=== PATIENT | female | born 1955 | race Caucasian/White ===

== ENCOUNTER 2019-12-01 06:35 | Day surgery (SDC) | payer OTHER ==
--- NOTE | 2019-11-30 16:37 | RAD REPORT ---
EXAM DESCRIPTION: Rik Rubio (2 Views)11/30/2019 4:31 pm CLINICAL HISTORY: Preop for heart catheterization COMPARISON: None FINDINGS: The lungs appear clear of acute infiltrate. The heart is normal size IMPRESSION: No acute abnormalities displayed
[2019-11-30 16:52] LABS: Absolute Lymphocytes (CBC) 1.3 K/uL (0.7-4.9); Basophils % 1.3 % (0-1.3); Hematocrit 40.9 % (36.0-45.0); Lymphocytes % 26.6 % (15.3-44.8); MPV 9.9 fL (7.6-11.3); Protime INR 0.93; RBC Red Blood Cell Count 4.32 M/uL (3.86-4.86)
[2019-11-30 16:55] LABS: Potassium 3.7 mmol/L (3.5-5.1)
--- OUTSIDE RECORDS SUMMARY | 2019-12-01 06:37 | XMS REPORT ---
:1955 Author Organization eClinicalWorks Care Team Providers Name Role Phone Sarah Barrios Provider Role Unavailable Allergies No Known Allergies Problems Problem Type Condition Code Onset Dates Condition Status Assessment Essential hypertension I10 Active Assessment Peripheral polyneuropathy G62.9 Active Problem History of bilateral mastectomy Z90.13 Active Problem History of lung cancer Z85.118 Active Problem History of breast cancer Z85.3 Active Problem Depression F32.9 Active Problem Osteoporosis M81.0 Active Problem Anxiety F41.9 Active Problem Polyarthralgia M25.50 Active Problem Peripheral edema R60.9 Active Problem Morbid (severe) obesity due to E66.01 Active excess calories Problem Morbid obesity E66.01 Active Problem History of anemia Z86.2 Active Problem Dry eyes H04.123 Active Problem Body mass index (BMI) of 45.0-49.9 Z68.42 Active in adult Problem Neck pain M54.2 Active Problem Other chronic pain G89.29 Active Problem Sinus problem J34.9 Active Problem Chronic pain syndrome G89.4 Active Problem Colon cancer screening Z12.11 Active Problem Depression with anxiety F41.8 Active Problem Skin lesions L98.9 Active Problem Foot callus L84 Active Problem Pain in right shoulder M25.511 Active Problem Pain in left shoulder M25.512 Active Problem Hypertension, unspecified type I10 Active Problem Chronic gout without tophus, M1A.9XX0 Active unspecified cause, unspecified site Problem Cancer C80.1 Active Problem Peripheral polyneuropathy G62.9 Active Problem Essential hypertension I10 Active Problem Elevated serum creatinine R79.89 Active Problem Osteoporosis without current M81.0 Active pathological fracture, unspecified osteoporosis type Problem High blood pressure I10 Active Medications Medication Code Code Instructions Start End Status Dosage System Date Date Gabapentin ND 62164996931 300 MG Orally Active 2 capsules Once a day Losartan ND 62428324167 50 MG Orally Active 1 tablet Potassium Once a day Results No Known Results Summary Purpose eClinicalWorks Submission
--- OUTSIDE RECORDS SUMMARY | 2019-12-01 06:37 | XMS REPORT ---
:1955 Author Organization eClinicalWorks Care Team Providers Name Role Phone Sophie Sarah Provider Role Unavailable Allergies, Adverse Reactions, Alerts Substance Reaction Event Type Demerol Info Not Available Drug Allergy Problems Problem Type Condition Code Onset Dates Condition Status Problem Depression F32.9 Active Problem Anxiety F41.9 Active Problem Morbid obesity E66.01 Active Problem Osteoporosis M81.0 Active Problem Sinus problem J34.9 Active Problem Cancer C80.1 Active Problem Polyarthralgia M25.50 Active Problem Depression with anxiety F41.8 Active Problem Chronic pain syndrome G89.4 Active Problem Peripheral polyneuropathy G62.9 Active Problem Foot callus L84 Active Problem Pain in left shoulder M25.512 Active Problem Hypertension, unspecified type I10 Active Problem Pain in right shoulder M25.511 Active Problem Neck pain M54.2 Active Problem Other chronic pain G89.29 Active Problem Palpitations R00.2 Active Problem Vitamin D deficiency E55.9 Active Problem High blood pressure I10 Active Problem Osteoporosis without current M81.0 Active pathological fracture, unspecified osteoporosis type Assessment Hypercholesterolemia E78.00 Active Problem Shortness of breath R06.02 Active Problem Chronic gout without tophus, M1A.9XX0 Active unspecified cause, unspecified site Assessment Shortness of breath R06.02 Active Problem Hypercholesterolemia E78.00 Active Assessment Palpitations R00.2 Active Problem Colon cancer screening Z12.11 Active Assessment Tachycardia R00.0 Active Problem Tachycardia R00.0 Active Assessment Lymphedema I89.0 Active Problem Lymphedema I89.0 Active Problem History of breast cancer Z85.3 Active Problem Morbid (severe) obesity due to E66.01 Active excess calories Problem History of bilateral mastectomy Z90.13 Active Problem History of anemia Z86.2 Active Problem Elevated serum creatinine R79.89 Active Problem History of lung cancer Z85.118 Active Problem Essential hypertension I10 Active Assessment Need for influenza vaccination Z23 Active Problem Skin lesions L98.9 Active Assessment Vitamin D deficiency E55.9 Active Problem Dry eyes H04.123 Active Problem Peripheral edema R60.9 Active Problem Body mass index (BMI) of 45.0-49.9 Z68.42 Active in adult Medications Medication Code Code Instructions Start End Status Dosage System Date Date Lasix [facility] 86433777106 20 mg Orally Active 1 tablet Once a day as needed for leg swelling BusPIRone HCl [facility] 87518050561 15 MG Orally Active 1-1/2 Once a day tablets Magnesium [facility] 23566568969 400 MG Orally Active as directed Losartan [facility] 89791820543 50 MG Orally Active 1 tablet Potassium Once a day Sertraline HCl [facility] 26222056098 100 mg Orally Active 1 tablet Once a day Sertraline HCl [facility] 38348377654 50 MG Orally Active 1 tablet Once a day Vitamin D [facility] 53792503666 1.25 MG (Oct 13, Jan 11, Active 1 capsule (Ergocalciferol [place]) Orally Once 2018 2019 ) weekly Gabapentin [facility] 85979813041 300 MG Orally Active 2 capsules Once a day Hydrocodone-Ernesto [facility] 94435769246 5-325 MG Orally Active 1 tablet as taminophen every 6 hrs needed Allopurinol [facility] 69277018476 100 mg Orally Active 1 tablet Once a day Lorazepam [facility] 88404515477 1 MG Orally Active 1 tablet at Once a day bedtime as needed Results No Known Results Immunizations Vaccine Administration Date Flucelvax - single dose syringe Oct 13, 2019 Summary Purpose eClinicalWorks Submission
--- OUTSIDE RECORDS SUMMARY | 2019-12-01 06:38 | XMS REPORT ---
[...] Active pathological fracture, unspecified osteoporosis type Problem Shortness of breath R06.02 Active Problem Chronic gout without tophus, M1A.9XX0 Active unspecified cause, unspecified site Problem Hypercholesterolemia E78.00 Active Problem Colon cancer screening Z12.11 Active Problem Tachycardia R00.0 Active Problem Lymphedema I89.0 Active Problem History of breast cancer Z85.3 Active Problem Morbid (severe) obesity due to E66.01 Active excess calories Problem History of bilateral mastectomy Z90.13 Active Problem History of anemia Z86.2 Active Problem Elevated serum creatinine R79.89 Active Problem History of lung cancer Z85.118 Active Problem Essential hypertension I10 Active Problem Skin lesions L98.9 Active Problem Dry eyes H04.123 Active Problem Peripheral edema R60.9 Active Problem Body mass index (BMI) of 45.0-49.9 Z68.42 Active in adult Medications Medication Code System Code Instructions Start Date End Date Status Dosage Furosemide [facility] 55640220025 20 MG Oral Jul 09, Active TK 1 T PO D 2018 PRF LEG SWELLING Results No Known Results Summary Purpose eClinicalWorks Submission
--- OUTSIDE RECORDS SUMMARY | 2019-12-01 06:38 | XMS REPORT ---
[...] of 45.0-49.9 Z68.42 Active in adult Medications No Known Medications Results No Known Results Summary Purpose eClinicalWorks Submission
--- OUTSIDE RECORDS SUMMARY | 2019-12-01 06:38 | XMS REPORT ---
:1955 Author Organization eClinicalWorks Care Team Providers Name Role Phone Sarah Barrios Provider Role Unavailable Allergies No Known Allergies Problems Problem Type Condition Code Onset Dates Condition Status Problem Osteoporosis M81.0 Active Problem Depression F32.9 Active Problem Sinus problem J34.9 Active Problem Morbid obesity E66.01 Active Problem Cancer C80.1 Active Problem Polyarthralgia M25.50 Active Problem Depression with anxiety F41.8 Active Problem Chronic pain syndrome G89.4 Active Problem Peripheral polyneuropathy G62.9 Active Problem Hypertension, unspecified type I10 Active Problem Pain in left shoulder M25.512 Active Problem Pain in right shoulder M25.511 Active Problem Chronic gout without tophus, M1A.9XX0 Active unspecified cause, unspecified site Problem Other chronic pain G89.29 Active Problem Colon cancer screening Z12.11 Active Problem Neck pain M54.2 Active Problem Shortness of breath R06.02 Active Problem Palpitations R00.2 Active Problem Elevated serum creatinine R79.89 Active Problem High blood pressure I10 Active Assessment Chronic pain syndrome G89.4 Active Problem Venous insufficiency (chronic) I87.2 Active (peripheral) Problem Osteoporosis without current M81.0 Active pathological fracture, unspecified osteoporosis type Assessment Shortness of breath R06.02 Active Problem Lymphedema I89.0 Active Assessment Lymphedema I89.0 Active Problem Hypercholesterolemia E78.00 Active Assessment Venous insufficiency (chronic) I87.2 Active (peripheral) Problem Vitamin D deficiency E55.9 Active Assessment Morbid obesity E66.01 Active Problem Tachycardia R00.0 Active Problem History of bilateral mastectomy Z90.13 Active Problem Morbid (severe) obesity due to E66.01 Active excess calories Problem Anxiety F41.9 Active Problem History of anemia Z86.2 Active Problem History of lung cancer Z85.118 Active Problem Essential hypertension I10 Active Problem History of breast cancer Z85.3 Active Problem Body mass index (BMI) of 45.0-49.9 Z68.42 Active in adult Assessment Polyarthralgia M25.50 Active Problem Dry eyes H04.123 Active Problem Foot callus L84 Active Problem Peripheral edema R60.9 Active Problem Skin lesions L98.9 Active Medications No Known Medications Results No Known Results Summary Purpose eClinicalWorks Submission
[2019-12-01] MEDS ORDERED: LIDOCAINE 1% MPF 30 ML VIAL ONE (06:42)
[2019-12-01] MEDS ORDERED: HEPA 1000U/500MLS 1,000 UNIT/500 ML BAG IV ONE (06:42)
--- NOTE | 2019-12-01 06:46 | EKG ---
Test Date: 2019-11-30 Test Time: 15:56:55 Bead Cutter: GILDA MEASUREMENT RESULTS: Intervals: Rate: 73 OR: 146 QRSD: 84 QT: 390 QTc: 429 [place]: P: 37 OR: 146 QRS: 48 T: 46 INTERPRETIVE STATEMENTS: Normal sinus rhythm Normal ECG Compared to ECG 06/03/2019 14:06:09 ST (T wave) deviation no longer present Electronically Signed On 12-01-19 06:45:06 LEAD RAMP AGENT by Manolo Boles
[2019-12-01] MEDS ORDERED: NA CHLORIDE 0.9% 500 ML ONE (07:01)
[2019-12-01] MEDS ORDERED: MIDAZOLAM HCL 5 MG/5 ML INJ ONE (07:40)
[2019-12-01] MEDS ORDERED: FENTANYL CITR 100 MCG/2 ML ONE (07:40)
[2019-12-01] MEDS ORDERED: ATROPINE SULF 1 MG/10 ML SYR IV ONE (07:41)
[2019-12-01] MEDS ORDERED: NA CHLORIDE 0.9% 0 ML IV ONE (07:41)
[2019-12-01 08:28] VITALS: TEMP 98.3
[2019-12-01 08:38] VITALS: O2SAT 99
[2019-12-01 09:53] VITALS: BP 128/37
--- NOTE | 2019-12-01 13:27 | OP ---
Date of Procedure: 12/01/2019 Surgeon: Manolo Boles MD High School Counselor: Pastora Bolton. The patient will be going home today and I will see her in the office in about 2 weeks. Procedure: Left heart catheterization and selective coronary arteriogram. Indication: Chest pain, unstable angina, abnormal stress test. History Of Present Illness: Ms. Jansen is 64. She was brought to the agriculture laboratory technician today as an outpatient, prepped and draped in the routine sterile fashion. A 6-Divehi sheath introduced in the right common femoral artery successfully. Angiography there was normal. Angio-Seal was used to close the case. She received 3 mg of Versed and 25 of fentanyl for sedation. Six-Divehi catheters, Clarence left and right were introduced in the left main and the right main respectively. She had perfectly normal co ronaries. Left main was normal. LAD, circumflex were normal. She was left dominant. RCA was small and normal. There were no complications. Blood Loss: 5 mL. Postoperative Diagnosis: Normal coronary with chest pain syndrome. Plan: To continue medical therapy. BRENDA/SAL Voice ID: [id number] Report ID: [id number]
== END 2019-12-01 10:15 | disposition home or self-care (01) ==
LOC: CCL 06:35
PROC: B201YZZ Plain Radiography of Multiple Coronary Arteries using Other Contrast (ICD-10-PCS; principal; 2019-12-01)
DX: I20.0 Unstable angina (principal); R06.00 Dyspnea, unspecified; R00.2 Palpitations; I10 Essential (primary) hypertension; G62.9 Polyneuropathy, unspecified; M10.9 Gout, unspecified; E66.9 Obesity, unspecified; G47.30 Sleep apnea, unspecified; Z85.3 Personal history of malignant neoplasm of breast; Z85.118 Personal history of other malignant neoplasm of bronchus and lung; Z86.711 Personal history of pulmonary embolism
CPT/HCPCS: 93005; 85025; 80048; 36415; 85610; 85730; 71046; 93454; C1893; C1760; J2250; J3010; J7040; J0583

== ENCOUNTER 2021-04-02 15:50 | Emergency (ER) | payer OTHER ==
--- OUTSIDE RECORDS SUMMARY | 2021-04-02 15:53 | XMS REPORT | Continuity of Care Document ---
:1955 Author Organization [facility] t Address [address] [place] [address] Care Team Providers Name Role Phone Wiliam Becker Attending Clinician Doctor Unassigned, Name Attending Clinician Unavailable Christiana Quezada Attending Clinician Problems Condition Condition Condition Status Onset Resolution Last Treating Co mments Source Name Details Category Date Date Treatment Clinician Date LYMPHEDEMA Diagnosis Active 2020-02-06 [facility] 01-29 14:23:00 l 00:00: Oleg LYMPHEDEMA 00 Active 01/30/2020 [facility] Allergies, Adverse Reactions, Alerts Allergy Allergy Status Severity Reaction(s) Onset Inactive Treating Comm ents Source Name Type Date Date Clinician Demerol Adverse Active Info Not [facility] Reaction [facility] levaquin Adverse Active Info [facility] Medications Ordered Filled Start Stop Current Ordering Indication Dosage Frequency Signature Comments Components Source Medication Medication Date Date Medication? Clinician (SIG) Name Name Vitamin D Vitamin D Yes Sarah (otc) [address] [facility] 2[facility] capsule [facility] Furosemide Furosemide Yes Sarah TK [address] [facility] 8[facility]17 [place] D PRF LEG [facility] Sertraline Sertraline Yes Sarah [address] [facility] HCl HCl Mill[facility] (take with Luke [facility] - sertraline [facility] 100 mg) [facility] BusPIRone BusPIRone Yes Sarah 1-1/[address] [facility] HCl HCl [place] tablet as [facility] needed for [facility] anxiety [facility] Lasix Lasix Yes Sarah [address] [facility] Mill[facility] Magnesium Magnesium Yes Sarah as [facility] directed [facility] Gabapentin Gabapentin Yes Sarah as [facility] Hydrocodone Hydrocodone Yes Sarah [address] [facility] -Acetaminop -Acetaminop [facility] as [facility] Lorazepam Lorazepam Yes Sarah [address] [facility] Millender at bedtime [facility] - as needed [facility] Losartan Losartan Yes Sarah [address] [facility] Potassium Potassium [facility] Sertraline Sertraline Yes Sarah [address] [facility] HCl HCl [facility] Allopurinol Allopurinol 2020- No Sarah [address] [facility] 11[facility]15 Mill[facility] Immunizations Ordered Filled Immunization Date Status Comments [facility] e Immunization Name Name Flucelvax - single Flucelvax - single 2019-10-[address] [facility] - dose syringe dose syringe 00:00:00 [facility] Procedures This patient has no known procedures. Encounters Start End Encounter Admission Attending Care Care Encounter Source Date/Time Date/Time Type Type Clinicians Facility Department ID 2021-03-28 2021-03-28 Outpatient [facility] [id number] [facility] 2021-03-28 2021-03-28 Outpatient [facility] [id number] [facility] 2021-03-11 2021-03-11 Outpatient [facility] [id number] [facility] 2021-03-07 2021-03-07 [facility] [id number] [facility] 2021-03-06 2021-03-06 [facility] [id number] [facility] 2021-02-07 2021-02-07 Out[facility] [id number] [facility] 2021-02-05 2021-02-05 [facility] [id number] [facility] 2021-02-05 2021-02-05 [facility] [id number] [facility] 2021-02-04 2021-02-04 [facility] [id number] [facility] 2021-01-28 2021-01-28 Out[facility] [id number] [facility] 2021-01-22 2021-01-22 Out[facility] [id number] [facility] 2021-01-22 2021-01-22 Out[facility] [id number] [facility] 2021-01-02 2021-01-02 [facility] [id number] 14:45:00 23:59:00 Mary Prince [id number] [place] [id number] [place] [id number] 2021-01-02 2021-01-02 Gerri GRIFFITH [id number] 00:00:00 00:00:00 Only Unassigned, ALE [id number] [place] [facility] [id number] 2020-12-04 2020-12-04 [id number] 2020-08-29 2020-08-29 [facility] [id number] [facility] 2020-08-24 2020-08-24 [facility] [id number] [facility] 2020-05-24 2020-05-24 [facility] [id number] [facility] 15:20:00 15:20:00 [facility] Clin[facility] 2020-02-06 2020-03-06 Outpatient [facility] [id number] 14:00:00 23:59:00 Andrzej Villeda 00 2020-02-06 2020-03-06 Outpatient Damien [facility] [id number] 14:00:00 23:59:00 Andrzej Villeda 00 2020-02-06 2020-02-06 Outpatient [facility] 9600 [facility] 14:00:00 14:00:00 2020-01-11 2020-01-11 [facility] [id number] [facility] 11:45:00 11:45:00 [facility] Clinics 2020-01-10 2020-01-10 [facility] [id number] [facility] 14:30:00 14:30:00 [facility] Clin[facility] 2020-01-09 2020-01-09 [facility] [id number] [facility] 13:30:00 13:30:00 t Specialty/U Silvana kes - [facility] 2019-12-26 2019-12-26 [facility] [id number] [facility] 11:05:00 11:05:00 t [facility] Outpat[facility] Clinics 2019-11-13 2019-11-13 [facility] [id number] [facility] 13[facility]57:00 13:57:00 t [facility] 2019-10-18 2019-10-18 [facility] [id number] [facility] 16:57:00 16:57:00 t [facility] Outpat[facility] Clin[facility] 2019-10-13 2019-10-13 [facility] [id number] 23:20:00 23:20:00 t [facility] Outpati ent Clinics 2019-10-13 2019-10-13 [facility] [id number] [facility] 15:00:00 15:00:00 t [facility] Out[facility] Clin[facility] 2019-08-16 2019-08-16 [facility] [id number] [facility] 13:34:00 13:34:00 t [facility] Outpati ent Clinics 2019-07-22 2019-07-22 [facility] [id number] [facility] 14:00:00 14:00:00 t [facility] Out[facility] Clin[facility] 2019-07-18 2019-07-18 [facility] [id number] [facility] 20:00:00 20:00:00 t [facility] 2019-07-14 2019-07-14 [facility] [id number] [facility] 13:00:00 13:00:00 t [facility] 2019-06-29 2019-06-29 [facility] [id number] [facility] 11:57:00 11:57:00 t [facility] Out[facility] Clin[facility] 2019-03-24 2019-03-24 [facility] [id number] [facility] 21:45:00 21:45:00 t [facility] Medicine Outpati ent Clinics 2019-03-24 2019-03-24 [facility] [id number] [facility] 14:27:00 14:27:00 [facility] Clin[facility] 2019-03-22 2019-03-22 [facility] [id number] [facility] 13:20:00 13:20:00 [facility] Out[facility] Clin[facility] 2019-03-21 2019-03-21 [facility] [id number] [facility] 09:12:00 09:12:00 [facility] Out[facility] Clinics 2019-01-31 2019-01-31 [facility] [id number] [facility] 13:23:00 13:23:00 t [facility] Medicine Outpati ent Clinics 2019-01-17 2019-01-17 [facility] [id number] [facility] 10:30:00 10:30:00 [facility] Clin[facility] 2018-12-22 2018-12-22 [facility] [id number] [facility] 09:09:00 09:09:00 [facility] Out[facility] Clin[facility] 2018-12-15 2018-12-15 [facility] [id number] [facility] 11:45:00 11:45:00 t [facility] Medicine Outpati ent Clinics 2018-12-09 2018-12-09 [facility] [id number] [facility] 10[facility]38:00 10:38:00 [facility] Clinics Results This patient has no known results.
--- NOTE | 2021-04-02 17:52 | RAD REPORT ---
EXAM DESCRIPTION: Shoulder Right 2 View - 04/02/2021 5:39 pm CLINICAL HISTORY: PAINfall with shoulder pain COMPARISON: Shoulder Right 2 View dated 07/18/2019 TECHNIQUE: Internal and external rotation views of the right shoulder were obtained. FINDINGS: There is no fracture or dislocation. AC joint degenerative changes are present with narro wing of the acromial humeral joint space and inferiorly directed clavicle and acromion spurs. No acut e or suspicious findings. IMPRESSION: Right AC joint and acromion degenerative change as detailed. No fracture or dislocation.
--- NOTE | 2021-04-02 17:53 | RAD REPORT ---
EXAM DESCRIPTION: RAD - Elbow Left 3 View - 04/02/2021 5:39 pm CLINICAL HISTORY: PAIN COMPARISON: None. FINDINGS: No fracture is identified and no elevated posterior fat pad. There is no dislocation or pe riosteal reaction noted. Minimal degenerative spurring along the radial head. No foreign body or othe r soft tissue abnormality. IMPRESSION: Negative left elbow examination for acute or significant finding.
--- NOTE | 2021-04-02 17:55 | RAD REPORT ---
EXAM DESCRIPTION: RAD - Femur Right - 04/02/2021 5:39 pm CLINICAL HISTORY: PAIN, fall from a standing position COMPARISON: No comparisons FINDINGS: No fracture, dislocation or periosteal reaction noted. The joint assessment is limited by the extent of overlying soft tissues. Medial compartment narrowing at the knee joint with marginal spurring. There is spurring along the ti bial spine and minimal spurring in the lateral compartment. No joint effusion confirmed. No acute pat colette finding. No air or foreign body in the soft tissues. IMPRESSION: Knee joint degenerative change present as detailed. No hip joint or femur fracture seen. Hip joint detail is limited due to body habitus.
--- NOTE | 2021-04-02 17:57 | RAD REPORT ---
EXAM DESCRIPTION: RAD - Knee Right 3 View - 04/02/2021 5:39 pm CLINICAL HISTORY: PAINfall with knee pain COMPARISON: Knee Right 2 View dated 02/04/2021; Knees Mario Alberto Standing dated 02/04/2021 FINDINGS: No fracture, dislocation or periosteal reaction.No joint effusion seen. Medial compartment narrowing is present with marginal spurring. This pattern matches the recent February 04 study. Margina l spurring at patella noted as well. No foreign body or other soft tissue abnormality. IMPRESSION: Knee joint degenerative changes are present similar to comparison. No acute findings see n.
--- NOTE | 2021-04-02 17:57 | RAD REPORT ---
EXAM DESCRIPTION: RAD - Pelvis - 04/02/2021 5:39 pm CLINICAL HISTORY: fall, pain COMPARISON: No comparisons TECHNIQUE: AP imaging of the pelvis was obtained. FINDINGS: Lower lumbar degenerative change present only partially evaluated. Moderate SI joint degen erative change seen. No fracture of the bony pelvis seen. Each ischium is excluded from view. Density of overlying soft tissues limits the examination. IMPRESSION: Limited pelvis examination showing no fracture or acute finding.
--- NOTE | 2021-04-02 18:07 | ER ---
Nurse's Notes [facility] Name: Jeanine Jansen Age: 65 yrs Sex: Female : 1955 Arrival Date: 04/02/2021 Time: 15:58 Bed 5 Private MD: Diagnosis: Contusion of right shoulder;Contusion of right hip;Contusion of right knee Presentation: 04/02 15:58 Chief complaint: Chief complaint: EMS states: fall from standing onto right knee. Pt aa5 c/o right knee pain and right hip pain. EMS reports pt was unable to get up from floor after falling. 15:58 Method Of Arrival: EMS: [facility] aa5 15:58 Coronavirus screen: At this time, the client does not indicate any symptoms associated aa5 with coronavirus-19. Ebola Screen: Patient negative for fever greater than or equal to 101.5 degrees Fahrenheit, and additional compatible Ebola Virus Disease symptoms. Initial Sepsis Screen: Does the patient meet any 2 criteria? No. Patient's initial sepsis screen is negative. Does the patient have a suspected source of infection? No. Patient's initial sepsis screen is negative. Risk Assessment: Do you want to hurt yourself or someone else? Patient reports no desire to harm self or others. Onset of symptoms was March 2021. 15:58 Acuity: ISSAC 4 aa5 Historical: - Allergies: 15:58 Demerol; aa5 15:58 Lisinopril; aa5 - PMHx: 15:58 Lung CA; Breast CA; Hypertension; Arthritis; aa5 - PSHx: 15:58 Partial R Lobectomy; aa5 - Immunization history:: Adult Immunizations unknown. - Family history:: not pertinent. - Social history:: Smoking status: unknown. - Hospitalizations: : No recent hospitalization is reported. Screenin:15 Abuse screen: Denies threats or abuse. Nutritional screening: No deficits noted. jd3 Tuberculosis screening: No symptoms or risk factors identified. Fall Risk Ambulatory Aid- None/Bed Rest/Nurse Assist (0 pts). Gait- Normal/Bed Rest/Wheelchair (0 pts) Mental Status- Oriented to own ability (0 pts). Total Hu Fall Scale indicates No Risk (0-24 pts). Assessment: 17:14 General: Appears in no apparent distress. uncomfortable, Behavior is calm, cooperative, jd3 appropriate for age. Pain: Complains of pain in right knee Quality of pain is described as aching, tender. Neuro: Level of Consciousness is awake, alert, obeys commands, Oriented to person, place, time, situation. Cardiovascular: Denies chest pain, Capillary refill < 3 seconds Patient's skin is warm and dry. Respiratory: Airway is patent Respiratory effort is even, unlabored, Respiratory pattern is regular, symmetrical. GI: No signs and/or symptoms were reported involving the gastrointestinal system. : No signs and/or symptoms were reported regarding the genitourinary system. EENT: No signs and/or symptoms were reported regarding the EENT system. Derm: Skin is intact, Skin is dry, Skin is normal, Skin temperature is warm. Musculoskeletal: Circulation, motion, and sensation intact. Range of motion: limited in right knee. 18:46 Reassessment: Patient appears in no apparent distress at this time. Patient and/or jd3 family updated on plan of care and expected duration. Pain level reassessed. Patient is alert, oriented x 3, equal unlabored respirations, skin warm/dry/pink. report understanding of discharge instructions, assisted pt to front of ER with wheelchair. Vital Signs: 15:58 BP 129 / 57; Pulse 105; Resp 18 S; Temp 97.8(TE); Pulse Ox 97% on R/A; aa5 17:16 BP 118 / 55; Pulse 95; Resp 19 S; Pulse Ox 98% on R/A; jd3 18:30 Pulse 92; Resp 18 S; Pulse Ox 98% on R/A; jd3 ED Course: 15:58 Patient arrived in ED. aa5 15:58 Arm band placed on Patient placed in an exam room, on a stretcher. aa5 16:22 Adin Grover MD is Attending Physician. rn 16:26 Triage completed. aa5 16:36 Issac Wilkes RN is Primary Nurse. jd3 17:16 Patient has correct armband on for positive identification. Bed in low position. Call j light in reach. Side rails up X2. Adult w/ patient. Pulse ox on. NIBP on. 17:39 XRAY Pelvis In Process Unspecified. EDMS 17:39 XRAY Femur RIGHT In Process Unspecified. EDMS 17:39 XRAY Knee RIGHT 3 view In Process Unspecified. EDMS 17:39 XRAY Shoulder RIGHT 2 view In Process Unspecified. EDMS 17:39 XRAY Elbow LEFT 3 view In Process Unspecified. EDMS 18:48 No provider procedures requiring assistance completed. Patient did not have IV access jd3 during this emergency room visit. Administered Medications: No medications were administered Outcome: 18:05 Discharge ordered by . rn 18:48 Discharged to home via wheelchair, with family. jd3 18:48 Condition: stable 18:48 Discharge instructions given to patient, family, Instructed on discharge instructions, follow up and referral plans. Demonstrated understanding of instructions, follow-up care. 18:50 Patient left the ED. jd3 Signatures: Dispatcher [employer] EDMS Adin Grover MD MD rn Calderon, Audri RN RN Issac Rea RN RN jd3 Corrections: (The following items were deleted from the chart) 16:26 15:58 Chief complaint: aa5 aa5 18:49 17:16 BP 188 / 55; Pulse 95bpm; Resp 19bpm; Spontaneous; Pulse Ox 98% RA; jd3 jd3 18:50 17:16 Pulse 92bpm; Resp 18bpm; Spontaneous; Pulse Ox 98% RA; jd3 jd3
--- NOTE | 2021-04-02 18:07 | EDPHYS ---
Physician Documentation [facility] Name: Jeanine Jansen Age: 65 yrs Sex: Female : 1955 Arrival Date: 04/02/2021 Time: 15:58 Bed 5 Private MD: ED Physician Adin Grover HPI: 04/02 16:35 This 65 yrs old Female presents to ER via EMS with complaints of Fall Injury. rn 16:35 Details of fall: The patient fell from an upright position. Onset: The symptoms/episode rn began/occurred just prior to arrival. Associated injuries: The patient sustained right shoulder, right knee, right hip, left elbow. Severity of symptoms: At their worst the symptoms were moderate, in the emergency department the symptoms have improved. The patient has experienced similar episodes in the past. The patient has not recently seen a physician. Reports fall from standing, tripped over step into house, landed on right hip/right knee/right shoulder. . Historical: - Allergies: 15:58 Demerol; aa5 15:58 Lisinopril; aa5 - PMHx: 15:58 Lung CA; Breast CA; Hypertension; Arthritis; aa5 - PSHx: 15:58 Partial R Lobectomy; aa5 - Immunization history:: Adult Immunizations unknown. - Family history:: not pertinent. - Social history:: Smoking status: unknown. - Hospitalizations: : No recent hospitalization is reported. ROS: 16:35 Constitutional: Negative for fever, chills, and weight loss, Eyes: Negative for injury, rn pain, redness, and discharge, Neck: Negative for injury, pain, and swelling, Cardiovascular: Negative for chest pain, palpitations, and edema, Respiratory: Negative for shortness of breath, cough, wheezing, and pleuritic chest pain, Abdomen/GI: Negative for abdominal pain, nausea, vomiting, diarrhea, and constipation, Back: Negative for injury and pain, MS/Extremity: + right shoulder/right hip/right knee/left elbow pain Skin: Negative for injury, rash, and discoloration, Neuro: Negative for headache, weakness, numbness, tingling, and seizure. Exam: 16:35 Constitutional: This is a well developed, well nourished patient who is awake, alert, rn and in no acute distress. Head/Face: Normocephalic, atraumatic. Neck: No vertebral point tenderness Chest/axilla: Normal chest wall appearance and motion. Nontender with no deformity. Cardiovascular: Tachycardic, regular Respiratory: No increased work of breathing, no retractions or nasal flaring. Abdomen/GI: soft, non-tender Skin: Warm, dry, no open wounds MS/ Extremity: Pulses equal, no cyanosis. Neurovascular intact. Mild painful ROM right knee and right hip, but able to extend/flex. Neuro: Awake and alert, GCS 15, oriented to person, place, time, and situation. Cranial nerves II-XII grossly intact. Motor strength 5/5 in all extremities. Sensory grossly intact. Vital Signs: 15:58 BP 129 / 57; Pulse 105; Resp 18 S; Temp 97.8(TE); Pulse Ox 97% on R/A; aa5 17:16 BP 118 / 55; Pulse 95; Resp 19 S; Pulse Ox 98% on R/A; jd3 18:30 Pulse 92; Resp 18 S; Pulse Ox 98% on R/A; jd3 MDM: 16:22 Patient medically screened. rn 18:04 Differential diagnosis: contusion, fracture, sprain, strain. Data reviewed: vital rn signs, nurses notes, radiologic studies, plain films, and as a result, I will discharge patient. Counseling: I had a detailed discussion with the patient and/or guardian regarding: the historical points, exam findings, and any diagnostic results supporting the discharge/admit diagnosis, radiology results, the need for outpatient follow up, to return to the emergency department if symptoms worsen or persist or if there are any questions or concerns that arise at home. Response to treatment: the patient's symptoms have mildly improved after treatment, and as a result, I will discharge patient. Special discussion: I discussed with the patient/guardian in detail that at this point there is no indication for admission to the hospital. It is understood, however, that if the symptoms persist or worsen the patient needs to return immediately for re-evaluation. 04/02 16:33 Order name: XRAY Pelvis; Complete Time: 17:58 rn 04/02 16:33 Order name: XRAY Femur RIGHT; Complete Time: 17:58 rn 04/02 16:33 Order name: XRAY Knee RIGHT 3 view; Complete Time: 17:58 rn 04/02 16:33 Order name: XRAY Shoulder RIGHT 2 view; Complete Time: 17:58 rn 04/02 16:33 Order name: XRAY Elbow LEFT 3 view; Complete Time: 17:58 rn Administered Medications: No medications were administered Disposition: 04/02/21 18:05 Discharged to Home. Impression: Contusion of right shoulder, Contusion of right hip, Contusion of right knee. - Condition is Stable. - Discharge Instructions: Contusion, Knee Pain. - Medication Reconciliation Form, Thank You Letter, Antibiotic Education, Prescription Opioid Use form. - Follow up: Private Physician; When: As needed; Reason: Recheck today's complaints, Re-evaluation by your physician. - Problem is new. - Symptoms have improved. Signatures: Dispatcher [employer] EDMS Adin Grover MD MD rn Calderon, Audri, RN RN aa5 Issac Wilkes RN RN jd3 Corrections: (The following items were deleted from the chart) 18:50 18:05 04/02/2021 18:05 Discharged to Home. Impression: Contusion of right shoulder; jd3 Contusion of right hip; Contusion of right knee. Condition is Stable. Forms are Medication Reconciliation Form, Thank You Letter, Antibiotic Education, Prescription Opioid Use. Follow up: Private Physician; When: As needed; Reason: Recheck today's complaints, Re-evaluation by your physician. Problem is new. Symptoms have improved. rn
[2021-04-02 18:55] VITALS: TEMP 97.8
[2021-04-02 18:56] VITALS: BP 118/55; O2SAT 98
== END 2021-04-02 18:50 | disposition home or self-care (01) ==
LOC: ER 15:50
DX: S70.01XA Contusion of right hip, initial encounter (principal); S80.01XA Contusion of right knee, initial encounter; W01.198A Fall on same level from slipping, tripping and stumbling with subsequent striking against other object, initial encounter; Y93.01 Activity, walking, marching and hiking; Y92.009 Unspecified place in unspecified non-institutional (private) residence as the place of occurrence of the external cause; I10 Essential (primary) hypertension; Z85.3 Personal history of malignant neoplasm of breast; Z85.118 Personal history of other malignant neoplasm of bronchus and lung; Z88.5 Allergy status to narcotic agent; Z88.8 Allergy status to other drugs, medicaments and biological substances; Z90.2 Acquired absence of lung [part of]
CPT/HCPCS: 72170; 99283

== ENCOUNTER 2021-09-28 16:17 | Emergency (ER) | payer OTHER ==
[2021-09-28] MEDS ORDERED: MORPHINE 4 MG/ML SYR ONE (16:43)
[2021-09-28] MEDS ORDERED: ONDANSETRON 4 MG/2 ML VIAL ONE (16:43)
--- NOTE | 2021-09-28 18:08 | RAD REPORT ---
EXAM DESCRIPTION: RAD - Knee Left 3 View - 09/28/2021 5:56 pm CLINICAL HISTORY: PAIN COMPARISON: Knee Left 2 View dated 02/04/2021 FINDINGS: Moderate tricompartmental degenerative changes are noted. This is most advanced in the med ial compartment with moderate to severe joint space narrowing and near dhoj-iu-orlo contact. Mild to moderate joint space narrowing is present laterally. Moderate patellofemoral compartment spurring. IMPRESSION: No acute osseous abnormality involving the left knee.
--- NOTE | 2021-09-28 18:09 | RAD REPORT ---
EXAM DESCRIPTION: RAD - Shoulder Left 2 View - 09/28/2021 5:56 pm CLINICAL HISTORY: PAIN COMPARISON: Shoulder Left 2 View dated 07/18/2019 FINDINGS: No acute fracture. No malalignment. At least mild degenerative changes involving the left glenohumeral joint. Mild subacromial spurring. IMPRESSION: No acute osseous abnormality involving the left shoulder.
--- NOTE | 2021-09-28 18:30 | RAD REPORT ---
EXAM DESCRIPTION: CT - CTHCSPWOC - 09/28/2021 6:21 pm CLINICAL HISTORY: Trauma, head and neck injury. PAIN COMPARISON: No comparisons TECHNIQUE: Axial 5 mm thick images of the head were obtained. Axial 2 mm thick images of the cervical spine were obtained with sagittal and coronal reconstruction images generated and reviewed. All CT scans are performed using dose optimization technique as appropriate and may include automated exposure control or mA/KV adjustment according to patient size. FINDINGS: CT HEAD WITHOUT CONTRAST: No acute hemorrhage, hydrocephalus or extra-axial collection is identified.No areas of brain edema or midline shift. Bifrontal and right temporal lobe encephalomalacia. The paranasal sinuses and mastoids are clear.The calvarium is intact. CT CERVICAL SPINE WITHOUT CONTRAST: No fracture or subluxation.No prevertebral soft tissues swelling is identified. Multilevel degenerati ve changes are present in the spine. Varying degrees of neural foraminal narrowing noted. This is mos t advanced at the C5-6 level. There may also be mild central spinal stenosis at this level. Large lef t thyroid mass versus masses. If a single nodule, it measures over 3 cm. IMPRESSION: No acute intracranial or cervical spine findings. Bifrontal and bitemporal lobe encephalomalacia suggesting sequela of remote trauma. Thyroid nodule versus nodules. Recommend nonemergent thyroid ultrasound.
--- NOTE | 2021-09-28 18:32 | RAD REPORT ---
EXAM DESCRIPTION: CT - Spine Lumbar Wo Con - 09/28/2021 6:21 pm CLINICAL HISTORY: PAIN COMPARISON: No comparisons TECHNIQUE: Axial noncontrast CT imaging of the lumbar spine was performed with coronal and sagittal re-formatted images. All CT scans are performed using dose optimization technique as appropriate and may include automated exposure control or mA/KV adjustment according to patient size. FINDINGS: No acute lumbar spine fracture seen. No aggressive marrow pattern or malalignment. Multile herman degenerative changes are present in the spine. Vacuum disc phenomenon at every single level as we ll as diffuse disc height loss. Neural foraminal narrowing is noted at multiple levels but most advan bessy at L4-5 and L5-S1 Paraspinal tissues are normal in thickness. No paraspinal abscess or hematoma seen. Intervertebral disc disease assessment is inherently limited by CT. Within these limitations, no high -grade canal stenosis suspected. IMPRESSION: No lumbar spine fracture. Moderate degenerative disc disease.
--- NOTE | 2021-09-28 18:33 | RAD REPORT ---
EXAM DESCRIPTION: CT - Thoracic Spine W/o Cont - 09/28/2021 6:21 pm CLINICAL HISTORY: PAIN COMPARISON: Head C Spine Mpr Wo Con dated 09/28/2021 TECHNIQUE: Axial CT imaging through the thoracic spine was performed with coronal and sagittal re-fo rmatted images. All CT scans are performed using dose optimization technique as appropriate and may include automated exposure control or mA/KV adjustment according to patient size. FINDINGS: Vertebral body heights and disc spaces are maintained. A compression fracture is not prese nt. No significant disc space narrowing. Multilevel degenerative changes are present in the spine. Thoracic spine alignment is within normal limits. No paraspinal masses or hematoma. Intervertebral disc detail is inherently limited on CT without gross findings of canal compromise. IMPRESSION: No acute fracture or traumatic malalignment of the thoracic spine.
--- NOTE | 2021-09-28 18:40 | EDPHYS ---
Physician Documentation [facility] Name: Jeanine Jansen Age: 66 yrs Sex: Female : 1955 Arrival Date: 09/28/2021 Time: 16:21 Bed 5 Private MD: ED Physician Molly Chapman HPI: 09/28 16:48 This 66 yrs old Female presents to ER via EMS with complaints of Fall injury. pm1 16:48 Details of fall: The patient fell from an upright position, while walking, and struck a pm1 tile surface. Onset: The symptoms/episode began/occurred today. Associated injuries: The patient sustained injury to the head, neck injury, upper back injury, injury to the low back, left shoulder and left knee. Severity of symptoms: in the emergency department the symptoms are unchanged. The patient has not experienced similar symptoms in the past, Patient reports history of arthritis and chronic pain to bilateral knees and low back. The patient has been recently seen by a physician: Patient reports "ablation of nerves" to left knee on due to arthritis to left knee. Patient reports that she is not a candidate for knee replacement surgery due to morbid obesity. 16:48 Patient was walking with her walker and had difficulty moving her left knee. Patient pm1 fell backwards hitting her head on the kitchen floor. Historical: - Allergies: 16:24 Demerol; jd3 16:24 Lisinopril; jd3 - Home Meds: 16:24 Allopurinol Oral [Active]; Buspirone Oral [Active]; Furosemide Oral [Active]; jd3 gabapentin oral [Active]; losartan oral [Active]; sertraline oral [Active]; - PMHx: 16:24 Arthritis; BREAST CA; Hypertension; Lung CA; jd3 - PSHx: 16:24 KATHRINE masectomy; Lobectomy of lung; jd3 - Immunization history:: Adult Immunizations up to date, Client reports receiving the 2nd dose of the Covid vaccine. - Social history:: Smoking status: Patient denies any tobacco usage or history of. ROS: 16:48 Constitutional: Negative for fever, chills, and weight loss, Cardiovascular: Negative pm1 for chest pain, palpitations, and edema, Respiratory: Negative for shortness of breath, cough, wheezing, and pleuritic chest pain, Abdomen/GI: Negative for abdominal pain, nausea, vomiting, diarrhea, and constipation. 16:48 Skin: Negative for injury, rash, and discoloration. 16:48 Back: Positive for Pain along her whole back. 16:48 MS/extremity: Positive for pain, of the left knee and left shoulder. 16:48 Neuro: Positive for headache, Negative for numbness, tingling, weakness. 16:48 All other systems are negative. Exam: 16:48 Constitutional: This is a well developed, well nourished patient who is awake, alert, pm1 and in no acute distress. Head/Face: Normocephalic, atraumatic. Neck: Trachea midline, no thyromegaly or masses palpated, and no cervical lymphadenopathy. Supple, full range of motion without nuchal rigidity, or vertebral point tenderness. No Meningismus. 16:48 Skin: Warm, dry with normal turgor. Normal color with no rashes, no lesions, and no evidence of cellulitis. 16:48 Cardiovascular: Exam negative for acute changes, Rate: normal, Rhythm: regular, Pulses: no pulse deficits are appreciated. 16:48 Respiratory: Exam negative for acute changes, respiratory distress, shortness of breath. 16:48 Abdomen/GI: Inspection: obese Palpation: abdomen is soft and non-tender, in all quadrants. 16:48 Musculoskeletal/extremity: Extremities: grossly normal except: noted in the left knee: ecchymosis, tenderness, Circulation is intact in all extremities. 16:48 Neuro: Exam negative for acute changes, Orientation: is normal, Mentation: is normal, Motor: is normal, moves all fours. Vital Signs: 16:26 BP 162 / 75; Pulse 73; Resp 17 S; Temp 98.2(O); Pulse Ox 99% on R/A; Weight 172.37 kg jd3 (R); Height 5 ft. 6 in. (167.64 cm) (R); Pain 10/10; 18:28 BP 151 / 77; Pulse 78; Resp 17; Pulse Ox 100% on R/A; jt3 16:26 Body Mass Index 61.33 (172.37 kg, 167.64 cm) jd3 MDM: 16:23 Patient medically screened. pm1 09/28 16:31 Order name: CT Head C Spine; Complete Time: 18:38 pm1 09/28 16:31 Order name: Shoulder Left (2 View) XRAY; Complete Time: 18:15 pm1 11 16:31 Order name: Knee Left 3 View XRAY; Complete Time: 18:15 pm1 11 16:31 Order name: CT Lumbar Spine Wo Con; Complete Time: 18:38 pm1 11 16:31 Order name: CT Thoracic Spine Wo Cont; Complete Time: 18:38 pm1 Administered Medications: 16:51 Drug: morphine 4 mg Route: IVP; Site: left antecubital; jl7 17:32 Follow up: Response: No adverse reaction; Pain is decreased jt3 16:51 Drug: Zofran (Ondansetron) 4 mg Route: IVP; Site: left antecubital; jl7 17:31 Follow up: Response: No adverse reaction jt3 Disposition: 18:38 Co-signature as Attending Physician, Molly Chapman MD I agree with the assessment ma2 and plan of care. PA/BRAKE LINING CURER's history reviewed, patient interviewed, and examined. I agree with assessment and care plan and confirm the diagnosis (es) above. Disposition Summary: 09/28/21 18:40 Discharge Ordered Location: Home ma2 Condition: Stable ma2 Diagnosis - Sprain of other specified parts of left knee ma2 Followup: ma2 - With: Private Physician - When: Tomorrow - Reason: If symptoms return, Continuance of care Discharge Instructions: - Discharge Summary Sheet ma2 - Knee Sprain, Adult, [id number] ma2 Forms: - Medication Reconciliation Form ma2 - Thank You Letter ma2 - Antibiotic Education ma2 - Prescription Opioid Use ma2 Prescriptions: - Diclofenac Sodium 75 mg Oral Tablet Sustained Release - take 1 tablet by ORAL route 2 times per day; 30 tablet; Refills: 0, Product ma2 Selection Permitted Signatures: Dispatcher [employer] EDHal Fields NP BRAKE LINING CURER pm1 Kristi Mart RN RN jl7 Issac Wilkes RN RN jd3 Molly Chapman MD MD ma2 Steve Luna RN jt3
--- NOTE | 2021-09-28 18:40 | ER ---
Nurse's Notes [facility] Name: Jeanine Jansen Age: 66 yrs Sex: Female : 1955 Arrival Date: 09/28/2021 Time: 16:21 Bed 5 Private MD: Diagnosis: Sprain of other specified parts of left knee Presentation: 09/28 16:21 Chief complaint: EMS states: "pt had a mechanical fall today on the way to the [facility] restroom. she is reporting back, neck, left shoulder pain. she denies LOC and no blood thinners. small hematoma noted to the back of her head, but others no other deformity or bruising noted.". Coronavirus screen: At this time, the client does not indicate any symptoms associated with coronavirus-19. Ebola Screen: Patient negative for fever greater than or equal to 101.5 degrees Fahrenheit, and additional compatible Ebola Virus Disease symptoms. Initial Sepsis Screen: Does the patient meet any 2 criteria? No. Patient's initial sepsis screen is negative. Does the patient have a suspected source of infection? No. Patient's initial sepsis screen is negative. Risk Assessment: Do you want to hurt yourself or someone else? Patient reports no desire to harm self or others. Onset of symptoms was September 28, 2021. 16:21 Method Of Arrival: EMS: [facility] jd3 16:21 Acuity: ISSAC 3 jd3 Historical: - Allergies: 16:24 Demerol; jd3 16:24 Lisinopril; jd3 - Home Meds: 16:24 Allopurinol Oral [Active]; Buspirone Oral [Active]; Furosemide Oral [Active]; jd3 gabapentin oral [Active]; losartan oral [Active]; sertraline oral [Active]; - PMHx: 16:24 Arthritis; BREAST CA; Hypertension; Lung CA; jd3 - PSHx: 16:24 KATHRINE masectomy; Lobectomy of lung; jd3 - Immunization history:: Adult Immunizations up to date, Client reports receiving the 2nd dose of the Covid vaccine. - Social history:: Smoking status: Patient denies any tobacco usage or history of. Screenin:37 Abuse screen: Denies threats or abuse. Denies injuries from another. Nutritional jl7 screening: No deficits noted. Tuberculosis screening: No symptoms or risk factors identified. Fall Risk Fall in past 12 months (25 points). Gait- Weak (10 pts.). Assessment: 16:37 General: Appears in no apparent distress. Behavior is calm, cooperative. Pain: jl7 Complains of pain in face, scalp, back, right arm, left arm, right leg and left leg Pain does not radiate. Pain currently is 10 out of 10 on a pain scale. Quality of pain is described as throbbing, Pain began 2 hours ago. Neuro: Reports weakness since The last few days. Pt. reported her left leg feeling weak today and had a mechanical fall. Denies LOC, but did hit the back of her head. Endorses pain at the back of head. Alert and oriented x4. Cardiovascular: No deficits noted. Respiratory: No deficits noted. Vital Signs: 16:26 BP 162 / 75; Pulse 73; Resp 17 S; Temp 98.2(O); Pulse Ox 99% on R/A; Weight 172.37 kg jd3 (R); Height 5 ft. 6 in. (167.64 cm) (R); Pain 10/10; 18:28 BP 151 / 77; Pulse 78; Resp 17; Pulse Ox 100% on R/A; jt3 16:26 Body Mass Index 61.33 (172.37 kg, 167.64 cm) jd3 ED Course: 16:21 Patient arrived in ED. jd3 16:23 Hal Madison NP is PHCP. pm1 16:23 Molly Chapman MD is Attending Physician. pm1 16:24 Triage completed. jd3 16:27 Arm band placed on. jd3 16:36 Kristi Mart, OLIVIA is Primary Nurse. jl7 16:37 Patient has correct armband on for positive identification. Bed in low position. Call [facility] light in reach. Side rails up X2. 16:37 No provider procedures requiring assistance completed. jl7 16:47 Inserted saline lock: 22 gauge in left antecubital area, using aseptic technique. jd3 17:56 Shoulder Left (2 View) XRAY In Process Unspecified. EDMS 17:56 Knee Left 3 View XRAY In Process Unspecified. EDMS 18:21 CT Head C Spine In Process Unspecified. EDMS 18:21 CT Lumbar Spine Wo Con In Process Unspecified. EDMS 18:21 CT Thoracic Spine Wo Cont In Process Unspecified. EDMS 19:00 IV discontinued, intact, bleeding controlled, No redness/swelling at site. Pressure jt3 dressing applied. 19:22 Primary Nurse role handed off by Kristi Mart RN tt3 20:15 Vickie Chou is Primary Nurse. kc4 Administered Medications: 16:51 Drug: morphine 4 mg Route: IVP; Site: left antecubital; jl7 17:32 Follow up: Response: No adverse reaction; Pain is decreased jt3 16:51 Drug: Zofran (Ondansetron) 4 mg Route: IVP; Site: left antecubital; jl7 17:31 Follow up: Response: No adverse reaction jt3 Outcome: 18:40 Discharge ordered by . ma2 18:57 Discharged to home via ambulance. jt3 18:57 Condition: stable 18:57 Discharge instructions given to patient. 20:22 Patient left the ED. df1 Signatures: Dispatcher [employer] EDMS Hal Madison, PIN CHASER PIN CHASER pm1 Kristi Mart, OLIVIA RN jl7 Issac Wilkes RN RN jd3 Molly Chapman MD MD ma2 Trim, Tyler tt3 Vickie Chou kc4 Tanna Shearer df1 Steve Luna RN RN jt3
[2021-09-28 20:57] VITALS: TEMP 98.2
[2021-09-28 20:59] VITALS: BP 151/77; O2SAT 100
--- OUTSIDE RECORDS SUMMARY | 2021-10-05 14:34 | XMS REPORT | Continuity of Care Document ---
:1955 Author Organization [facility] t Address [address] [place] [address] Care Team Providers Name Role Phone Wiliam Becker Attending Clinician Wiliam BECKER Attending Clinician Unavailable Doctor Unassigned, Name Attending Clinician Unavailable Payers Payer Name Policy Type Policy Number Effective Date Expiration Date S ource Problems This patient has no known problems. Allergies, Adverse Reactions, Alerts Allergy Allergy Status Severity Reaction(s) Onset Inactive Treating Comm ents Source Name Type Date Date Clinician NO KNOWN Drug Active Univers ALLERGIE Class [facility] Demerol Adverse Active Info Not [facility] Reaction Available [facility] levaquin Adverse Active Info [facility] Social History Social Habit Start Date Stop Date Quantity Comments Source [facility] to [facility]2 [facility] sure [facility] Smoking Status Start Date Stop Date Source Unknown if ever smoked [facility] Medications Ordered Filled Start Stop Current Ordering [...] [facility] - 00:00: SWE[facility]ING [facility] 00 [facility] Sertraline Sertraline Yes Sarah [address] [facility] HCl HCl Millender (take with Luke s - sertraline [facility]oria 100 mg) [facility] BusPIRone BusPIRone Yes Sarah 1-11/[address] [facility] HCl HCl [place]ender tablet as [facility] needed for [facility] anxiety [facility] Lasix Lasix Yes Sarah [address] [facility] Millender [facility] Magnesium Magnesium Yes Sarah as [facility] directed [facility] Gabapentin Gabapentin Yes Sarah as [facility] directed [facility] Hydrocodone Hydrocodone Yes Sarah [address] [facility] -Acetaminop -Acetaminop Millender as needed [facility] Lorazepam Lorazepam Yes Sarah [address] [facility] Millender at bedtime Luke s - as needed [facility] Losartan Losartan Yes Sarah [address] Potassium Potassium Millender [facility] Sertraline Sertraline Yes Sarah [address] [facility] [address] HCl HCl Millender [facility] Allopurinol Allopurinol 2019- No Sarah [address] [facility] 11-15 Millender [facility]00 [facility]00 l [facility] Immunizations Ordered Filled Immunization Date Status Comments Sourc e Immunization Name Name Flucelvax - single Flucelvax - single 2019-10-[address] [facility] - dose syringe dose syringe 00:00:00 [facility] Procedures Procedure Date / Time Performed Performing Clinician Sourc e XR KNEE 3 VW BILATERAL 2021-01-02 21:26:33 Shlomo Becker [facility] XR SHOULDER 2+ VW 2021-01-02 21:26:33 Shlomo Becker [facility] ASSIGNMENT OF BENEFITS 2021-01-02 20:49:15 Doctor Unassigned, No [facility] Encounters Start End Encounter Admission Attending Care Care Encounter Source Date/Time Date/Time Type Type Clinicians Facility Department ID 2021-08-12 2021-08-12 Outpatient [facility] [id number] [facility] 2021-07-01 2021-07-01 Outpatient [facility] [id number] [facility] 2021-06-26 2021-06-26 Outpatient [facility] [id number] [facility] 2021-04-23 2021-04-23 Outpatient [facility] [id number] [facility] 2021-04-04 2021-04-04 Outpatient [facility] [id number] [facility] 2021-03-29 2021-03-29 Outpatient [facility] [id number] [facility] 2021-03-28 2021-03-28 Outpatient [facility] [id number] [facility] 2021-03-28 2021-03-28 Outpatient [facility] [id number] [facility] 2021-03-11 2021-03-11 Outpatient [facility] [id number] [facility] 2021-03-07 2021-03-07 Outpatient [facility] [id number] [facility] 2021-03-06 2021-03-06 Outpatient [facility] [id number] [facility] 2021-02-07 2021-02-07 Outpatient [facility] [id number] [facility] 2021-02-05 2021-02-05 Outpatient [facility] [id number] [facility] 2021-02-05 2021-02-05 Outpatient [facility] [id number] [facility] 2021-02-04 2021-02-04 Outpatient [facility] [id number] [facility] 2021-01-28 2021-01-28 Outpatient [facility] [id number] [facility] 2021-01-22 2021-01-22 Outpatient [facility] [id number] [facility] 2021-01-22 2021-01-22 Outpatient [facility] [id number] [facility] 2021-01-02 2021-01-02 [facility] [id number] 14:45:00 23:59:00 Encounter J Suresh [id number] [place] [address] [id number] [facility] 2021-01-02 2021-01-02 [facility] [id number] [facility] 14:45:00 23:59:00 Encounter J Suresh [id number] [facility] 4.2.7.2[address] [place] [address] [id number] 2021-01-02 2021-01-02 Outpatient [facility] [id number] Univers 00:00:00 00:00:00 ity [facility] 2021-01-02 2021-01-02 Orders Doctor GRIFFITH [id number] 00:00:00 00:00:00 Only Unassigned, ALE [id number] [place] [facility] [id number] 2021-01-02 2021-01-02 Orders Doctor NACHO [id number] Univers 00:00:00 00:00:00 Only Unassigned, ALE [id number] ity of [place] [facility] [id number] Justino as [id number] [place] [address] [address] 2020-12-04 2020-12-04 Out[facility] [id number] [facility] 2020-08-29 2020-08-29 [facility] [id number] [facility] 2020-08-24 2020[facility]08-24 [facility] [id number] [facility] 2020-05-24 2020-05-24 [facility] [id number] [facility] 15[facility]20:00 15:20:00 [facility] Family [facility] l Medicine Outpati ent Clinics 2020-02-06 2020-02-06 Outpatient [facility] [id number] [facility] 14:00:00 14:00:00 2020-01-11 2020-01-11 [facility] [id number] [facility] 11:45:00 11:45:00 [facility] Family [facility] l Medicine Outpati ent Clinics 2020-01-10 2020-01-10 [facility] [id number] [facility] 14:30:00 14:30:00 [facility] Medicine l Medicine Outpati ent Clinics 2020-01-09 2020-01-09 [facility] [id number] [facility] 13:30:00 13:30:00 t Specialty/U Silvana kes - Specialty rology [facility] a /Urology Clinic l Clinic Outpati ent Clinics 2019-12-26 2019-12-26 [facility] [id number] [facility] 11:05:00 11:05:00 t [facility] Medicine Medicine Outpati ent Clinics 2019-11-13 2019-11-13 [facility] [id number] [facility] 13:57:00 13:57:00 t [facility] Medicine Outpati ent Clinics 2019-10-18 2019-10-18 [facility] [id number] [facility] 16:57:00 16:57:00 t [facility] Medicine Medicine Outpati ent Clinics 2019-10-13 2019-10-13 [facility] [id number] [facility] 23:20:00 23:20:00 t [facility] Medicine Outpati ent Clinics 2019-10-13 2019-10-13 [facility] [id number] [facility] 15:00:00 15:00:00 t [facility] Medicine Medicine Outpati ent Clinics 2019-08-16 2019-08-16 [facility] [id number] [facility] 13:34:00 13:34:00 t [facility] Medicine Outpati ent Clinics 2019-07-22 2019-07-22 [facility] [id number] [facility] 14:00:00 14:00:00 t [facility] Medicine Outpati ent Clinics 2019-07-18 2019-07-18 [facility] [id number] 20:00:00 20:00:00 t [facility] Medicine Medicine Outpati ent Clinics 2019-07-14 2019-07-14 [facility] [id number] [facility] 13:00:00 13:00:00 t [facility] Medicine Outpati ent Clinics 2019-06-29 2019-06-29 [facility] [id number] [facility] 11:57:00 11:57:00 t [facility] Medicine Outpati ent Clinics 2019-03-24 2019-03-24 [facility] [id number] [facility] 21:45:00 21:45:00 t [facility] Medicine Outpati ent Clinics 2019-03-24 2019-03-24 [facility] [id number] [facility] 14:27:00 14:27:00 t [facility] Medicine Outpati ent Clinics 2019-03-22 2019-03-22 [facility] [id number] [address] 13:20:00 13:20:00 t [facility] Medicine Outpati ent Clinics 2019-03-21 2019-03-21 [facility] [id number] 09:12:00 09:12:00 [facility] Medicine Outpati ent Clinics 2019-01-31 2019-01-31 [facility] [id number] 13:23:00 13:23:00 t [facility] Medicine Outpati ent Clinics 2019-01-17 2019-01-17 [facility] [id number] [facility] 10:30:00 10:30:00 t [facility] Medicine Outpati ent Clinics 2018-12-22 2018-12-22 [facility] [id number] [facility] 09:09:00 09:09:00 [facility] Medicine Outpati ent Clinics 2018-12-15 2018-12-15 [facility] [id number] 11:45:00 11:45:00 t [facility] Medicine Outpati ent Clinics 2018-12-09 2018-12-09 [facility] [id number] [facility] 10:38:00 10:38:00 [facility] Medicine Outpati ent Clinics Results Test Test Test Results Result Source Description Time Comments Comments XR SHOULDER 2+ 2020-12- HISTORY: ?Pain. Unive rsity of VW BILATERAL 10 FINDINGS: 2 frontal [facility] 21:31:11 projection views of Branc h right shoulder and left shoulderpain with arm in internal and external rotation positions. No acute fracture or dislocation or aggressive bone lesions detected. Noappreciable calcification seen in the rotator cuff tendons.Mild degenerative arthritis of right glenohumeral joint and moderatedegenerative arthritis of left glenohumeral joint noted. Mild bilateral ACjoint hypertrophic degenerative arthrosis is noted. An osteophyte along theundersurface of lateral end of the right clavicle is possibly causing mildrotator cuff/supraspinatus impingement.Incidental note made of right thoracic surgery with clips in the righthilum and sutures in the right lung parenchyma. CONCLUSIONS: Bilateral shoulder joint degenerative arthritis, more severein the left glenohumeral joint and right AC joint. [facility], Radiant Results Inft User - 01/02/2021 3:32 PM CSTHISTORY: Pain.FINDINGS: 2 frontal projection views of right shoulder and left shoulderpain with arm in internal and external rotation positions.No acute fracture or dislocation or aggressive bone lesions detected. Noappreciable calcification seen in the rotator cuff tendons.Mild degenerative arthritis of right glenohumeral joint and moderatedegenerative arthritis of left glenohumeral joint noted. Mild bilateral ACjoint hypertrophic degenerative arthrosis is noted. An osteophyte along theundersurface of lateral end of the right clavicle is possibly causing mildrotator cuff/supraspinatus impingement.Incidental note made of right thoracic surgery with clips in the righthilum and sutures in the right lung parenchyma.CONCLUSIONS: Bilateral shoulder joint degenerative arthritis, more severein the left glenohumeral joint and right AC joint. XR KNEE 3 2020-12- HISTORY: Acute bilateral University of BILATERAL 10 knee pain. FINDINGS: [facility], [facility] 21:29:40 lateral, oblique views Br anch of right knee as well as left kneeshowed no acute fracture or dislocation. Lateral views are technicallysuboptimal, particularly of the left knee. No significant knee jointeffusion suspected. Moderate to severe degenerative arthritis of medial compartment of the leftknee noted with severe narrowing of the joint space, subchondral sclerosisand osteophytes along the articular edges of the bones. Similar butslightly less severe degenerative changes are seen affecting medialcompartment of the right knee joint.Left superior degenerative changes are seen affecting lateral compartmentand patellofemoral compartment of both knee joints. CONCLUSIONS: Tricompartment bilateral knee joint osteoarthritis, moresevere affecting medial compartment of both knees, left knee more thanright. [facility], Radiant Results Inft User - 01/02/2021 3:30 PM CSTHISTORY: Acute bilateral knee pain.FINDINGS: AP, lateral, oblique views of right knee as well as left kneeshowed no acute fracture or dislocation. Lateral views are technicallysuboptimal, particularly of the left knee. No significant knee jointeffusion suspected.Moderate to severe degenerative arthritis of medial compartment of the leftknee noted with severe narrowing of the joint space, subchondral sclerosisand osteophytes along the articular edges of the bones. Similar butslightly less severe degenerative changes are seen affecting medialcompartment of the right knee joint.Left superior degenerative changes are seen affecting lateral compartmentand patellofemoral compartment of both knee joints.CONCLUSIONS: Tricompartment bilateral knee joint osteoarthritis, moresevere affecting medial compartment of both knees, left knee more thanright.
== END 2021-09-28 20:22 | disposition home or self-care (01) ==
LOC: ER 16:17
DX: S83.8X2A Sprain of other specified parts of left knee, initial encounter (principal); W18.30XA Fall on same level, unspecified, initial encounter; Y92.000 Kitchen of unspecified non-institutional (private) residence as the place of occurrence of the external cause; I10 Essential (primary) hypertension; Z85.3 Personal history of malignant neoplasm of breast; Z85.118 Personal history of other malignant neoplasm of bronchus and lung; Z88.5 Allergy status to narcotic agent; Z88.8 Allergy status to other drugs, medicaments and biological substances; Z90.13 Acquired absence of bilateral breasts and nipples
CPT/HCPCS: 72131; 70450; 72125; 72128; 73030; 73562; 96375; 96374; 99284; J2405

== ENCOUNTER 2022-11-29 03:07 | Emergency (ER) | payer OTHER ==
--- OUTSIDE RECORDS SUMMARY | 2022-11-29 03:14 | XMS REPORT | Continuity of Care Document ---
:1955 Author Organization [facility] t Address [address] [place] [address] Care Team Providers Name Role Phone Solo Bull Primary Care Physician Solo Bull Attending Clinician Unavailable Erna Patel Attending Clinician Unavailable MARIBEL RAZA Attending Clinician Unavailable NEREIDA SIERRA Attending Clinician Unavailable Josie Alvarez Attending Clinician Nereida Sierra MD Attending Clinician Doctor Unassigned, [place] Attending Clinician Unavailable FRANCES BECKER Attending Clinician Unavailable Frances Becker Attending Clinician Andrzej Moulton Attending Clinician ANDRZEJ MOULTON Attending Clinician Unavailable OSLO BULL Admitting Clinician Unavailable JOSIE GALLARDO Admitting Clinician Unavailable NEREIDA SIERRA Admitting Clinician Unavailable FRANCES BECKER Admitting Clinician Unavailable Payers Payer Name Policy Type Policy Effective Date Expiration Date Sour ce Number MEDICARE GINA [id number] [facility] Aet[employer] Supplement C1 [id number] 2021 Common S pirit Plan 00:00:[address] [place] [address] Problems Condition Condition Condition Status Onset Resolution Last Treating Co mments Source Name Details Category Date Date Treatment Clinician Date Lymphedema Lymphedema Disease Active U nivers of lower of lower 3-29 ity of extremity extremity 00:00: Cornell adames 00 Medical Branch LYMPHEDEMA LYMPHEDEM Diagnosis Active 2020-02-06 Memoria A Active 01-29 14:23:00 l 01/30/2020 00:00: Amandeep JOHN [address] Depression Depression Problem Active C mon [facility] [id number] Morbid Problem Active Common obesity Spirit due to [facility] excess [facility] Sinus Sinus Problem Active Common problem problem [facility] [id number] Body mass Problem Active Com mon index Spirit (BMI) of - [facility] 45.0-49.9 in [facility] [id number] Foot Problem Active Common callus [facility] [id number] Dry eyes Problem Active Comm on [facility] [id number] Skin Problem Active Common lesions [facility] [id number] Pain in Problem Active Common right Spirit shoulder [facility] [id number] Essential Problem Active Comm on hypertensi Spirit [facility] [id number] Elevated Problem Active Comm on serum Spirit creatinine [facility] [id number] Peripheral Problem Active Co mmon edema [facility] [id number] History of Problem Active Co mmon anemia [facility] [id number] Palpitatio Problem Active Com mon ns [facility] [id number] Vitamin D Problem Active Comm on deficiency [facility] Lymphedema Lymphedema Problem Active C ommon [facility] [id number] Shortness Problem Active Com mon of breath [facility] [id number] Hyperchole Problem Active Com mon sterolemia [facility] [id number] Tachycardi Problem Active Comm on a [facility] Female Female Problem Active Common stress stress Spirit incontinen incontinen - [facility] ce ce [facility] [id number] Venous Problem Active Common insufficie Spirit ncy - [facility] (chronic) [facility] [id number] Current Problem Active Common moderate Spirit episode of - [facility] major [facility] disorder [facility] prior episode [id number] CHEPE Problem Active Common (generaliz Spirit ed anxiety - [facility] disorder) [facility] [id number] Primary Problem Active Comm on osteoarthr Spirit itis of [facility] right knee [facility] [id number] Pain in Problem Active Comm on left knee Spirit [facility] [id number] Neck pain Problem Active Comm on Spirit [facility] [id number] Pain in Problem Active Comm on right knee [facility] [id number] Other Problem Active Common chronic Spirit pain - [facility] [id number] Colon Problem Active Common cancer [facility] screening [facility] [id number] Primary Problem Active Comm on osteoarthr Spirit itis of [facility] left knee [facility] [id number] Arthritis Problem Active Co mmon [id number] of knee, Spirit right [facility] [id number] Arthritis Problem Active Co mmon [id number] of knee, [facility] left [facility] [id number] Bilateral Problem Active Com mon primary Spirit osteoarthr - [facility] itis of [facility] [id number] Primary Problem Active Comm on osteoarthr Spirit itis of [facility] left [facility] Malignant Hypertensi Problem Active Co mmon hypertensi ve chronic Sp lenny ve chronic kidney - CHI kidney disease w [facility] 1-4/[facility] Medical chr [facility] [id number] History of Problem Active Co mmon breast Spirit cancer [facility] [id number] Chronic Problem Active Commo n gout Spirit without [facility] d cause, [facility] d site [id number] History of Problem Active Co mmon bilateral Spirit mastectomy [facility] High blood High blood Problem Active C ommon pressure pressure [facility] [id number] Peripheral Problem Active Com mon polyneurop Spirit athy [facility] [id number] Urinary Problem Active Commo n incontinen Spirit ce, - [facility] unspecifie [facility] Incontinen Functional Problem Active C ommon ce incontinen Spirit ce [facility] [id number] History of Problem Active Co mmon lung [facility] cancer [facility] [id number] Polyarthra Problem Active Com mon lgia Spirit [facility] Cancer Cancer Problem Active Common [facility] [id number] Chronic Problem Active Commo n pain [facility] syndrome [facility] Anxiety Depression Problem Active Comm on with Spirit anxiety [facility] Osteoporos Osteoporos Problem Active C ommon is is Spirit [facility] Allergies, Adverse Reactions, Alerts Allergy Allergy Status Severity Reaction(s) Onset Inactive Treating Comm ents Source Name Type Date Date Clinician MEPERIDI DRUG Active Other-Cmnt 2020-11 Univ ers NE INGREDI 2-24 ity of 00:00: [address] LEVOFLOX DRUG Active SOB 2020-11 Univers ACIN INGREDI 2-24 ity of 00:00: [place] [address] Medical [place] Meperidi Propensi Active Other - See 2020-11 "floppin g Univers ne ty to comments 2-24 in the ity of adverse 00:00: bed." [place] reaction 00 Medical [facility] Levoflox Propensi Active Shortness of 2020-11 Univers acin ty to Breath 2-24 ity of adverse 00:00: [place] reaction 00 Medical [facility] meperidi meperidi Active Unknown Commo n ne ne [facility] Social History Social Habit Start Date Stop Date Quantity Comments Source History of Common Spirit - Tobacco Use [facility] Sex Assigned At Common Sp lenny - [facility] Exposure to 2022-10-11 2022-10-21 Not sure [facility] SARS-CoV-2 00:00:00 00:03:00 [place] [facility] (event) [place] Tobacco use and 2022-03-17 2022-03-17 Smokeless tobacco Un iversity of exposure 00:00:00 00:00:00 non-user [facility] Alcohol intake 2022-03-17 2022-03-17 Ex-drinker [facility] 00:00:00 00:00:00 (finding) [facility] Smoking Status Start Date Stop Date Source Never Smoker [facility] Medications Ordered Filled Start Stop Current Ordering Indication Dosage Frequency Signature Comments Components Source Medication Medication Date Date Medication? Clinician (SIG) Name Name trospium 20 2021-11 Yes [id number] 20mg Take 1 Univers mg tablet 2-02 tablet by ity o f 00:00: mouth in [place] 00 the Medical morning Branch and 1 tablet in the evening. trospium 20 2021-11 Yes [id number] 20mg Take 1 Univers mg tablet 2-02 tablet by ity o f 00:00: mouth in [place] 00 the Medical morning Branch and 1 tablet in the evening. trospium 20 2021-11 Yes [id number] 20mg Take 1 Univers mg tablet 2-02 tablet by ity o f 00:00: mouth in [place] 00 the Medical morning Branch and 1 tablet in the evening. Nitrofurant 2021-11- No [id number] 100mg Take 1 Univers oin&Nit. 12-25 capsule by ity of [place] 00:00: 00:00 [place] (MACROBID[place] 00 :00 the Medical 100 mg morning Branch capsule and 1 capsule in the evening. Do all this for 5 days. Nitrofurant 2021-11- No [id number] 100mg Take 1 Univers oin&Nit. 12-25 capsule by ity of [place] 00:00: 00:[place] (MACROBID[place] 00 :00 the Medical 100 mg morning Branch capsule and 1 capsule in the evening. Do all this for 5 days. cefTRIAXone 2021-11- No 1000mg 1,000 mg, Univers (ROCEPHIN) 12-21 IV ity of 1,000 mg in 09:15: 09:54 [place], [place] NaCl 0.9% 00 :00 ONCE, 1 Medical (NS) 50 mL dose, On Bran h MINI-BAG 10/21/22 at 0315, Administer over 30 Minutes, 50 mL
Reas on for Anti-Infec tive: Documented Infection< br>Documen lacie Infection Site: Urine<br&g t;Duration of Therapy: Other (see Comments) furosemide 2021-11- No 40mg 40 mg, IV U nivers (LASIX) 12-21 Push, ity of injection 06:15: 07:41 [place]CE, 1 [place] 40 mg 00 :00 dose, On Medical Tue Branch 10/21/22 at 0015, NENITA amoxicillin 2021-11 Yes [id number] 500mg Take 1 Univers 500 mg 1-29 capsule by ity of capsule 00:00: mouth in [place] 00 the morning Branch and 1 capsule at noon and 1 capsule in the evening. amoxicillin 2021-11 Yes [id number] 500mg Take 1 Univers 500 mg 1-29 capsule by ity of capsule 00:00: mouth in [place] 00 the morning Branch and 1 capsule at noon and 1 capsule in the evening. amoxicillin 2021-11 Yes [id number] 500mg Take 1 Univers 500 mg 1-29 capsule by ity of capsule 00:00: mouth in [place] the morning Branch and 1 capsule at noon and 1 capsule in the evening. amoxicillin 2021-11 Yes [id number] 500mg Take 1 Univers 500 mg 1-29 capsule by ity of capsule 00:00: mouth in [place] the morning Branch and 1 capsule at noon and 1 capsule in the evening. Trospium 60 2021-11 Yes [id number] 60mg Take 1 Univers mg capsule 0-21 capsule by ity of 00:00: mouth in [place] 00 the Medical morning. Branch Trospium 60 2021-11 Yes [id number] 60mg Take 1 Univers mg capsule 0-21 capsule by ity of 00:00: mouth in [place] 00 the Medical morning. Branch Trospium 60 2021-11 Yes [id number] 60mg Take 1 Univers mg capsule 0-21 capsule by ity of 00:00: mouth in [place] 00 the Medical morning. Branch Trospium 60 2021-11- No [id number] 60mg Take 1 Univers mg capsule 0-21 12-02 capsule by it y of 00:00: 00:00 mouth in [place] 00 :00 the Medical morning. Branch Trospium 60 2021-11- No [id number] 60mg Take 1 Univers mg capsule 0-21 12-02 capsule by it y of 00:00: 00:00 mouth in [place] 00 :00 the Medical morning. Branch vibegron Yes [id number] 75mg Take 75 mg Univers (GEMTESA) 9-12 by mouth ity of 75 mg Tab 00:00: daily. [place] 00 Medical Branch vibegron 0 Yes [id number] 75mg Take 75 mg Univers (GEMTESA) 9-12 by mouth ity of 75 mg Tab 00:00: daily. [place] Medical Branch vibegron 0 Yes [id number] 75mg Take 75 mg Univers (GEMTESA) 9-12 by mouth ity of 75 mg Tab 00:00: daily. [place] Medical Branch vibegron 0 Yes [id number] 75mg Take 75 mg Univers (GEMTESA) 9-12 by mouth ity of 75 mg Tab 00:00: daily. [place] Medical Branch vibegron Yes [id number] 75mg Take 75 mg Univers (GEMTESA) 9-12 by mouth ity of 75 mg Tab 00:00: daily. [place] Medical Branch vibegron 2021- No [id number] 75mg Take 75 mg Univers (GEMTESA) -12 - by mouth ity o f 75 mg Tab 00:00: 00:00 daily. [place] 00 :00 Medical Branch vibegron 2- No [id number] 75mg Take 75 mg Univers (GEMTESA) -12 - by mouth ity o f 75 mg Tab 00:00: 00:00 daily. [place] 00 :00 [facility] Branch solifenacin 0 Yes [id number] 10mg Take 1 Univers (VESICARE) 7-15 tablet by ity of 10 mg 00:00: mouth in [place] tablet 00 the Medical morning. Branch solifenacin 0 Yes [id number] 10mg Take 1 Univers (VESICARE) 7-15 tablet by ity of 10 mg 00:00: mouth in [place] tablet 00 the Medical morning. Branch solifenacin 0 Yes [id number] 10mg Take 1 Univers (VESICARE) 7-15 tablet by ity of 10 mg 00:00: mouth in [place] tablet 00 the Medical morning. Branch solifenacin 0 Yes [id number] 10mg Take 1 Univers (VESICARE) 7-15 tablet by ity of 10 mg 00:00: mouth in [place] tablet 00 the Medical morning. Branch solifenacin 2021-0 Yes [id number] 10mg Take 1 Univers (VESICARE) 7-15 tablet by ity of 10 mg 00:00: mouth in [place] tablet 00 the Medical morning. Branch solifenacin 0 Yes [id number] 10mg Take 1 Univers (VESICARE) 7-15 tablet by ity of 10 mg 00:00: mouth in [place] tablet 00 the Medical morning. Branch solifenacin 0 Yes [id number] 10mg Take 1 Univers (VESICARE) 7-15 tablet by ity of 10 mg 00:00: mouth in [place] tablet 00 the Medical morning. Branch solifenacin Yes [id number] 10mg Take 1 Univers (VESICARE) 7-15 tablet by ity of 10 mg 00:00: mouth in [place] tablet 00 the Medical morning. Branch vibegron 2021- No [id number] 75mg Take 75 mg Univers (GEMTESA) 6-10 -12 by mouth ity o f 75 mg Tab 00:00: 00:00 daily. [place] 00 :00 [facility] solifenacin Yes [id number] 10mg Take 1 Univers (VESICARE) 5-13 tablet by ity of 10 mg 00:00: mouth [place] tablet 00 daily. [facility] solifenacin Yes [id number] 10mg Take 1 Univers (VESICARE) 5-13 tablet by ity of 10 mg 00:00: mouth [place] tablet 00 daily. [facility] solifenacin Yes [id number] 10mg Take 1 Univers (VESICARE) 5-13 tablet by ity of 10 mg 00:00: mouth [place] tablet 00 daily. [facility] solifenacin 0 Yes [id number] 10mg Take 1 Univers (VESICARE) 5-13 tablet by ity of 10 mg 00:00: mouth [place] tablet 00 daily. [facility] solifenacin 0 Yes [id number] 10mg Take 1 Univers (VESICARE) 5-13 tablet by ity of 10 mg 00:00: mouth [place] tablet 00 daily. [facility] solifenacin 0 Yes [id number] 10mg Take 1 Univers (VESICARE) 5-13 tablet by ity of 10 mg 00:00: mouth [place] tablet 00 daily. [facility] solifenacin 2022-0 Yes [id number] 10mg Take 1 Univers (VESICARE) 5-13 tablet by ity of 10 mg 00:00: mouth [place] tablet 00 daily. Medical Branch solifenacin 2021-0 Yes [id number] 10mg Take 1 Univers (VESICARE) 5-13 tablet by ity of 10 mg 00:00: mouth [place] tablet 00 daily. Medical Branch Bupivicaine Bupivicaine 2021-0 No 2.5mg Common [place] 5-02 Spirit 00:00: - [facility] 00 [facility] Kenalog Kenalog 2021-0 No 40mg Common (Triamcinol (Triamcinol 5-02 S pirit one) one) 00:00: - [facility]I 00 [facility] Bupivicaine Bupivicaine 2021-0 No 2.5mg Common [place] 5-02 Spirit 00:00: - [facility]I 00 [facility] Kenalog Kenalog 2021-0 No 40mg Common (Triamcinol (Triamcinol 5-02 S pirit one) one) 00:00: - CHI 00 [facility] Bupivicaine Bupivicaine 2021-0 No 2.5mg Common [place] 5-02 Spirit 00:00: - CHI 00 [facility] Kenalog Kenalog 2021-0 No 40mg Common (Triamcinol (Triamcinol 5-02 S pirit one) one) 00:00: - CHI 00 [facility] Bupivicaine Bupivicaine 2021-0 No 2.5mg Common [place] 5-02 Spirit 00:00: - [facility]I 00 [facility] Kenalog Kenalog 2021-0 No 40mg Common (Triamcinol (Triamcinol 5-02 S pirit one) one) 00:00: - [facility]I 00 [facility] Bupivicaine Bupivicaine 2021-0 No 2.5mg Common [place] 5-02 Spirit 00:00: - CHI 00 [facility] Kenalog Kenalog 2021-0 No 40mg Common (Triamcinol (Triamcinol 5-02 S pirit one) one) 00:00: - CHI 00 [facility] Bupivicaine Bupivicaine 2022-0 No 2.5mg Common [place] 5-02 Spirit 00:00: - CHI [facility] Kenalog Kenalog 0 No 40mg Common (Triamcinol (Triamcinol 5-02 S pirit one) one) 00:00: - CHI [facility] Bupivicaine Bupivicaine No 2.5mg Common [place] 5-02 Spirit 00:00: - CHI [facility] Kenalog Kenalog No 40mg Common (Triamcinol (Triamcinol 5-02 S pirit one) one) 00:00: - CHI [facility] azithromyci Yes azithromyc Univers n 250 mg 4-25 in 250 mg ity of tablet 15:25: tablet [place] 10 TAKE 2 Medical TABLETS BY Branch MOUTH DAY 1 THEN TAKE 1 TABLET BY MOUTH EVERY DAY FOR 4 DAYS ergocalcife Yes ergocalcif Univers rol, 4-25 [place] ity of vitamin d2, 15:25: (vitamin [place] 1,250 mcg 10 D2) 1,250 Medic al (50,000 mcg Branch unit) (50,000 capsule unit) capsule TK 1 C PO 1 TIME WEEKLY HYDROcodone Yes hydrocodon Univers -acetaminop 4-25 e 7.5 ity of hen 7.5-325 15:25: mg-acetami [place] mg per 10 nophen 325 Medical tablet mg tablet Branch TAKE 1 TABLET BY MOUTH TWICE DAILY losartan 50 Yes losartan Un [place] mg tablet 4-25 50 mg ity of 15:25: tablet [place] 10 TAKE 1 Medical TABLET BY Branch MOUTH EVERY DAY azithromyci Yes azithromyc Univers n 250 mg 4-25 in 250 mg ity of tablet 15:25: tablet [place] 10 TAKE 2 Medical TABLETS BY Branch MOUTH DAY 1 THEN TAKE 1 TABLET BY MOUTH EVERY DAY FOR 4 DAYS ergocalcife Yes ergocalcif Univers rol, 4-25 [place] ity of vitamin d2, 15:25: (vitamin [place] 1,250 mcg 10 D2) 1,250 Medic al (50,000 mcg Branch unit) (50,000 capsule unit) capsule TK 1 C PO 1 TIME WEEKLY HYDROcodone Yes hydrocodon Univers -acetaminop 4-25 e 7.5 ity of hen 7.5-325 15:25: mg-acetami [place] mg per 10 nophen 325 Medical tablet mg tablet Branch TAKE 1 TABLET BY MOUTH TWICE DAILY losartan 50 Yes losartan Un [place] mg tablet 4-25 50 mg ity of 15:25: tablet [place] 10 TAKE 1 Medical TABLET BY Branch MOUTH EVERY DAY azithromyci Yes azithromyc Univers n 250 mg 4-25 in 250 mg ity of tablet 15:25: tablet [place] 10 TAKE 2 Medical TABLETS BY Branch MOUTH DAY 1 THEN TAKE 1 TABLET BY MOUTH EVERY DAY FOR 4 DAYS ergocalcife Yes ergocalcif Univers rol, 4-25 [place] ity of vitamin d2, 15:25: (vitamin [place] 1,250 mcg 10 D2) 1,250 Medic al (50,000 mcg Branch unit) (50,000 capsule unit) capsule TK 1 C PO 1 TIME WEEKLY HYDROcodone Yes hydrocodon Univers -acetaminop 4-25 e 7.5 ity of hen 7.5-325 15:25: mg-acetami [place] mg per 10 nophen 325 Medical tablet mg tablet Branch TAKE 1 TABLET BY MOUTH TWICE DAILY losartan 50 Yes losartan Un [place] mg tablet 4-25 50 mg ity of 15:25: tablet [place] 10 TAKE 1 Medical TABLET BY Branch MOUTH EVERY DAY azithromyci Yes azithromyc Univers n 250 mg 4-25 in 250 mg ity of tablet 15:25: tablet [place] 10 TAKE 2 Medical TABLETS BY Branch MOUTH DAY 1 THEN TAKE 1 TABLET BY MOUTH EVERY DAY FOR 4 DAYS ergocalcife Yes ergocalcif Univers rol, 4-25 [place] ity of vitamin d2, 15:25: (vitamin [place] 1,250 mcg 10 D2) 1,250 Medic al (50,000 mcg Branch unit) (50,000 capsule unit) capsule TK 1 C PO 1 TIME WEEKLY HYDROcodone Yes hydrocodon Univers -acetaminop 4-25 e 7.5 ity of hen 7.5-325 15:25: mg-acetami [place] mg per 10 nophen 325 Medical tablet mg tablet Branch TAKE 1 TABLET BY MOUTH TWICE DAILY losartan 50 2022-0 Yes losartan Un [place] mg tablet 4-25 50 mg ity of 15:25: tablet [place] 10 TAKE 1 Medical TABLET BY Branch MOUTH EVERY DAY azithromyci Yes azithromyc Univers n 250 mg 4-25 in 250 mg ity of tablet 15:25: tablet [place] 10 TAKE 2 Medical TABLETS BY Branch MOUTH DAY 1 THEN TAKE 1 TABLET BY MOUTH EVERY DAY FOR 4 DAYS ergocalcife Yes ergocalcif Univers rol, 4-25 [place] ity of vitamin d2, 15:25: (vitamin [place] 1,250 mcg 10 D2) 1,250 Medic al (50,000 mcg Branch unit) (50,000 capsule unit) capsule TK 1 C PO 1 TIME WEEKLY HYDROcodone Yes hydrocodon Univers -acetaminop 4-25 e 7.5 ity of hen 7.5-325 15:25: mg-acetami [place] mg per 10 nophen 325 Medical tablet mg tablet Branch TAKE 1 TABLET BY MOUTH TWICE DAILY losartan 50 2021-0 Yes losartan Un [place] mg tablet 4-25 50 mg ity of 15:25: tablet [place] 10 TAKE 1 Medical TABLET BY Branch MOUTH EVERY DAY azithromyci Yes azithromyc Univers n 250 mg 4-25 in 250 mg ity of tablet 15:25: tablet [place] 10 TAKE 2 Medical TABLETS BY Branch MOUTH DAY 1 THEN TAKE 1 TABLET BY MOUTH EVERY DAY FOR 4 DAYS ergocalcife Yes ergocalcif Univers rol, 4-25 [place] ity of vitamin d2, 15:25: (vitamin [place] 1,250 mcg 10 D2) 1,250 Medic al (50,000 mcg Branch unit) (50,000 capsule unit) capsule TK 1 C PO 1 TIME WEEKLY HYDROcodone 0 Yes hydrocodon Univers -acetaminop 4-25 e 7.5 ity of hen 7.5-325 15:25: mg-acetami [place] mg per 10 nophen 325 Medical tablet mg tablet Branch TAKE 1 TABLET BY MOUTH TWICE DAILY losartan 50 2021-0 Yes losartan Un [place] mg tablet 4-25 50 mg ity of 15:25: tablet [place] 10 TAKE 1 Medical TABLET BY Branch MOUTH EVERY DAY azithromyci 0 Yes azithromyc Univers n 250 mg 4-25 in 250 mg ity of tablet 15:25: tablet [place] 10 TAKE 2 Medical TABLETS BY Branch MOUTH DAY 1 THEN TAKE 1 TABLET BY MOUTH EVERY DAY FOR 4 DAYS ergocalcife Yes ergocalcif Univers rol, 4-25 [place] ity of vitamin d2, 15:25: (vitamin [place] 1,250 mcg 10 D2) 1,250 Medic al (50,000 mcg Branch unit) (50,000 capsule unit) capsule TK 1 C PO 1 TIME WEEKLY HYDROcodone Yes hydrocodon Univers -acetaminop 4-25 e 7.5 ity of hen 7.5-325 15:25: mg-acetami [place] mg per 10 nophen 325 Medical tablet mg tablet Branch TAKE 1 TABLET BY MOUTH TWICE DAILY losartan 50 Yes losartan Un [place] mg tablet 4-25 50 mg ity of 15:25: tablet [place] 10 TAKE 1 Medical TABLET BY Branch MOUTH EVERY DAY azithromyci Yes azithromyc Univers n 250 mg 4-25 in 250 mg ity of tablet 15:25: tablet [place] 10 TAKE 2 Medical TABLETS BY Branch MOUTH DAY 1 THEN TAKE 1 TABLET BY MOUTH EVERY DAY FOR 4 DAYS ergocalcife Yes ergocalcif Univers rol, 4-25 [place] ity of vitamin d2, 15:25: (vitamin [place] 1,250 mcg 10 D2) 1,250 Medic al (50,000 mcg Branch unit) (50,000 capsule unit) capsule TK 1 C PO 1 TIME WEEKLY HYDROcodone Yes hydrocodon Univers -acetaminop 4-25 e 7.5 ity of hen 7.5-325 15:25: mg-acetami [place] mg per 10 nophen 325 Medical tablet mg tablet Branch TAKE 1 TABLET BY MOUTH TWICE DAILY losartan 50 Yes losartan Un [place] mg tablet 4-25 50 mg ity of 15:25: tablet [place] 10 TAKE 1 Medical TABLET BY Branch MOUTH EVERY DAY valACYclovi Yes valacyclov Univers r 1 gram 4-25 ir 1 gram ity of tablet 15:23: tablet [place] 55 TAKE 1 Medical TABLET BY Branch ORAL ROUTE EVERY 8 HOURS FOR 7 DAYS valACYclovi Yes valacyclov Univers r 1 gram 4-25 ir 1 gram ity of tablet 15:23: tablet [place] 55 TAKE 1 Medical TABLET BY Branch ORAL ROUTE EVERY 8 HOURS FOR 7 DAYS valACYclovi Yes valacyclov Univers r 1 gram 4-25 ir 1 gram ity of tablet 15:23: tablet [place] 55 TAKE 1 Medical TABLET BY Branch ORAL ROUTE EVERY 8 HOURS FOR 7 DAYS valACYclovi Yes valacyclov Univers r 1 gram 4-25 ir 1 gram ity of tablet 15:23: tablet [place] 55 TAKE 1 Medical TABLET BY Branch ORAL ROUTE EVERY 8 HOURS FOR 7 DAYS valACYclovi Yes valacyclov Univers r 1 gram 4-25 ir 1 gram ity of tablet 15:23: tablet [place] 55 TAKE 1 Medical TABLET BY Branch ORAL ROUTE EVERY 8 HOURS FOR 7 DAYS valACYclovi Yes valacyclov Univers r 1 gram 4-25 ir 1 gram ity of tablet 15:23: tablet [place] 55 TAKE 1 Medical TABLET BY Branch ORAL ROUTE EVERY 8 HOURS FOR 7 DAYS valACYclovi Yes valacyclov Univers r 1 gram 4-25 ir 1 gram ity of tablet 15:23: tablet [place] 55 TAKE 1 Medical TABLET BY Branch ORAL ROUTE EVERY 8 HOURS FOR 7 DAYS valACYclovi Yes valacyclov Univers r 1 gram 4-25 ir 1 gram ity of tablet 15:23: tablet [place] 55 TAKE 1 Medical TABLET BY Branch ORAL ROUTE EVERY 8 HOURS FOR 7 DAYS allopurinoL Yes Univer s 100 mg 4-24 ity of tablet 00:00: [place] [facility] busPIRone Yes Univers 15 mg 4-24 ity of tablet 00:00: [place] [facility] allopurinoL Yes Univer s 100 mg 4-24 ity of tablet 00:00: [place] [facility] busPIRone Yes Univers 15 mg 4-24 ity of tablet 00:00: [facility] allopurinoL Yes Univer s 100 mg 4-24 ity of tablet 00:00: [facility] busPIRone Yes Univers 15 mg 4-24 ity of tablet 00:00: [facility] allopurinoL Yes Univer s 100 mg 4-24 ity of tablet 00:00: [facility] busPIRone Yes Univers 15 mg 4-24 ity of tablet 00:00: [facility] allopurinoL 2022-0 Yes Univer s 100 mg 4-24 ity of tablet 00:00: 00 [facility] busPIRone 2-0 Yes [facility] 15 mg 4-24 ity of tablet 00:00: 00 [facility] allopurinoL 2-0 Yes Univer s 100 mg 4-24 ity of tablet 00:00: 00 [facility] busPIRone 2-0 Yes [facility] 15 mg 4-24 ity of tablet 00:00: 00 [facility] allopurinoL 2-0 Yes Univer s 100 mg 4-24 ity of tablet 00:00: 00 [facility] busPIRone 2-0 Yes [facility] 15 mg 4-24 ity of tablet 00:00: [place] 00 [facility] allopurinoL 2-0 Yes Univer s 100 mg 4-24 ity of tablet 00:00: 00 [facility] busPIRone 2-0 Yes [facility] 15 mg 4-24 ity of tablet 00:00: 00 [facility] SERTraline 2021-0 Yes 200mg Take 200 Un [place] 100 mg 4-20 mg by ity of tablet 00:00: mouth daily. [facility] SERTraline 2021-0 Yes 200mg Take 200 Un [place] 100 mg 4-20 mg by ity of tablet 00:00: mouth daily. [facility] SERTraline 2021-0 Yes 200mg Take 200 Un [place] 100 mg 4-20 mg by ity of tablet 00:00: mouth daily. [facility] SERTraline 2021-0 Yes 200mg Take 200 Un [place] 100 mg 4-20 mg by ity of tablet 00:00: mouth daily. [facility] SERTraline 2021-0 Yes 200mg Take 200 Un [place] 100 mg 4-20 mg by ity of tablet 00:00: mouth daily. [facility] SERTraline 2021-0 Yes 200mg Take 200 Un [place] 100 mg 4-20 mg by ity of tablet 00:00: mouth 00 daily. [facility] SERTraline 2021-0 Yes 200mg Take 200 Un [place] 100 mg 4-20 mg by ity of tablet 00:00: mouth 00 daily. [facility] SERTraline 2021-0 Yes 200mg Take 200 Un [place] 100 mg 4-20 mg by ity of tablet 00:00: mouth [place] 00 daily. [facility] Azithromyci Azithromyci 2021-0 2- No QD Azithromyc n 250 MG n 250 MG 12-03 in 250 MG 00:00: 00:00 00 :00 predniSONE predniSONE 2021-0 2- No 2{table QD predniSONE 20 MG 20 MG 12-03 t} 20 MG 00:00: 00:00 00 :00 Synvisc 1 Synvisc 1 2020-0 No 8mg Com 03-11 [facility] 00:00: - [facility] 00 [facility] Synvisc 1 Synvisc 1 2020-0 No 8mg Com 03-11 [facility] 00:00: - [facility] Synvisc 1 Synvisc 1 2020-0 No 8mg Com 03-11 Spirit 00:00: - [facility] Synvisc 1 Synvisc 1 2020-0 No 8mg Com 03-11 Spirit 00:00: - [facility] Synvisc 1 Synvisc 1 2020-0 No 8mg Com 03-11 Spirit 00:00: - [facility] Synvisc 1 Synvisc 1 2020-0 No 8mg Com 03-11 Spirit 00:00: - [facility] 00 [facility] Synvisc 1 Synvisc 1 2020-0 No 8mg Com 03-11 Spirit 00:00: - [facility] Synvisc 1 Synvisc 1 2020-0 No 8mg Com 03-11 Spirit 00:00: - [facility] Synvisc 1 Synvisc 1 1-0 No 8mg Com 03-11 Spirit 00:00: - [facility] 00 [facility] Synvisc 1 Synvisc 1 2020-0 No 8mg Com 03-11 Spirit 00:00: - [facility] Synvisc 1 Synvisc 1 2020-0 No 8mg Com thu- Spirit 00:00: - [facility] Synvisc 1 Synvisc 1 2020-0 No 8mg Com 03-11 Spirit 00:00: - [facility] 00 [facility] Synvisc 1 Synvisc 1 No 8mg Com 03-11 Spirit 00:00: - [facility] Synvisc 1 Synvisc 1 No 8mg Com 03-11 Spirit 00:00: - [facility] Synvisc 1 Synvisc 1 No 8mg Com 03-11 Spirit 00:00: - [facility] Synvisc 1 Synvisc 1 No 8mg Com 03-11 Spirit 00:00: - [facility] Vitamin D Vitamin D Yes Sarah (otc) 1 Common 2-19 Millender capsule [facility] 00:00: - [facility] Furosemide Furosemide Yes Sarah TK 1 T PO Common 8-17 Millender D PRF LEG Spiri t 00:00: SWELLING - [facility] 00 [facility] Furosemide Furosemide No Furosemide 20 MG 20 MG 8-17 20 MG 00:00: 00 Furosemide Furosemide 0 No Furosemide 20 MG 20 MG 8-17 20 MG 00:00: 00 Furosemide Furosemide 0 No Furosemide 20 MG 20 MG 8-17 20 MG 00:00: 00 Furosemide Furosemide 0 No Furosemide 20 MG 20 MG 8-17 20 MG 00:00: 00 Furosemide Furosemide 0 No Furosemide 20 MG 20 MG 8-17 20 MG 00:00: 00 Furosemide Furosemide 0 No Furosemide 20 MG 20 MG 8-17 20 MG 00:00: 00 Furosemide Furosemide 0 No Furosemide 20 MG 20 MG 8-17 20 MG 00:00: 00 Furosemide Furosemide 0 No Furosemide 20 MG 20 MG 8-17 20 MG 00:00: 00 Furosemide Furosemide 0 No Furosemide 20 MG 20 MG 8-17 20 MG 00:00: 00 Furosemide Furosemide 0 No Furosemide 20 MG 20 MG 8-17 20 MG 00:00: 00 Furosemide Furosemide 0 No Furosemide 20 MG 20 MG 8-17 20 MG 00:00: 00 Furosemide Furosemide 0 No Furosemide 20 MG 20 MG 8-17 20 MG 00:00: 00 Sertraline Sertraline Yes Sarah 1 tablet Common HCl HCl Millender (take with Spir it sertraline - [facility] 100 mg) [facility] BusPIRone BusPIRone Yes Sarah 1-2 Com mon HCl HCl Millender tablet as Spiri t needed for - [facility] anxiety [facility] Lasix Lasix Yes Sarah 1 tablet Common Millender [facility] Magnesium Magnesium Yes Sarah as Comm on Millender directed [facility] Gabapentin Gabapentin Yes Sarah as Co mmon Millender directed [facility] Hydrocodone Hydrocodone Yes Sarah 1 tablet Common -Acetaminop -Acetaminop Millender as needed Spirit hen hen [facility] Lorazepam Lorazepam Yes Sarah 1 tablet Common Millender at bedtime Spir it as needed [facility] Losartan Losartan Yes Sarah 1 tablet Co mmon Potassium Potassium Millender [facility] Sertraline Sertraline Yes Sarah 2 tablets Common HCl HCl Millender [facility] ProAir HFA ProAir HFA No 2{puffs ProAir HFA 108 (90 108 (90 _as_nee 108 (90 Base) Base) ded} Base) MCG/ACT MCG/ACT MCG/ACT Gabapentin Gabapentin No Gabapentin 300 MG 300 MG 300 MG Losartan Losartan No 1{table QD Losartan Potassium Potassium t} Potassium 50 MG 50 MG 50 MG Allopurinol Allopurinol No 1{table QD Allopurino 100 MG 100 MG t} l 100 MG Sertraline Sertraline No 2{table QD Sertraline HCl 100 MG HCl 100 MG ts} HCl 100 MG Vitamin D Vitamin D No QD Vitamin D 125 MCG 125 MCG 125 MCG (5000 UT) (5000 UT) (5000 UT) Potassium Potassium No Potassium Chloride Chloride Chloride busPIRone busPIRone No BID busPIRone HCl 15 MG HCl 15 MG HCl 15 MG LORazepam 1 LORazepam 1 No 1{table QD LORazepam MG MG t_at_be 1 MG dtime_a s_neede d} Losartan Losartan No Losartan Potassium Potassium Potassium 50 MG 50 MG 50 MG Lasix 20 mg Lasix 20 mg No Lasix 20 mg Magnesium Magnesium No Magnesium 400 MG 400 MG 400 MG HYDROcodone HYDROcodone No 1{table BID HYDROcodon -Acetaminop -Acetaminop t_as_ne e-Acetamin hen 7.5-325 hen 7.5-325 eded} ophen MG MG 7.5-325 MG LORazepam 1 LORazepam 1 No 1{table QD LORazepam MG MG t_at_be 1 MG dtime_a s_neede d} Allopurinol Allopurinol No 1{table QD Allopurino 100 MG 100 MG t} l 100 MG busPIRone busPIRone No BID busPIRone HCl 15 MG HCl 15 MG HCl 15 MG Sertraline Sertraline No 2{table QD Sertraline HCl 100 MG HCl 100 MG ts} HCl 100 MG Magnesium Magnesium No Magnesium 400 MG 400 MG 400 MG Vitamin D Vitamin D No QD Vitamin D 125 MCG 125 MCG 125 MCG (5000 UT) (5000 UT) (5000 UT) Sertraline Sertraline No Sertraline HCl 100 MG HCl 100 MG HCl 100 MG Lasix 20 mg Lasix 20 mg No Lasix 20 mg HYDROcodone HYDROcodone No 1{table BID HYDROcodon -Acetaminop -Acetaminop t_as_ne e-Acetamin hen 7.5-325 hen 7.5-325 eded} ophen MG MG 7.5-325 MG Losartan Losartan No Losartan Potassium Potassium Potassium 50 MG 50 MG 50 MG Losartan Losartan No 1{table QD Losartan Potassium Potassium t} Potassium 50 MG 50 MG 50 MG busPIRone busPIRone No busPIRone HCl 15 MG HCl 15 MG HCl 15 MG Gabapentin Gabapentin No Gabapentin 300 MG 300 MG 300 MG Potassium Potassium No Potassium Chloride Chloride Chloride ProAir HFA ProAir HFA No 2{puffs ProAir HFA 108 (90 108 (90 _as_nee 108 (90 Base) Base) ded} Base) MCG/ACT MCG/ACT MCG/ACT HYDROcodone HYDROcodone No 1{table BID HYDROcodon -Acetaminop -Acetaminop t_as_ne e-Acetamin hen 7.5-325 hen 7.5-325 eded} ophen MG MG 7.5-325 MG Magnesium Magnesium No Magnesium 400 MG 400 MG 400 MG Sertraline Sertraline No 2{table QD Sertraline HCl 100 MG HCl 100 MG ts} HCl 100 MG Lasix 20 mg Lasix 20 mg No Lasix 20 mg Sertraline Sertraline No Sertraline HCl 100 MG HCl 100 MG HCl 100 MG Losartan Losartan No Losartan Potassium Potassium Potassium 50 MG 50 MG 50 MG busPIRone busPIRone No busPIRone HCl 15 MG HCl 15 MG HCl 15 MG Vitamin D Vitamin D No QD Vitamin D 125 MCG 125 MCG 125 MCG (5000 UT) (5000 UT) (5000 UT) busPIRone busPIRone No BID busPIRone HCl 15 MG HCl 15 MG HCl 15 MG ProAir HFA ProAir HFA No 2{puffs ProAir HFA 108 (90 108 (90 _as_nee 108 (90 Base) Base) ded} Base) MCG/ACT MCG/ACT MCG/ACT Potassium Potassium No Potassium Chloride Chloride Chloride Losartan Losartan No 1{table QD Losartan Potassium Potassium t} Potassium 50 MG 50 MG 50 MG LORazepam 1 LORazepam 1 No 1{table QD LORazepam MG MG t_at_be 1 MG dtime_a s_neede d} Gabapentin Gabapentin No Gabapentin 300 MG 300 MG 300 MG HYDROcodone HYDROcodone No 1{table BID HYDROcodon -Acetaminop -Acetaminop t_as_ne e-Acetamin hen 7.5-325 hen 7.5-325 eded} ophen MG MG 7.5-325 MG Magnesium Magnesium No Magnesium 400 MG 400 MG 400 MG Sertraline Sertraline No 2{table QD Sertraline HCl 100 MG HCl 100 MG ts} HCl 100 MG Lasix 20 mg Lasix 20 mg No Lasix 20 mg Sertraline Sertraline No Sertraline HCl 100 MG HCl 100 MG HCl 100 MG Losartan Losartan No Losartan Potassium Potassium Potassium 50 MG 50 MG 50 MG busPIRone busPIRone No busPIRone HCl 15 MG HCl 15 MG HCl 15 MG Vitamin D Vitamin D No QD Vitamin D 125 MCG 125 MCG 125 MCG (5000 UT) (5000 UT) (5000 UT) busPIRone busPIRone No BID busPIRone HCl 15 MG HCl 15 MG HCl 15 MG ProAir HFA ProAir HFA No 2{puffs ProAir HFA 108 (90 108 (90 _as_nee 108 (90 Base) Base) ded} Base) MCG/ACT MCG/ACT MCG/ACT Potassium Potassium No Potassium Chloride Chloride Chloride Losartan Losartan No 1{table QD Losartan Potassium Potassium t} Potassium 50 MG 50 MG 50 MG LORazepam 1 LORazepam 1 No 1{table QD LORazepam MG MG t_at_be 1 MG dtime_a s_neede d} Gabapentin Gabapentin No Gabapentin 300 MG 300 MG 300 MG HYDROcodone HYDROcodone No 1{table BID HYDROcodon -Acetaminop -Acetaminop t_as_ne e-Acetamin hen 7.5-325 hen 7.5-325 eded} ophen MG MG 7.5-325 MG Magnesium Magnesium No Magnesium 400 MG 400 MG 400 MG Sertraline Sertraline No 2{table QD Sertraline HCl 100 MG HCl 100 MG ts} HCl 100 MG Lasix 20 mg Lasix 20 mg No Lasix 20 mg Sertraline Sertraline No Sertraline HCl 100 MG HCl 100 MG HCl 100 MG Losartan Losartan No Losartan Potassium Potassium Potassium 50 MG 50 MG 50 MG busPIRone busPIRone No busPIRone HCl 15 MG HCl 15 MG HCl 15 MG Vitamin D Vitamin D No QD Vitamin D 125 MCG 125 MCG 125 MCG (5000 UT) (5000 UT) (5000 UT) busPIRone busPIRone No BID busPIRone HCl 15 MG HCl 15 MG HCl 15 MG ProAir HFA ProAir HFA No 2{puffs ProAir HFA 108 (90 108 (90 _as_nee 108 (90 Base) Base) ded} Base) MCG/ACT MCG/ACT MCG/ACT Potassium Potassium No Potassium Chloride Chloride Chloride Losartan Losartan No 1{table QD Losartan Potassium Potassium t} Potassium 50 MG 50 MG 50 MG LORazepam 1 LORazepam 1 No 1{table QD LORazepam MG MG t_at_be 1 MG dtime_a s_neede d} Gabapentin Gabapentin No Gabapentin 300 MG 300 MG 300 MG Losartan Losartan No 1{table QD Losartan Potassium Potassium t} Potassium 50 MG 50 MG 50 MG ProAir HFA ProAir HFA No 2{puffs ProAir HFA 108 (90 108 (90 _as_nee 108 (90 Base) Base) ded} Base) MCG/ACT MCG/ACT MCG/ACT Potassium Potassium No Potassium Chloride Chloride Chloride Sertraline Sertraline No Sertraline HCl 100 MG HCl 100 MG HCl 100 MG Gabapentin Gabapentin No Gabapentin 300 MG 300 MG 300 MG Magnesium Magnesium No Magnesium 400 MG 400 MG 400 MG busPIRone busPIRone No BID busPIRone HCl 15 MG HCl 15 MG HCl 15 MG Albuterol Albuterol No Albuterol Sulfate HFA Sulfate HFA Sulfate 108 (90 108 (90 HFA 108 Base) Base) (90 Base) MCG/ACT MCG/ACT MCG/ACT busPIRone busPIRone No busPIRone HCl 15 MG HCl 15 MG HCl 15 MG Lasix 20 mg Lasix 20 mg No Lasix 20 mg Vitamin D Vitamin D No QD Vitamin D 125 MCG 125 MCG 125 MCG (5000 UT) (5000 UT) (5000 UT) HYDROcodone HYDROcodone No 1{table BID HYDROcodon -Acetaminop -Acetaminop t_as_ne e-Acetamin hen 7.5-325 hen 7.5-325 eded} ophen MG MG 7.5-325 MG Losartan Losartan No Losartan Potassium Potassium Potassium 50 MG 50 MG 50 MG Sertraline Sertraline No 2{table QD Sertraline HCl 100 MG HCl 100 MG ts} HCl 100 MG LORazepam 1 LORazepam 1 No 1{table QD LORazepam MG MG t_at_be 1 MG dtime_a s_neede d} ProAir HFA ProAir HFA No 2{puffs ProAir HFA 108 (90 108 (90 _as_nee 108 (90 Base) Base) ded} Base) MCG/ACT MCG/ACT MCG/ACT Potassium Potassium No Potassium Chloride Chloride Chloride Gabapentin Gabapentin No Gabapentin 300 MG 300 MG 300 MG Magnesium Magnesium No Magnesium 400 MG 400 MG 400 MG busPIRone busPIRone No BID busPIRone HCl 15 MG HCl 15 MG HCl 15 MG Losartan Losartan No Losartan Potassium Potassium Potassium 50 MG 50 MG 50 MG busPIRone busPIRone No busPIRone HCl 15 MG HCl 15 MG HCl 15 MG Lasix 20 mg Lasix 20 mg No Lasix 20 mg LORazepam 1 LORazepam 1 No 1{table QD LORazepam MG MG t_at_be 1 MG dtime_a s_neede d} HYDROcodone HYDROcodone No 1{table BID HYDROcodon -Acetaminop -Acetaminop t_as_ne e-Acetamin hen 7.5-325 hen 7.5-325 eded} ophen MG MG 7.5-325 MG Vitamin D Vitamin D No QD Vitamin D 125 MCG 125 MCG 125 MCG (5000 UT) (5000 UT) (5000 UT) Albuterol Albuterol No Albuterol Sulfate HFA Sulfate HFA Sulfate 108 (90 108 (90 HFA 108 Base) Base) (90 Base) MCG/ACT MCG/ACT MCG/ACT Sertraline Sertraline No 2{table QD Sertraline HCl 100 MG HCl 100 MG ts} HCl 100 MG Sertraline Sertraline No Sertraline HCl 100 MG HCl 100 MG HCl 100 MG Potassium Potassium No Potassium Chloride Chloride Chloride busPIRone busPIRone No BID busPIRone HCl 15 MG HCl 15 MG HCl 15 MG Sertraline Sertraline No Sertraline HCl 100 MG HCl 100 MG HCl 100 MG Magnesium Magnesium No Magnesium 400 MG 400 MG 400 MG Losartan Losartan No Losartan Potassium Potassium Potassium 50 MG 50 MG 50 MG busPIRone busPIRone No busPIRone HCl 15 MG HCl 15 MG HCl 15 MG Lasix 20 mg Lasix 20 mg No Lasix 20 mg Gabapentin Gabapentin No Gabapentin 300 MG 300 MG 300 MG LORazepam 1 LORazepam 1 No 1{table QD LORazepam MG MG t_at_be 1 MG dtime_a s_neede d} HYDROcodone HYDROcodone No 1{table BID HYDROcodon -Acetaminop -Acetaminop t_as_ne e-Acetamin hen 7.5-325 hen 7.5-325 eded} ophen MG MG 7.5-325 MG Vitamin D Vitamin D No QD Vitamin D 125 MCG 125 MCG 125 MCG (5000 UT) (5000 UT) (5000 UT) Albuterol Albuterol No Albuterol Sulfate HFA Sulfate HFA Sulfate 108 (90 108 (90 HFA 108 Base) Base) (90 Base) MCG/ACT MCG/ACT MCG/ACT ProAir HFA ProAir HFA No 2{puffs ProAir HFA 108 (90 108 (90 _as_nee 108 (90 Base) Base) ded} Base) MCG/ACT MCG/ACT MCG/ACT Sertraline Sertraline No 2{table QD Sertraline HCl 100 MG HCl 100 MG ts} HCl 100 MG Sertraline Sertraline No Sertraline HCl 100 MG HCl 100 MG HCl 100 MG Losartan Losartan No Losartan Potassium Potassium Potassium 50 MG 50 MG 50 MG ProAir HFA ProAir HFA No 2{puffs ProAir HFA 108 (90 108 (90 _as_nee 108 (90 Base) Base) ded} Base) MCG/ACT MCG/ACT MCG/ACT Magnesium Magnesium No Magnesium 400 MG 400 MG 400 MG LORazepam 1 LORazepam 1 No 1{table QD LORazepam MG MG t_at_be 1 MG dtime_a s_neede d} busPIRone busPIRone No busPIRone HCl 15 MG HCl 15 MG HCl 15 MG Vitamin D Vitamin D No QD Vitamin D 125 MCG 125 MCG 125 MCG (5000 UT) (5000 UT) (5000 UT) Albuterol Albuterol No Albuterol Sulfate HFA Sulfate HFA Sulfate 108 (90 108 (90 HFA 108 Base) Base) (90 Base) MCG/ACT MCG/ACT MCG/ACT Allopurinol Allopurinol No Allopurino 100 MG 100 MG l 100 MG Gabapentin Gabapentin No Gabapentin 300 MG 300 MG 300 MG Losartan Losartan No 1{table QD Losartan Potassium Potassium t} Potassium 50 MG 50 MG 50 MG HYDROcodone HYDROcodone No 1{table BID HYDROcodon -Acetaminop -Acetaminop t_as_ne e-Acetamin hen 7.5-325 hen 7.5-325 eded} ophen MG MG 7.5-325 MG Lasix 20 mg Lasix 20 mg No Lasix 20 mg Potassium Potassium No Potassium Chloride Chloride Chloride Allopurinol Allopurinol No 1{table QD Allopurino 100 MG 100 MG t} l 100 MG Potassium Potassium No Potassium Chloride Chloride Chloride Losartan Losartan No 1{table QD Losartan Potassium Potassium t} Potassium 50 MG 50 MG 50 MG LORazepam 1 LORazepam 1 No 1{table QD LORazepam MG MG t_at_be 1 MG dtime_a s_neede d} ProAir HFA ProAir HFA No 2{puffs ProAir HFA 108 (90 108 (90 _as_nee 108 (90 Base) Base) ded} Base) MCG/ACT MCG/ACT MCG/ACT HYDROcodone HYDROcodone No 1{table BID HYDROcodon -Acetaminop -Acetaminop t_as_ne e-Acetamin hen 10-325 hen 10-325 eded} ophen MG MG 10-325 MG Magnesium Magnesium No Magnesium 400 MG 400 MG 400 MG Losartan Losartan No Losartan Potassium Potassium Potassium 50 MG 50 MG 50 MG Lasix 20 mg Lasix 20 mg No Lasix 20 mg Allopurinol Allopurinol No Allopurino 100 MG 100 MG l 100 MG busPIRone busPIRone No BID busPIRone HCl 15 MG HCl 15 MG HCl 15 MG Albuterol Albuterol No Albuterol Sulfate HFA Sulfate HFA Sulfate 108 (90 108 (90 HFA 108 Base) Base) (90 Base) MCG/ACT MCG/ACT MCG/ACT Vitamin D Vitamin D No QD Vitamin D 125 MCG 125 MCG 125 MCG (5000 UT) (5000 UT) (5000 UT) Sertraline Sertraline No Sertraline HCl 100 MG HCl 100 MG HCl 100 MG Sertraline Sertraline No 2{table QD Sertraline HCl 100 MG HCl 100 MG ts} HCl 100 MG Gabapentin Gabapentin No Gabapentin 300 MG 300 MG 300 MG Gabapentin Gabapentin No Gabapentin 300 MG 300 MG 300 MG busPIRone busPIRone No busPIRone HCl 15 MG HCl 15 MG HCl 15 MG Allopurinol Allopurinol No 1{table QD Allopurino 100 MG 100 MG t} l 100 MG Potassium Potassium No Potassium Chloride Chloride Chloride Losartan Losartan No 1{table QD Losartan Potassium Potassium t} Potassium 50 MG 50 MG 50 MG LORazepam 1 LORazepam 1 No 1{table QD LORazepam MG MG t_at_be 1 MG dtime_a s_neede d} ProAir HFA ProAir HFA No 2{puffs ProAir HFA 108 (90 108 (90 _as_nee 108 (90 Base) Base) ded} Base) MCG/ACT MCG/ACT MCG/ACT HYDROcodone HYDROcodone No 1{table BID HYDROcodon -Acetaminop -Acetaminop t_as_ne e-Acetamin hen 10-325 hen 10-325 eded} ophen MG MG 10-325 MG Magnesium Magnesium No Magnesium 400 MG 400 MG 400 MG Losartan Losartan No Losartan Potassium Potassium Potassium 50 MG 50 MG 50 MG Lasix 20 mg Lasix 20 mg No Lasix 20 mg Allopurinol Allopurinol No Allopurino 100 MG 100 MG l 100 MG busPIRone busPIRone No BID busPIRone HCl 15 MG HCl 15 MG HCl 15 MG Albuterol Albuterol No Albuterol Sulfate HFA Sulfate HFA Sulfate 108 (90 108 (90 HFA 108 Base) Base) (90 Base) MCG/ACT MCG/ACT MCG/ACT Vitamin D Vitamin D No QD Vitamin D 125 MCG 125 MCG 125 MCG (5000 UT) (5000 UT) (5000 UT) Sertraline Sertraline No Sertraline HCl 100 MG HCl 100 MG HCl 100 MG Sertraline Sertraline No 2{table QD Sertraline HCl 100 MG HCl 100 MG ts} HCl 100 MG Gabapentin Gabapentin No Gabapentin 300 MG 300 MG 300 MG Gabapentin Gabapentin No Gabapentin 300 MG 300 MG 300 MG busPIRone busPIRone No busPIRone HCl 15 MG HCl 15 MG HCl 15 MG Allopurinol Allopurinol No 1{table QD Allopurino 100 MG 100 MG t} l 100 MG Potassium Potassium No Potassium Chloride Chloride Chloride Losartan Losartan No 1{table QD Losartan Potassium Potassium t} Potassium 50 MG 50 MG 50 MG LORazepam 1 LORazepam 1 No 1{table QD LORazepam MG MG t_at_be 1 MG dtime_a s_neede d} ProAir HFA ProAir HFA No 2{puffs ProAir HFA 108 (90 108 (90 _as_nee 108 (90 Base) Base) ded} Base) MCG/ACT MCG/ACT MCG/ACT HYDROcodone HYDROcodone No 1{table BID HYDROcodon -Acetaminop -Acetaminop t_as_ne e-Acetamin hen 10-325 hen 10-325 eded} ophen MG MG 10-325 MG Magnesium Magnesium No Magnesium 400 MG 400 MG 400 MG Losartan Losartan No Losartan Potassium Potassium Potassium 50 MG 50 MG 50 MG Lasix 20 mg Lasix 20 mg No Lasix 20 mg Allopurinol Allopurinol No Allopurino 100 MG 100 MG l 100 MG busPIRone busPIRone No BID busPIRone HCl 15 MG HCl 15 MG HCl 15 MG Albuterol Albuterol No Albuterol Sulfate HFA Sulfate HFA Sulfate 108 (90 108 (90 HFA 108 Base) Base) (90 Base) MCG/ACT MCG/ACT MCG/ACT Vitamin D Vitamin D No QD Vitamin D 125 MCG 125 MCG 125 MCG (5000 UT) (5000 UT) (5000 UT) Sertraline Sertraline No Sertraline HCl 100 MG HCl 100 MG HCl 100 MG Sertraline Sertraline No 2{table QD Sertraline HCl 100 MG HCl 100 MG ts} HCl 100 MG Gabapentin Gabapentin No Gabapentin 300 MG 300 MG 300 MG Gabapentin Gabapentin No Gabapentin 300 MG 300 MG 300 MG busPIRone busPIRone No busPIRone HCl 15 MG HCl 15 MG HCl 15 MG Gabapentin Gabapentin No Gabapentin 300 MG 300 MG 300 MG Allopurinol Allopurinol No 1{table QD Allopurino 100 MG 100 MG t} l 100 MG Vitamin D Vitamin D No QD Vitamin D 125 MCG 125 MCG 125 MCG (5000 UT) (5000 UT) (5000 UT) Gabapentin Gabapentin No Gabapentin 300 MG 300 MG 300 MG Sertraline Sertraline No 2{table QD Sertraline HCl 100 MG HCl 100 MG ts} HCl 100 MG HYDROcodone HYDROcodone No 1{table BID HYDROcodon -Acetaminop -Acetaminop t_as_ne e-Acetamin hen 10-325 hen 10-325 eded} ophen MG MG 10-325 MG busPIRone busPIRone No busPIRone HCl 15 MG HCl 15 MG HCl 15 MG Losartan Losartan No 1{table QD Losartan Potassium Potassium t} Potassium 50 MG 50 MG 50 MG Sertraline Sertraline No Sertraline HCl 100 MG HCl 100 MG HCl 100 MG Losartan Losartan No Losartan Potassium Potassium Potassium 50 MG 50 MG 50 MG Allopurinol Allopurinol No Allopurino 100 MG 100 MG l 100 MG busPIRone busPIRone No BID busPIRone HCl 15 MG HCl 15 MG HCl 15 MG Lasix 20 mg Lasix 20 mg No Lasix 20 mg Gabapentin Gabapentin No Gabapentin 300 MG 300 MG 300 MG Allopurinol Allopurinol No 1{table QD Allopurino 100 MG 100 MG t} l 100 MG Vitamin D Vitamin D No QD Vitamin D 125 MCG 125 MCG 125 MCG (5000 UT) (5000 UT) (5000 UT) Gabapentin Gabapentin No Gabapentin 300 MG 300 MG 300 MG Sertraline Sertraline No 2{table QD Sertraline HCl 100 MG HCl 100 MG ts} HCl 100 MG HYDROcodone HYDROcodone No 1{table BID HYDROcodon -Acetaminop -Acetaminop t_as_ne e-Acetamin hen 10-325 hen 10-325 eded} ophen MG MG 10-325 MG busPIRone busPIRone No busPIRone HCl 15 MG HCl 15 MG HCl 15 MG Losartan Losartan No 1{table QD Losartan Potassium Potassium t} Potassium 50 MG 50 MG 50 MG Sertraline Sertraline No Sertraline HCl 100 MG HCl 100 MG HCl 100 MG Losartan Losartan No Losartan Potassium Potassium Potassium 50 MG 50 MG 50 MG Allopurinol Allopurinol No Allopurino 100 MG 100 MG l 100 MG busPIRone busPIRone No BID busPIRone HCl 15 MG HCl 15 MG HCl 15 MG Lasix 20 mg Lasix 20 mg No Lasix 20 mg Gabapentin Gabapentin No Gabapentin 300 MG 300 MG 300 MG busPIRone busPIRone No busPIRone HCl 15 MG HCl 15 MG HCl 15 MG Lasix 20 mg Lasix 20 mg No Lasix 20 mg Allopurinol Allopurinol No Allopurino 100 MG 100 MG l 100 MG Losartan Losartan No 1{table QD Losartan Potassium Potassium t} Potassium 50 MG 50 MG 50 MG Vitamin D Vitamin D No QD Vitamin D 125 MCG 125 MCG 125 MCG (5000 UT) (5000 UT) (5000 UT) Sertraline Sertraline No 2{table QD Sertraline HCl 100 MG HCl 100 MG ts} HCl 100 MG Losartan Losartan No Losartan Potassium Potassium Potassium 50 MG 50 MG 50 MG busPIRone busPIRone No BID busPIRone HCl 15 MG HCl 15 MG HCl 15 MG HYDROcodone HYDROcodone No 1{table BID HYDROcodon -Acetaminop -Acetaminop t_as_ne e-Acetamin hen 10-325 hen 10-325 eded} ophen MG MG 10-325 MG Gabapentin Gabapentin No Gabapentin 300 MG 300 MG 300 MG Allopurinol Allopurinol No 1{table QD Allopurino 100 MG 100 MG t} l 100 MG Sertraline Sertraline No Sertraline HCl 100 MG HCl 100 MG HCl 100 MG Allopurinol Allopurinol 2021- No 1{table QD Allopurino 100 MG 100 MG 04-03 t} l 100 MG 00:00 :00 Allopurinol Allopurinol 2021- No 1{table QD Allopurino 100 MG 100 MG 04-03 t} l 100 MG 00:00 :00 Allopurinol Allopurinol 2021- No 1{table QD Allopurino 100 MG 100 MG 04-03 t} l 100 MG 00:00 :00 Allopurinol Allopurinol 2021- No 1{table QD Allopurino 100 MG 100 MG 04-03 t} l 100 MG 00:00 :00 Allopurinol Allopurinol 2021- No 1{table QD Allopurino 100 MG 100 MG 04-03 t} l 100 MG 00:00 :00 Allopurinol Allopurinol 2021- No 1{table QD Allopurino 100 MG 100 MG 04-03 t} l 100 MG 00:00 :00 Allopurinol Allopurinol 2019- No Sarah 1 tablet [facility] 11-15 [facility] 00:00 - [facility] :00 [facility] Immunizations Ordered Immunization Filled Immunization Date Status Commen ts Source Name Name Prevnar 13 (PCV) Prevnar 13 (PCV13) 2022-04-02 Completed [facility] 13:45:00 - [facility] Prevnar 13 (PCV) Prevnar 13 (PCV13) 2022-04-02 Completed [facility] 13:45:00 - [facility] Prevnar 13 (PCV13) Prevnar 13 (PCV13) 2022-04-02 Completed [facility] 13:45:00 - [facility] Prevnar 13 (PCV13) Prevnar 13 (PCV13) 2022-04-02 Completed [facility] 13:45:00 - [facility] Prevnar 13 (PCV13) Prevnar 13 (PCV13) 2022-04-02 Completed [facility] 13:45:00 - [facility] Prevnar 13 (PCV13) Prevnar 13 (PCV13) 2022-04-02 Completed [facility] 13:45:00 - [facility] Fluzone Fluzone 2021-11-07 Completed [facility] 11:25:00 - [facility] Fluzone Fluzone 2021-11-07 Completed [facility] 11:25:00 - [facility] Fluzone Fluzone 2021-11-07 Completed [facility] 11:25:00 - [facility] Fluzone Fluzone 2021-11-07 Completed [facility] 11:25:00 - [facility] Fluzone Fluzone 2021-11-07 Completed [facility] 11:25:00 - [facility] Fluzone Fluzone 2021-11-07 Completed [facility] 11:25:00 - [facility] Fluzone Fluzone 2021-11-07 Completed [facility] 11:25:00 - [facility] Fluzone Fluzone 2021-11-07 Completed [facility] 11:25:00 - [facility] Fluzone Fluzone 2021-11-07 Completed [facility] 11:25:00 - [facility] Fluzone Fluzone 2021-11-07 Completed [facility] 11:25:00 - [facility] Fluzone Fluzone 2021-11-07 Completed [facility] 11:25:00 - [facility] Fluzone Fluzone 2021-11-07 Completed [facility] 11:25:00 - [facility] Fluzone Fluzone 2021-11-07 Completed [facility] 11[facility]25:00 - [facility] Fluzone Fluzone 2021-11-07 Completed [facility] 11:25:00 [facility] Synvisc 1 Synvisc 1 2021-03-11 Completed [facility] 09:53:00 - [facility] Synvisc 1 Synvisc 1 2021-03-11 Completed [facility] 09:51:00 - [facility] COVID-19 Vaccine COVID-19 Vaccine 2021-02-05 Completed [facility] (Ethan) (Ethan) 14:53:00 [facility] COVID-19 Vaccine COVID-19 Vaccine 2021-02-05 Completed [facility] (Ethan) (Ethan) 14:53:00 [facility] COVID-19 Vaccine COVID-19 Vaccine 2021-02-05 Completed [facility] (Ethan) (Ethan) 14:53:00 [facility] COVID-19 Vaccine COVID-19 Vaccine 2021-02-05 Completed [facility] (Ethan) (Ethan) 14:53:00 [facility] COVID-19 Vaccine COVID-19 Vaccine 2021-02-05 Completed [facility] (Ethan) (Ethan) 14:53:00 [facility] COVID-19 Vaccine COVID-19 Vaccine 2021-02-05 Completed [facility] (Ethan) (Ethan) 14:53:00 [facility] COVID-19 Vaccine COVID-19 Vaccine 2021-02-05 Completed [facility] (Ethan[facility] (Ethan) 14:53:00 [facility] COVID-19 Vaccine COVID-19 Vaccine 2021-02-05 Completed [facility] (Ethan) (Ethan) 14:53:00 [facility] COVID-19 Vaccine COVID-19 Vaccine 2021-02-05 Completed [facility] (Ethan) (Ethan) 14:53:00 [facility] COVID-19 Vaccine COVID-19 Vaccine 2021-02-05 Completed [facility] (Ethan) (Ethan) 14:53:00 [facility] COVID-19 Vaccine COVID-19 Vaccine 2021-02-05 Completed [facility] (Ethan[facility] (Ethan) 14:53:00 - [facility] COVID-19 Vaccine COVID-19 Vaccine 2021-02-05 Completed [facility] (Ethan) (Ethan) 14:53:00 - [facility] COVID-19 Vaccine COVID-19 Vaccine 2021-02-05 Completed [facility] (Ethan) (Ethan) 14:53:00 - [facility] COVID-19 Vaccine COVID-19 Vaccine 2021-02-05 Completed [facility] (Ethan) (Ethan) 14:53:00 - [facility] COVID-19 Vaccine COVID-19 Vaccine 2021-02-05 Completed [facility] (Ethan) (Ethan) 14:53:00 - [facility] Flucelvax - single Flucelvax - single 2020-08-24 Completed [facility] dose syringe dose syringe 13:30:00 - [facility] Flucelvax - single Flucelvax - single 2020-08-24 Completed [facility] dose syringe dose syringe 13:30:00 - [facility] Flucelvax - single Flucelvax - single 2020-08-24 Completed [facility] dose syringe dose syringe 13:30:00 - [facility] Flucelvax - single Flucelvax - single 2020-08-24 Completed [facility] dose syringe dose syringe 13:30:00 - [facility] Flucelvax - single Flucelvax - single 2020-08-24 Completed [facility] dose syringe dose syringe 13:30:00 - [facility] Flucelvax - single Flucelvax - single 2020-08-24 Completed [facility] dose syringe dose syringe 13:30:00 - [facility] Flucelvax - single Flucelvax - single 2020-08-24 Completed [facility] dose syringe dose syringe 13:30:00 - [facility] Flucelvax - single Flucelvax - single 2020-08-24 Completed [facility] dose syringe dose syringe 13:30:00 - [facility] Flucelvax - single Flucelvax - single 2020-08-24 Completed [facility] dose syringe dose syringe 13:30:00 - [facility] Flucelvax - single Flucelvax - single 2020-08-24 Completed [facility] dose syringe dose syringe 13:30:00 - [facility] Flucelvax - single Flucelvax - single 2020-08-24 Completed [facility] dose syringe dose syringe 13:30:00 - [facility] Flucelvax - single Flucelvax - single 2020-08-24 Completed [facility] dose syringe dose syringe 13:30:00 - [facility] Flucelvax - single Flucelvax - single 2020-08-24 Completed [facility] dose syringe dose syringe 13:30:00 - [facility] Flucelvax - single Flucelvax - single 2020-08-24 Completed [facility] dose syringe dose syringe 13:30:00 - [facility] Flucelvax - single Flucelvax - single 2020-08-24 Completed [facility] dose syringe dose syringe 13:30:00 - [facility] Flucelvax - single Flucelvax - single 2019-10-13 Completed [facility] dose syringe dose syringe 16:56:00 - [facility] Flucelvax - single Flucelvax - single 2019-10-13 Completed [facility] dose syringe dose syringe 16:56:00 - [facility] Flucelvax - single Flucelvax - single 2019-10-13 Completed [facility] dose syringe dose syringe 16:56:00 - [facility] Flucelvax - single Flucelvax - single 2019-10-13 Completed [facility] dose syringe dose syringe 16:56:00 - [facility] Flucelvax - single Flucelvax - single 2019-10-13 Completed [facility] dose syringe dose syringe 16:56:00 - [facility] Flucelvax - single Flucelvax - single 2019-10-13 Completed [facility] dose syringe dose syringe 16:56:00 - [facility] Flucelvax - single Flucelvax - single 2019-10-13 Completed [facility] dose syringe dose syringe 16:56:00 - [facility] Flucelvax - single Flucelvax - single 2019-10-13 Completed [facility] dose syringe dose syringe 16:56:00 - [facility] Flucelvax - single Flucelvax - single 2019-10-13 Completed [facility] dose syringe dose syringe 16:56:00 - [facility] Flucelvax - single Flucelvax - single 2019-10-13 Completed [facility] dose syringe dose syringe 16:56:00 - [facility] Flucelvax - single Flucelvax - single 2019-10-13 Completed [facility] dose syringe dose syringe 16:56:00 - [facility] Flucelvax - single Flucelvax - single 2019-10-13 Completed [facility] dose syringe dose syringe 16:56:00 - [facility] Flucelvax - single Flucelvax - single 2019-10-13 Completed [facility] dose syringe dose syringe 16:56:00 - [facility] Flucelvax - single Flucelvax - single 2019-10-13 Completed [facility] dose syringe dose syringe 16:56:00 - [facility] Flucelvax - single Flucelvax - single 2019-10-13 Completed [facility] dose syringe dose syringe 16:56:00 - [facility] Flucelvax - single Flucelvax - single 2019-10-13 Completed [facility] dose syringe dose syringe 00:00:00 - [facility] Vital Signs Vital Name Observation Time Observation Value Comments Source Systolic blood 2022-10-21 10:00:00 132 mm[Hg] Univer sity of pressure [facility] Diastolic blood 2022-10-21 10:00:00 66 mm[Hg] Unive rsity of pressure [facility] Heart rate 2022-10-21 10:00:00 92 /min [facility] Oxygen saturation in 2022-10-21 10:00:00 93 /min [facility] Arterial blood by [facility] Pulse oximetry [facility] Respiratory rate 2022-10-21 07:30:00 18 /min [facility] Body temperature 2022-10-21 05:58:00 36.44 Mildred [facility] Body height 2022-10-21 05:58:00 167.6 cm [facility] Body weight 2022-10-21 05:58:00 169.192 kg [facility] BMI 2022-10-21 05:58:00 60.20 kg/m2 [facility] height 2022-07-30 13:10:00 66.00 [in_i] [facility] weight 2022-07-30 13:10:00 373 [lb_av] Common [facility] temperature 2022-07-30 13:10:00 98.0 [degF] Common [facility] bmi 2022-07-30 13:10:00 60.2 kg/m2 [facility] oximetry 2022-07-30 13:10:00 94 % [facility] respiratory rate 2022-07-30 13:10:00 18 /min Comm on [facility] blood pressure 2022-07-30 13:10:00 133 mm[Hg] Common [facility] - systolic [facility] blood pressure 2022-07-30 13:10:00 62 mm[Hg] Common [facility] - diastolic [facility] height 2022-06-11 13:00:00 66.00 [in_i] [facility] weight 2022-06-11 13:00:00 373 [lb_av] [facility] temperature 2022-06-11 13:00:00 97.5 [degF] Common [facility] bmi 2022-06-11 13:00:00 60.2 kg/m2 [facility] oximetry 2022-06-11 13:00:00 99 % Common [facility] respiratory rate 2022-06-11 13:00:00 18 /min Comm on [facility] blood pressure 2022-06-11 13:00:00 135 mm[Hg] Common [facility] - systolic [facility] blood pressure 2022-06-11 13:00:00 78 mm[Hg] [facility] - diastolic [facility] height 2022-04-02 10:50:00 66.00 [in_i] [facility] - [facility] weight 2022-04-02 10:50:00 373 [lb_av] [facility] - [facility] temperature 2022-04-02 10:50:00 97.3 [degF] [facility] - [facility] bmi 2022-04-02 10:50:00 60.2 kg/m2 [facility] - [facility] oximetry 2022-04-02 10:50:00 95 % [facility] - [facility] respiratory rate 2022-04-02 10:50:00 16 /min Comm on [facility] blood pressure 2022-04-02 10:50:00 139 mm[Hg] Common [facility] - systolic [facility] blood pressure 2022-04-02 10:50:00 67 mm[Hg] [facility] - diastolic [facility] height 2022-04-02 10:00:00 66.00 [in_i] [facility] weight 2022-04-02 10:00:00 373 [lb_av] [facility] - [facility] temperature 2022-04-02 10:00:00 97.3 [degF] [facility] bmi 2022-04-02 10:00:00 60.2 kg/m2 [facility] - [facility] oximetry 2022-04-02 10:00:00 95 % [facility] - [facility] respiratory rate 2022-04-02 10:00:00 16 /min Comm on [facility] blood pressure 2022-04-02 10:00:00 139 mm[Hg] [facility] - systolic [facility] blood pressure 2022-04-02 10:00:00 67 mm[Hg] [facility] - diastolic [facility] height 2022-03-24 14:30:00 66.00 [in_i] [facility] - [facility] weight 2022-03-24 14:30:00 373 [lb_av] [facility] temperature 2022-03-24 14:30:00 99.2 [degF] [facility]irit [facility] bmi 2022-03-24 14:30:00 60.2 kg/m2 Common S [facility] blood pressure 2022-03-24 14:30:00 138 mm[Hg] [facility] - systolic [facility] blood pressure 2022-03-24 14:30:00 78 mm[Hg] [facility] - diastolic [facility] height 2021-12-03 11:00:00 66.00 [in_i] Common [facility] weight 2021-12-03 11:00:00 388 [lb_av] [facility] temperature 2021-12-03 11:00:00 98.7 [degF] [facility] bmi 2021-12-03 11:00:00 62.62 kg/m2 Common S [facility] blood pressure 2021-12-03 11:00:00 128 mm[Hg] Common [facility] - systolic [facility] blood pressure 2021-12-03 11:00:00 75 mm[Hg] [facility] - diastolic [facility] height 2021-11-07 10:50:00 66.00 [in_i] Common [facility] weight 2021-11-07 10:50:00 388.5 [lb_av] Common [facility] temperature 2021-11-07 10:50:00 97.5 [degF] Common S [facility] bmi 2021-11-07 10:50:00 62.7 kg/m2 [facility] oximetry 2021-11-07 10:50:00 95 % [facility] S [facility] respiratory rate 2021-11-07 10:50:00 19 /min Comm on [facility] blood pressure 2021-11-07 10:50:00 132 mm[Hg] Common [facility] - systolic [facility] blood pressure 2021-11-07 10:50:00 63 mm[Hg] Common [facility] - diastolic [facility] Procedures Procedure Date / Time Performed Performing Clinician [facility] e EKG-12 LEAD 2022-10-21 08:50:42 Josie Gallardo [facility] URINALYSIS 2022-10-21 08:33:00 [facility] TROPONIN I 2022-10-21 06:54:00 [facility] COMP. METABOLIC PANEL 2022-10-21 06:54:00 Josie Gallardo [facility] ([id number]) [facility] CBC WITH DIFF 2022-10-21 06:54:00 [facility] N-TERMINAL PRO-BNP 2022-10-21 06:54:00 Josie Gallardo [facility] XR CHEST 1 VW 2022-10-21 06:49:10 [facility] Encounters Start End Encounter Admission Attending Care Care Encounter Source Date/Time Date/Time Type Type Clinicians Facility Department ID 2022-04-16 Outpatient Bull, STLMLC STLC [id number] Common 10:40:00 [facility] 2022-03-21 Outpatient Bull, STLMLC STLC [id number] Common 10:56:01 Solo [facility] 2021-12-18 Outpatient Bull, STLMLC STLMLC [id number] Common 14:24:41 Solo [id number] [facility] 2021-12-18 Outpatient Bull, STLMLC STLMLC [id number] Common 13:54:01 Solo [id number] [facility] 2021-12-18 Outpatient Bull, STLMLC STLMLC [id number] Common 13:51:23 Solo [id number] [facility] 2021-12-18 Outpatient Bull, STLMLC STLMLC [id number] Common 13:51:19 Solo [id number] [facility] 2021-12-18 Outpatient Bull, STLMLC STLMLC Common 12:54:53 Solo [id number] [facility] 2021-12-18 Outpatient Bull, STLMLC STLMLC Common 12:47:58 Solo [id number] [facility] 2021-12-18 Outpatient Bull, STLMLC STLMLC Common 12:43:31 Solo [id number] [facility] 2021-12-18 Outpatient Bull, STLMLC STLMLC Common 12:42:37 [facility] [address] [facility] 2021-12-18 Outpatient Bull, STLMLC STLMLC Common 12:41:47 [facility] [address]055 [facility] 2021-12-18 Outpatient Bull, STLMLC STLMLC Common 12:40:52 [facility] [address]85 [facility] 2021-12-18 Outpatient STLMLC STLMLC Common 12:35:19 [id number] [facility] 2021-12-18 Outpatient Jorge, STLMLC STLMLC Common 12:30:20 Erna [id number] [facility] 2021-12-18 Outpatient Jorge, STLMLC STLMLC Common 12:20:17 Erna [id number] [facility] 2021-12-18 Outpatient Jorge, STLMLC STLMLC Common 12:19:41 Erna [id number] [facility] 2021-12-18 Outpatient Jorge, STLMLC STLMLC Common 12:10:41 Erna [id number] [facility] 2021-12-18 Outpatient STLMLC STLMLC Common 12:09:40 [id number] [facility] 2022-11-01 2022-11-01 Telephone [facility] [id number] Univers 00:00:00 00:00:00 Maribel BURRIS [id number] i [place] [facility] [id number] [id number] [address] 2022-10-24 2022-10-24 Telemedici [facility] [id number] Univers 16:00:00 16:30:00 ne Visit Maribel BURRIS [id number] [place] [facility] [id number] [id number] [address] 2022-10-24 2022-10-24 Outpatient R [facility] [id number] Univers 16:00:00 16:00:00 MARIBEL maldonado [facility] 2022-10-20 2022-10-21 Emergency [facility] [id number] Univers 23:53:00 05:46:00 NEREIDA maldonado [facility] 2022-10-20 2022-10-21 Emergency Josie Gallardo [facility] [id number] Univers 23:53:00 05:46:00 Nereida Sierra [id number] [id number] [id number] [facility] [address] [place] 2022-09-12 2022-09-12 Telemedici [facility] [id number] Univers 16:00:00 16:30:00 ne Visit Maribel BURRIS [id number] [place] [facility] [id number] [id number] [address] 2022-09-12 2022-09-12 Outpatient R [facility] [id number] Univers 16:00:00 16:00:00 MARIBEL maldonado [facility] 2022-08-07 2022-08-07 Telephone [facility] [id number] Univers 00:00:00 00:00:00 Maribel BURRIS [id number] i ty [facility] [id number] [id number] Vt [address] 2022-08-04 2022-08-04 Telemedici [facility] 1.2.840.114 [id number] Univers 15:00:00 15:30:00 ne Visit Maribel BURRIS [id number] [place] [facility] [id number] [id number] [address] 2022-08-04 2022-08-04 Outpatient R [facility] [id number] Univers 15:00:00 15:00:00 [facility] 2022-08-04 2022-08-04 Outpatient [facility] [id number] Univers 15:00:00 15:00:00 [facility] 2022-08-04 2022-08-04 Outpatient R [facility] [id number] Univers 15:00:00 15:00:00 [facility] 2022-07-30 2022-07-30 OFFICE STLMLC STLMLC [id number] Co mmon 00:00:00 00:00:00 [facility]IT [facility] ESTAB PT - CHI LEVEL [address] [place] [address] 2022-06-11 2022-06-11 OFFICE STLMLC STLMLC [id number] Co mmon 00:00:00 00:00:00 [facility]IT [facility] ESTAB PT - CHI LEVEL 4 [facility] 2022-06-11 2022-06-11 (TEL) STLMLC STLMLC [id number] Co mmon 00:00:00 00:00:00 [facility] - CHI [facility] 2022-06-06 2022-06-06 Office [facility] [id number] Univers 11:00:00 12:07:23 Visit Maribel BURRIS [id number] i ty [place] [facility] [id number] [id number] Vt [address] 2022-06-06 2022-06-06 Outpatient R [facility] [id number] Univers 11:00:00 12:07:23 MARIBEL maldonado [facility] 2022-06-06 2022-06-06 Outpatient R [facility] [id number] Univers 11:00:00 11:00:00 MARIBEL maldonado [facility] 2022-06-06 2022-06-06 Outpatient R [facility] [id number] Univers 11:00:00 11:00:00 MARIBEL maldonado [facility] 2022-05-02 2022-05-02 Outpatient R [facility] [id number] Univers 10:30:00 11:39:16 MARIBEL maldonado [facility] 2022-05-02 2022-05-02 Office [facility] [id number] Univers 10:30:00 11:39:16 Visit Maribel BURRIS [id number] i ty [id number] [id number] [address] 2022-04-03 2022-04-03 Telephone [facility] 1.2.840.114 [id number] Univers 00:00:00 00:00:00 Maribel GILBERTCAMILA [id number] i ty [id number] [id number] Vt [address] 2022-04-02 2022-04-02 [facility] [id number] Co mmon 00:00:00 00:00:00 [facility]IT [facility] ESTAB PT - CHI LEVEL 4 [facility] 2022-04-02 2022-04-02 SUB ANNUAL STLC STLC [id number] Common 00:00:00 00:00:00 MCR [facility] WELLNESS - CHI VISIT [facility] 2022-04-02 2022-04-02 (TEL) [facility] ST[facility] [id number] Co mmon 00:00:00 00:00:00 Spirit - CHI [facility] 2022-03-25 2022-03-25 Telephone [facility] [id number] Univers 00:00:00 00:00:00 Maribel BURRIS [id number] i [id number] [id number] Vt dical NAL [address] [facility] 2022-03-24 2022-03-24 OFFICE [facility] [id number] Co mmon 00:00:00 00:00:00 VISIT [facility] - CHI LEVEL 4 [facility] 2022-03-17 2022-03-17 Outpatient R [facility] [id number] Univers 14:00:00 15:57:19 MARIBEL ity [facility] 2022-03-17 2022-03-17 Outpatient R [facility] [id number] Univers 14:00:00 15:57:19 MARIBEL ity [facility] 2022-03-17 2022-03-17 Office [facility] [id number] Univers 14:00:00 15:57:19 Visit Maribel BURRIS [id number] i ty [id number] [id number] Vt dical NAL 0[address] [facility] 2022-03-17 2022-03-17 Outpatient R [facility] [id number] Univers 14:00:00 14:00:00 MARIBEL maldonado [facility] 2022-03-17 2022-03-17 Orders Doctor NACHO [id number] [id number] Univers 00:00:00 00:00:00 Only Unassigned, ALE [id number] ity of [place] [facility] 4.2.7.2.686 Justino as [id number] [address] 2022-02-03 2022-02-03 (TEL) [facility] [id number] Co mmon 00:00:00 00:00:00 [facility] 2022-01-29 2022-01-29 Orders Doctor NACHO Xavier.[id number] Univers 00:00:00 00:00:00 Only Unassigned, ALE 350.1.13.10 ity of [place] [facility] 4.2.7.2.686 [facility] [id number] [facility] [address] 2021-12-31 2021-12-31 (TEL) STLMLC STLMLC [id number] Co mmon 00:00:00 00:00:00 [facility] 2021-12-03 2021-12-03 OFFICE STLMLC STLMLC [id number] Co mmon 00:00:00 00:00:00 VISIT EST Spir it PT LEVEL 3 - CHI [facility] 2021-12-02 2021-12-02 (TEL) STLMLC STLMLC [id number] Co mmon 00:00:00 00:00:00 [facility] 2021-11-26 2021-11-26 OFFICE STLMLC STLMLC [id number] Co mmon 00:00:00 00:00:00 [facility]IT [facility] ESTAB PT - CHI LEVEL 1 [facility] 2021-11-25 2021-11-25 (TEL) STLMLC STLMLC [id number] Co mmon 00:00:00 00:00:00 [facility] 2021-11-15 2021-11-16 Emergency X [facility] ERT [id number] Univers 22:26:00 02:54:00 NEREIDA maldonado [facility] 2021-11-15 2021-11-16 Emergency [facility] [id number] Univers 22:26:00 02:54:00 Nereida BURRIS [id number] i [facility] [id number] [facility] [id number] [facility] [address] 2021-11-07 2021-11-07 OFFICE STLMLC STLMLC [id number] Co mmon 00:00:00 00:00:00 VISIT Spirit ESTAB PT - CHI LEVEL 4 [facility] 2021-08-12 2021-08-12 (TEL) STLMLC STLMLC [id number] Co mmon 00:00:00 00:00:00 [facility] 2021-07-01 2021-07-01 Outpatient STLMLC STLMLC [id number] Common 00:00:00 00:00:00 [facility] 2021-06-26 2021-06-26 Outpatient STLMLC STLMLC [id number] Common 00:00:00 00:00:00 [facility] 2021-04-23 2021-04-23 Outpatient STLMLC STLMLC [id number] Common 00:00:00 00:00:00 [facility] 2021-04-04 2021-04-04 Outpatient STLMLC STLMLC [id number] Common 00:00:00 00:00:00 [facility] 2021-03-29 2021-03-29 Outpatient STLMLC STLMLC [id number] Common 00:00:00 00:00:00 [facility] 2021-03-28 2021-03-28 Outpatient STLMLC STLMLC [id number] Common 00:00:00 00:00:00 [facility] 2021-03-28 2021-03-28 Outpatient STLMLC STLMLC [id number] Common 00:00:00 00:00:00 [facility] 2021-03-11 2021-03-11 Outpatient STLMLC STLMLC [id number] Common 00:00:00 00:00:00 [facility] 2021-03-07 2021-03-07 Outpatient STLMLC STLMLC [id number] Common 00:00:00 00:00:00 [facility] 2021-03-06 2021-03-06 Outpatient STLMLC STLMLC [id number] Common 00:00:00 00:00:00 [facility] 2021-02-07 2021-02-07 Outpatient STLMLC STLMLC [id number] Common 00:00:00 00:00:00 [facility] 2021-02-05 2021-02-05 Outpatient STLMLC STLMLC [id number] Common 00:00:00 00:00:00 [facility] 2021-02-05 2021-02-05 Outpatient STLMLC STLMLC [id number] Common 00:00:00 00:00:00 [facility] 2021-02-04 2021-02-04 Outpatient STLMLC STLMLC [id number] Common 00:00:00 00:00:00 [facility] 2021-01-28 2021-01-28 Outpatient STLMLC STLMLC [id number] Common 00:00:00 00:00:00 [facility] 2021-01-22 2021-01-22 Outpatient STLMLC STLMLC [id number] Common 00:00:00 00:00:00 [facility] 2021-01-22 2021-01-22 Outpatient STLMLC STLMLC [id number] Common 00:00:00 00:00:00 [facility] 2021-01-02 2021-01-02 Outpatient [facility] [id number] Univers 14:51:51 23:59:00 [facility] 2021-01-02 2021-01-02 [facility] [id number] 14:45:00 23:59:00 Encounter J Suresh [id number] [place] [address] [place] [address] [id number] 2021-01-02 2021-01-02 [facility] [id number] [facility] 14:45:00 23:59:00 Encounter Wiliam Burris [id number] ity [facility] [id number] [facility] [id number] [address] 2021-01-02 2021-01-02 Orders Doctor NACHO [id number] 00:00:00 00:00:00 Only UnassignedALE [id number] [place] [facility] [id number] 2021-01-02 2021-01-02 Orders Doctor GRIFFITH [id number] [facility] 00:00:00 00:00:00 Only UnassignedALE [id number] ity of [place] [facility] [id number] Justino as [id number] [place] [address] [address] 2020-12-04 2020-12-04 Outpatient STLMLC STLMLC [id number] Common 00:00:00 00:00:00 [facility] 2020-08-29 2020-08-29 Outpatient STLMLC STLMLC [id number] Common 00:00:00 00:00:00 [facility] 2020-08-24 2020-08-24 Outpatient STLMLC STLMLC [id number] Common 00:00:00 00:00:00 [facility] 2020-05-24 2020-05-24 [facility] [id number] Common 15:20:00 15:20:00 [facility] 2020-02-06 2020-03-07 [facility] [id number] Mem[facility] 19:00:00 04:59:00 r [place] 00 [facility] 2020-02-06 2020-03-07 [facility] [id number] Memoria 19:00:00 04:59:00 r [place] 00 [facility] 2020-02-06 2020-03-07 [facility] [id number] Memoria 19:00:00 04:59:00 r [place] 00 [facility] 2020-02-06 2020-03-06 Outpatient [place], [facility] [id number] 14:00:00 23:59:00 Andrzej G 00 2020-02-06 2020-03-06 Outpatient [place], [facility] [id number] 14:00:00 23:59:00 Andrzej G 00 2020-02-06 2020-02-06 Outpatient [place], [facility] [id number] [facility] 14:00:00 14:00:00 ANDRZEJ 2020-01-11 2020-01-11 [facility] [id number] Common 11:45:00 11:45:00 [facility] 2020-01-10 2020-01-10 [facility] [id number] Common 14:30:00 14:30:[address] [facility] 2020-01-09 2020-01-09 [facility] [id number] Common 13:30:00 13:30:00 t Specialty/U Sp lenny Specialty rology - [facility] /[facility] 2019-12-26 2019-12-26 [facility] [id number] Common 11:05:00 11:05:[address] [facility] 2019-11-13 2019-11-13 [facility] [id number] Common 13:57:00 13:57:[address] [facility] 2019-10-18 2019-10-18 [facility] [id number] Common 16:57:00 16:57:[address] [facility] 2019-10-13 2019-10-13 [facility] [id number] Common 23:20:00 23:20:[address] [facility] 2019-10-13 2019-10-13 [facility] [id number] Common 15:00:00 15:00:[address] [facility] 2019-08-16 2019-08-16 [facility] [id number] Common 13:34:00 13:34:[address] [facility] 2019-07-22 2019-07-22 [facility] [id number] Common 14:00:00 14:00:[address] [facility] 2019-07-18 2019-07-18 [facility] [id number] Common 20:00:00 20:00:[address] [facility] 2019-07-14 2019-07-14 [facility] [id number] Common 13:00:00 13:00:[address] [facility] 2019-06-29 2019-06-29 [facility] [id number] Common 11:57:00 11:57:[address] [facility] 2019-03-24 2019-03-24 [facility] [id number] Common 21:45:00 21:45:[address] [facility] 2019-03-24 2019-03-24 [facility] [id number] Common 14:27:00 14:27:[address] [facility] 2019-03-22 2019-03-22 [facility] [id number] Common 13:20:00 13:20:[address] [facility] 2019-03-21 2019-03-21 [facility] [id number] Common 09:12:00 09:12:[address] [facility] 2019-01-31 2019-01-31 [facility] [id number] Common 13:23:00 13:23:[address] [facility] 2019-01-17 2019-01-17 [facility] [id number] Common 10:30:00 10:30:[address] [facility] 2018-12-22 2018-12-22 [facility] [id number] Common 09:09:00 09:09:[address] [facility] 2018-12-15 2018-12-15 [facility] [id number] Common 11:45:00 11:45:[address] [facility] 2018-12-09 2018-12-09 [facility] [id number] Common 10:38:00 10:38:[address] [facility] Results This patient has no known results.
[2022-11-29] MEDS ORDERED: MORPHINE 2 MG/ML SYR ONE (03:39)
[2022-11-29] MEDS ORDERED: MORPHINE 4 MG/ML SYR ONE (03:40)
[2022-11-29] MEDS ORDERED: methocarbamoL 500 MG TAB ONE (03:40)
[2022-11-29] MEDS ORDERED: ONDANSETRON 4 MG (ODT) TAB ONE (03:45)
[2022-11-29] MEDS ORDERED: KETOROLAC 30 MG/ML INJ ONE (04:53)
--- NOTE | 2022-11-29 05:37 | EDPHYS ---
Physician Documentation [facility] Name: Jeanine Jansen Age: 67 yrs Sex: Female : 1955 Arrival Date: 11/29/2022 Time: 03:14 Bed 16 Private MD: ED Physician Jennifer Key HPI: 11/29 03:21 This 67 yrs old Female presents to ER via Unassigned with complaints of Fall Injury. sd2 03:21 67 yo F presents with CC of fall while trying to go to the bathroom tonight. Reports sd2 her legs slipped from underneath her and she did hit her head on the ground. Denies LOC or blood thinner use. Complains of pain to her head, R shoulder, bilateral knees and R side of the ribs. Takes Hydrocodone at home daily for chronic pain. Denies neck or back pain. . Historical: - Allergies: 03:55 Demerol; pf1 03:55 Lisinopril; pf1 - Home Meds: 03:55 Allopurinol Oral [Active]; Buspirone Oral [Active]; gabapentin Oral [Active]; losartan pf1 Oral [Active]; sertraline Oral [Active]; - PMHx: 03:55 Arthritis; BREAST CA; Lung CA; Hypertension; Depressive disorder; pf1 - Immunization history:: Adult Immunizations unknown. - Immunization history: Last tetanus immunization: unknown. - Social history:: Smoking status: Patient/guardian denies using. ROS: 03:21 Constitutional: Negative for fever, chills, and weight loss, Eyes: Negative for injury, sd2 pain, redness, and discharge, Cardiovascular: Negative for chest pain, palpitations, and edema, Respiratory: Negative for shortness of breath, cough, wheezing. Abdomen/GI: Negative for abdominal pain, nausea, vomiting, diarrhea. MS/Extremity: Positive for injury and negative for deformity, Skin: Negative for injury, rash, and discoloration, Neuro: Positive for headache, Negative for numbness and tingling. Exam: 03:21 Constitutional: This is a well developed, well nourished patient who is awake, alert, sd2 and in no acute distress. Head/Face: Normocephalic, atraumatic. Eyes: EOMI, normal conjunctiva bilaterally Chest/axilla: Normal chest wall appearance and motion. TTP of R lateral chest wall without crepitus Cardiovascular: Regular rate and rhythm with a normal S1 and S2. No gallops, murmurs, or rubs. 2+ distal pulses. Respiratory: Lungs have equal breath sounds bilaterally, clear to auscultation and percussion. No rales, rhonchi or wheezes noted. No increased work of breathing, no retractions or nasal flaring. Abdomen/GI: Soft, non-tender, with normal bowel sounds. No guarding or rebound. No evidence of tenderness throughout. Skin: Warm, dry with normal turgor. Normal color with no rashes, no lesions, and no evidence of cellulitis. MS/ Extremity: Pulses equal, no cyanosis. Neurovascular intact. Full, normal range of motion. TTP of L anterior knee and R shoulder worsened with ROM. No midline spinal tenderness, stepoffs or deformities. Psych: Awake, alert, with orientation to person, place and time. Behavior, mood, and affect are within normal limits. Vital Signs: 03:15 BP 145 / 81; Pulse 92; Resp 18; Temp 98.2; Pulse Ox 100% on R/A; Weight 163.75 kg; pf1 Height 5 ft. 6 in. (167.64 cm); Pain 10/10; 04:35 BP 144 / 60; Pulse 88; Resp 18; Pulse Ox 97% ; Pain 10/10; pf1 05:27 BP 136 / 64; Pulse 92; Resp 18; Temp 98.2(O); Pulse Ox 95% on R/A; Pain 7/10; pf1 03:15 Body Mass Index 58.27 (163.75 kg, 167.64 cm) pf1 [place] Coma Score: 03:30 Eye Response: spontaneous(4). Verbal Response: oriented(5). Motor Response: obeys pf1 commands(6). Total: 15. MDM: 03:21 Patient medically screened. sd2 03:21 Differential diagnosis: Differential diagnosis includes but is not limited to: sd2 Fracture, contusion, abrasion, closed head injury, pneumothorax, intra-abdominal injury, intracranial hemorrhage, spinal injury among others. Data reviewed: vital signs, nurses notes, EMS record. 05:34 Data reviewed: radiologic studies. Counseling: I had a detailed discussion with the sd2 patient and/or guardian regarding: the historical points, exam findings, and any diagnostic results supporting the discharge/admit diagnosis, radiology results, the need for outpatient follow up, to return to the emergency department if symptoms worsen or persist or if there are any questions or concerns that arise at home. ED course: Imaging reviewed. Many areas of arthritis present but no acute traumatic injuries. Pain controlled. Pt advised of continued supportive care for symptoms. Has hydrocodone 10 mg at home to take as needed for pain. Will also give muscle relaxers for patient to take at home as needed and sparingly. Pt comfortable with discharge plan and verbalizes understanding of strict return precautions. . 11/29 03:26 Order name: CT Head C Spine sd2 11/29 03:26 Order name: CT Chest Wo Con sd2 11/29 03:26 Order name: XRAY Shoulder RIGHT 2 view sd2 11/29 03:26 Order name: XRAY Knee LEFT 2 view sd2 11/29 03:26 Order name: XRAY Knee RIGHT 2 view sd2 Administered Medications: 03:40 Drug: Methocarbamol 1000 mg Route: PO; pf1 04:40 Follow up: Response: No adverse reaction; Pain is unchanged, physician notified; RASS: pf1 Alert and Calm (0) 03:44 Drug: morphine 5 mg Route: IM; Site: left deltoid; pf1 04:40 Follow up: Response: No adverse reaction; Pain is unchanged, physician notified; RASS: pf1 Alert and Calm (0) 03:45 Drug: zofran 4mg ODT 4 mg Route: Sublingual; pf1 04:42 Follow up: Response: Marked relief of symptoms; Nausea is decreased pf1 04:53 Drug: Ketorolac 60 mg Route: IM; Site: right gluteus; pf1 05:50 Follow up: Response: No adverse reaction; Marked relief of symptoms; Pain is decreased; pf1 RASS: Alert and Calm (0) Disposition Summary: 11/29/22 05:36 Discharge Ordered Location: Home sd2 Problem: new sd2 Symptoms: have improved sd2 Condition: Stable sd2 Diagnosis - Fall on same level, unspecified sd2 - Unspecified injury of head, initial encounter sd2 - Pain in right shoulder sd2 - Right rib pain sd2 - Bilateral knee pain sd2 Followup: sd2 - With: Private Physician - When: 2 - 3 days - Reason: Recheck today's complaints, Continuance of care, Re-evaluation by your physician Discharge Instructions: - Discharge Summary Sheet sd2 - Joint Pain sd2 - Arthritis sd2 - Head Injury, Adult sd2 Forms: - Medication Reconciliation Form sd2 - Thank You Letter sd2 - Antibiotic Education sd2 - Prescription Opioid Use sd2 Prescriptions: - methocarbamol 750 mg Oral Tablet - take 1 tablet by ORAL route every 8 hours As needed; 15 tablet; Refills: 0, sd2 Product Selection Permitted Signatures: Dispatcher [employer] Jennifer Pena MD MD sd2 Nivia jimenez RN RN pf1 Corrections: (The following items were deleted from the chart) 03:56 03:55 PSHx: KATHRINE masectomy; pf1 pf1 03:56 03:55 PSHx: Lobectomy of lung; pf1 pf1
--- NOTE | 2022-11-29 05:37 | ER ---
Nurse's Notes [facility] Name: Jeanine Jansen Age: 67 yrs Sex: Female : 1955 Arrival Date: 11/29/2022 Time: 03:14 Bed 16 Private MD: Diagnosis: Fall on same level, unspecified;Unspecified injury of head, initial encounter;Pain in right shoulder;Right rib pain;Bilateral knee pain Presentation: 11/29 03:15 Chief complaint: EMS states: Left knee pain of 10 and right side head posterior pf1 pain,onset BELT BUILDER due to fall when going to restroom. Patient stated hit her head on the wall. Patient has an abrasion noted to left elbow, no active bleeding noted at this time. Coronavirus screen: Client denies travel out of the [place] in the last 14 days. At this time, the client does not indicate any symptoms associated with coronavirus-19. Ebola Screen: Patient negative for fever greater than or equal to 101.5 degrees Fahrenheit, and additional compatible Ebola Virus Disease symptoms. Initial Sepsis Screen: Does the patient meet any 2 criteria? No. Patient's initial sepsis screen is negative. Does the patient have a suspected source of infection? No. Patient's initial sepsis screen is negative. Risk Assessment: Do you want to hurt yourself or someone else? Patient reports no desire to harm self or others. Note BELT BUILDER. 03:15 Method Of Arrival: EMS: [facility] pf1 03:15 Acuity: ISSAC 3 pf1 03:15 Mechanism of Injury: Fall from standing. pf1 03:20 Care prior to arrival: None. pf1 Historical: - Allergies: 03:55 Demerol; pf1 03:55 Lisinopril; pf1 - Home Meds: 03:55 Allopurinol Oral [Active]; Buspirone Oral [Active]; gabapentin Oral [Active]; losartan pf1 Oral [Active]; sertraline Oral [Active]; - PMHx: 03:55 Arthritis; BREAST CA; Lung CA; Hypertension; Depressive disorder; pf1 - Immunization history:: Adult Immunizations unknown. - Immunization history: Last tetanus immunization: unknown. - Social history:: Smoking status: Patient/guardian denies using. Screenin:30 [facility] ED Fall Risk Assessment (Adult) History of falling in the last 3 months, pf1 including since admission Yes- single mechanical fall (1 pt) Confusion or Disorientation No (0 pts) Intoxicated or Sedated No (0 pts) Impaired Gait Yes (1 pt) Mobility Assist Device Used Yes (1 pt) Altered Elimination No (0 pt) Score/Fall Risk Level 3 or more points = High Risk Oriented to surroundings, Maintained a safe environment, Educated pt \T\ family on fall prevention, incl call for assistance when getting out of bed, Assessed \T\ reinforced patient's understanding of fall precautions, Provided non-skid footwear, Hourly rounding (assess needs \T\ fall precautionary measures) done, Used ambulatory aids as needed (educated on \T\ assisted with), Used gait belt as appropriate Implemented a Fall Risk Plan of Care, Apply high fall risk patient identification: yellow non skid footwear/ fall signage, Remained w/in arm's length of patient and in sight while toileting, Offered frequent toileting (1:1 observation), Remained with patient while ambulating, Utilized family, sitter, or virtual hot molder as indicated. 03:31 Abuse screen: Denies threats or abuse. Nutritional screening: No deficits noted. pf1 Tuberculosis screening: No symptoms or risk factors identified. Primary Survey: 03:20 Circulation: No external hemorrhage present. Regular and strong central pulse, skin pf1 warm/dry/normal color. 03:20 NO uncontrolled hemorrhage observed. Breathing/Chest: Spontaneous respiratory effort, pf1 equal unlabored respirations, breath sounds clear bilaterally, regular pattern, symmetrical chest rise and fall. Respiratory effort: spontaneous. 03:20 Exposure/Environment: A warming method has been applied: A warm blanket has been pf1 provided to the patient. 04:20 Reassessment Breathing: Spontaneous respiratory effort, equal unlabored respirations, pf1 breath sounds clear bilaterally, regular pattern with symmetrical chest rise and fall. Respiratory effort Spontaneous Unlabored Breath sounds Clear Respiratory pattern Regular Chest inspection Symmetrical Circulation: No external hemorrhage noted. Regular and strong central pulse, skin warm/dry/normal color. Disability: Alert. Assessment: 03:20 General: Appears in no apparent distress. uncomfortable, obese, well developed, pf1 Behavior is calm, cooperative, appropriate for age, quiet. 03:20 Pain: Complains of pain in Patient C/O right side posterior head pain 10 and left knee pf1 pain of 10. Neuro: Level of Consciousness is awake, alert, obeys commands, Oriented to person, place, time, situation. Cardiovascular: No deficits noted. Capillary refill < 3 seconds. Respiratory: No deficits noted. Airway is patent Trachea midline Respiratory effort is even, unlabored, Respiratory pattern is regular, symmetrical. GI: No deficits noted. Abdomen is round non-distended, obese, Bowel sounds present X 4 quads. : No deficits noted. No signs and/or symptoms were reported regarding the genitourinary system. EENT: No deficits noted. No signs and/or symptoms were reported regarding the EENT system. Derm: Wound noted a small abrasion to left elbow. Musculoskeletal: Reports pain in left knee. 03:48 General: Patient taken to [facility] via stretcher.. pf1 04:40 General: Pure wick applied to patient. . pf1 04:45 Reassessment: Patient appears in no apparent distress at this time. No changes from pf1 previously documented assessment. Patient and/or family updated on plan of care and expected duration. Pain level reassessed. Patient is alert, oriented x 3, equal unlabored respirations, skin warm/dry/pink. Patient states symptoms have not improved. 05:27 Reassessment: Patient appears in no apparent distress at this time. No changes from pf1 previously documented assessment. Patient and/or family updated on plan of care and expected duration. Pain level reassessed. Patient is alert, oriented x 3, equal unlabored respirations, skin warm/dry/pink. Patient states symptoms have not improved. Vital Signs: 03:15 BP 145 / 81; Pulse 92; Resp 18; Temp 98.2; Pulse Ox 100% on R/A; Weight 163.75 kg; pf1 Height 5 ft. 6 in. (167.64 cm); Pain 10/10; 04:35 BP 144 / 60; Pulse 88; Resp 18; Pulse Ox 97% ; Pain 10/10; pf1 05:27 BP 136 / 64; Pulse 92; Resp 18; Temp 98.2(O); Pulse Ox 95% on R/A; Pain 7/10; pf1 03:15 Body Mass Index 58.27 (163.75 kg, 167.64 cm) pf1 [place] Coma Score: 03:30 Eye Response: spontaneous(4). Verbal Response: oriented(5). Motor Response: obeys pf1 commands(6). Total: 15. ED Course: 03:14 Patient arrived in ED. pf1 03:20 Nivia jimenez RN is Primary Nurse. pf1 03:20 Patient maintains SpO2 saturation greater than 95% on room air. pf1 03:20 Thermoregulation: warm blanket given to patient. pf1 03:21 Jennifer Key MD is Attending Physician. sd2 03:26 Triage completed. pf1 03:26 Arm band placed on left wrist. pf1 03:30 Placed in gown. Bed in low position. Call light in reach. Side rails up X2. pf1 03:32 No provider procedures requiring assistance completed. pf1 04:16 CT Head C Spine In Process Unspecified. EDMS 04:16 CT Chest Wo Con In Process Unspecified. EDMS 04:40 XRAY Shoulder RIGHT 2 view In Process Unspecified. EDMS 04:40 XRAY Knee LEFT 2 view In Process Unspecified. EDMS 04:40 XRAY Knee RIGHT 2 view In Process Unspecified. EDMS 05:50 Cleaned of incontinence. pf1 06:12 Patient did not have IV access during this emergency room visit. pf1 Administered Medications: 03:40 Drug: Methocarbamol 1000 mg Route: PO; pf1 04:40 Follow up: Response: No adverse reaction; Pain is unchanged, physician notified; RASS: pf1 Alert and Calm (0) 03:44 Drug: morphine 5 mg Route: IM; Site: left deltoid; pf1 04:40 Follow up: Response: No adverse reaction; Pain is unchanged, physician notified; RASS: pf1 Alert and Calm (0) 03:45 Drug: zofran 4mg ODT 4 mg Route: Sublingual; pf1 04:42 Follow up: Response: Marked relief of symptoms; Nausea is decreased pf1 04:53 Drug: Ketorolac 60 mg Route: IM; Site: right gluteus; pf1 05:50 Follow up: Response: No adverse reaction; Marked relief of symptoms; Pain is decreased; pf1 RASS: Alert and Calm (0) Medication: 06:13 VIS not applicable for this client. pf1 Intake: 06:11 PO: 0ml; Total: 0ml. pf1 Output: 06:11 Urine: 2ml (Voided); Total: 2ml. pf1 Outcome: 05:36 Discharge ordered by . sd2 06:09 Discharged to home via wheelchair, with family. pf1 06:09 Condition: improved 06:09 Discharge instructions given to patient, Instructed on discharge instructions, follow up and referral plans. medication usage, Demonstrated understanding of instructions, follow-up care, medications, Prescriptions given X 1. 06:14 Patient left the ED. pf1 Signatures: Dispatcher [employer] EDMS Jennifer Key MD MD sd2 Nivia jimenez, RN RN pf1 Corrections: (The following items were deleted from the chart) 03:56 03:55 PSHx: KATHRINE masectomy; pf1 pf1 03:56 03:55 PSHx: Lobectomy of lung; pf1 pf1 06:08 05:27 BP 136 / 64; Pulse 92bpm; Resp 18bpm; Pulse Ox 95% RA; pf1 pf1
[2022-11-29 06:18] VITALS: TEMP 98.2
[2022-11-29 06:21] VITALS: BP 136/64; O2SAT 95
--- NOTE | 2022-11-29 16:18 | RAD REPORT ---
EXAM DESCRIPTION: CT - Thorax Wo Con - 11/29/2022 6:49 am CLINICAL HISTORY: 67 years Female Chest wall pain TECHNIQUE: Axial CT imaging of the chest was performed without intravenous contrast. Sagittal and coronal reconstructed images were then performed. The CT study is performed according to ALARA (as lo w as reasonably achievable) or ALARA/IMAGE GENTLY, with automatic adjustment of mA and/or kV accordin g to patient size. Performed on: 11/29/2022 of 4:13 AM COMPARISON: No prior studies were available for comparison.. FINDINGS: CT CHEST: Lungs: The lungs are well-expanded and are grossly clear. There are postsurgical changes involving th e right middle lobe and there is partial surgical resection of the anterior right fourth rib. There i s partial herniation of the right middle lobe through the bony thorax defect. There is no evidence of a pneumothorax. There are no pleural effusions. No focal airspace consolidation is identified. The c entral airways are patent. Heart: The heart is top normal in size. There is no pericardial effusion. There is slight rightwa rd mediastinal shift secondary to volume loss in the right hemithorax. Mediastinum: The mediastinum is unremarkable. The mediastinal vessels are normal in caliber and con tour. There are curvilinear areas of increased density medial aspect of the right hemithorax which ma y be related to surgical sutures. Bones: No acute osseous abnormalities are identified. There has been surgical resection of the anteri or right fourth rib. There are mild degenerative changes of the thoracic spine. Soft tissues: There is marked enlargement and heterogeneous attenuation of the inferior left thyroid lobe measuring approximately 4.1 x 3.4 cm in cross-sectional diameter by approximately 5.2 cm in cran iocaudal dimension. Lymphadenopathy: No pathologic hilar, mediastinal or axillary lymphadenopathy is identified. Upper abdomen: The visualized portions of the upper abdomen reveal cholelithiasis. There is a 1.5 x 1 .1 cm low density nodule arising from the apex of the right adrenal gland likely representing an adre nal adenoma. This measures approximately 13 Hounsfield units. IMPRESSION: 1. No evidence of acute intrathoracic disease. 2. Postsurgical changes involving the right middle lobe with partial surgical resection of the ante rior right fourth rib. There is partial herniation of the right middle lobe through the bony thorax d efect. 3. Marked enlargement and heterogeneous attenuation of the inferior left thyroid lobe measuring tonja roximately 4.1 x 3.4 x 5.2 cm. Recommend thyroid ultrasound. 4. Cholelithiasis. 5. 1.5 x 1.1 cm low density nodule arising from the apex of the right adrenal gland likely represen ting an adrenal adenoma. Recommend 1 year follow up adrenal washout CT. If stable for > 1 year, no fu rther f/u imaging. JACR 2017 Jun; 14(8):1038-44, JCAT 2016 Jan-Feb; 40(2):194-200, Urol J 2006 Spri ng; 3(2):71-4. Electronically signed by: Rima Eason DO 11/29/2022 4:58 AM CUSTOMER RELATIONS SPECIALIST Due to temporary technical issues with the PACS/Fluency reporting system, reports are being signed by the in house radiologists without review as a courtesy to insure prompt reporting. The interpreting radiologist is fully responsible for the content of the report.
--- NOTE | 2022-11-29 16:25 | RAD REPORT ---
EXAM DESCRIPTION: RAD - Knee Left 2 View - 11/29/2022 4:39 am CLINICAL HISTORY: 67 years Female PAIN TECHNIQUE: 2 x-ray views of the left knee were performed on 11/29/2022 at 4:23 AM. COMPARISON: 09/28/2021 FINDINGS: Since the prior study there has been progressive degenerative changes along the medial asp ect of the knee joint. There is increased narrowing of the medial joint compartment with associated s ubchondral sclerosis and prominent hypertrophic spurring. There is mild to moderate narrowing of the lateral joint compartment and marked narrowing of the patellofemoral compartment similar to the prior study. No pathologic lytic or sclerotic bone lesions are identified. Bone mineralization is normal. No acute soft tissue abnormalities are identified. IMPRESSION: 1. Progressive osteoarthritic changes along the medial joint compartment when compared to the prior study. 2. Chronic tricompartment osteoarthritis of the left knee. Electronically signed by: Rima Eason DO 11/29/2022 5:[address] RADIO TECHNICIAN Due to temporary technical issues with the PACS/Fluency reporting system, reports are being signed by the in house radiologists without review as a courtesy to insure prompt reporting. The interpreting radiologist is fully responsible for the content of the report.
--- NOTE | 2022-11-29 16:49 | RAD REPORT ---
EXAM DESCRIPTION: RAD - Knee Right 2 View - 11/29/2022 4:39 am CLINICAL HISTORY: 67 years Female PAIN TECHNIQUE: 2 x-ray views of the right knee were performed on 11/29/2022 of 4:21 AM. COMPARISON: Prior right knee performed on 04/02/2021 FINDINGS: There is no evidence of acute fracture or dislocation. There are progressive osteoarthriti c changes of the right knee. There appears to be worsening narrowing of the lateral joint compartment . There are hypertrophic changes of the femoral condyles, tibial plateau and posterior patella. No pa thologic lytic or sclerotic bone lesions are identified. Bone mineralization is normal. No acute soft tissue abnormalities are identified. Occasional vascular calcifications are noted. IMPRESSION: 1. No evidence of acute osseous injury involving the right knee. 2. Progressive osteoarthritic changes of the right knee with worsening narrowing of the lateral sarah nt compartment. Electronically signed by: Rima Eason DO 11/29/2022 5:16 AM ELECTORATE OFFICER Due to temporary technical issues with the PACS/Fluency reporting system, reports are being signed by the in house radiologists without review as a courtesy to insure prompt reporting. The interpreting radiologist is fully responsible for the content of the report.
--- NOTE | 2022-11-29 16:52 | RAD REPORT ---
EXAM DESCRIPTION: RAD - Shoulder Right 2 View - 11/29/2022 4:39 am CLINICAL HISTORY: 67 years Female PAIN TECHNIQUE: 2 x-ray views of the right shoulder were performed on 11/29/2022 at 4:18 AM. COMPARISON: Right shoulder report from 04/02/2021. The images were not available for review. FINDINGS: There is no evidence of fracture or dislocation. There are degenerative changes of the rig ht acromioclavicular joint. No focal lytic or sclerotic bone lesions are seen. Bone mineralization is normal. No acute soft tissue abnormalities are identified. There are postsurgical changes of the right lung. IMPRESSION: No evidence of acute osseous injury involving the right shoulder. There are degenerative changes of the right acromioclavicular joint. Electronically signed by: Rima Eason DO 11/29/2022 5:09 AM HEALTH COUNSELOR Due to temporary technical issues with the PACS/Fluency reporting system, reports are being signed by the in house radiologists without review as a courtesy to insure prompt reporting. The interpreting radiologist is fully responsible for the content of the report.
--- NOTE | 2022-11-29 16:57 | RAD REPORT ---
EXAM DESCRIPTION: CT - Head C Spine Mpr Wo Con - 11/29/2022 6:48 am CLINICAL HISTORY: 67 years Female fall, head injury TECHNIQUE: Multiple axial CT images of the brain and cervical spine were performed followed by sagit amadeo and coronal reconstructed images. The CT study is performed according to ALARA (as low as reasona tejal achievable) or ALARA/IMAGE GENTLY, with automatic adjustment of mA and/or kV according to patient size. Performed on: 11/29/2022 at 3:48 AM COMPARISON: CT head and cervical spine performed on 09/28/2021. FINDINGS: CT HEAD: There is no evidence of mass, acute mass effect or midline shift. There are no acute extra-axial flui d collections. There is no evidence of acute intracranial hemorrhage. The cerebral sulci and ventricles are prominent consistent with mild cerebral volume loss. There are scattered areas of decreased attenuation within the subcortical and periventricular white m atter most likely due to mild chronic microangiopathy. There is chronic encephalomalacia along the in ferior frontal lobes and inferior right temporal lobe. There is mild mucosal thickening of the paranasal sinuses. The mastoid air cells are clear. The orbital contents are grossly unremarkable. No acute osseous abnormalities are identified. No focal soft tissue abnormalities are identified. CT CERVICAL SPINE: The cervical vertebrae are normal in height. There is normal alignment of the vertebrae. There is mod erate disc space narrowing at C5-C6, similar to the prior study. There is mild degenerative spurring along vertebral endplates at C5-C6. Bone mineralization is normal. The atlanto-axial articulation is preserved and the odontoid process is intact. There is normal alignment of the facet joints on the parasagittal images. There are mild to moderate degenerative changes of the facet joints. There is no evidence of acute fracture or subluxation. Ther e is mild to moderate canal stenosis at C5-C6 secondary to a prominent disc osteophyte complex. The re is multilevel mild to moderate bilateral neural foraminal stenosis secondary to uncovertebral join t and facet joint hypertrophy. The prevertebral and paraspinal soft tissues are unremarkable. The lung apices are clear. Again demon strated is enlargement and heterogeneous attenuation of the inferior left thyroid lobe measuring appr oximately 3.9 x 3.7 cm in cross-sectional diameter. IMPRESSION: CT HEAD: 1. No evidence of acute intracranial pathology. 2. Mild cerebral volume loss with findings compatible with chronic microangiopathy and chronic ence phalomalacia along the inferior frontal lobes and inferior right temporal lobe. CT CERVICAL SPINE: 1. No evidence of acute cervical spine injury. 2. Degenerative changes of the cervical spine as described above. 3. Enlargement and heterogeneous attenuation of the inferior left thyroid lobe similar to the prior study. Recommend thyroid ultrasound. 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 The interpreting radiologist is fully responsible for the content of the report.
== END 2022-11-29 06:14 | disposition home or self-care (01) ==
LOC: ER 03:07
DX: S09.90XA Unspecified injury of head, initial encounter (principal); M25.511 Pain in right shoulder; M25.562 Pain in left knee; M25.561 Pain in right knee; R07.81 Pleurodynia; W18.30XA Fall on same level, unspecified, initial encounter; I10 Essential (primary) hypertension; Z85.3 Personal history of malignant neoplasm of breast; Z85.118 Personal history of other malignant neoplasm of bronchus and lung
CPT/HCPCS: 70450; 71250; 72125; 73030; 73560 ×2; 96372; 99284; Q0162; J2270

== ENCOUNTER 2022-12-27 19:20 | Emergency (ER) | payer OTHER ==
--- OUTSIDE RECORDS SUMMARY | 2022-12-27 19:29 | XMS REPORT | Continuity of Care Document ---
:1955 Author Organization [facility] t Address [address] [place] [address] Care Team Providers Name Role Phone Solo Bull Primary Care Physician Solo Bull Attending Clinician Unavailable Erna Patel Attending Clinician Unavailable MARIBEL RAZA Attending Clinician Unavailable NEREIDA SIERRA Attending Clinician Unavailable Josie Alvarez Attending Clinician Nereida Sierra MD Attending Clinician Doctor Unassigned, [place] Attending Clinician Unavailable FRANCES BECKER Attending Clinician Unavailable Frances Becker Attending Clinician Andrzej Moulton Attending Clinician ANDRZEJ MOULTON Attending Clinician Unavailable SOLO BULL Admitting Clinician Unavailable JOSIE GALLARDO Admitting Clinician Unavailable NEREIDA SIERRA Admitting Clinician Unavailable FRANCES BECKER Admitting Clinician Unavailable Payers Payer Name Policy Type Policy Effective Date Expiration Date Sour ce Number MEDICARE NOVITAS MB [id number] Common [facility] Aetna Supplement C1 [id number] 2021 Common S pirit Plan 00:00:[address] [place] [address] Problems Condition Condition Condition Status Onset Resolution Last Treating Co mments Source Name Details Category Date Date Treatment Clinician Date Lymphedema Lymphedema Disease Active U nivers of lower of lower 02-18 ity of extremity extremity 00:00: Cornell adames 00 Medical Branch LYMPHEDEMA LYMPHEDEM Diagnosis Active 2020-02-06 Memoria A Active 01-29 14:23:00 l 01/30/2020 00:00: Amandeep beaulieu [address] Depression Depression Problem C [facility] [id number] Body mass Problem Com mon index Spirit [BMI] [facility] 60.0-69.9[facility] Sinus Sinus Problem Common problem problem [facility] [id number] Body mass Problem Com mon index Spirit (BMI) of - [facility] 45.0-49.9 [facility] [id number] Foot Problem Common callus [facility] [id number] Dry eyes Problem Comm on [facility] [id number] Skin Problem Common lesions [facility] [id number] Pain in Problem Common left [facility] shoulder [facility] [id number] Essential Problem Comm on hypertensi Spirit [facility] [id number] Elevated Problem Comm on serum [facility] [id number] Peripheral Problem Co mmon edema [facility] [id number] History of Problem Co mmon anemia [facility] [id number] Palpitatio Problem Com mon ns [facility] [id number] Vitamin D Problem Comm on deficiency [facility] Lymphedema Lymphedema Problem C [facility] [id number] Shortness Problem Com mon of breath [facility] [id number] Hyperchole Problem Com mon sterolemia [facility] [id number] Tachycardi Problem Comm on a [facility] Female Female Problem Common stress stress Spirit incontinen incontinen - [facility] ce ce [facility] [id number] Venous Problem Common insufficie Spirit ncy - CHI (chronic) ([facility] Moderate Major Problem Common major depressive [facility] depression disorder, - C [place] , single [facility] [id number] CHEPE Problem Common (generaliz Spirit ed anxiety - CHI disorder) [facility] [id number] Primary Problem Comm on osteoarthr Spirit itis of - CHI right knee [facility] [id number] Pain in Problem Comm on left knee Spirit - CHI [facility] [id number] Neck pain Problem Comm on Spirit - CHI [facility] [id number] Pain in Problem Comm on right knee Spirit [facility] [id number] Other Problem Common chronic Spirit pain - CHI [facility] [id number] Colon Problem Common cancer [facility] screening - [facility] [id number] Primary Problem Comm on osteoarthr Spirit itis of - CHI left knee [facility] [id number] Arthritis Problem Co mmon [id number] of knee, Spirit right [facility] [id number] Arthritis Problem Co mmon [id number] of knee, [facility] left [facility] [id number] Bilateral Problem Com mon primary Spirit osteoarthr - [facility]I itis of [facility] [id number] Primary Problem Comm on osteoarthr Spirit itis of - CHI left [facility] Malignant Hypertensi Problem Co mmon hypertensi ve chronic Sp lenny ve chronic kidney - CHI kidney disease w St disease [facility] 1-4/[facility] Center Age-relate Age-relate Problem C ommon d d Spirit osteoporos osteoporos - CHI is is without [facility] pathologic Medica l al Center fracture Chronic Hypertensi Problem Comm on kidney ve chronic Spirit disease kidney - CHI due to disease St hypertensi with stage Silvana kes on 1 through Medical stage 4 Center chronic kidney disease, or unspecifie d chronic kidney disease [id number] Enlargemen Problem Comm on t of Spirit thyroid - CHI [facility] [id number] SUKHWINDER Problem Common (obstructi Spirit ve sleep - CHI apnea) [facility] [id number] Stage 3a Problem Comm on chronic Spirit kidney - CHI disease [facility] [id number] History of Problem Co mmon breast Spirit cancer - [facility] [id number] Chronic Problem Commo 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, [facility] d site [id number] History of Problem Co mmon bilateral Spirit mastectomy - [facility] High blood Hypertensi Problem C ommon pressure on, Spirit unspecifie - CHI d [facility] 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, Spirit unspecifie - CHI d [facility] [id number] Urinary Problem Commo n incontinen Spirit ce, - [facility] unspecifie [facility] Incontinen Incontinen Problem C ommon ce ce Spirit - [facility] [id number] History of Problem Co mmon lung Spirit cancer - [facility] [id number] Polyarthra Problem Com mon lgia Spirit [facility] Cancer Cancer Problem [facility] [id number] Chronic Problem Commo n pain Spirit syndrome [facility] Anxiety Anxiety Problem [facility] Osteoporos Osteoporos Problem C ommon is is without Spirit current - CHI pathologic [facility] fracture, Medical unspecifie Center d osteoporos is type Allergies, Adverse Reactions, Alerts Allergy Allergy Status Severity Reaction(s) Onset Inactive Treating Comm ents Source Name Type Date Date Clinician MEPERIDI DRUG Active Other-Cmnt 2020-11 Univ ers NE INGREDI 2-24 ity of 00:00: [place] 00 [facility] LEVOFLOX DRUG Active SOB 2020-11 Univers ACIN INGREDI 2-24 ity of 00:00: [place] 00 Medical Branch Meperidi Propensi Active Other - See 2020-11 "floppin g Univers ne ty to comments 2-24 in the ity of adverse 00:00: bed." [place] reaction 00 Medical [facility] Levoflox Propensi Active Shortness of 2020-11 Univers acin ty to Breath 2-24 ity of adverse 00:00: [place] reaction 00 [facility] meperidi meperidi Active Unknown Commo n ne ne Spirit [facility] Social History Social Habit Start Date Stop Date Quantity Comments Source History of Common Spirit - Tobacco Use [facility] Sex Assigned At Common Sp lenny - [facility] Exposure to 2022-10-11 2022-10-21 Not sure University SARS-CoV-2 00:00:00 00:03:00 [facility] (event) [place] Tobacco use and 2022-03-17 2022-03-17 Smokeless tobacco Un iversity of exposure 00:00:00 00:00:00 non-user [facility] Alcohol intake 2022-03-17 2022-03-17 Ex-drinker [facility] 00:00:00 00:00:00 (finding) [facility] Smoking Status Start Date Stop Date Source Never Smoker Common Spirit - [facility] Medications Ordered Filled Start Stop Current Ordering Indication Dosage Frequency Signature Comments Components Source Medication Medication Date Date Medication? Clinician (SIG) Name Name trospium 20 2021-11 Yes [id number] 20mg Take 1 Univers mg tablet 2-02 tablet by ity o f 00:00: mouth in [place] [address] the Medical morning Branch and 1 tablet in the evening. trospium 20 2021-11 Yes [id number] 20mg Take 1 Univers mg tablet 2-02 tablet by ity o f 00:00: mouth in [place] [address] the Medical morning Branch and 1 tablet in the evening. trospium 20 2021-11 Yes [id number] 20mg Take 1 Univers mg tablet 2-02 tablet by ity o f 00:00: mouth in [place] [address] the Medical morning [place] and 1 tablet in the evening. Nitrofurant 2021-11- No [id number] 100mg Take 1 Univers oin&Nit. 2-01 04- capsule by ity of [place] 00:[place]: 00:[place] (MACROBID[place] 00 :00 the Medical 100 mg morning Branch capsule and 1 capsule in the evening. Do all this for 5 days. Nitrofurant 2021-11- No [id number] 100mg Take 1 Univers oin&Nit. 2-02 12-02 capsule by ity of [place] 00:00: 00:[place] (MACROBID[place] 00 :00 the Medical 100 mg morning Branch capsule and 1 capsule in the evening. Do all this for 5 days. cefTRIAXone 2021-11- No 1000mg 1,000 mg, Univers (ROCEPHIN) 12-21 IV ity of 1,000 mg in 09:15: 09:54 [place], [place] NaCl 0.9% 00 :00 ONCE, 1 Medical (NS) 50 mL dose, On Bran h MINI-BAG e 10/21/22 at 0315, Administer over 30 Minutes, 50 mL
Reas on for Anti-Infec tive: Documented Infection< br>Documen lacie Infection Site: Urine<br&g t;Duration of Therapy: Other (see Comments) furosemide 2021-11 No 40mg 40 mg, IV U nivers (LASIX) 12-21 Push, ity of injection 06:15: 07:41 ONCE, 1 [place] 40 mg 00 :00 dose, On Medical Tue Branch 10/21/22 at 0015, [place] amoxicillin 2021-11 Yes [id number] 500mg Take 1 Univers 500 mg 1-29 capsule by ity of capsule 00:00: mouth in [place] [address] the morning Branch and 1 capsule at noon and 1 capsule in the evening. amoxicillin 2021-11 Yes [id number] 500mg Take 1 Univers 500 mg 1-29 capsule by ity of capsule 00:00: mouth in [place] [address] the morning Branch and 1 capsule at noon and 1 capsule in the evening. amoxicillin 2021-11 Yes [id number] 500mg Take 1 Univers 500 mg 1-29 capsule by ity of capsule 00:00: mouth in [place] [address] the morning Branch and 1 capsule at noon and 1 capsule in the evening. amoxicillin 2021-11 Yes [id number] 500mg Take 1 Univers 500 mg 1-29 capsule by ity of capsule 00:00: mouth in [place] [address] the morning Branch and 1 capsule at noon and 1 capsule in the evening. Trospium 60 2021-11 Yes [id number] 60mg Take 1 Univers mg capsule 0-21 capsule by ity of 00:00: mouth in [place] the morning. Branch Trospium 60 2021-11 Yes [id number] 60mg Take 1 Univers mg capsule 0-21 capsule by ity of 00:00: mouth in [place] the morning. Branch Trospium 60 2021-11 Yes [id number] 60mg Take 1 Univers mg capsule 0-21 capsule by ity of 00:00: mouth in [place] [address] the morning. Branch Trospium 60 2021-11- No [id number] 60mg Take 1 Univers mg capsule 010-24 capsule by it y of 00:00: 00:00 mouth in [place] 00 :00 the Medical morning. Branch Trospium 60 2021-11- No [id number] 60mg Take 1 Univers mg capsule 010-24 capsule by it y of 00:00: 00:00 mouth in [place] 00 :00 the Medical morning. Branch vibegron Yes [id number] 75mg Take 75 mg Univers (GEMTESA) 9-12 by mouth ity of 75 mg Tab 00:00: daily. [place] Medical Branch vibegron Yes [id number] 75mg Take 75 mg Univers (GEMTESA) 9-12 by mouth ity of 75 mg Tab 00:00: daily. [place] Medical Branch vibegron Yes [id number] 75mg Take 75 mg Univers (GEMTESA) 9-12 by mouth ity of 75 mg Tab 00:00: daily. [place] Medical Branch vibegron Yes [id number] 75mg Take 75 mg Univers (GEMTESA) 9-12 by mouth ity of 75 mg Tab 00:00: daily. [place] Medical Branch vibegron Yes [id number] 75mg Take 75 mg Univers (GEMTESA) 9-12 by mouth ity of 75 mg Tab 00:00: daily. [place] Medical Branch vibegron 2021- No [id number] 75mg Take 75 mg Univers (GEMTESA) 08-04 by mouth ity o f 75 mg Tab 00:00: 00:00 daily. [place] 00 :00 Medical Branch vibegron 2021- No [id number] 75mg Take 75 mg Univers (GEMTESA) 08-04 by mouth ity o f 75 mg Tab 00:00: 00:00 daily. [place] 00 :00 Medical Branch solifenacin Yes [id number] 10mg Take 1 Univers (VESICARE) 7-15 tablet by ity of 10 mg 00:00: mouth in [place] tablet 00 the Medical morning. Branch solifenacin Yes [id number] 10mg Take 1 Univers (VESICARE) 7-15 tablet by ity of 10 mg 00:00: mouth in [place] tablet 00 the Medical morning. Branch solifenacin 0 Yes [id number] 10mg Take 1 Univers (VESICARE) 7-15 tablet by ity of 10 mg 00:00: mouth in [place] tablet 00 the Medical morning. Branch solifenacin 0 Yes [id number] 10mg Take 1 Univers (VESICARE) 7-15 tablet by ity of 10 mg 00:00: mouth in [place] tablet 00 the Medical morning. Branch solifenacin 0 Yes [id number] 10mg Take 1 Univers (VESICARE) 7-15 tablet by ity of 10 mg 00:00: mouth in [place] tablet 00 the Medical morning. Branch solifenacin 0 Yes [id number] 10mg Take 1 Univers (VESICARE) 7-15 tablet by ity of 10 mg 00:00: mouth in [place] tablet 00 the Medical morning. Branch solifenacin 0 Yes [id number] 10mg Take 1 Univers (VESICARE) 7-15 tablet by ity of 10 mg 00:00: mouth in [place] tablet 00 the Medical morning. Branch solifenacin 0 Yes [id number] 10mg Take 1 Univers (VESICARE) 7-15 tablet by ity of 10 mg 00:00: mouth in [place] tablet 00 the Medical morning. Branch vibegron 2021- No [id number] 75mg Take 75 mg Univers (GEMTESA) 6-10 -12 by mouth ity o f 75 mg Tab 00:00: 00:00 daily. [place] 00 :00 Medical Branch solifenacin 2021-0 Yes [id number] 10mg Take 1 Univers (VESICARE) 5-13 tablet by ity of 10 mg 00:00: mouth [place] tablet 00 daily. Medical Branch solifenacin 2021-0 Yes [id number] 10mg Take 1 Univers (VESICARE) 5-13 tablet by ity of 10 mg 00:00: mouth [place] tablet 00 daily. Medical Branch solifenacin 2021-0 Yes [id number] 10mg Take 1 Univers (VESICARE) 5-13 tablet by ity of 10 mg 00:00: mouth [place] tablet 00 daily. Medical Branch solifenacin 2022-0 Yes [id number] 10mg Take 1 Univers (VESICARE) 5-13 tablet by ity of 10 mg 00:00: mouth [place] tablet 00 daily. Medical Branch solifenacin 2-0 Yes [id number] 10mg Take 1 Univers (VESICARE) 5-13 tablet by ity of 10 mg 00:00: mouth [place] tablet 00 daily. Medical Branch solifenacin 2-0 Yes [id number] 10mg Take 1 Univers (VESICARE) 5-13 tablet by ity of 10 mg 00:00: mouth [place] tablet 00 daily. [facility] Branch solifenacin 2-0 Yes [id number] 10mg Take 1 Univers (VESICARE) 5-13 tablet by ity of 10 mg 00:00: mouth [place] tablet 00 daily. [facility] Branch solifenacin 2-0 Yes [id number] 10mg Take 1 Univers (VESICARE) 5-13 tablet by ity of 10 mg 00:00: mouth [place] tablet 00 daily. [facility] Bupivicaine Bupivicaine 2021-0 No 2.5mg Common [place] 5-02 Spirit 00:00: - CHI 00 [facility] Kenalog Kenalog 2021-0 No 40mg Common (Triamcinol (Triamcinol 5-02 S pirit one) one) 00:00: - CHI 00 [facility] Bupivicaine Bupivicaine 2-0 No 2.5mg Common [place] 5-02 Spirit 00:00: - CHI 00 [facility] Kenalog Kenalog 2021-0 No 40mg Common (Triamcinol (Triamcinol 5-02 S pirit one) one) 00:00: - CHI 00 [facility] Bupivicaine Bupivicaine 2-0 No 2.5mg Common [place] 5-02 Spirit 00:00: - CHI 00 [facility] Kenalog Kenalog 2-0 No 40mg Common (Triamcinol (Triamcinol 5-02 S pirit one) one) 00:00: - CHI 00 [facility] Bupivicaine Bupivicaine 2-0 No 2.5mg Common [place] 5-02 Spirit 00:00: - CHI 00 [facility] Kenalog Kenalog 0 No 40mg Common (Triamcinol (Triamcinol 5-02 S pirit one) one) 00:00: - CHI 00 [facility] Bupivicaine Bupivicaine 2021-0 No 2.5mg Common [place] 5-02 Spirit 00:00: - CHI 00 [facility] Carito Kenalog 0 No 40mg Common (Triamcinol (Triamcinol 5-02 S pirit one) one) 00:00: - CHI 00 [facility] Bupivicaine Bupivicaine 0 No 2.5mg Common [place] 5-02 Spirit 00:00: - CHI 00 [facility] Carito Floresalog 0 No 40mg Common (Triamcinol (Triamcinol 5-02 S pirit one) one) 00:00: - CHI 00 [facility] Bupivicaine Bupivicaine 2021-0 No 2.5mg Common [place] 5-02 Spirit 00:00: - CHI 00 [facility] Carito Kenalog 0 No 40mg Common (Triamcinol (Triamcinol 5-02 S pirit one) one) 00:00: - CHI 00 [facility] Bupivicaine Bupivicaine 2021-0 No 2.5mg Common [place] 5-02 Spirit 00:00: - CHI 00 [facility] Carito Kenalog 0 No 40mg Common (Triamcinol (Triamcinol 5-02 S pirit one) one) 00:00: - CHI 00 [facility] Bupivicaine Bupivicaine 2021-0 No 2.5mg Common [place] 5-02 Spirit 00:00: - CHI 00 [facility] Carito Kenalog 0 No 40mg Common (Triamcinol (Triamcinol 5-02 S pirit one) one) 00:00: - CHI 00 [facility] azithromyci 2021-0 Yes azithromyc Univers n 250 mg 4-25 in 250 mg ity of tablet 15:25: tablet [place] 10 TAKE 2 Medical TABLETS BY Branch MOUTH DAY 1 THEN TAKE 1 TABLET BY MOUTH EVERY DAY FOR 4 DAYS ergocalcife 2022-0 Yes ergocalcif Univers rol, 4-25 [place] ity [...] TABLET BY MOUTH TWICE DAILY losartan 50 0 Yes losartan Un [place] mg tablet 4-25 [...] MOUTH EVERY DAY FOR 4 DAYS ergocalcife 0 Yes ergocalcif Univers rol, 4-25 [place] ity [...] 250 mg ity of tablet 15:25: tablet [place] 10 TAKE 2 Medical TABLETS BY Branch [...] 4-25 50 mg ity of 15:25: tablet [place] 10 TAKE 1 Medical TABLET BY Branch MOUTH EVERY DAY valACYclovi Yes valacyclov Univers r 1 gram 4-25 ir 1 gram ity of tablet 15:23: tablet [place] 55 TAKE 1 Medical TABLET BY Branch ORAL ROUTE EVERY 8 HOURS FOR 7 DAYS valACYclovi Yes valacyclov Univers r 1 gram 4-25 ir 1 gram ity of tablet 15:23: tablet [place] 55 TAKE 1 Medical TABLET BY Branch ORAL ROUTE EVERY 8 HOURS FOR 7 DAYS valACYclovi Yes valacyclov Univers r 1 gram 4-25 ir 1 gram ity of tablet 15:23: tablet [place] 55 TAKE 1 Medical TABLET BY Branch ORAL ROUTE EVERY 8 HOURS FOR 7 DAYS valACYclovi Yes valacyclov Univers r 1 gram 4-25 ir 1 gram ity of tablet 15:23: tablet [place] 55 TAKE 1 Medical TABLET BY Branch ORAL ROUTE EVERY 8 HOURS FOR 7 DAYS valACYclovi Yes valacyclov Univers r 1 gram 4-25 ir 1 gram ity of tablet 15:23: tablet [place] 55 TAKE 1 Medical TABLET BY Branch ORAL ROUTE EVERY 8 HOURS FOR 7 DAYS valACYclovi Yes valacyclov Univers r 1 gram 4-25 ir 1 gram ity of tablet 15:23: tablet [place] 55 TAKE 1 Medical TABLET BY Branch ORAL ROUTE EVERY 8 HOURS FOR 7 DAYS valACYclovi Yes valacyclov Univers r 1 gram 4-25 ir 1 gram ity of tablet 15:23: tablet [place] 55 TAKE 1 Medical TABLET BY Branch ORAL ROUTE EVERY 8 HOURS FOR 7 DAYS valACYclovi 2021-0 Yes valacyclov Univers r 1 gram 4-25 ir 1 gram ity of tablet 15:23: tablet [place] 55 TAKE 1 Medical TABLET BY Branch ORAL ROUTE EVERY 8 HOURS FOR 7 DAYS allopurinoL 0 Yes Univer s 100 mg 4-24 ity of tablet 00:00: [place] [facility] busPIRone 0 Yes Univers 15 mg 4-24 ity of tablet 00:00: [address] allopurinoL 0 Yes Univer s 100 mg 4-24 ity of tablet 00:00: [address] busPIRone 0 Yes Univers 15 mg 4-24 ity of tablet 00:00: [address] allopurinoL 0 Yes Univer s 100 mg 4-24 ity of tablet 00:00: [address] busPIRone 0 Yes Univers 15 mg 4-24 ity of tablet 00:00: [address] allopurinoL 0 Yes Univer s 100 mg 4-24 ity of tablet 00:00: [address] busPIRone 0 Yes Univers 15 mg 4-24 ity of tablet 00:00: [place] [facility] Branch allopurinoL 0 Yes Univer s 100 mg 4-24 ity of tablet 00:00: [place] [facility] Branch busPIRone 0 Yes Univers 15 mg 4-24 ity of tablet 00:00: [place] [facility] Branch allopurinoL 2021-0 Yes Univer s 100 mg 4-24 ity of tablet 00:00: [place] [facility] busPIRone 2021-0 Yes Univers 15 mg 4-24 ity of tablet 00:00: [address] allopurinoL 2021-0 Yes Univer s 100 mg 4-24 ity of tablet 00:00: [place] [facility] busPIRone 2021-0 Yes Univers 15 mg 4-24 ity of tablet 00:00: [address] Branch allopurinoL 0 Yes Univer s 100 mg 4-24 ity of tablet 00:00: [place] [facility] busPIRone 2021-0 Yes Univers 15 mg 4-24 ity of tablet 00:00: [place] 00 Medical Branch SERTraline 2021-0 Yes 200mg [...] tablet 00:00: mouth 00 daily. Medical Branch Azithromyci Azithromyci 0 2021- No QD Azithromyc n 250 MG n 250 MG 12-03 in 250 MG 00:00: 00:00 00 :00 predniSONE predniSONE 2021- No 2{table QD predniSONE 20 MG 20 MG 12-03 t} 20 MG 00:00: 00:00 00 :00 Synvisc 1 Synvisc 1 2020- No 8mg Com 03-11 Spirit 00:00: - CHI [facility] Synvisc 1 Synvisc 1 2020-0 No 8mg Com 03-11 Spirit 00:00: - CHI [facility] Synvisc 1 Synvisc 1 2020-0 No 8mg Com 03-11 Spirit 00:00: - CHI [facility] Synvisc 1 Synvisc 1 2021-0 No 8mg Com 03-11 Spirit 00:00: - CHI [facility] Synvisc 1 Synvisc 1 2020-0 No 8mg Com 03-11 Spirit 00:00: - CHI [facility] Synvisc 1 Synvisc 1 2020-0 No 8mg Com 03-11 Spirit 00:00: - CHI [facility] Synvisc 1 Synvisc 1 2020-0 No 8mg Com 03-11 Spirit 00:00: - CHI [facility] Synvisc 1 Synvisc 1 2020-0 No 8mg Com 03-11 Spirit 00:00: - [facility] Synvisc 1 Synvisc 1 2020-0 No 8mg Com 03-11 Spirit 00:00: - [facility] Synvisc 1 Synvisc 1 2020-0 No 8mg Com 03-11 Spirit 00:00: - [facility] Synvisc 1 Synvisc 1 2020-0 No 8mg Com 03-11 Spirit 00:00: - [facility] Synvisc 1 Synvisc 1 2020-0 No 8mg Com 03-11 Spirit 00:00: - [facility] Synvisc 1 Synvisc 1 2020-0 No 8mg Com 03-11 Spirit 00:00: - [facility] Synvisc 1 Synvisc 1 2020-0 No 8mg Com 03-11 Spirit 00:00: - [facility] Synvisc 1 Synvisc 1 2020-0 No 8mg Com 03-11 Spirit 00:00: - [facility] Synvisc 1 Synvisc 1 2020-0 No 8mg Com 03-11 Spirit 00:00: - [facility] Synvisc 1 Synvisc 1 2020-0 No 8mg Com 03-11 Spirit 00:00: - [facility]I [facility] Synvisc 1 Synvisc 1 2020-0 No 8mg Com 03-11 Spirit 00:00: - CHI [facility] Synvisc 1 Synvisc 1 2021-0 No 8mg Com mon -19 Spirit 00:00: - CHI [facility] Synvisc 1 Synvisc 1 No 8mg Com mon - Spirit 00:00: - CHI [facility] Vitamin D Vitamin D Yes Sarah (otc) 1 Common 2-19 [place] capsule Spirit 00:00: - CHI [facility] Furosemide Furosemide 0 Yes Sarah TK 1 T PO Common 8-17 [place] D PRF LEG Spiri t 00:00: SWELLING - CHI [facility] Furosemide Furosemide No Furosemide 20 MG 20 MG 8-17 20 MG 00:00: 00 Furosemide Furosemide No Furosemide 20 MG 20 [...] Spir it sertraline - CHI 100 mg) [facility] BusPIRone BusPIRone Yes Sarah 1-2 Com mon HCl HCl [place] tablet as Spiri t needed for - CHI anxiety [facility] Lasix Lasix Yes Sarah 1 tablet Common [place] [facility] Magnesium Magnesium Yes Sarah as Comm on [place] directed [facility] Gabapentin Gabapentin Yes Sarah as Co mmon [place] directed [facility] Hydrocodone Hydrocodone Yes Sarah 1 tablet Common -Acetaminop -Acetaminop [place] as needed Spirit hen hen [facility] Lorazepam Lorazepam Yes Sarha 1 tablet Common [place] at bedtime Spir it as needed [facility] Losartan Losartan Yes Sarah 1 tablet Co mmon Potassium Potassium [place] [facility] Sertraline Sertraline Yes Sarah 2 tablets Common HCl HCl Mill[place] [facility] ProAir HFA ProAir HFA No 2{puffs ProAir [...] Lasix 20 mg No Lasix 20 mg busPIRone busPIRone No BID busPIRone HCl 15 MG HCl 15 MG HCl 15 MG Gabapentin Gabapentin No Gabapentin 300 MG 300 MG 300 MG Vitamin D Vitamin D No QD Vitamin D 125 MCG 125 MCG 125 MCG (5000 UT) (5000 UT) (5000 UT) busPIRone busPIRone No busPIRone HCl 15 MG HCl 15 MG HCl 15 MG Losartan Losartan No Losartan Potassium Potassium Potassium 50 MG 50 MG 50 MG HYDROcodone HYDROcodone No 1{table BID HYDROcodon -Acetaminop -Acetaminop t_as_ne e-Acetamin hen 10-325 hen 10-325 eded} ophen MG MG 10-325 MG Sertraline Sertraline No Sertraline HCl 100 MG HCl 100 MG HCl 100 MG Allopurinol Allopurinol No Allopurino 100 MG 100 MG l 100 MG busPIRone busPIRone No busPIRone HCl 15 MG HCl 15 MG HCl 15 MG HYDROcodone HYDROcodone No 1{table BID HYDROcodon -Acetaminop -Acetaminop t_as_ne e-Acetamin hen 10-325 hen 10-325 eded} ophen MG MG 10-325 MG Losartan Losartan No 1{table QD Losartan Potassium Potassium t} Potassium 50 MG 50 MG 50 MG Lasix 20 mg Lasix 20 mg No Lasix 20 mg Allopurinol Allopurinol No 1{table QD Allopurino 100 MG 100 MG t} l 100 MG Gabapentin Gabapentin No Gabapentin 300 MG 300 MG 300 MG Vitamin D Vitamin D No QD Vitamin D 125 MCG 125 MCG 125 MCG (5000 UT) (5000 UT) (5000 UT) Allopurinol Allopurinol No Allopurino 100 MG 100 MG l 100 MG Gabapentin Gabapentin No Gabapentin 300 MG 300 MG 300 MG Sertraline Sertraline No 2{table QD Sertraline HCl 100 MG HCl 100 MG ts} HCl 100 MG Sertraline Sertraline No Sertraline HCl 100 MG HCl 100 MG HCl 100 MG busPIRone busPIRone No BID busPIRone HCl 15 MG HCl 15 MG HCl 15 MG Losartan Losartan No Losartan Potassium Potassium Potassium 50 MG 50 MG 50 MG Allopurinol Allopurinol 2021- No 1{table QD [...] 11-15 [facility] 00:00 - [facility] :00 [facility] Immunizations Ordered Immunization Filled Immunization Date Status Commen ts Source Name Name Prevnar 13 (PCV13) Prevnar 13 (PCV13) 2022-04-02 [facility]pleted [facility] 13:45:00 - [facility] Prevnar 13 (PCV13) Prevnar 13 (PCV13) 2022-04-02 Completed [facility] 13:45:00 [facility] Prevnar 13 (PCV13) Prevnar 13 (PCV13) 2022-04-02 Completed [facility] 13:45:00 [facility] Prevnar 13 (PCV13) Prevnar 13 (PCV13) 2022-04-02 Completed [facility] 13:45:00 [facility] Prevnar 13 (PCV13) Prevnar 13 (PCV13) 2022-04-02 Completed [facility] 13:45:00 [facility] Prevnar 13 (PCV13) Prevnar 13 (PCV13) 2022-04-02 Completed [facility] 13:45:00 - [facility] Prevnar 13 (PCV13) Prevnar 13 (PCV13) 2022-04-02 Completed [facility] 13:45:00 - [facility] Prevnar 13 (PCV13) Prevnar 13 (PCV13) 2022-04-02 Completed [facility] 13:45:00 - [facility] Fluzone Fluzone 2021-11-07 Completed [facility] 11:25:00 - [facility] Fluzone Fluzone 2021-11-07 Completed [facility] 11:25:00 - [facility] Fluzone Fluzone 2021-11-07 Completed [facility] 11:25:00 - [facility] Fluzone Fluzone 2021-11-07 Completed [facility] 11:25:00 - [facility] Fluzone Fluzone 2021-11-07 Completed [facility] 11:25:00 - [facility] Fluzone Fluzone 2021-11-07 Completed [facility] 11:25:00 - [facility] Fluzone Fluzone 2021-11-07 Completed [facility] 11:25:00 - [facility] Fluzone Fluzone 2021-11-07 Completed [facility] 11:25:00 - [facility] Fluzone Fluzone 2021-11-07 Completed [facility] 11:25:00 - [facility] Fluzone Fluzone 2021-11-07 Completed [facility] 11:25:00 - [facility] Fluzone Fluzone 2021-11-07 Completed [facility] 11:25:00 - [facility] Fluzone Fluzone 2021-11-07 Completed [facility] 11:25:00 - [facility] Fluzone Fluzone 2021-11-07 Completed [facility] 11:25:00 - [facility] Fluzone Fluzone 2021-11-07 Completed [facility] 11:25:00 - [facility] Fluzone Fluzone 2021-11-07 Completed [facility] 11:25:00 - [facility] Fluzone Fluzone 2021-11-07 Completed [facility] 11:25:00 - [facility] Synvisc 1 Synvisc 1 2021-03-11 Completed [facility] 09:53:00 - [facility] Synvisc 1 Synvisc 1 2021-03-11 Completed [facility] 09:51:00 - [facility] COVID-19 Vaccine COVID-19 Vaccine 2021-02-05 Completed [facility] (Ethan) (Ethan) 14:53:00 - [facility] COVID-19 Vaccine COVID-19 Vaccine 2021-02-05 Completed [facility] (Ethan) (Ethan) 14:53:00 [facility] COVID-19 Vaccine COVID-19 Vaccine 2021-02-05 Completed [facility] (Ethan) (Ethan) 14:53:00 [facility] COVID-19 Vaccine COVID-19 Vaccine 2021-02-05 Completed [facility] (Ethan) (Ethan) 14:53:00 - [facility] COVID-19 Vaccine COVID-19 Vaccine 2021-02-05 Completed [facility] (Ethan) (Ethan) 14:53:00 [facility] COVID-19 Vaccine COVID-19 Vaccine 2021-02-05 Completed [facility] (Ethan) (Ethan) 14:53:00 [facility] COVID-19 Vaccine COVID-19 Vaccine 2021-02-05 Completed [facility] (Ethan) (Ethan) 14:53:00 [facility] COVID-19 Vaccine COVID-19 Vaccine 2021-02-05 Completed [facility] (Ethan) (Ethan) 14:53:00 [facility] COVID-19 Vaccine COVID-19 Vaccine 2021-02-05 Completed [facility] (Ethan) (Ethan) 14:53:00 [facility] COVID-19 Vaccine COVID-19 Vaccine 2021-02-05 Completed [facility] (Ethan) (Ethan) 14:53:00 [facility] COVID-19 Vaccine COVID-19 Vaccine 2021-02-05 Completed [facility] (Ethan) (Ethan) 14:53:00 - [facility] COVID-19 Vaccine COVID-19 Vaccine 2021-02-05 Completed [facility] (Ethan) (Ethan) 14:53:00 - [facility] COVID-19 Vaccine COVID-19 Vaccine 2021-02-05 Completed [facility] (Ethan) (Ethan) 14:53:00 - [facility] COVID-19 Vaccine COVID-19 Vaccine 2021-02-05 Completed [facility] (Ethan) (Ethan) 14:53:00 - [facility] COVID-19 Vaccine COVID-19 Vaccine 2021-02-05 Completed [facility] (Ethan) (Ethan) 14:53:00 - [facility] COVID-19 Vaccine COVID-19 Vaccine 2021-02-05 Completed [facility] (Ethan) (Ethan) 14:53:00 - [facility] COVID-19 Vaccine COVID-19 Vaccine 2021-02-05 Completed [facility] (Ethan) (Ethan) 14:53:00 - [facility] Flucelvax - single Flucelvax - single 2020-08-24 Completed [facility] dose syringe dose syringe 13:30:00 - [facility] Flucelvax - single Flucelvax - single 2020-08-24 Completed [facility] dose syringe dose syringe 13:30:00 - [facility] Flucelvax - single Flucelvax - single 2020-08-24 Completed [facility] dose syringe dose syringe 13:30:00 - [facility] Flucelvax - single Flucelvax - single 2020-08-24 Completed [facility] dose syringe dose syringe 13:30:00 - [facility] Flucelvax - single Flucelvax - single 2020-08-24 Completed [facility] dose syringe dose syringe 13:30:00 - [facility] Flucelvax - single Flucelvax - single 2020-08-24 Completed [facility] dose syringe dose syringe 13:30:00 - [facility] Flucelvax - single Flucelvax - single 2020-08-24 Completed [facility] dose syringe dose syringe 13:30:00 - [facility] Flucelvax - single Flucelvax - single 2020-08-24 Completed [facility] dose syringe dose syringe 13:30:00 - [facility] Flucelvax - single Flucelvax - single 2020-08-24 Completed [facility] dose syringe dose syringe 13:30:00 - [facility] Flucelvax - single Flucelvax - single 2020-08-24 Completed [facility] dose syringe dose syringe 13:30:00 - [facility] Flucelvax - single Flucelvax - single 2020-08-24 Completed [facility] dose syringe dose syringe 13:30:00 - [facility] Flucelvax - single Flucelvax - single 2020-08-24 Completed [facility] dose syringe dose syringe 13:30:00 - [facility] Flucelvax - single Flucelvax - single 2020-08-24 Completed [facility] dose syringe dose syringe 13:30:00 - [facility] Flucelvax - single Flucelvax - single 2020-08-24 Completed [facility] dose syringe dose syringe 13:30:00 - [facility] Flucelvax - single Flucelvax - single 2020-08-24 Completed [facility] dose syringe dose syringe 13:30:00 - [facility] Flucelvax - single Flucelvax - single 2020-08-24 Completed [facility] dose syringe dose syringe 13:30:00 - [facility] Flucelvax - single Flucelvax - single 2020-08-24 Completed [facility] dose syringe dose syringe 13:30:00 - [facility] Flucelvax - single Flucelvax - single 2019-10-13 Completed [facility] dose syringe dose syringe 16:56:00 - [facility] Flucelvax - single Flucelvax - single 2019-10-13 Completed [facility] dose syringe dose syringe 16:56:00 - [facility] Flucelvax - single Flucelvax - single 2019-10-13 Completed [facility] dose syringe dose syringe 16:56:00 - [facility] Flucelvax - single Flucelvax - single 2019-10-13 Completed [facility] dose syringe dose syringe 16:56:00 - [facility] Flucelvax - single Flucelvax - single 2019-10-13 Completed [facility] dose syringe dose syringe 16:56:00 - [facility] Flucelvax - single Flucelvax - single 2019-10-13 Completed [facility] dose syringe dose syringe 16:56:00 - [facility] Flucelvax - single Flucelvax - single 2019-10-13 Completed [facility] dose syringe dose syringe 16:56:00 - [facility] Flucelvax - single Flucelvax - single 2019-10-13 Completed [facility] dose syringe dose syringe 16:56:00 - [facility] Flucelvax - single Flucelvax - single 2019-10-13 Completed [facility] dose syringe dose syringe 16:56:00 - [facility] Flucelvax - single Flucelvax - single 2019-10-13 Completed [facility] dose syringe dose syringe 16:56:00 - [facility] Flucelvax - single Flucelvax - single 2019-10-13 Completed [facility] dose syringe dose syringe 16:56:00 - [facility] Flucelvax - single Flucelvax - single 2019-10-13 Completed [facility] dose syringe dose syringe 16:56:00 - [facility] Flucelvax - single Flucelvax - single 2019-10-13 Completed [facility] dose syringe dose syringe 16:56:00 - [facility] Flucelvax - single Flucelvax - single 2019-10-13 Completed [facility] dose syringe dose syringe 16:56:00 - [facility] Flucelvax - single Flucelvax - single 2019-10-13 Completed [facility] dose syringe dose syringe 16:56:00 - [facility] Flucelvax - single Flucelvax - single 2019-10-13 Completed [facility] dose syringe dose syringe 16:56:00 - [facility] Flucelvax - single Flucelvax - single 2019-10-13 Completed [facility] dose syringe dose syringe 16:56:00 - [facility] Flucelvax - single Flucelvax - single 2019-10-[address] [facility] dose syringe dose syringe 00:00:00 - [facility] Vital Signs Vital Name Observation Time Observation Value Comments Source height 2022-12-17 14:00:00 66.00 [in_i] [facility] weight 2022-12-17 14:00:00 373.0 [lb_av] [facility] temperature 2022-12-17 14:00:00 97.2 [degF] [facility] bmi 2022-12-17 14:00:00 60.2 kg/m2 [facility] oximetry 2022-12-17 14:00:00 97 % [facility] respiratory rate 2022-12-17 14:00:00 17 /min Comm on [facility] blood pressure 2022-12-17 14:00:00 123 mm[Hg] [facility] - systolic [facility] blood pressure 2022-12-17 14:00:00 69 mm[Hg] [facility] - diastolic [facility] Systolic blood 2022-10-21 10:00:00 132 mm[Hg] [facility] Diastolic blood 2022-10-21 10:00:00 66 mm[Hg] Unive rsity [facility] Heart rate 2022-10-21 10:00:00 92 /min [facility] Oxygen saturation in 2022-10-21 10:00:00 93 /min [facility] Arterial blood by [facility] Pulse oximetry Branch Respiratory rate 2022-10-21 07:30:00 18 /min [facility] Body temperature 2022-10-21 05:58:00 36.44 Mildred [facility] Body height 2022-10-21 05:58:00 167.6 cm [facility] Body weight 2022-10-21 05:58:00 169.192 kg [facility] BMI 2022-10-21 05:58:00 60.20 kg/m2 [facility] Branch height 2022-07-30 13:10:00 66.00 [in_i] [facility] weight 2022-07-30 13:10:00 373 [lb_av] [facility] temperature 2022-07-30 13:10:00 98.0 [degF] [facility] bmi 2022-07-30 13:10:00 60.2 kg/m2 [facility] oximetry 2022-07-30 13:10:00 94 % [facility] respiratory rate 2022-07-30 13:10:00 18 /min Comm on [facility] blood pressure 2022-07-30 13:10:00 133 mm[Hg] [facility] - systolic [facility] blood pressure 2022-07-30 13:10:00 62 mm[Hg] [facility] - diastolic [facility] height 2022-06-11 13:00:00 66.00 [in_i] [facility] 2022-[facility]-11 13:00:00 373 [lb_av] [facility] temperature 2022-06-11 13:00:00 97.5 [degF] [facility] bmi 2022-06-11 13:00:00 60.2 kg/m2 [facility] oximetry 2022-06-11 13:00:00 99 % [facility] respiratory rate 2022-06-11 13:00:00 18 /min Comm on [facility] blood pressure 2022-06-11 13:00:00 135 mm[Hg] [facility] - systolic [facility] blood pressure 2022-06-11 13:00:00 78 mm[Hg] [facility] - diastolic [facility] height 2022-04-02 10:50:00 66.00 [in_i] [facility] weight 2022-04-02 10:50:00 373 [lb_av] [facility] temperature 2022-04-02 10:50:00 97.3 [degF] [facility] bmi 2022-04-02 10:50:00 60.2 kg/m2 [facility] oximetry 2022-04-02 10:50:00 95 % [facility] respiratory rate 2022-04-02 10:50:00 16 /min [facility] on [facility] blood pressure 2022-04-02 10:50:00 139 mm[Hg] [facility] - systolic [facility] blood pressure 2022-04-02 10:50:00 67 mm[Hg] [facility] - diastolic [facility] height 2022-04-02 10:00:00 66.00 [in_i] [facility] weight 2022-04-02 10:00:00 373 [lb_av] [facility] temperature 2022-04-02 10:00:00 97.3 [degF] [facility] bmi 2022-04-02 10:00:00 60.2 kg/m2 [facility] oximetry 2022-04-02 10:00:00 95 % [facility] 2022-04-02 10:00:00 16 /min Comm on [facility] blood pressure 2022-04-02 10:00:00 139 mm[Hg] [facility] - systolic [facility] blood pressure 2022-04-02 10:00:00 67 mm[Hg] [facility] - diastolic [facility] height 2022-03-24 14:30:00 66.00 [in_i] [facility] weight 2022-03-24 14:30:00 373 [lb_av] [facility] temperature 2022-03-24 14:30:00 99.2 [degF] [facility] bmi 2022-03-24 14:30:00 60.2 kg/m2 [facility] blood pressure 2022-03-24 14:30:00 138 mm[Hg] [facility] - systolic [facility] blood pressure 2022-03-24 14:30:00 78 mm[Hg] [facility] - diastolic [facility] height 2021-12-03 11:00:00 66.00 [in_i] [facility] weight 2021-12-03 11:00:00 388 [lb_av] [facility] temperature 2021-12-03 11:00:00 98.7 [degF] [facility] bmi 2021-12-03 11:00:00 62.62 kg/m2 [facility] S [facility] blood pressure 2021-12-03 11:00:00 128 mm[Hg] [facility] - systolic [facility] blood pressure 2021-12-03 11:00:00 75 mm[Hg] [facility] - diastolic [facility] height 2021-11-07 10:50:00 66.00 [in_i] [facility] weight 2021-11-07 10:50:00 388.5 [lb_av] [facility] temperature 2021-11-07 10:50:00 97.5 [degF] [facility] bmi 2021-11-07 10:50:00 62.7 kg/m2 [facility] oximetry 2021-11-07 10:50:00 95 % [facility] respiratory rate 2021-11-07 10:50:00 19 /min Comm on [facility] blood pressure 2021-11-07 10:50:00 132 mm[Hg] [facility] - systolic [facility] blood pressure 2021-11-07 10:50:00 63 mm[Hg] [facility] - [facility] Procedures Procedure Date / Time Performed Performing Clinician Renita e EKG-12 LEAD 2022-10-21 08:50:42 Josie Gallardo [facility] URINALYSIS 2022-10-21 08:33:00 [facility] TROPONIN I 2022-10-21 06:54:00 [facility] COMP. METABOLIC PANEL 2022-10-21 06:54:00 Josie Gallardo [facility] ([id number]) [facility] CBC WITH DIFF 2022-10-21 06:54:00 [facility] N-TERMINAL PRO-BNP 2022-10-21 06:54:00 Josie Gallardo [facility] XR CHEST 1 VW 2022-10-21 06:49:10 [facility] Encounters Start End Encounter Admission Attending Care Care Encounter Source Date/Time Date/Time Type Type Clinicians Facility Department ID 2022-12-17 Outpatient Bull, STLMLC [facility] 14:12:01 Solo [facility] 2022-04-16 Outpatient Bull, STLMLC [facility] 10:40:00 Solo [facility] 2022-03-21 Outpatient Bull, STLMLC [facility] 10:56:01 Solo [facility] 2021-12-18 Outpatient Bull, STLMLC STLMLC Common 14:24:41 Solo [id number] [facility] 2021-12-18 Outpatient Bull, STLMLC STLMLC [id number] Common 13:54:01 Solo [id number] [facility] 2021-12-18 Outpatient Bull, STLMLC STLC [id number] Common 13:51:23 Solo [id number] [facility] 2021-12-18 Outpatient Bull, STLMLC STLC [id number] Common 13:51:19 Solo [id number] [facility] 2021-12-18 Outpatient Bull, STLMLC STLMLC Common 12:54:53 Solo [id number] [facility] 2021-12-18 Outpatient Bull, STLMLC STLMLC Common 12:47:58 Solo [id number] [facility] 2021-12-18 Outpatient Bull, STLMLC STLMLC Common 12:43:31 Solo [id number] [facility] 2021-12-18 Outpatient Bull, STLMLC STLMLC Common 12:42:37 [place] [id number] [facility] 2021-12-18 Outpatient Bull, STLMLC STLMLC Common 12:41:47 Solo [id number] [facility] 2021-12-18 Outpatient Bull, STLMLC STLMLC Common 12:40:52 [place] [id number] [facility] 2021-12-18 Outpatient STLMLC STLMLC Common 12:35:19 [id number] [facility] 2021-12-18 Outpatient Jorge, STLMLC STLMLC Common 12:30:20 Erna [id number] [facility] 2021-12-18 Outpatient Jorge, STLMLC STLMLC Common 12:20:17 Erna [id number] [facility] 2021-12-18 Outpatient Jorge, STLMLC STLMLC Common 12:19:41 Erna [id number] [facility] 2021-12-18 Outpatient Jorge, STLMLC STLMLC [id number] Common 12:10:41 Erna [id number] [facility] 2021-12-18 Outpatient STLMLC STLMLC Common 12:09:40 [id number] [facility] 2022-12-17 2022-12-17 OFFICE STLMLC STLMLC [id number] Co mmon 00:00:00 00:00:00 VISIT Marko MINOR PT - CHI LEVEL 4 [facility] 2022-12-15 2022-12-15 [id number] Co mmon 00:00:00 00:00:00 [facility] - [facility] 2022-11-01 2022-11-01 Telephone [facility] [id number] Univers 00:00:00 00:00:00 Maribelangelo BURRIS [id number] i [address] [facility] [id number] [id number] Dc dical NAL [address] [place] [address] 2022-10-24 2022-10-24 Telemedici [facility] [id number] Univers 16:00:00 16:30:00 ne Visit Maribel BURRIS [id number] [facility] [id number] [id number] Dc dicwa NAL [address] [place] [address] 2022-10-24 2022-10-24 Outpatient R [facility] [id number] Univers 16:00:00 16:00:00 MARIBEL maldonado [facility] 2022-10-20 2022-10-21 Emergency X RIGO [facility] ERT [id number] Univers 23:53:00 05:46:00 NEREIDA maldonado [facility] 2022-10-20 2022-10-21 Emergency Josie Gallardo [facility] [id number] Univers 23:53:00 05:46:00 Nereida Sierra [id number] [facility] [id number] [phone] [facility] [address] 2022-09-12 2022-09-12 [facility] [id number] Univers 16:00:00 16:30:00 ne Visit Maribel BURRIS [id number] [facility] [id number] [id number] Dc dical [address] 2022-09-12 2022-09-12 [facility] [id number] Univers 16:00:00 16:00:00 MARIBEL [facility] 2022-08-07 2022-08-07 Telephone [facility] [id number] Univers 00:00:00 00:00:00 Maribel BURRIS [id number] [facility] [facility] [id number] [phone] Dc v[address] 2022-08-04 2022-08-04 Telemedici [facility] [id number] Univers 15:00:00 15:30:00 ne Visit Maribel BURRIS [id number]y [address] [id number] [id number] [address] 2022-08-04 2022-08-04 [facility] [id number] Univers 15:00:00 15:00:00 [facility] 2022-08-04 2022-08-04 [facility] [id number] Univers 15:00:00 15:00:00 [facility] 2022-08-04 2022-08-04 [facility] [id number] Univers 15:00:00 15:00:00 [facility] 2022-07-30 2022-07-30 OFFICE STLMLC STLMLC [id number] Co mmon 00:00:00 00:00:00 VISIT Spirit ESTAB PT - CHI LEVEL 4 [facility] 2022-06-11 2022-06-11 OFFICE STLMLC STLMLC [id number] Co mmon 00:00:00 00:00:00 VISIT [facility] ESTAB PT - CHI LEVEL 4 [facility] 2022-06-11 2022-06-11 (TEL) STLMLC STLMLC [id number] Co mmon 00:00:00 00:00:00 Spirit - CHI [facility] 2022-06-06 2022-06-06 Office [facility] [id number] Univers 11:00:00 12:07:23 Visit Maribelangelo BURRIS [id number] i ty of [facility] [id number] [id number] [address] 2022-06-06 2022-06-06 Outpatient [facility] [id number] Univers 11:00:00 12:07:23 MARIBEL maldonado [facility] 2022-06-06 2022-06-06 [facility] [id number] Univers 11:00:00 11:00:00 MARIBEL maldonado [facility] 2022-06-06 2022-06-06 Outpatient [facility] [id number] Univers 11:00:00 11:00:00 MARIBEL maldonado [facility] 2022-05-02 2022-05-02 [facility]patient [facility] [id number] Univers 10:30:00 11:39:16 MARIBEL deven [facility] 2022-05-02 2022-05-02 Office [facility] [id number] Univers 10:30:00 11:39:16 Visit Maribel BURRIS [id number] i [id number] [phone] [address] 2022-04-03 2022-04-03 Telephone [facility] 1.2.840.114 [id number] Univers 00:00:00 00:00:00 Maribel FATUMA [id number] i [id number] [id number] [address] 2022-04-02 2022-04-02 OFFICE [facility] [id number] Co mmon 00:00:00 00:00:00 VISIT Spirit ESTAB PT - CHI LEVEL 4 [facility] 2022-04-02 2022-04-02 [facility] [id number] Common 00:00:00 00:00:00 MCR Spirit WELLNESS - CHI VISIT [facility] 2022-04-02 2022-04-02 [facility] [id number] Co mmon 00:00:00 00:00:00 Spirit - CHI [facility] 2022-03-25 2022-03-25 Telephone [facility] [id number] Univers 00:00:00 00:00:00 Maribel BURRIS [id number] i [id number] [id number] Dc dical NAL 134 [facility] 2022-03-24 2022-03-[address] [facility] [facility] [id number] Co mmon 00:00:00 00:00:00 VISIT Spirit ESTAB PT - CHI LEVEL 4 [facility] 2022-03-17 2022-03-17 Outpatient R [facility] [id number] Univers 14:00:00 15:57:19 MARIBEL maldonado [facility] 2022-03-17 2022-03-17 Outpatient R [facility] [id number] Univers 14:00:00 15:57:19 MARIBEL maldonado [facility] 2022-03-17 2022-03-17 Office [facility] 1.2.840.114 [id number] Univers 14:00:00 15:57:19 Visit Maribel BURRIS [id number] i [id number] [id number] Dc dical NAL 098 [facility] 2022-03-17 2022-03-17 Outpatient R [facility] [id number] Univers 14:00:00 14:00:00 MARIBEL maldonado [facility] 2022-03-17 2022-03-17 Orders Doctor GRIFFITH 1.2.840.114 [id number] Univers 00:00:00 00:00:00 Only Unassigned, ALE 350.1.13.10 ity of [place] [facility] [id number] Justino as [id number] [address] 2022-02-032022-02-03 (TEL) [facility] ST[facility] [id number] Co mmon 00:00:00 00:00:00 [facility] 2022-01-29 2022-01-29 Orders Doctor NACHO 1.2.840.114 [id number] Univers 00:00:00 00:00:00 Only Unassigned, ALE 350.1.13.10 ity [facility] [id number] [facility] [phone] [facility] [address] 2021-12-31 2021-12-31 (TEL) STLMLC ST[facility] [id number] Co mmon 00:00:00 00:00:00 [facility] 2021-12-03 2021-12-03 OFFICE STLMLC ST[facility] [id number] Co mmon 00:00:00 00:00:00 VISIT EST Spir it PT LEVEL 3 - [facility] 2021-12-02 2021-12-02 (TEL) STLMLC STL[facility]C [id number] Co mmon 00:00:00 00:00:00 Spirit [facility] 2021-11-26 2021-11-26 OFFICE STLMLC STL[facility] [id number] Co mmon 00:00:00 00:00:00 VISIT Spirit ESTAB PT - CHI LEVEL 1 [facility] 2021-11-25 2021-11-25 (TEL) STLMLC STLMLC [id number] Co mmon 00:00:00 00:00:00 [facility] 2021-11-15 2021-11-16 Emergency X RIGO [facility] ERT [id number] Univers 22:26:00 02:54:00 NEREIDA ity of [facility] 2021-11-15 2021-11-16 Emergency Rigo [facility] [id number] Univers 22:26:00 02:54:00 Nereida BURRIS 350.1.13.10 i ty [facility] [id number] [facility] [id number] [facility] [address] 2021-11-07 2021-11-07 OFFICE STLMLC STLMLC [id number] Co mmon 00:00:00 00:00:00 VISIT [facility] 4 [facility] 2021-08-12 2021-08-12 (TEL) STLMLC STLMLC [id number] Co mmon 00:00:00 00:00:00 [facility] 2021-07-01 2021-07-01 Outpatient STLMLC STL[facility] [id number] Common 00:00:00 00:00:00 [facility] 2021-06-26 2021-06-26 Outpatient STLMLC STL[facility] [id number] Common 00:00:00 00:00:00 [facility] 2021-04-23 2021-04-23 Outpatient STLMLC STL[facility] [id number] Common 00:00:00 00:00:00 [facility] 2021-04-04 2021-04-04 Outpatient STLMLC STL[facility] [id number] Common 00:00:00 00:00:00 [facility] 2021-03-29 2021-03-29 Outpatient STLMLC STL[facility] [id number] Common 00:00:00 00:00:00 [facility] 2021-03-28 2021-03-28 Outpatient STLMLC STLMLC [id number] Common 00:00:00 00:00:00 [facility] 2021-03-28 2021-03-28 Outpatient STLMLC STLMLC [id number] Common 00:00:00 00:00:00 [facility] 2021-03-11 2021-03-11 Outpatient STLMLC STL[facility]C [id number] Common 00:00:00 00:00:00 [facility] 2021-03-07 2021-03-07 Outpatient STLMLC STLMLC [id number] Common 00:00:00 00:00:00 [facility] 2021-03-06 2021-03-06 Outpatient STLMLC STL[facility]C [id number] Common 00:00:00 00:00:00 [facility] 2021-02-07 2021-02-07 Outpatient STLMLC STL[facility] [id number] Common 00:00:00 00:00:00 [facility] 2021-02-05 2021-02-05 Outpatient STLMLC STLMLC [id number] Common 00:00:00 00:00:00 [facility] 2021-02-05 2021-02-05 Outpatient STLMLC STL[facility]C [id number] Common 00:00:00 00:00:00 [facility] 2021-02-04 2021-02-04 Outpatient STLMLC STLMLC [id number] Common 00:00:00 00:00:00 [facility] 2021-01-28 2021-01-28 Outpatient STLMLC STLMLC [id number] Common 00:00:00 00:00:00 [facility] 2021-01-22 2021-01-22 Outpatient STLMLC STLMLC [id number] Common 00:00:00 00:00:00 [facility] 2021-01-22 2021-01-22 Outpatient STLMLC STLMLC [id number] Common 00:00:00 00:00:00 [facility] 2021-01-02 2021-01-02 Outpatient [facility] [id number] [facility] 14:51:51 23:59:00 ity [facility] 2021-01-02 2021-01-02 [facility] 1.2.840.114 [id number] 14:45:00 23:59:00 Encounter Wiliam Burris 350.1.13.[address] [place] [address] [place] [address] [phone] [facility] 2021-01-02 2021-01-02 [facility] 1.2.840.114 [id number] [facility] 14:45:00 23:59:00 Encounter Wiliam Burris 350.1.13.10 ity [facility] [id number] [facility] [id number] [address] 2021-01-02 2021-01-02 Orders Doctor GRIFFITH 1.2.840.114 [id number] 00:00:00 00:00:00 Only Unassigned, ALE 350.1.13.10 [facility] 4.2.7.2.686 [id number] 2021-01-02 2021-01-02 Orders Doctor NACHO 1.2.840.114 [id number] Univers 00:00:00 00:00:00 Only Unassigned, ALE 350.1.13.10 ity of [place] [facility] 4.2.7.2.686 Just[place] as [id number] [place] [address] [address] 2020-12-04 2020-12-04 Outpatient STLMLC STLMLC [id number] Common 00:00:00 00:00:00 [facility] 2020-08-29 2020-08-29 Outpatient STLMLC STLMLC [id number] Common 00:00:00 00:00:00 [facility] 2020-08-24 2020-08-24 Outpatient STLMLC STLMLC [id number] Common 00:00:00 00:00:00 [facility] 2020-05-24 2020-05-24 Outpatient [facility] [id number] Common 15:20:00 15:20:00 [facility] 2020-02-06 2020-03-07 [facility] [id number] Memoria 19:00:00 04:59:00 r Aubrey 00 [facility] 2020-02-06 2020-03-07 [facility] [id number] Memoria 19:00:00 04:59:00 r Aubrey 00 [facility] 2020-02-06 2020-03-07 [facility] [id number] Memoria 19:00:00 04:59:00 [facility] 00 [facility] 2020-02-06 2020-03-06 Outpatient Kenney [facility] [id number] 14:00:00 23:59:00 Andrzej Christiana 2020-02-06 2020-03-06 Outpatient Ken[place] [facility] [id number] 14:00:00 23:59:00 Andrzej Villeda 00 2020-02-06 2020-02-06 Outpatient KENNEY [facility] [id number] [facility] 14:00:00 14:00:00 ANDRZEJ 2020-01-11 2020-01-11 Out[facility] [id number] Common 11:45:00 11:45:[address] [facility] 2020-01-10 2020-01-10 Out[facility] [id number] Common 14:30:00 14:30:[address] [facility] 2020-01-09 2020-01-09 Outpatient [facility] [id number] Common 13:30:00 13:30:00 t Specialty/U Sp lenny Specialty rology - CHI /Urology Clinic [facility] 2019-12-26 2019-12-26 Out[facility] [id number] Common 11:05:00 11:05:[address] [facility] 2019-11-13 2019-11-13 [facility] [id number] Common 13:57:00 13:57:[address] [facility] 2019-10-18 2019-10-18 Out[facility] [id number] Common 16:57:00 16:57:[address] [facility] 2019-10-13 2019-10-13 Out[facility] [id number] Common 23:20:00 23:20:[address] [facility] 2019-10-13 2019-10-13 Out[facility] [id number] Common 15:00:00 15:00:[address] [facility] 2019-08-16 2019-08-16 Out[facility] [id number] Common 13:34:00 13:34:[address] [facility] 2019-07-22 2019-07-22 Out[facility] [id number] Common 14:00:00 14:00:[address] [facility] 2019-07-18 2019-07-18 Out[facility] [id number] Common 20:00:00 20:00:[address] [facility] 2019-07-14 2019-07-14 Out[facility] [id number] Common 13:00:00 13:00:[address] [facility] 2019-06-29 2019-06-29 Outpatient [facility] [id number] Common 11:57:00 11:57:[address] [facility] 2019-03-24 2019-03-24 Out[facility] [id number] Common 21:45:00 21:45:[address] [facility] 2019-03-24 2019-03-24 Out[facility] [id number] Common 14:27:00 14:27:[address] [facility] 2019-03-22 2019-03-22 Out[facility] [id number] Common 13:20:00 13:20:[address] [facility] 2019-03-21 2019-03-21 Out[facility] [id number] Common 09:12:00 09:12:[address] [facility] 2019-01-31 2019-01-31 Outpatient [facility] [id number] Common 13:23:00 13:23:[address] [facility] 2019-01-17 2019-01-17 Outpatient [facility] [id number] Common 10:30:00 10:30:[address] [facility] 2018-12-22 2018-12-22 Outpatient [facility] [id number] Common 09:09:00 09:09:[address] [facility] 2018-12-15 2018-12-15 Out[facility] [id number] Common 11:45:00 11:45:00 [facility] 2018-12-09 2018-12-09 Outpatient Fan Dennison [id number] Common 10:38:00 10:38:00 [facility] Results This patient has no known results.
[2022-12-27] MEDS ORDERED: KETOROLAC 30 MG/ML INJ ONE (20:51)
[2022-12-27] MEDS ORDERED: ONDANSETRON 4 MG/2 ML VIAL ONE (20:51)
[2022-12-27] MEDS ORDERED: NA CHLORIDE 0.9% 500 ML ONE (20:51)
[2022-12-27 20:54] LABS: Hematocrit 37.5 % (36.0-45.0); Lymphocytes % 27.9 % (15.3-44.8); MCV 95.1 fL (80-100); MPV 8.7 fL (7.6-11.3); RBC Red Blood Cell Count 3.95 M/uL (3.86-4.86)
[2022-12-27 21:03] LABS: Potassium 4.5 mmol/L (3.5-5.1)
[2022-12-27 21:48] LABS: Urine Blood Trace-intact (Negative); Urine Glucose Negative (Negative); Urine Protein Negative (Negative); Urine Specific Gravity 1.025 (1.005-1.030)
[2022-12-27 22:20] LABS: Urine Bacteria None Seen /HPF (<20); Urine Mucus Slight /HPF (None Seen)
--- NOTE | 2022-12-27 22:47 | ER ---
Nurse's Notes [facility] Name: Jeanine Jansen Age: 67 yrs Sex: Female : 1955 Arrival Date: 12/27/2022 Time: 19:40 Bed 17 Private MD: Diagnosis: Dental pain;Cephalgia;Chronic urinary incontinence Presentation: 12/27 19:40 Chief complaint: EMS states: patient has several complaints, her main complaint is jaw kr3 pain, patient states "its from clinching my teeth". Also has headache. I woke up from a nap and I feel like I while I was asleep. I urinated continuously but I also have incontinence. Coronavirus screen: Vaccine status: Patient reports receiving the 2nd dose of the covid vaccine. Ebola Screen: Patient denies travel to an Ebola-affected area in the 21 days before illness onset. Initial Sepsis Screen: Does the patient meet any 2 criteria? No. Patient's initial sepsis screen is negative. Initial Sepsis Screen: Does the patient have a suspected source of infection? No. Patient's initial sepsis screen is negative. Risk Assessment: Do you want to hurt yourself or someone else? Patient reports no desire to harm self or others. Onset of symptoms was December 27, 2022. 19:40 Method Of Arrival: EMS kr3 19:40 Acuity: ISSAC 3 kr3 Triage Assessment: 19:46 General: Appears distressed, uncomfortable, Behavior is calm, cooperative. Pain: kr3 Complains of pain in right jaw. 19:47 EENT: Oral mucosa is moist. Poor dentition noted. Neuro: No deficits noted. kr3 Cardiovascular: No deficits noted. Respiratory: No deficits noted. GI: No deficits noted. : Reports incontinence. Derm: No deficits noted. Musculoskeletal: No signs and/or symptoms reported regarding the musculoskeletal system. Historical: - Allergies: 19:46 Demerol; kr3 19:46 Lisinopril; kr3 - PMHx: 19:46 Arthritis; BREAST CA; depressive disorder; Hypertension; Lung CA; kr3 - Immunization history:: Adult Immunizations unknown. - Social history:: Smoking status: unknown. Screenin:30 [facility] ED Fall Risk Assessment (Adult) History of falling in the last 3 months, pf1 including since admission No falls in past 3 months (0 pts) Confusion or Disorientation No (0 pts) Intoxicated or Sedated No (0 pts) Impaired Gait Yes (1 pt) Mobility Assist Device Used Yes (1 pt) Altered Elimination Yes (1 pt) Score/Fall Risk Level 3 or more points = High Risk Oriented to surroundings, Maintained a safe environment, Educated pt \\T\\ family on fall prevention, incl call for assistance when getting out of bed, Assessed \\T\\ reinforced patient's understanding of fall precautions, Provided non-skid footwear, Hourly rounding (assess needs \\T\\ fall precautionary measures) done, Used ambulatory aids as needed (educated on \\T\\ assisted with), Used gait belt as appropriate Implemented a Fall Risk Plan of Care, Apply high fall risk patient identification: yellow non skid footwear/ fall signage, Remained w/in arm's length of patient and in sight while toileting, Offered frequent toileting (1:1 observation), Remained with patient while ambulating, Utilized family, sitter, or virtual resolution specialist as indicated. 21:30 Abuse screen: Denies threats or abuse. Nutritional screening: No deficits noted. pf1 Tuberculosis screening: No symptoms or risk factors identified. Assessment: 21:00 General: Appears in no apparent distress. comfortable, obese, well developed, Behavior pf1 is calm, cooperative, appropriate for age, quiet. 21:00 Pain: Complains of pain in mouth and right jaw Pain currently is 10 out of 10 on a pain pf1 scale. Neuro: No deficits noted. Level of Consciousness is awake, alert, obeys commands, Oriented to person, place, time, situation. Cardiovascular: No deficits noted. Capillary refill < 3 seconds Patient's skin is warm and dry. Respiratory: No deficits noted. Airway is patent Trachea midline Respiratory effort is even, unlabored, Respiratory pattern is regular, symmetrical. GI: No deficits noted. No signs and/or symptoms were reported involving the gastrointestinal system. : No deficits noted. No signs and/or symptoms were reported regarding the genitourinary system. EENT: Reports pain in right lower tooth pain Pain is 10 out of 10 on a pain scale. Derm: No deficits noted. No signs and/or symptoms reported regarding the dermatologic system. Musculoskeletal: No deficits noted. No signs and/or symptoms reported regarding the musculoskeletal system. 22:00 Reassessment: Patient appears in no apparent distress at this time. No changes from pf1 previously documented assessment. Patient and/or family updated on plan of care and expected duration. Pain level reassessed. Patient is alert, oriented x 3, equal unlabored respirations, skin warm/dry/pink. Patient states symptoms have not improved. 23:00 Reassessment: Patient appears in no apparent distress at this time. No changes from pf1 previously documented assessment. Patient and/or family updated on plan of care and expected duration. Pain level reassessed. Patient is alert, oriented x 3, equal unlabored respirations, skin warm/dry/pink. Patient states symptoms have not improved. 23:10 General: Kaylan, patient's sister stated 30 minute ETA to pick patient up. pf1 Vital Signs: 19:40 BP 123 / 98; Pulse 79; Resp 18; Pulse Ox 99% on R/A; kr3 19:46 Temp 98.0(O); kr3 21:30 BP 150 / 61; Pulse 86; Resp 20; Pulse Ox 97% on R/A; Pain 10/10; pf1 22:30 BP 132 / 66; Pulse 75; Resp 19; Pulse Ox 100% on R/A; Pain 10/10; pf1 23:00 BP 104 / 87; Pulse 75; Resp 19; Temp 98.1; Pulse Ox 99% on R/A; Pain 10/10; pf1 ED Course: 19:40 Patient arrived in ED. kr3 19:41 Jennifer Key MD is Attending Physician. sd2 19:46 Triage completed. kr3 19:48 Arm band placed on left wrist. Patient placed in an exam room, on a stretcher. kr3 20:17 Alissa Chen, OLIVIA is Primary Nurse. kr3 20:40 BMP Sent. bc6 20:40 CBC with Diff Sent. bc6 20:40 Initial lab(s) drawn, by me, sent to lab. Inserted saline lock: 20 gauge in left bc6 antecubital area, using aseptic technique. 21:30 Patient has correct armband on for positive identification. Bed in low position. Call pf1 light in reach. Side rails up X2. 21:30 No provider procedures requiring assistance completed. pf1 21:48 Urine Microscopic Only Sent. bc6 23:20 IV discontinued, intact, bleeding controlled, No redness/swelling at site. Pressure pf1 dressing applied. Administered Medications: 21:16 Drug: Ketorolac 15 mg Route: IVP; Site: left antecubital; kr3 21:48 Follow up: Response: No adverse reaction; Pain is unchanged, physician notified; RASS: pf1 Alert and Calm (0) 21:16 Drug: Zofran (Ondansetron) 4 mg Route: IVP; Site: left antecubital; kr3 21:48 Follow up: Response: No adverse reaction; Marked relief of symptoms pf1 21:16 Drug: NS 0.9% 500 ml Route: IV; Rate: bolus; Site: left antecubital; kr3 21:47 Follow up: IV Status: Completed infusion; IV Intake: 500ml pf1 21:48 Follow up: Response: No adverse reaction; Marked relief of symptoms pf1 Medication: 21:30 VIS not applicable for this client. pf1 Intake: 21:47 IV: 500ml; Total: 500ml. pf1 Outcome: 22:46 Discharge ordered by . sd2 23:20 Discharged to home via wheelchair. pf1 23:20 Condition: stable 23:20 Discharge instructions given to patient, Instructed on discharge instructions, follow up and referral plans. medication usage, Demonstrated understanding of instructions, follow-up care, medications, Prescriptions given X 1. 23:21 Patient left the ED. pf1 Signatures: Jennifer Key MD MD sd2 Alissa Chen RN RN kr3 Nivia jimenez RN RN pf1 Edna Gardner bc6
--- NOTE | 2022-12-27 22:47 | EDPHYS ---
Physician Documentation [facility] Name: Jeanine Jansen Age: 67 yrs Sex: Female : 1955 Arrival Date: 12/27/2022 Time: 19:40 Bed 17 Private MD: ED Physician Jennifer Key HPI: 12/27 19:44 This 67 yrs old Female presents to ER via Unassigned with complaints of R jaw/tooth sd2 pain. 19:44 . 67 yo F presents via EMS with CC of R sided jaw/tooth pain that radiates into the R sd2 side of her head causing a headache. Reports she woke up from sleep feeling this way and thinks she grinded her teeth too hard while sleeping. She has a crown on the tooth that is now causing her pain that she states has been there for many decades. Denies any prior issues with the tooth. Denies fevers, vomiting, diarrhea or dysuria. Reports hx of urinary incontinence and had more urine than normal come out this evening when she woke up. . Historical: - Allergies: 19:46 Demerol; kr3 19:46 Lisinopril; kr3 - PMHx: 19:46 Arthritis; BREAST CA; depressive disorder; Hypertension; Lung CA; kr3 - Immunization history:: Adult Immunizations unknown. - Social history:: Smoking status: unknown. ROS: 19:44 Constitutional: Negative for fever, chills, and weight loss, Eyes: Negative for injury, sd2 pain, redness, and discharge. 19:44 Cardiovascular: Negative for chest pain, palpitations, and edema, Respiratory: Negative for shortness of breath, cough, wheezing. 19:44 MS/Extremity: Negative for injury and deformity, Skin: Negative for injury, rash, and discoloration. 19:44 ENT: Positive for dental pain, Teeth pain Negative for injury or acute deformity, difficulty swallowing, difficulty handling secretions. 19:44 Abdomen/GI: Positive for nausea, Negative for abdominal pain, vomiting, diarrhea. 19:44 : Positive for urinary frequency, incontinence (chronic), Negative for burning with urination, foul smelling urine. Exam: 19:44 Constitutional: This is a well developed, well nourished patient who is awake, alert, sd2 and in no acute distress. Head/Face: Normocephalic, atraumatic. Eyes: EOMI, normal conjunctiva bilaterally ENT: Nares patent. No nasal discharge, no septal abnormalities noted. Tympanic membranes are normal and external auditory canals are clear. Oropharynx with no redness, swelling, or masses, exudates, or evidence of obstruction, uvula midline. Mucous membranes moist. Dentition noted to have flattening of the distal aspects of the teeth due to likely chronic grinding of the teeth. [place] noted to R molar with no surrounding swelling or drainage. No percussion tenderness. Chest/axilla: Normal chest wall appearance and motion. Nontender with no deformity. Cardiovascular: Regular rate and rhythm with a normal S1 and S2. No gallops, murmurs, or rubs. 2+ distal pulses. Respiratory: Lungs have equal breath sounds bilaterally, clear to auscultation and percussion. No rales, rhonchi or wheezes noted. No increased work of breathing, no retractions or nasal flaring. Abdomen/GI: Soft, non-tender, with normal bowel sounds. No guarding or rebound. No evidence of tenderness throughout. Skin: Warm, dry with normal turgor. Normal color with no rashes, no lesions, and no evidence of cellulitis. MS/ Extremity: Pulses equal, no cyanosis. Neurovascular intact. Full, normal range of motion. Ambulatory without difficulty. Neuro: Awake and alert, GCS 15, oriented to person, place, time, and situation. Cranial nerves II-XII grossly intact. Motor strength 5/5 in all extremities. Sensory grossly intact. Psych: Awake, alert, with orientation to person, place and time. Behavior, mood, and affect are within normal limits. Vital Signs: 19:40 BP 123 / 98; Pulse 79; Resp 18; Pulse Ox 99% on R/A; kr3 19:46 Temp 98.0(O); kr3 21:30 BP 150 / 61; Pulse 86; Resp 20; Pulse Ox 97% on R/A; Pain 10/10; pf1 22:30 BP 132 / 66; Pulse 75; Resp 19; Pulse Ox 100% on R/A; Pain 10/10; pf1 23:00 BP 104 / 87; Pulse 75; Resp 19; Temp 98.1; Pulse Ox 99% on R/A; Pain 10/10; pf1 MDM: 19:41 Patient medically screened. sd2 19:44 Differential Diagnosis Differential diagnosis includes but is not limited to: Tension sd2 headache, migraine headache, intracranial hemorrhage, dehydration, electrolyte abnormality, musculoskeletal, meningitis among others. Data reviewed: vital signs, nurses notes. 22:42 Data reviewed: lab test result(s). I considered the following discharge prescriptions sd2 or medication management in the emergency department I discussed and recommended Over The Counter medications, Medications were administered in the Emergency Department. See MAR. Test considered but Not performed: CT: No significant headache. Pain is related to jaw and tooth area so CT head foregone at this time. . Historians other than the Patient: EMS: provided report to RN. 22:43 Care significantly affected by the following chronic conditions: Hypertension, Cancer. sd2 Care significantly affected by the following Social Determinants of Health: Poor access to transportation. Counseling: I had a detailed discussion with the patient and/or guardian regarding: the historical points, exam findings, and any diagnostic results supporting the discharge/admit diagnosis, lab results, the need for outpatient follow up, to return to the emergency department if symptoms worsen or persist or if there are any questions or concerns that arise at home. ED course: Labs reviewed and grossly WNCL. UA without evidence of infection. Pain significantly improved following treatment in ER and patient resting comfortably. Advised follow up with dentist and will place on abx. Pt already on hydrocodone prn at home for pain so no further pain medication Rx needed at this time. Pt with no focal neurologic deficits and otherwise at baseline. Doubt ICH at this time. Pt comfortable with plan for discharge and outpatient follow up and verbalizes understanding of discharge plan and strict return precautions. . 12/27 19:43 Order name: CBC with Diff; Complete Time: 21:10 sd2 12/27 19:43 Order name: BMP; Complete Time: 21:10 sd2 12/27 19:43 Order name: Urine Microscopic Only; Complete Time: 22:26 sd2 12/27 21:49 Order name: Urine Dipstick-Ancillary; Complete Time: 21:58 EDMS 12/27 19:43 Order name: Urine Dipstick-Ancillary (obtain specimen); Complete Time: 21:48 sd2 12/27 21:10 Order name: Straight Cath - Urine; Complete Time: 21:47 sd2 Administered Medications: 21:16 Drug: Ketorolac 15 mg Route: IVP; Site: left antecubital; kr3 21:48 Follow up: Response: No adverse reaction; Pain is unchanged, physician notified; RASS: pf1 Alert and Calm (0) 21:16 Drug: Zofran (Ondansetron) 4 mg Route: IVP; Site: left antecubital; kr3 21:48 Follow up: Response: No adverse reaction; Marked relief of symptoms pf1 21:16 Drug: NS 0.9% 500 ml Route: IV; Rate: bolus; Site: left antecubital; kr3 21:47 Follow up: IV Status: Completed infusion; IV Intake: 500ml pf1 21:48 Follow up: Response: No adverse reaction; Marked relief of symptoms pf1 Disposition Summary: 12/27/22 22:46 Discharge Ordered Location: Home sd2 Problem: new sd2 Symptoms: have improved sd2 Condition: Stable sd2 Diagnosis - Dental pain sd2 - Cephalgia sd2 - Chronic urinary incontinence sd2 Followup: sd2 - With: Private Physician - When: 2 - 3 days - Reason: Recheck today's complaints, Continuance of care, Re-evaluation by your physician Discharge Instructions: - Discharge Summary Sheet sd2 - Dental Pain sd2 - General Headache Without Cause sd2 - Dental Mouthguards sd2 Forms: - Medication Reconciliation Form sd2 - Thank You Letter sd2 - Antibiotic Education sd2 - Prescription Opioid Use sd2 Prescriptions: - penicillin V potassium 500 mg Oral tablet - take 1 tablet by ORAL route every 6 hours for 10 days; 40 tablet; Refills: 0, sd2 Product Selection Permitted Signatures: Dispatcher [employer] Jennifer Pena MD MD sd2 Alissa Chen RN RN kr3 Nivia jimenez RN RN pf1
[2022-12-27 23:40] VITALS: TEMP 98
[2022-12-27 23:41] VITALS: BP 150/61; O2SAT 97
== END 2022-12-27 23:21 | disposition home or self-care (01) ==
LOC: ER 19:20
DX: K08.89 Other specified disorders of teeth and supporting structures (principal); R51.9 Headache, unspecified; R32 Unspecified urinary incontinence; I10 Essential (primary) hypertension; Z85.3 Personal history of malignant neoplasm of breast; Z85.118 Personal history of other malignant neoplasm of bronchus and lung; Z88.5 Allergy status to narcotic agent; Z88.8 Allergy status to other drugs, medicaments and biological substances
CPT/HCPCS: 96361; 85025; 80048; 36415; 96375; 96374; 99284; J7040; J2405; 81003; 81015

== ENCOUNTER 2023-01-29 23:27 | Inpatient (IN) | payer OTHER ==
--- OUTSIDE RECORDS SUMMARY | 2023-01-29 23:33 | XMS REPORT | Continuity of Care Document ---
:1955 Author Organization [facility] t Address [address] [place] [address] [address] [place] [address] Care Team Providers Name Role Phone MARIBEL RAZA Primary Care Physician Unavailable Solo Bull Attending Clinician Unavailable Erna Patel Attending Clinician Unavailable MARIBEL RAZA Attending Clinician Unavailable Nereida Sierra MD Attending Clinician NEREIDA SIERRA Attending Clinician Unavailable Josie Alvarez Attending Clinician Doctor Unassigned, [facility] [place] Attending Clinician Unavailable FRANCES BECKER Attending Clinician Unavailable Frances Becker Attending Clinician Andrzej Moulton Attending Clinician ANDRZEJ MOULTON Attending Clinician Unavailable SOLO BULL Admitting Clinician Unavailable JOSIE GALLARDO Admitting Clinician Unavailable NEREIDA SIERRA Admitting Clinician Unavailable FRANCES BECKER Admitting Clinician Unavailable Payers Payer Name Policy Type Policy Effective Date Expiration Date Sour ce Number MEDICARE PART A [id number] 2016 \\T\\ B 00:00:00 [employer] [id number] 2021 00:00:00 MEDICARE NOVITAS MB [id number] Common [facility] Aet[employer] Supplement C1 [id number] 2021 Common S pirit Plan 00:00:00 [facility] Problems Condition Condition Condition Status Onset Resolution Last Treating Co mments Source Name Details Category Date Date Treatment Clinician Date Lymphedema Lymphedema Disease Active U nivers of [facility] [place] 02[facility] [place] LYMPHEDEMA LYMPHEDEM Diagnosis Active 2020-02-06 Memoria A Active 01-29 14:23:00 l 01/30/2020 00:00: Amandeep JOHN [address] Depression Depression Problem C [facility] [id number] Body mass Problem Com mon index Spirit [facility] 60.0-69.9[facility] Sinus Sinus Problem Common problem problem [facility] [id number] Body mass Problem Com mon index Spirit (BMI) of - [facility] 45.0-49.9 [facility] [id number] Foot Problem Common callus [facility] [id number] Dry eyes Problem Comm on [facility] [id number] Skin Problem Common lesions [facility] [id number] Pain in Problem Common left Spirit shoulder [facility] [id number] Essential Problem Comm on hypertensi Spirit [facility] [id number] Elevated Problem Comm on serum Spirit creatinine [facility] [id number] Peripheral Problem Co mmon edema [facility] [id number] History of Problem Co mmon anemia [facility] [id number] Palpitatio Problem Com mon ns [facility] [id number] Vitamin D Problem Comm on deficiency [facility] Lymphedema Lymphedema Problem C [facility] [id number] Shortness Problem Com mon of breath [facility] [id number] Hyperchole Problem Com mon sterolemia [facility] [id number] Tachycardi Problem Comm on a Spirit - CHI [facility] Female Female Problem Common stress stress Spirit incontinen incontinen - CHI ce ce [facility] [id number] Venous Problem Common insufficie Spirit ncy - [facility] (chronic) ([facility] Moderate Major Problem Common major depressive [facility] depression disorder, - C [place] , single single St episode episode, [facility] [id number] CHEPE Problem Common (generaliz Spirit ed anxiety - CHI disorder) [facility] [id number] Primary Problem Comm on osteoarthr Spirit itis of - CHI right knee [facility] [id number] Pain in Problem Comm on left knee [facility] [id number] Neck pain Problem Comm on Spirit [facility] [id number] Pain in Problem Comm on right knee [facility] [id number] Other Problem Common chronic Spirit pain - CHI [facility] [id number] Colon Problem Common cancer [facility] screening [facility] [id number] Primary Problem Comm on osteoarthr Spirit itis of - CHI left knee [facility] [id number] Arthritis Problem Co mmon 268521 of knee, [facility] right [facility] [id number] Arthritis Problem Co mmon 078967 of knee, [facility] left [facility] [id number] Bilateral Problem Com mon primary Spirit osteoarthr - CHI itis of [facility] [id number] Primary Problem Comm on osteoarthr Spirit itis of - CHI left shoulder [facility] Malignant Hypertensi Problem Co mmon hypertensi ve chronic Sp lenny ve chronic kidney - CHI kidney disease w St disease [facility] 1-4/[facility] Medical chr kdny Center Age-relate Age-relate Problem C ommon d d Spirit osteoporos osteoporos - CHI is is without [facility] pathologic Medica l al Center fracture Chronic Hypertensi Problem Comm on kidney ve chronic Spirit disease kidney - CHI due to disease St hypertensi with stage Silvana kes on 1 through Medical stage 4 Center chronic kidney disease, or unspecifie d chronic kidney disease [id number] Enlargemen Problem Comm on t of Spirit thyroid - CHI [facility] [id number] SUKHWINDER Problem Common (obstructi Spirit ve sleep - CHI apnea) [facility] [id number] Stage 3a Problem Comm on chronic Spirit kidney - CHI disease [facility] [id number] History of Problem Co mmon breast Spirit cancer [facility] [id number] Chronic Problem Commo 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, Medical unspecifie Center d site [id number] History of Problem Co mmon bilateral Spirit mastectomy - [facility] High blood Hypertensi Problem C ommon pressure on, Spirit unspecifie - CHI d type [facility] 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, Spirit unspecifie - CHI d [facility] [id number] Urinary Problem Commo n incontinen Spirit ce, - CHI unspecie [facility] Incontinen Incontinen Problem C ommon ce ce [facility] [id number] History of Problem Co mmon lung [facility] cancer [facility] [id number] Polyarthra Problem Com mon lgia Spirit [facility] Cancer Cancer Problem Common Spirit [facility] [id number] Chronic Problem Commo n pain Spirit syndrome - [facility] Anxiety Anxiety Problem Common [facility] Osteoporos Osteoporos Problem C ommon is is without Spirit current - CHI pathologic [facility] fracture, Medical unspecifie Center d osteoporos is type Allergies, Adverse Reactions, Alerts Allergy Allergy Status Severity Reaction(s) Onset Inactive Treating Comm ents Source Name Type Date Date Clinician MEPERIDI DRUG Active Other-Cmnt 2020-11 Univ ers NE INGREDI 2-24 ity of 00:00: [place] 00 Medical [place] LEVOFLOX DRUG Active SOB 2020-11 Univers ACIN INGREDI 2-24 ity of 00:00: [place] 00 Medical Branch Meperidi Propensi Active Other - See 2020-11 "floppin g Univers ne ty to comments 2-24 in the ity of adverse 00:00: bed." [place] reaction 00 Medical [facility] Levoflox Propensi Active Shortness of 2020-11 Univers acin ty to Breath 2-24 ity of adverse 00:00: [place] reaction 00 [facility] meperidi meperidi Active Unknown Commo n ne ne Spirit [facility] Social History Social Habit Start Date Stop Date Quantity Comments Source History of Common Spirit - Tobacco Use [facility] Sex Assigned At Common Sp lenny - [facility] Exposure to 2023-01-16 2023-01-26 Not sure University SARS-CoV-2 00:00:00 14:34:00 [facility] (event) Branch Alcohol intake 2023-01-26 2023-01-26 Ex-drinker [facility] 00:00:00 00:00:00 (finding) [facility] Tobacco use and 2022-03-17 2022-03-17 Smokeless tobacco Un iversity of exposure 00:00:00 00:00:00 non-user [facility] Smoking Status Start Date Stop Date Source Never smoked tobacco [facility] Medications Ordered Filled Start Stop Current Ordering Indication Dosage Frequency Signature Comments Components Source Medication Medication Date Date Medication? Clinician (SIG) Name Name NaCl 0.9% 2022- No 500mL at 999 Univ ers (NS) bolus 3-06 03-06 mL/hr, 500 it y of infusion 21:45: 22:15 mL, IV [place] 500 mL 00 :00 Infusion, Medical ONCE, 1 Branch dose, On Thu01/26/23 at 1545, STAT azithromyci 0 Yes azithromyc Univers n 250 mg 3-06 in 250 mg ity of tablet 14:05: tablet [place] 34 TAKE 2 Medical TABLETS BY Branch MOUTH DAY 1 THEN TAKE 1 TABLET BY MOUTH EVERY DAY FOR 4 DAYS azithromyci 2022-0 Yes azithromyc Univers n 250 mg 3-06 in 250 mg ity of tablet 14:05: tablet [place] 34 TAKE 2 Medical TABLETS BY Branch MOUTH DAY 1 THEN TAKE 1 TABLET BY MOUTH EVERY DAY FOR 4 DAYS azithromyci 2022-0 Yes azithromyc Univers n 250 mg 3-06 in 250 mg ity of tablet 14:05: tablet [place] 34 TAKE 2 Medical TABLETS BY Branch MOUTH DAY 1 THEN TAKE 1 TABLET BY MOUTH EVERY DAY FOR 4 DAYS solifenacin 2022-0 Yes [id number] 10mg Take 1 Univers (VESICARE) 3-06 tablet by ity of 10 mg 00:00: mouth in [place] tablet 00 the Medical morning. Branch solifenacin 2022-0 Yes [id number] 10mg Take 1 Univers (VESICARE) 3-06 tablet by ity of 10 mg 00:00: mouth in [place] tablet 00 the Medical morning. Branch trospium 20 2021-11 Yes [id number] 20mg Take 1 Univers mg tablet 2-02 tablet by ity o f 00:00: mouth in [place] 00 the Medical morning Branch and 1 tablet in the evening. trospium 20 2021-11 Yes [id number] 20mg Take 1 Univers mg tablet 2-02 tablet by ity o f 00:00: mouth in [place] 00 the Medical morning Branch and 1 tablet in the evening. trospium 20 2021-11 Yes [id number] 20mg Take 1 Univers mg tablet 2-02 tablet by ity o f 00:00: mouth in [place] 00 the Medical morning Branch and 1 tablet in the evening. trospium 20 2021-11- No [id number] 20mg Take 1 Univers mg tablet 2-12 26-06 tablet by ity of 00:00: 00:00 mouth in [place] 00 :00 the Medical morning Branch and 1 tablet in the evening. trospium 20 2021-11- No [id number] 20mg Take 1 Univers mg tablet 2-06 tablet by ity of 00:00: 00:00 mouth in [place] 00 :00 the Medical morning Branch and 1 tablet in the evening. trospium 20 2021-11- No [id number] 20mg Take 1 Univers mg tablet 2-06 tablet by ity of 00:00: 00:00 mouth in [place] 00 :00 the Medical morning Branch and 1 tablet in the evening. Nitrofurant 2021-11- No [id number] 100mg Take 1 Univers oin&Nit. 12-25 capsule by ity of Macroc[place] 00:00: 00:00 [place] (MACROBID[place] 00 :00 the Medical 100 mg morning Branch capsule and 1 capsule in the evening. Do all this for 5 days. Nitrofurant 2021-11- No [id number] 100mg Take 1 Univers oin&Nit. 2- capsule by ity of [place] 00:00: 00:[place] (MACROBID[place] 00 :00 the Medical 100 mg morning Branch capsule and 1 capsule in the evening. Do all this for 5 days. cefTRIAXone 2021-11 No 1000mg 1,000 mg, Univers (ROCEPHIN) 12-21 IV ity of 1,000 mg in 09:15: 09:54 [place], [place] NaCl 0.9% 00 :00 ONCE, 1 Medical (NS) 50 mL dose, On [facility] MINI-BAG 10/21/22 at 0315, Administer over 30 [...] 10/21/22 at 0015, NENITA amoxicillin 2021-11 Yes [id number] 500mg Take 1 Univers 500 mg 1-29 capsule by ity of capsule 00:00: mouth in [address] and 1 capsule at noon and 1 capsule in the evening. amoxicillin 2021-11 Yes [id number] 500mg Take 1 Univers 500 mg 1-29 capsule by ity of capsule 00:00: mouth in [address] and 1 capsule at noon and 1 capsule in the evening. amoxicillin 2021-11 Yes [id number] 500mg Take 1 Univers 500 mg 1-29 capsule by ity of capsule 00:00: mouth in [address] and 1 capsule at noon and 1 capsule in the evening. amoxicillin 2021-11 Yes [id number] 500mg Take 1 Univers 500 mg 1-29 capsule by ity of capsule 00:00: mouth in [address] and 1 capsule at noon and 1 capsule in the evening. amoxicillin 2021-11 Yes [id number] 500mg Take 1 Univers 500 mg 1-29 capsule by ity of capsule 00:00: mouth in [address] and 1 capsule at noon and 1 capsule in the evening. amoxicillin 2021-11 Yes [id number] 500mg Take 1 Univers 500 mg 1-29 capsule by ity of capsule 00:00: mouth in [place] 00 the Medical morning Branch and 1 capsule at noon and 1 capsule in the evening. amoxicillin 2021-11 Yes [id number] 500mg Take 1 Univers 500 mg 1-29 capsule by ity of capsule 00:00: mouth in [place] the morning Branch and 1 capsule at noon and 1 capsule in the evening. Trospium 60 2021-11 Yes [id number] 60mg Take 1 Univers mg capsule 0-21 capsule by ity of 00:00: mouth in [place] the morning. Branch Trospium 60 2021-11 Yes [id number] 60mg Take 1 Univers mg capsule 0-21 capsule by ity of 00:00: mouth in [place] the morning. Branch Trospium 60 2021-11 Yes [id number] 60mg Take 1 Univers mg capsule 0-21 capsule by ity of 00:00: mouth in [place] the morning. Branch Trospium 60 2021-11- No [id number] 60mg Take 1 Univers mg capsule 0-21 12-02 capsule by it y of 00:00: 00:00 mouth in [place] 00 :00 the morning. Branch Trospium 60 2021-11- No [id number] 60mg Take 1 Univers mg capsule 0-21 12-02 capsule by it y of 00:00: 00:00 mouth in [place] 00 :00 the morning. Branch vibegron Yes [id number] 75mg Take 75 mg Univers (GEMTESA) 9-12 by mouth ity of 75 mg Tab 00:00: daily. [place] Medical Branch vibegron Yes [id number] 75mg Take 75 mg Univers (GEMTESA) 9-12 by mouth ity of 75 mg Tab 00:00: daily. [place] Medical Branch vibegron Yes [id number] 75mg Take 75 mg Univers (GEMTESA) 9-12 by mouth ity of 75 mg Tab 00:00: daily. [place] Medical Branch vibegron Yes [id number] 75mg Take 75 mg Univers (GEMTESA) 9-12 by mouth ity of 75 mg Tab 00:00: daily. [place] Medical Branch vibegron Yes [id number] 75mg Take 75 mg Univers (GEMTESA) 9-12 by mouth ity of 75 mg Tab 00:00: daily. [place] 00 Medical Branch vibegron 2021-0 2- No [id number] 75mg Take 75 mg Univers (GEMTESA) 08-04 by mouth ity o f 75 mg Tab 00:00: 00:00 daily. [place] 00 :00 Medical Branch vibegron 2021-0 2- No [id number] 75mg Take 75 mg Univers (GEMTESA) 08-04 by mouth ity o f 75 mg Tab 00:00: 00:00 daily. [place] 00 :00 Medical Branch solifenacin 2-0 Yes [id number] 10mg Take 1 Univers (VESICARE) 7-15 tablet by ity of 10 mg 00:00: mouth in [place] tablet 00 the Medical morning. Branch solifenacin 2021-0 Yes [id number] 10mg Take 1 Univers (VESICARE) 7-15 tablet by ity of 10 mg 00:00: mouth in [place] tablet 00 the Medical morning. Branch solifenacin 2021-0 Yes [id number] 10mg Take 1 Univers (VESICARE) 7-15 tablet by ity of 10 mg 00:00: mouth in [place] tablet 00 the Medical morning. Branch solifenacin 2021-0 Yes [id number] 10mg Take 1 Univers (VESICARE) 7-15 tablet by ity of 10 mg 00:00: mouth in [place] tablet 00 the Medical morning. Branch solifenacin 2021-0 Yes [id number] 10mg Take 1 Univers (VESICARE) 7-15 tablet by ity of 10 mg 00:00: mouth in [place] tablet 00 the Medical morning. Branch solifenacin 2-0 Yes [id number] 10mg Take 1 Univers (VESICARE) 7-15 tablet by ity of 10 mg 00:00: mouth in [place] tablet 00 the Medical morning. Branch solifenacin 2-0 Yes [id number] 10mg Take 1 Univers (VESICARE) 7-15 tablet by ity of 10 mg 00:00: mouth in [place] tablet 00 the Medical morning. Branch solifenacin 2-0 Yes [id number] 10mg Take 1 Univers (VESICARE) 7-15 tablet by ity of 10 mg 00:00: mouth in [place] tablet 00 the Medical morning. Branch solifenacin 2022-0 Yes [id number] 10mg Take 1 Univers (VESICARE) 7-15 tablet by ity of 10 mg 00:00: mouth in [place] tablet 00 the Medical morning. Branch solifenacin 2021-0 Yes [id number] 10mg Take 1 Univers (VESICARE) 7-15 tablet by ity of 10 mg 00:00: mouth in [place] tablet 00 the Medical morning. Branch solifenacin 0 Yes [id number] 10mg Take 1 Univers (VESICARE) 7-15 tablet by ity of 10 mg 00:00: mouth in [place] tablet 00 the Medical morning. Branch vibegron 0 2021- No [id number] 75mg Take 75 mg Univers (GEMTESA) 6-10 -12 by mouth ity o f 75 mg Tab 00:00: 00:00 daily. [place] 00 :00 [facility] solifenacin 2021-0 Yes [id number] 10mg Take 1 Univers (VESICARE) 5-13 tablet by ity of 10 mg 00:00: mouth [place] tablet 00 daily. [facility] solifenacin 0 Yes [id number] 10mg Take 1 Univers (VESICARE) 5-13 tablet by ity of 10 mg 00:00: mouth [place] tablet 00 daily. [facility] solifenacin 0 Yes [id number] 10mg Take 1 Univers (VESICARE) 5-13 tablet by ity of 10 mg 00:00: mouth [place] tablet 00 daily. [facility] solifenacin 2021-0 Yes [id number] 10mg Take 1 Univers (VESICARE) 5-13 tablet by ity of 10 mg 00:00: mouth [place] tablet 00 daily. [facility] solifenacin 2021-0 Yes [id number] 10mg Take 1 Univers (VESICARE) 5-13 tablet by ity of 10 mg 00:00: mouth [place] tablet 00 daily. [facility] solifenacin 2021-0 Yes [id number] 10mg Take 1 Univers (VESICARE) 5-13 tablet by ity of 10 mg 00:00: mouth [place] tablet 00 daily. [facility] solifenacin 2021-0 Yes [id number] 10mg Take 1 Univers (VESICARE) 5-13 tablet by ity of 10 mg 00:00: mouth [place] tablet 00 daily. Medical Branch solifenacin 2-0 Yes [id number] 10mg Take 1 Univers (VESICARE) 5-13 tablet by ity of 10 mg 00:00: mouth [place] tablet 00 daily. Medical Branch solifenacin 2022-0 Yes [id number] 10mg Take 1 Univers (VESICARE) 5-13 tablet by ity of 10 mg 00:00: mouth [place] tablet 00 daily. Medical Branch solifenacin 2022-0 Yes [id number] 10mg Take 1 Univers (VESICARE) 5-13 tablet by ity of 10 mg 00:00: mouth [place] tablet 00 daily. Medical Branch solifenacin 2-0 Yes [id number] 10mg Take 1 Univers (VESICARE) 5-13 tablet by ity of 10 mg 00:00: mouth [place] tablet 00 daily. Medical Branch Bupivicaine Bupivicaine 2021-0 No 2.5mg Common Witter Witter 5-02 Spirit 00:00: - CHI 00 [facility] Kenalog Kenalog 2021-0 No 40mg Common (Triamcinol (Triamcinol 5-02 S pirit one) one) 00:00: - CHI 00 [facility] Bupivicaine Bupivicaine 2021-0 No 2.5mg Common Witter Witter 5-02 Spirit 00:00: - CHI 00 [facility] Kenalog Kenalog 2021-0 No 40mg Common (Triamcinol (Triamcinol 5-02 S pirit one) one) 00:00: - CHI 00 [facility] Bupivicaine Bupivicaine 2-0 No 2.5mg Common Witter Witter 5-02 Spirit 00:00: - CHI 00 [facility] Kenalog Kenalog 2-0 No 40mg Common (Triamcinol (Triamcinol 5-02 S pirit one) one) 00:00: - CHI 00 [facility] Bupivicaine Bupivicaine 2-0 No 2.5mg Common Witter Witter 5-02 Spirit 00:00: - CHI 00 [facility] Kenalog Kenalog 2-0 No 40mg Common (Triamcinol (Triamcinol 5-02 S pirit one) one) 00:00: - CHI 00 [facility] Bupivicaine Bupivicaine 2021-0 No 2.5mg Common Witter Witter 5-02 Spirit 00:00: - CHI 00 [facility] Kenalog Kenalog 2021-0 No 40mg Common (Triamcinol (Triamcinol 5-02 S pirit one) one) 00:00: - CHI 00 [facility] Bupivicaine Bupivicaine 2021-0 No 2.5mg Common Witter Witter 5-02 Spirit 00:00: - CHI 00 [facility] Kenalog Kenalog 2021-0 No 40mg Common (Triamcinol (Triamcinol 5-02 S pirit one) one) 00:00: - CHI 00 [facility] Bupivicaine Bupivicaine 2021-0 No 2.5mg Common Witter Witter 5-02 Spirit 00:00: - CHI 00 [facility] Kenalog Kenalog 2021-0 No 40mg Common (Triamcinol (Triamcinol 5-02 S pirit one) one) 00:00: - CHI 00 [facility] Bupivicaine Bupivicaine 2021-0 No 2.5mg Common Witter Witter 5-02 Spirit 00:00: - CHI 00 [facility] Kenalog Kenalog 2021-0 No 40mg Common (Triamcinol (Triamcinol 5-02 S pirit one) one) 00:00: - CHI 00 [facility] Bupivicaine Bupivicaine 2021-0 No 2.5mg Common Witter Witter 5-02 Spirit 00:00: - CHI 00 [facility] Kenalog Kenalog 2021-0 No 40mg Common (Triamcinol (Triamcinol 5-02 S pirit one) one) 00:00: - CHI 00 [facility] Bupivicaine Bupivicaine 2021-0 No 2.5mg Common Witter Witter 5-02 Spirit 00:00: - CHI 00 [facility] Kenalog Kenalog 2021-0 No 40mg Common (Triamcinol (Triamcinol 5-02 S pirit one) one) 00:00: - CHI 00 [facility] azithromyci 2021-0 Yes azithromyc Univers n 250 [...] TABLET BY Branch MOUTH EVERY DAY azithromyci 2021-0 Yes azithromyc Univers n 250 [...] 1 C PO 1 TIME WEEKLY HYDROcodone 2022-0 Yes hydrocodon Univers -acetaminop 4-25 e 7.5 [...] TABLET BY Branch MOUTH EVERY DAY azithromyci 2021-0 Yes azithromyc Univers n 250 [...] Medical TABLET BY Branch MOUTH EVERY DAY ergocalcife Yes ergocalcif Univers rol, 4-25 cameron [...] Medical TABLET BY Branch MOUTH EVERY DAY ergocalcife 0 Yes ergocalcif Univers rol, 4-25 [...] 4-25 50 mg ity of 15:25: tablet [place] 10 TAKE 1 Medical TABLET BY Branch MOUTH EVERY DAY ergocalcife Yes ergocalcif Univers rol, 4-25 cameron [...] 4-25 50 mg ity of 15:25: tablet [place] 10 TAKE 1 Medical TABLET BY Branch [...] mg 4-24 ity of tablet 00:00: [place] [facility] busPIRone Yes Univers 15 mg 4-24 ity of tablet 00:00: [place] [facility] allopurinoL Yes Univer s 100 mg 4-24 ity of tablet 00:00: [place] [facility] busPIRone Yes Univers 15 mg 4-24 ity of tablet 00:00: [place] [facility] allopurinoL 0 Yes Univer s 100 mg 4-24 ity of tablet 00:00: [place] [facility] busPIRone Yes Univers 15 mg 4-24 ity of tablet 00:00: [place] [facility] allopurinoL Yes Univer s 100 mg 4-24 ity of tablet 00:00: [place] [facility] busPIRone Yes Univers 15 mg 4-24 ity of tablet 00:00: [address] allopurinoL Yes Univer s 100 mg 4-24 ity of tablet 00:00: [place] [facility] busPIRone 2022-0 Yes Univers 15 mg 4-24 ity of tablet 00:00: [place] 00 Medical Branch allopurinoL 2-0 Yes Univer s 100 mg 4-24 ity of tablet 00:00: [place] 00 Medical Branch busPIRone 2021-0 Yes Univers 15 mg 4-24 ity of tablet 00:00: [place] 00 Medical Branch allopurinoL 2021-0 Yes Univer s 100 mg 4-24 ity of tablet 00:00: [place] 00 Medical Branch busPIRone 2-0 Yes Univers 15 mg 4-24 ity of tablet 00:00: [place] 00 Medical Branch allopurinoL 2021-0 Yes Univer s 100 mg 4-24 ity of tablet 00:00: [place] 00 Medical Branch busPIRone 2021-0 Yes Univers 15 mg 4-24 ity of tablet 00:00: [place] [facility] Branch allopurinoL 2021-0 Yes Univer s 100 mg 4-24 ity of tablet 00:00: [place] 00 Medical Branch busPIRone 2021-0 Yes Univers 15 mg 4-24 ity of tablet 00:00: [place] 00 Medical Branch allopurinoL 2021-0 Yes Univer s 100 mg 4-24 ity of tablet 00:00: [place] 00 Medical Branch busPIRone 2021-0 Yes Univers 15 mg 4-24 ity of tablet 00:00: [place] 00 Medical Branch allopurinoL 2021-0 Yes Univer s 100 mg 4-24 ity of tablet 00:00: [place] 00 Medical Branch busPIRone 2021-0 Yes Univers 15 mg 4-24 ity of tablet 00:00: [place] 00 Medical Branch SERTraline 2021-0 Yes 200mg [...] 00:00: mouth [place] 00 daily. Medical Branch SERTraline 2021-0 Yes [...] mouth 00 daily. Medical Branch Azithromyci Azithromyci 2021-0 2021- No QD Azithromyc n 250 MG n 250 MG 12-03 in 250 MG 00:00: 00:00 00 :00 predniSONE predniSONE 2021-0 2021- No 2{table QD predniSONE 20 MG 20 MG 12-03 t} 20 MG 00:00: 00:00 00 :00 Synvisc 1 Synvisc 1 2020-0 No 8mg Com 03-11 Spirit 00:00: - CHI [facility] Synvisc 1 Synvisc 1 2020-0 No 8mg Com 03-11 Spirit 00:00: - CHI [facility] Synvisc 1 Synvisc 1 2020-0 No 8mg Com 03-11 Spirit 00:00: - CHI [facility] Synvisc 1 Synvisc 1 2020-0 No 8mg Com 03-11 Spirit 00:00: - CHI [facility] Synvisc 1 Synvisc 1 2020-0 No 8mg Com 03-11 Spirit 00:00: - CHI [facility] Synvisc 1 Synvisc 1 1-0 No 8mg Com 03-11 Spirit 00:00: - CHI [facility] Synvisc 1 Synvisc 1 1-0 No 8mg Com 03-11 Spirit 00:00: - CHI [facility] Synvisc 1 Synvisc 1 2020-0 No 8mg Com 03-11 Spirit 00:00: - [facility] Synvisc 1 Synvisc 1 1-0 No 8mg Com 03-11 Spirit 00:00: - [facility] Synvisc 1 Synvisc 1 2020-0 No 8mg Com 03-11 Spirit 00:00: - [facility] Synvisc 1 Synvisc 1 2020-0 No 8mg Com 03-11 Spirit 00:00: - [facility] Synvisc 1 Synvisc 1 2020-0 No 8mg Com 03-11 Spirit 00:00: - [facility] Synvisc 1 Synvisc 1 2020-0 No 8mg Com 03-11 Spirit 00:00: - [facility] Synvisc 1 Synvisc 1 2020-0 No 8mg Com 03-11 Spirit 00:00: - [facility] Synvisc 1 Synvisc 1 2020-0 No 8mg Com 03-11 Spirit 00:00: - [facility] Synvisc 1 Synvisc 1 2020-0 No 8mg Com 03-11 Spirit 00:00: - [facility] Synvisc 1 Synvisc 1 2020-0 No 8mg Com 03-11 Spirit 00:00: - [facility] Synvisc 1 Synvisc 1 2020-0 No 8mg Com 03-11 Spirit 00:00: - [facility] Synvisc 1 Synvisc 1 2020-0 No 8mg Com 03-11 Spirit 00:00: - [facility] Synvisc 1 Synvisc 1 2020-0 No 8mg Com 03-11 Spirit 00:00: - [facility] Synvisc 1 Synvisc 1 No 8mg Com 03-11 Spirit 00:: [facility] Synvisc 1 Synvisc 1 No 8mg Com 03-11 Spirit 00:00: - [facility] Vitamin D Vitamin D 2019-0 Yes Sarah (otc) 1 Common 2-19 Millender capsule Spirit 00:00: [facility] Furosemide Furosemide 0 Yes Sarah TK 1 T PO Common 8-17 Millender D PRF LEG Spiri t 00:00: SWELLING - [facility] Furosemide Furosemide 0 No Furosemide 20 MG [...] Spir it sertraline - [facility] 100 mg) [facility] BusPIRone BusPIRone Yes Sarah 1-11/24 Com mon HCl HCl Millender tablet as Spiri t needed for - [facility] anxiety [facility] Lasix Lasix Yes Sarah 1 tablet Common Millender Spirit [facility] Magnesium Magnesium Yes Sarah as Comm on Millender directed Spirit - [facility] Gabapentin Gabapentin Yes Sraah as Co mmon Millender directed [facility] Hydrocodone Hydrocodone Yes Sarah 1 tablet Common -Acetaminop -Acetaminop Millender as needed Spirit hen hen [facility] Lorazepam Lorazepam Yes Sarah 1 tablet Common Millender at bedtime Spir it as needed [facility] Losartan Losartan Yes Sarah 1 tablet Co mmon Potassium Potassium Millender [facility] Sertraline Sertraline Yes Sarah 2 tablets Common HCl HCl Millender [facility] ProAir HFA ProAir HFA No 2{puffs ProAir [...] l 100 MG 00:00 :00 Allopurinol Allopurinol 1{table QD Allopurino 100 MG 100 MG 04-03 t} l 100 MG 00:00 :00 Allopurinol Allopurinol 1{table QD Allopurino 100 MG 100 MG 04-03 t} l 100 MG 00:00 :00 Allopurinol Allopurinol 2019- No Sarah 1 tablet Common 11-15 Millender [facility] 00:00 - [facility] :00 [facility] Immunizations Ordered Immunization Filled Immunization Date Status Commen ts Source Name Name Prevnar 13 (PCV13) Prevnar 13 (PCV13) 2022-04-02 Completed Common [facility] 13:45:00 [facility] Prevnar 13 (PCV13) Prevnar 13 (PCV13) 2022-04-02 Completed [facility] 13:45:00 [facility] Prevnar 13 (PCV13) Prevnar 13 (PCV13) 2022-04-02 Completed [facility] 13:45:00 [facility] Prevnar 13 (PCV13) Prevnar 13 (PCV13) 2022-04-02 Completed [facility] 13:45:00 - [facility] Prevnar 13 (PCV13) Prevnar 13 (PCV13) 2022-04-02 Completed [facility] 13:45:00 [facility] Prevnar 13 (PCV13) Prevnar 13 (PCV13) 2022-04-02 Completed [facility] 13:45:00 [facility] Prevnar 13 (PCV13) Prevnar 13 (PCV13) 2022-04-02 Completed [facility] 13:45:00 [facility] Prevnar 13 (PCV13) Prevnar 13 (PCV13) 2022-04-02 Completed [facility] 13:45:00 [facility] Prevnar 13 (PCV13) Prevnar 13 (PCV13) 2022-04-02 Completed [facility] 13:45:00 [facility] Fluzone Fluzone 2021-11-07 Completed [facility] 11:25:00 - [facility] Fluzone Fluzone 2021-11-07 Completed [facility] 11:25:00 - [facility] Fluzone Fluzone 2021-11-07 Completed [facility] 11:25:00 - [facility] Fluzone Fluzone 2021-11-07 Completed [facility] 11:25:00 - [facility] Fluzone Fluzone 2021-11-07 Completed [facility] 11:25:00 - [facility] Fluzone Fluzone 2021-11-07 Completed [facility] 11:25:00 - [facility] Fluzone Fluzone 2021-11-07 Completed [facility] 11:25:00 - [facility] Fluzone Fluzone 2021-11-07 Completed [facility] 11:25:00 - [facility] Fluzone Fluzone 2021-11-07 Completed [facility] 11:25:00 - [facility] Fluzone Fluzone 2021-11-07 Completed [facility] 11:25:00 - [facility] Fluzone Fluzone 2021-11-07 Completed [facility] 11:25:00 - [facility] Fluzone Fluzone 2021-11-07 Completed [facility] 11:25:00 - [facility] Fluzone Fluzone 2021-11-07 Completed [facility] 11:25:00 - [facility] Fluzone Fluzone 2021-11-07 Completed [facility] 11:25:00 - [facility] Fluzone Fluzone 2021-11-07 Completed [facility] 11:25:00 - [facility] Fluzone Fluzone 2021-11-07 Completed [facility] 11:25:00 - [facility] Fluzone Fluzone 2021-11-07 Completed [facility] 11:25:00 - [facility] Synvisc 1 Synvisc 1 2021-03-11 Completed [facility] 09:53:00 - [facility] Synvisc 1 Synvisc 1 2021-03-11 Completed [facility] 09:51:00 - [facility] COVID-19 Vaccine COVID-19 Vaccine 2021-02-05 Completed Co mmon [facility] (Ethan) (Ethan) 14:53:00 - [facility] COVID-19 Vaccine COVID-19 Vaccine 2021-02-05 Completed Co mmon [facility] (Ethan) (Ethan) 14:53:00 - [facility] COVID-19 Vaccine COVID-19 Vaccine 2021-02-05 Completed Co mmon [facility] (Ethan) (Ethan) 14:53:00 - [facility] COVID-19 Vaccine COVID-19 Vaccine 2021-02-05 Completed Co mmon [facility] (Ethan) (Ethan) 14:53:00 - [facility] COVID-19 Vaccine COVID-19 Vaccine 2021-02-05 Completed Co [facility]mon [facility] (Ethan) (Ethan) 14:53:00 - [facility] COVID-19 Vaccine COVID-19 Vaccine 2021-02-05 Completed Co mmon [facility] (Ethan) (Ethan) 14:53:00 - [facility] COVID-19 Vaccine COVID-19 Vaccine 2021-02-05 Completed Co [facility] (Ethan) (Ethan) 14:53:00 - [facility] COVID-19 Vaccine COVID-19 Vaccine 2021-02-05 Completed Co [facility] (Ethan) (Ethan) 14:53:00 - [facility] COVID-19 Vaccine COVID-19 Vaccine 2021-02-05 Completed Co [facility] (Ethan) (Ethan) 14:53:00 - [facility] COVID-19 Vaccine COVID-19 Vaccine 2021-02-05 Completed [facility] (Ethan) (Ethan) 14:53:00 - [facility] COVID-19 Vaccine COVID-19 Vaccine 2021-02-05 Completed Co [facility] (Ethan) (Ethan) 14:53:00 [facility] COVID-19 Vaccine COVID-19 Vaccine 2021-02-05 Completed Co mmon [facility] (Ethan) (Ethan) 14:53:00 - [facility] COVID-19 Vaccine COVID-19 Vaccine 2021-02-05 Completed Co [facility] (Ethan) (Ethan) 14:53:00 [facility] COVID-19 Vaccine COVID-19 Vaccine 2021-02-05 Completed Co [facility] (Ethan) (Ethan) 14:53:00 - [facility] COVID-19 Vaccine COVID-19 Vaccine 2021-02-05 Completed Co [facility] (Ethan) (Ethan) 14:53:00 - [facility] COVID-19 Vaccine COVID-19 Vaccine 2021-02-05 Completed Co [facility] (Ethan) (Ethan) 14:53:00 - [facility] COVID-19 Vaccine COVID-19 Vaccine 2021-02-05 Completed Co [facility] (Ethan) (Ethan) 14:53:00 - [facility] COVID-19 Vaccine COVID-19 Vaccine 2021-02-05 Completed Co [facility] (Ethan) (Ethan) 14:53:00 - [facility] Flucelvax - single Flucelvax - single 2020-08-24 Completed [facility] dose syringe dose syringe 13:30:00 - [facility] Flucelvax - single Flucelvax - single 2020-08-24 Completed [facility] dose syringe dose syringe 13:30:00 - [facility] Flucelvax - single Flucelvax - single 2020-08-24 Completed [facility] dose syringe dose syringe 13:30:00 - [facility] Flucelvax - single Flucelvax - single 2020-08-24 Completed [facility] dose syringe dose syringe 13:30:00 - [facility] Flucelvax - single Flucelvax - single 2020-08-24 Completed [facility] dose syringe dose syringe 13:30:00 - [facility] Flucelvax - single Flucelvax - single 2020-08-24 Completed [facility] dose syringe dose syringe 13:30:00 - [facility] Flucelvax - single Flucelvax - single 2020-08-24 Completed [facility] dose syringe dose syringe 13:30:00 - [facility] Flucelvax - single Flucelvax - single 2020-08-24 Completed [facility] dose syringe dose syringe 13:30:00 - [facility] Flucelvax - single Flucelvax - single 2020-08-24 Completed [facility] dose syringe dose syringe 13:30:00 - [facility] Flucelvax - single Flucelvax - single 2020-08-24 Completed [facility] dose syringe dose syringe 13:30:00 - [facility] Flucelvax - single Flucelvax - single 2020-08-24 Completed [facility] dose syringe dose syringe 13:30:00 - [facility] Flucelvax - single Flucelvax - single 2020-08-24 Completed [facility] dose syringe dose syringe 13:30:00 - [facility] Flucelvax - single Flucelvax - single 2020-08-24 Completed [facility] dose syringe dose syringe 13:30:00 - [facility] Flucelvax - single Flucelvax - single 2020-08-24 Completed [facility] dose syringe dose syringe 13:30:00 - [facility] Flucelvax - single Flucelvax - single 2020-08-24 Completed [facility] dose syringe dose syringe 13:30:00 - [facility] Flucelvax - single Flucelvax - single 2020-08-24 Completed [facility] dose syringe dose syringe 13:30:00 - [facility] Flucelvax - single Flucelvax - single 2020-08-24 Completed [facility] dose syringe dose syringe 13:30:00 - [facility] Flucelvax - single Flucelvax - single 2020-08-24 Completed [facility] dose syringe dose syringe 13:30:00 - [facility] Flucelvax - single Flucelvax - single 2019-10-13 Completed [facility] dose syringe dose syringe 16:56:00 - [facility] Flucelvax - single Flucelvax - single 2019-10-13 Completed [facility] dose syringe dose syringe 16:56:00 - [facility] Flucelvax - single Flucelvax - single 2019-10-13 Completed [facility] dose syringe dose syringe 16:56:00 - [facility] Flucelvax - single Flucelvax - single 2019-10-13 Completed [facility] dose syringe dose syringe 16:56:00 - [facility] Flucelvax - single Flucelvax - single 2019-10-13 Completed [facility] dose syringe dose syringe 16:56:00 - [facility] Flucelvax - single Flucelvax - single 2019-10-13 Completed [facility] dose syringe dose syringe 16:56:00 - [facility] Flucelvax - single Flucelvax - single 2019-10-13 Completed [facility] dose syringe dose syringe 16:56:00 - [facility] Flucelvax - single Flucelvax - single 2019-10-13 Completed [facility] dose syringe dose syringe 16:56:00 - [facility] Flucelvax - single Flucelvax - single 2019-10-13 Completed [facility] dose syringe dose syringe 16:56:00 - [facility] Flucelvax - single Flucelvax - single 2019-10-13 Completed [facility] dose syringe dose syringe 16:56:00 - [facility] Flucelvax - single Flucelvax - single 2019-10-13 Completed [facility] dose syringe dose syringe 16:56:00 - [facility] Flucelvax - single Flucelvax - single 2019-10-13 Completed [facility] dose syringe dose syringe 16:56:00 - [facility] Flucelvax - single Flucelvax - single 2019-10-13 Completed [facility] dose syringe dose syringe 16:56:00 - [facility] Flucelvax - single Flucelvax - single 2019-10-13 Completed [facility] dose syringe dose syringe 16:56:00 - [facility] Flucelvax - single Flucelvax - single 2019-10-13 Completed [facility] dose syringe dose syringe 16:56:00 - [facility] Flucelvax - single Flucelvax - single 2019-10-13 Completed [facility] dose syringe dose syringe 16:56:00 - [facility] Flucelvax - single Flucelvax - single 2019-10-13 Completed [facility] dose syringe dose syringe 16:56:00 - [facility] Flucelvax - single Flucelvax - single 2019-10-13 Completed [facility] dose syringe dose syringe 16:56:00 - [facility] Flucelvax - single Flucelvax - single 2019-10-13 Completed [facility] dose syringe dose syringe 00:00:00 - [facility] Vital Signs Vital Name Observation Time Observation Value Comments Source Systolic blood 2023-01-27 02:30:00 130 mm[Hg] Univer sity of pressure [facility] Diastolic blood 2023-01-27 02:30:00 80 mm[Hg] Unive rsity of [facility] Heart rate 2023-01-27 02:30:00 90 /min [facility] Respiratory rate 2023-01-27 02:30:00 15 /min [facility] Oxygen saturation in 2023-01-27 02:30:00 98 /min [facility] Arterial blood by [facility] Pulse oximetry [place] Body temperature 2023-01-26 20:36:00 37.11 [facility] 2023-01-26 20:36:00 169.192 kg [facility] BMI 2023-01-26 20:36:00 60.20 kg/m2 [facility] Systolic blood 2023-01-26 20:04:00 79 mm[Hg] [facility]iver [facility] Diastolic blood 2023-01-26 20:04:00 48 mm[Hg] Unive rsity [facility] Heart rate 2023-01-26 20:04:00 90 /min [facility] Body temperature 2023-01-26 20:04:00 36.72 Mildred [facility] Respiratory rate 2023-01-26 20:04:00 20 /min [facility] Body height 2023-01-26 20:04:00 167.6 cm [facility]i [facility] height 2022-12-17 14:00:00 66.00 [in_i] Common S pirit [facility] weight 2022-12-17 14:00:00 373.0 [lb_av] [facility] - [facility] temperature 2022-12-17 14:00:00 97.2 [degF] [facility] bmi 2022-12-17 14:00:00 60.2 kg/m2 [facility] oximetry 2022-12-17 14:00:00 97 % [facility] respiratory rate 2022-12-17 14:00:00 17 /min Comm on [facility] blood pressure 2022-12-17 14:00:00 123 mm[Hg] Common [facility] - systolic [facility] blood pressure 2022-12-17 14:00:00 69 mm[Hg] Common [facility] - diastolic [facility] Systolic blood 2022-10-21 10:00:00 132 mm[Hg] Univer [facility] Diastolic blood 2022-10-21 10:00:00 66 mm[Hg] Unive rsity [facility] Heart rate 2022-10-21 10:00:00 92 /min [facility] Oxygen saturation in 2022-10-21 10:00:00 93 /min [facility] Arterial blood by [facility] Pulse oximetry [place] Respiratory rate 2022-10-21 07:30:00 18 /min [facility] Body temperature 2022-10-21 05:58:00 36.44 Mildred [facility] Body height 2022-10-21 05:58:00 167.6 cm [facility] Body weight 2022-10-21 05:58:00 169.192 kg [facility] BMI 2022-10-21 05:58:00 60.20 kg/m2 [facility] height 2022-07-30 13:10:00 66.00 [in_i] [facility] weight 2022-07-30 13:10:00 373 [lb_av] [facility] temperature 2022-07-30 13:10:00 98.0 [degF] [facility] bmi 2022-07-30 13:10:00 60.2 kg/m2 [facility] oximetry 2022-07-30 13:10:00 94 % [facility] respiratory rate 2022-07-30 13:10:00 18 /min Comm on [facility] blood pressure 2022-07-30 13:10:00 133 mm[Hg] [facility] - systolic [facility] blood pressure 2022-07-30 13:10:00 62 mm[Hg] [facility] - diastolic [facility] height 2022-06-11 13:00:00 66.00 [in_i] [facility] S [facility] weight 2022-06-11 13:00:00 373 [lb_av] [facility] temperature 2022-06-11 13:00:00 97.5 [degF] [facility] pirit [facility] bmi 2022-06-11 13:00:00 60.2 kg/m2 [facility] oximetry 2022-06-11 13:00:00 99 % Common S [facility] respiratory rate 2022-06-11 13:00:00 18 /min Comm on [facility] blood pressure 2022-06-11 13:00:00 135 mm[Hg] [facility] - systolic [facility] blood pressure 2022-06-11 13:00:00 78 mm[Hg] Common [facility] - diastolic [facility] height 2022-04-02 10:50:00 66.00 [in_i] Common S pirit [facility] weight 2022-04-02 10:50:00 373 [lb_av] [facility] temperature 2022-04-02 10:50:00 97.3 [degF] [facility] bmi 2022-04-02 10:50:00 60.2 kg/m2 [facility] oximetry 2022-04-02 10:50:00 95 % [facility] respiratory rate 2022-04-02 10:50:00 16 /min Comm on [facility] blood pressure 2022-04-02 10:50:00 139 mm[Hg] [facility] - systolic [facility] blood pressure 2022-04-02 10:50:00 67 mm[Hg] [facility] - diastolic [facility] height 2022-04-02 10:00:00 66.00 [in_i] [facility] weight 2022-04-02 10:00:00 373 [lb_av] [facility] temperature 2022-04-02 10:00:00 97.3 [degF] [facility] bmi 2022-04-02 10:00:00 60.2 kg/m2 [facility] oximetry 2022-04-02 10:00:00 95 % Common S [facility] respiratory rate 2022-04-02 10:00:00 16 /min Comm on Spirit - [facility] blood pressure 2022-04-02 10:00:00 139 mm[Hg] Common [facility] - systolic [facility] blood pressure 2022-04-02 10:00:00 67 mm[Hg] [facility] - diastolic [facility] height 2022-03-24 14:30:00 66.00 [in_i] [facility] weight 2022-03-24 14:30:00 373 [lb_av] [facility] temperature 2022-03-24 14:30:00 99.2 [degF] [facility] bmi 2022-03-24 14:30:00 60.2 kg/m2 Common S pirit - [facility] blood pressure 2022-03-24 14:30:00 138 mm[Hg] [facility] - systolic [facility] blood pressure 2022-03-24 14:30:00 78 mm[Hg] [facility] - diastolic [facility] blood pressure 2021-12-03 11:00:00 128 mm[Hg] [facility] - systolic [facility] blood pressure 2021-12-03 11:00:00 75 mm[Hg] [facility] - diastolic [facility] height 2021-12-03 11:00:00 66.00 [in_i] [facility] weight 2021-12-03 11:00:00 388 [lb_av] [facility] temperature 2021-12-03 11:00:00 98.7 [degF] [facility] bmi 2021-12-03 11:00:00 62.62 kg/m2 [facility] height 2021-11-07 10:50:00 66.00 [in_i] [facility] weight 2021-11-07 10:50:00 388.5 [lb_av] [facility] temperature 2021-11-07 10:50:00 97.5 [degF] [facility] bmi 2021-11-07 10:50:00 62.7 kg/m2 [facility] oximetry 2021-11-07 10:50:00 95 % [facility] respiratory rate 2021-11-07 10:50:00 19 /min Comm on [facility] blood pressure 2021-11-07 10:50:00 132 mm[Hg] [facility] systolic [facility] blood pressure 2021-11-07 10:50:00 63 mm[Hg] [facility] Procedures Procedure Date / Time Performing Clinician Source Performed URINALYSIS 2023-01-27 01:00:00 Nereida Sierra [facility] LIPASE 2023-01-26 21:16:00 Nereida Sierra [facility] TROPONIN I 2023-01-26 21:16:00 Nereida Sierra [facility] COMP. METABOLIC PANEL 2023-01-26 21:16:00 Nreeida Sierra [facility] ([id number]) [facility] CBC WITH DIFF 2023-01-26 21:16:00 Nereida Sierra [facility] PROTHROMBIN TIME / INR 2023-01-26 21:16:00 Nereida Sierra [facility] ACTIVATED PARTIAL 2023-01-26 21:16:00 Nereida Sierra [facility] N-TERMINAL PRO-BNP 2023-01-26 21:16:00 Nereida Sierra [facility] AC PANEL 21 + LACTIC 2023-01-26 21:16:00 Nereida Sierra [facility] EKG-12 LEAD 2022-10-21 08:50:42 Paulina [facility] URINALYSIS 2022-10-21 08:33:00 Paulina [facility] TROPONIN I 2022-10-21 06:54:00 Paulina [facility] COMP. METABOLIC PANEL 2022-10-21 06:54:00 Josie Gallardo [facility] ([id number]) [facility] CBC WITH DIFF 2022-10-21 06:54:00 Paulina [facility] N-TERMINAL PRO-BNP 2022-10-21 06:54:00 [facility] XR CHEST 1 VW 2022-10-21 06:49:10 Paulina [facility] Encounters Start End Encounter Admission Attending Care Care Encounter Source Date/Time Date/Time Type Type Clinicians Facility Department ID 2022-12-17 Outpatient Bull, [facility]ML[facility] [id number] Common 14:12:01 [facility] 2022-04-16 Outpatient Bull, STLMLC [facility] [id number] Common 10:40:00 Solo [facility] 2022-03-21 Outpatient Bull, STLMLC [facility] [id number] Common 10:56:01 Solo [facility] 2021-12-18 Outpatient Bull, STLMLC [facility] [id number] Common 14:24:41 Solo [id number] [facility] 2021-12-18 Outpatient Bull, STLMLC [facility] [id number] Common 13:54:01 Solo [id number] [facility] 2021-12-18 Outpatient Bull, STLMLC [facility] [id number] Common 13:51:23 Solo [id number] [facility] 2021-12-18 Outpatient Bull, STLMLC ST[facility] Common 13:51:19 Solo [id number] [facility] 2021-12-18 Outpatient Bull, STLMLC STL[facility]C Common 12:54:53 Solo [id number] [facility] 2021-12-18 Outpatient Bull, STLMLC STL[facility]C Common 12:47:58 Solo [id number] [facility] 2021-12-18 Outpatient Bull, STLMLC STLMLC Common 12:43:31 Solo [id number] [facility] 2021-12-18 Outpatient Bull, STLMLC STLMLC Common 12:42:37 Solo [id number] [facility] 2021-12-18 Outpatient Bull, STLMLC STLMLC Common 12:41:47 [facility] [id number] [facility] 2021-12-18 Outpatient Bull, STLMLC STLMLC Common 12:40:52 Solo [id number] [facility] 2021-12-18 Outpatient STLMLC STLMLC Common 12:35:19 [id number] [facility] 2021-12-18 Outpatient Jorge, STLMLC STLMLC Common 12:30:20 Erna [id number] [facility] [facility] 2021-12-18 Outpatient Jorge, STLMLC STLMLC Common 12:20:17 Erna [address] [facility] 2021-12-18 Outpatient Jorge, STLMLC STLMLC Common 12:19:41 [place] [id number] [facility] 2021-12-18 Outpatient Jorge, STLMLC STLMLC Common 12:10:41 Erna 83489 [facility] 2021-12-18 Outpatient STLMLC STLMLC Common 12:09:40 [id number] [facility] 2023-07-31 2023-07-31 Out[facility] [id number] Univers 16:30:00 16:30:00 [facility] 2023-01-26 2023-01-26 Emergency [facility] [id number] Univers 14:42:00 20:58:00 Nereida BURRIS 350.1.13.10 i ty of [place] 4.2.7.2.686 [facility] [phone] [facility] [address] [place] 2023-01-26 2023-01-26 Outpatient [facility] [id number] Univers 13:00:00 14:27:49 MARIBEL [facility] 2023-01-26 2023-01-26 [email or web address] ERT [id number] Univers 13:00:00 14:27:49 MARIBEL [facility] 2023-01-26 2023-01-26 Office [facility] 1.2.840.114 [id number] Univers 13:00:00 14:27:49 Visit Maribel BURRIS 350.1.13.10 i ty of [place] 4.2.7.2.686 [facility] [phone] [place] d[place] [address] 2022-12-30 2022-12-30 (TEL) STLC STLC [id number] Co mmon 00:00:00 00:00:00 [facility] 2022-12-17 2022-12-17 OFFICE STLC STLC [id number] Co mmon 00:00:00 00:00:00 VISIT Spirit ESTAB PT - CHI LEVEL 4 [facility] 2022-12-15 2022-12-15 (TEL) STLC STLC [id number] Co mmon 00:00:00 00:00:00 [facility] 2022-11-01 2022-11-01 Telephone [facility] 1.2.840.114 [id number] Univers 00:00:00 00:00:00 Maribel BURRIS 350.1.13.10 [id number] [address] 2022-10-24 2022-10-24 Telemedici [facility] 1.2.840.114 [id number] Univers 16:00:00 16:30:00 ne Visit Maribel BURRIS 350.1.13.10 ity of [facility] [place] [id number] [address] 2022-10-24 2022-10-24 Outpatient R [facility] [id number] Univers 16:00:00 16:00:00 MARIBEL maldonado [facility] 2022-10-20 2022-10-21 Emergency X [facility] ERT [id number] Univers 23:53:00 05:46:00 NEREIDA maldonado [facility] 2022-10-20 2022-10-21 Emergency Josie Gallardo [facility] 1.2.840.1 [id number] Univers 23:53:00 05:46:00 Nereida Sierra 350.1.13.10 [place] [phone] [address] 2022-09-12 2022-09-12 Telemedici [facility] 1.2.840.114 [id number] Univers 16:00:00 16:30:00 ne Visit Maribel BURRIS 350.1.13.10 ity of [facility] [place] [id number] [address] 2022-09-12 2022-09-12 Outpatient R [facility] [id number] Univers 16:00:00 16:00:00 MARIBEL maldonado [facility] 2022-08-07 2022-08-07 Telephone [facility] 1.2.840.114 [id number] Univers 00:00:00 00:00:00 Maribel BURRIS 350.1.13.10 i ty of [facility] 4.[place] [id number] [place] dic[address] 2022-08-04 2022-08-04 Telemedici [facility] 1.2.840.114 [id number] Univers 15:00:00 15:30:00 ne Visit Maribel BURRIS 350.1.13.10 ity of [facility] 4[place] [phone] [address] 2022-08-04 2022-08-04 Outpatient R [facility] [id number] Univers 15:00:00 15:00:00 [facility] 2022-08-04 2022-08-04 Outpatient R [facility] [id number] Univers 15:00:00 15:00:00 [facility] 2022-08-04 2022-08-04 Outpatient R [facility] [id number] Univers 15:00:00 15:00:00 [facility] 2022-07-30 2022-07-30 OFFICE STLMLC STLMLC [id number] Co mmon 00:00:00 00:00:00 VISIT Spirit ESTAB PT - CHI LEVEL 4 [facility] 2022-06-11 2022-06-11 OFFICE STLMLC STLMLC [id number] Co mmon 00:00:00 00:00:00 VISIT Spirit ESTAB PT - CHI LEVEL 4 [facility] 2022-06-11 2022-06-11 (TEL) STLMLC STLMLC [id number] Co mmon 00:00:00 00:00:00 [facility] 2022-06-06 2022-06-06 Office [facility] 1.2.840.114 [id number] Univers 11:00:00 12:07:23 Visit Maribel FATUMA 350.1.13.10 i ty of [facility] 4.[place] [phone] [place]s dic[address] 2022-06-06 2022-06-06 Outpatient R [facility] [id number] Univers 11:00:00 12:07:23 MARIBEL maldonado [facility] 2022-06-06 2022-06-06 Outpatient R [facility] [id number] Univers 11:00:00 11:00:00 MARIBEL maldonado [facility] 2022-06-06 2022-06-06 Outpatient R RY [facility] [id number] Univers 11:00:00 11:00:00 MARIBEL maldonado [facility] 2022-05-02 2022-05-02 [facility] [id number] Univers 10:30:00 11:39:16 MARIBEL maldonado [facility] 2022-05-02 2022-05-02 Office [facility] 1.2.840.114 [id number] Univers 10:30:00 11:39:16 Visit Maribel BURRIS 350.1.13.10 i ty of [facility] 4.[place] [phone] [address] 2022-04-03 2022-04-03 Telephone [facility] 1.2.840.114 [id number] Univers 00:00:00 00:00:00 Maribel BURRIS 350.1.13.10 i ty of [facility] 4[place] [id number] [address] 2022-04-02 2022-04-02 [facility] [id number] Co mmon 00:00:00 00:00:00 VISIT Spirit ESTAB PT - CHI LEVEL 4 [facility] 2022-04-02 2022-04-02 SUB [facility]AL [facility] [id number] Common 00:00:00 00:00:00 MCR Spirit WELLNESS - CHI VISIT [facility] 2022-04-02 2022-04-02 (TEL) [facility] [id number] Co mmon 00:00:00 00:00:00 [facility] 2022-03-25 2022-03-25 Telephone [facility] 1.2.840.114 [id number] Univers 00:00:00 00:00:00 Maribel BURRIS 350.1.13.10 i [place] [id number] [place] dical NAL 134 [facility] 2022-03-24 2022-03-24 OFFICE STLC STLC [id number] Co mmon 00:00:00 00:00:00 VISIT Marko [facility] - CHI LEVEL 4 [facility] 2022-03-17 2022-03-17 Outpatient R [facility] [id number] Univers 14:00:00 15:57:19 MARIBEL maldonado [facility] 2022-03-17 2022-03-17 Outpatient R [facility] [id number] Univers 14:00:00 15:57:19 MARIBEL maldonado [facility] 2022-03-17 2022-03-17 Office [facility] 1.2.840.114 [id number] Univers 14:00:00 15:57:19 Visit Maribel BURRIS 350.1.13.10 i [place] [phone] [place] dical NAL 098 [facility] 2022-03-17 2022-03-17 Outpatient R [facility] [id number] Univers 14:00:00 14:00:00 MARIBEL maldonado [facility] 2022-03-17 2022-03-17 Orders Doctor NACHO 1.2.840.114 [id number] Univers 00:00:00 00:00:00 Only Unassigned, ALE 350.1.13.10 ity of [place] [facility] 4.2.7.2.686 Justino as [id number] [address] 2022-02-03 2022-02-03 (TEL) STLC STLMLC [id number] Co mmon 00:00:00 00:00:00 [facility] 2022-01-29 2022-01-29 Orders Doctor NACHO 1.2.840.114 [id number] Univers 00:00:00 00:00:00 Only Unassigned, ALE 350.1.13.10 ity [place] [facility] 4.2.7.2.686 Justino as [phone] [address] 2021-12-31 2021-12-31 (TEL) STLMLC STLMLC [id number] Co mmon 00:00:00 00:00:00 [facility] 2021-12-03 2021-12-03 OFFICE STLMLC STLMLC [id number] Co mmon 00:00:00 00:00:00 VISIT EST Spir it PT LEVEL 3 - [facility] 2021-12-02 2021-12-02 (TEL) STLMLC STLMLC [id number] Co mmon 00:00:00 00:00:00 [facility] 2021-11-26 2021-11-26 OFFICE STLMLC STLMLC [id number] Co mmon 00:00:00 00:00:00 VISIT Spirit ESTAB PT - CHI LEVEL 1 [facility] 2021-11-25 2021-11-25 (TEL) STLMLC STLMLC [id number] Co mmon 00:00:00 00:00:00 [facility] 2021-11-15 2021-11-16 Emergency X [facility] ERT [id number] Univers 22:26:00 02:54:00 NEREIDA maldonado [facility] 2021-11-15 2021-11-16 Emergency [facility] [id number] Univers 22:26:00 02:54:00 Nereida CHAMOIS 350.1.13.10 [facility] 4.2.7.2.686 [facility] [id number] [facility] [address] 2021-11-07 2021-11-07 OFFICE STLMLC STLMLC [id number] Co mmon 00:00:00 00:00:00 VISIT Spirit ESTAB PT - CHI LEVEL 4 [facility] 2021-08-12 2021-08-12 (TEL) STLMLC STLMLC [id number] Co mmon 00:00:00 00:00:00 [facility] 2021-07-01 2021-07-01 Outpatient STLMLC STLMLC [id number] Common 00:00:00 00:00:00 [facility] 2021-06-262021-06-26 Outpatient STLMLC STLMLC [id number] Common 00:00:00 00:00:00 [facility] 2021-04-23 2021-04-23 Outpatient STLMLC STLMLC [id number] Common 00:00:00 00:00:00 [facility] 2021-04-04 2021-04-04 Outpatient STLMLC STLMLC [id number] Common 00:00:00 00:00:00 [facility] 2021-03-29 2021-03-29 Outpatient STLMLC STLMLC [id number] Common 00:00:00 00:00:00 [facility] 2021-03-28 2021-03-28 Outpatient STLMLC STLMLC [id number] Common 00:00:00 00:00:00 [facility] 2021-03-28 2021-03-28 Outpatient STLMLC STLMLC [id number] Common 00:00:00 00:00:00 [facility] 2021-03-11 2021-03-11 Outpatient STLMLC STLMLC [id number] Common 00:00:00 00:00:00 [facility] 2021-03-07 2021-03-07 Outpatient STLMLC STLMLC [id number] Common 00:00:00 00:00:00 [facility] 2021-03-06 2021-03-06 Outpatient STLMLC STLMLC [id number] Common 00:00:00 00:00:00 [facility] 2021-02-07 2021-02-07 Outpatient STLMLC STLMLC [id number] Common 00:00:00 00:00:00 [facility] 2021-02-05 2021-02-05 Outpatient STLMLC STLMLC [id number] Common 00:00:00 00:00:00 [facility] 2021-02-05 2021-02-05 Outpatient STLMLC STLMLC [id number] Common 00:00:00 00:00:00 [facility] 2021-02-04 2021-02-04 Outpatient STLMLC STLMLC [id number] Common 00:00:00 00:00:00 [facility] 2021-01-28 2021-01-28 Outpatient STLMLC STLMLC [id number] Common 00:00:00 00:00:00 [facility] 2021-01-22 2021-01-22 Outpatient STLMLC STLMLC [id number] Common 00:00:00 00:00:00 [facility] 2021-01-22 2021-01-22 Outpatient STLMLC STLMLC [id number] Common 00:00:00 00:00:00 [facility] 2021-01-02 2021-01-02 Outpatient [facility] [id number] Univers 14:51:51 23:59:00 ity of [facility] 2021-01-02 2021-01-02 [facility] 1.2.840.114 [id number] 14:45:00 23:59:00 Encounter Wiliam Burris 350.1.13.10 [place] 4.2.7.2.686 [place] [id number] 807 2021-01-02 2021-01-02 [facility] 1.2.840.114 [id number] [facility] 14:45:00 23:59:00 Encounter Wiliam Burris 350.1.13.10 ity of [place] 4.2.7.2.686 [facility] [id number] [facility] [address] 2021-01-02 2021-01-02 Orders Doctor GRIFFITH 1.2.840.114 [id number] 00:00:00 00:00:00 Only Unassigned, ALE 350.1.13.10 [place] [facility] 4.2.7.2.686 [id number] 009 2021-01-02 2021-01-02 Orders Doctor GRIFFITH 1.2.840.114 [id number] Univers 00:00:00 00:00:00 Only Unassigned, ALE 350.1.13.10 ity [place] [facility] 4.2.7.2.686 [facility] [id number] [facility] [address] 2020-12-04 2020-12-04 Outpatient STLMLC STLMLC [id number] Common 00:00:00 00:00:00 [facility] 2020-08-29 2020-08-29 Outpatient STLMLC STLMLC [id number] Common 00:00:00 00:00:00 [facility] 2020-08-24 2020-08-24 Outpatient STLMLC STLMLC [id number] Common 00:00:00 00:00:00 [facility] 2020-05-24 2020-05-24 [facility] [id number] Common 15:20:00 15:20:00 [facility] 2020-02-06 2020-03-07 [facility]797 [id number] Memoria 19:00:00 04:59:00 r Oleg 00 l [facility] 2020-02-06 2020-03-07 [facility] 3797 [id number] Memoria 19:00:00 04:59:00 r Oleg 00 l [facility] 2020-02-06 2020-03-07 [facility] 3797 [id number] Memoria 19:00:00 04:59:00 r Oleg 00 l [facility] 2020-02-06 2020-03-06 Outpatient Kenney, [facility] [id number] 14:00:00 23:59:00 Andrzej G 2020-02-06 2020-03-06 Outpatient Kenney, [facility] [id number] 14:00:00 23:59:00 Andrzej G 00 2020-02-06 2020-02-06 Outpatient KENNEY, [id number] 14:00:00 14:00:00 ANDRZEJ 2020-01-11 2020-01-11 Out[facility] [id number] Common 11:45:00 11:45:00 [facility] 2020-01-10 2020-01-10 Outpatient [facility] [id number] Common 14:30:00 14:30:00 [facility] 2020-01-09 2020-01-09 Outpatient [facility] [id number] Common 13:30:00 13:30:00 t Specialty/U Sp lenny Specialty rology - CHI /Urology Clinic [facility] 2019-12-26 2019-12-26 Outpatient [facility] [id number] Common 11:05:00 11:05:[address] [facility] 2019-11-13 2019-11-13 Out[facility] [id number] Common 13:57:00 13:57:[address] [facility] 2019-10-18 2019-10-18 Outpatient [facility] [id number] Common 16:57:00 16:57:[address] [facility] 2019-10-13 2019-10-13 Outpatient [facility] [id number] Common 23:20:00 23:20:[address] [facility] 2019-10-13 2019-10-13 Out[facility] [id number] Common 15:00:00 15:00:[address] [facility] 2019-08-16 2019-08-16 Out[facility] [id number] Common 13:34:00 13:34:[address] [facility] 2019-07-22 2019-07-22 Outpatient [facility] [id number] Common 14:00:00 14:00:[address] [facility] 2019-07-18 2019-07-18 Out[facility] [id number] Common 20:00:00 20:00:[address] [facility] 2019-07-14 2019-07-14 Out[facility] [id number] Common 13:00:00 13:00:[address] [facility] 2019-06-29 2019-06-29 Outpatient [facility] [id number] Common 11:57:00 11:57:[address] [facility] 2019-03-24 2019-03-24 Outpatient [facility] [id number] Common 21:45:00 21:45:[address] [facility] 2019-03-24 2019-03-24 Out[facility] [id number] Common 14:27:00 14:27:[address] [facility] 2019-03-22 2019-03-22 Outpatient [facility] [id number] Common 13:20:00 13:20:[address] [facility] 2019-03-21 2019-03-21 Outpatient [facility] [id number] Common 09:12:00 09:12:[address] [facility] 2019-01-31 2019-01-31 Outpatient [facility] [id number] Common 13:23:00 13:23:[address] [facility] 2019-01-17 2019-01-17 Outpatient [facility] [id number] Common 10:30:00 10:30:[address] [facility] 2018-12-22 2018-12-22 Outpatient [facility] [id number] Common 09:09:00 09:09:[address] [facility] 2018-12-15 2018-12-15 Outpatient [facility] [id number] Common 11:45:00 11:45:[address] [facility] 2018-12-09 2018-12-09 Outpatient [facility] [id number] Common 10:38:00 10:38:[address] [facility] Results Test Description Test Time Test Comments Results Result Comments Source TROPONIN I 2023-01-26 22:18:30 Test Item Value Reference Range Interpretation Comme nts TROPONIN I (test code = 5579010770) 0.005 ng/mL <=0.034 GLENDA (test code = GLENDA) Reference (Normal) Range (defined by the 99th percentile reference limit): <= 0.034 ng/mL Note: Cardiac troponin begins to rise 3-4 hours after the onset of ischemia. Repeat in 4-6 hours if the sample was drawn within 3-4 hours of the onset of the symptom and found normal. Diagnosis of myocardial injury is made with acute changes in cTn concentrations with at least one serial sample above the 99th percentile upper reference limit (URL), taken together with the patient's clinical presentation. Biotin has been reported to cause a negative bias, interpret results relative to patient's use of biotin. Lab Interpretation (test code = Normal 99921-9) [id number] 22:14:52 Test Item Value Reference Range Interpretation Comments NT-proBNP (test code = 304 pg/mL <=125 H 7728051393) GLENDA (test code = GLENDA) Biotin has been reported to cause a negative bias, interpret results relative to patient's use of biotin. Lab Interpretation (test Abnormal code = 06525-2) [facility] Rock[facility]. METABOLIC PANEL (31596)2023-01-26 22:06:50 Test Item Value Reference Range Interpretation Comments NA (test code = 138 mmol/L 135-145 4458945250) K (test code = 4.2 mmol/L 3.5-5.0 8749315261) CL (test code = 101 mmol/L 98-108 1364846726) CO2 TOTAL (test code = 29 mmol/L 23-31 0915261794) AGAP (test code = 8 2-16 4144236214) BUN (test code = 23 mg/dL 7-23 0248606412) GLUCOSE (test code = 101 mg/dL 70-110 5428152346) CREATININE (test code = 1.30 mg/dL 0.50-1.04 H 9907717030) TOTAL BILI (test code = 1.0 mg/dL 0.1-1.3 9572884308) CALCIUM (test code = 9.0 mg/dL 8.6-10.6 2468241610) T PROTEIN (test code = 6.3 g/dL 6.3-8.2 7437457253) ALBUMIN (test code = 3.6 g/dL 3.5-5.0 7563328975) ALK PHOS (test code = 44 U/L 34-122 3549685873) ALTv (test code = 15 U/L 5-35 1742-6) AST(SGOT) (test code = 19 U/L 13-40 6202316534) eGFR (test code = 41.0 mL/min/1.73m2 2562711739) GLENDA (test code = GLENDA) Association of Glomerular Filtration Rate (GFR) and Staging of Kidney Disease* + --+ --+ ------+| GFR (mL/min/1.73 m2) ?| With Kidney Damage ?| ?Without Kidney Damage+ --------+ --------+ +| ?>90 ?| ?Stage one ?| ? Normal ?+ ---+ ---+ -------+| ?60-89 ?| ?Stage two ?| ? Decreased GFR ? + --+ --+ ------+| ?30-59 ?| ?Stage three ?| ? Stage three ? + --+ --+ ------+| ?15-29 ?| ?Stage four ? | ? Stage four ?+ ---+ ---+ -------+| ?<15 (or dialysis) ? ?| ?Stage five ? | ? Stage five ?+ ---+ ---+ -------+ *Each stage assumes the associated GFR level has been in effect for at least three months. ?Stages 1 to 5, with or without kidney disease, indicate chronic kidney disease. Notes: Determination of stages one and two (with eGFR >59mL/min/1.73 m2) requires estimation of kidney damage for at least three months as defined by structural or functional abnormalities of the kidney, manifested by either:Pathological abnormalities or Markers of kidney damage (including abnormalities in the composition of the blood or urine or abnormalities in imaging tests). Lab Interpretation Abnormal (test code = 14431-6) [facility]2023-[facility]-06 22:06:28 Test Item Value Reference Range Interpretation Comments LIPASE (test code = 6486744735) 166 U/L 0-220 Lab Interpretation (test code = Normal 39048-3) [facility] RockACTIVATED PARTIAL THRMPLAS [id number] 21:43:05 Test Item Value Reference Range Interpretation Comments APTT Patient (test 27 See_Comment [Automat ed code = 3173-2) message] The system which generated this result transmitted reference range : 23 - 38 Seconds . The reference range was not used to interpr et this result as normal/abnormal . GLENDA (test code = GLENDA) The [facility] patient population mean normal value for aPTT is 30 seconds. Lab Interpretation Normal (test code = 89696-9) [facility] RockPROTHROMBIN TIME / [id number] 21:41:07 Test Item Value Reference Range Interpretation Comments PROTIME PATIENT (test 13.0 See_Comment [Auto mated message] code = 5964-2) The system wh ich generated this result transmitted ref erence range: 12.0 - 1 4.7 Seconds. The re ference range was not u sed to interpret this result as normal/abnor mal. INR (test code = 6301-6) 1.0 Nor mal INR <1.1; Warfarin Therap eutic range 2.0 to 3. 0 or 2.5 to 3.5, dep ending upon the indica tions. Lab Interpretation (test Normal code = 76628-1) [facility] RockCBC WITH [id number] 21:33:23 Test Item Value Reference Range Interpretation Comments WBC (test code = 6.29 See_Comment [Automated 9190-2) message] The sy stem which generated this result transmitted reference range : 4.30 - 11.10 10*3/?L. The reference range was not used to interpret this result as normal/abnormal . RBC (test code = 3.77 See_Comment L [Automated 959-8) message] The sy stem which generated this result transmitted reference range : 3.93 - 5.25 10*6/?L. The reference range was not used to interpret this result as normal/abnormal . HGB (test code = 11.8 g/dL 11.6-15.0 718-7) HCT (test code = 36.3 % 35.7-45.2 4544-3) MCV (test code = 96.3 fL 80.6-95.5 H 787-2) MCH (test code = 31.3 pg 25.9-32.8 785-6) MCHC (test code = 32.5 g/dL 31.6-35.1 786-4) RDW-SD (test code = 46.4 fL 39.0-49.9 40381-5) RDW-CV (test code = 13.1 % 12.0-15.5 788-0) PLT (test code = 198 See_Comment [Automated 777-3) message] The sy stem which generated this result transmitted reference range : 166 - 358 10*3/ ?L. The reference r ariana was not used to interpret this result as normal/abnormal . MPV (test code = 11.2 fL 9.5-12.9 61422-5) NRBC/100 WBC (test 0.0 See_Comment [Automat ed code = 7485884544) message] The system which generated this result transmitted reference range : 0.0 - 10.0 /100 WBCs. The refer ence range was not u sed to interpret th is result as normal/abnormal . NRBC x10^3 (test code See_Comment [Auto mated = 6506357657) message] The s ystem which generated this result transmitted reference range : 10*3/?L. The reference range was not used to interpret this result as normal/abnormal . GRAN MAT (NEUT) % 73.7 % (test code = 770-8) IMM GRAN % (test code 0.30 % = 4237930078) LYMPH % (test code = 14.6 % 736-9) MONO % (test code = 9.5 % 5905-5) EOS % (test code = 1.1 % 713-8) BASO % (test code = 0.8 % 706-2) GRAN MAT x10^3(ANC) 4.63 10*3/uL 1.88-7.09 (test code = [id number]) IMM GRAN x10^3 (test 0.00-0.06 code = [id number]) LYMPH x10^3 (test code 0.92 10*3/uL 1.32-3.29 L = 731-0) MONO x10^3 (test code 0.60 10*3/uL 0.33-0.92 = 742-7) EOS x10^3 (test code = 0.07 10*3/uL 0.03-0.39 711-2) BASO x10^3 (test code 0.05 10*3/uL 0.01-0.07 = 704-7) Lab Interpretation Abnormal (test code = 19557-7) [facility] LACTIC [id number] 21:24:57 Test Item Value Reference Range Interpretation Comments PH (test code = 7.40 7.32-7.42 [id number]) PCO2 ZACK (test code = 47 See_Comment [Auto mated [id number]) message] The sy stem which generated this result transmitted reference range : 41 - 51 mmHg. The reference range was not used to interpret this result as normal/abnormal . PO2 ZACK (test code = 19 See_Comment L [Autom ated [id number]) message] The sy stem which generated this result transmitted reference range : 25 - 40 mmHg. The reference range was not used to interpret this result as normal/abnormal . HCO3 ZACK (test code = 28 See_Comment [Auto mated [id number]) message] The sy stem which generated this result transmitted reference range : 24 - 28 mEq/L. The reference range was not used to interpret this result as normal/abnormal . AC VBE(BEAKER) (test 2.8 mEq/L code = 0065430062) THB ZACK (test code = 12.5 g/dL 12.0-16.0 5972790567) %O2HB ZACK (test code = 28.3 % 52.0-63.0 L [id number]) %COHB ZACK (test code = 0.8 % 0.0-1.5 3968099406) %METHB ZACK (test code = 0.3 % 0.4-1.5 L [id number]) VOL%O2 ZACK (test code = 5.0 % 6.0-12.0 L 5193865104) NA (test code = 138 mmol/L 135-145 0300066590) K+ (test code = 3.9 mmol/L 3.5-5.0 6264961377) AC CA IONZ (test code = 4.90 mg/dL 4.50-5.30 3052332021) GLUCOSE (test code = 103 mg/dL 70-110 5120364033) LACTIC ACID (test code 1.12 mmol/L 0.50-2.20 = 6087166769) Lab Interpretation Abnormal (test code = 16819-8) [facility]
[2023-01-30] MEDS ORDERED: MORPHINE 4 MG/ML SYR ONE (00:14)
[2023-01-30 01:25] LABS: SARS-CoV-2 Antigen Rapid Res Negative (Negative)
--- NOTE | 2023-01-30 02:11 | P.HP ---
Certification for Inpatient Patient admitted to: Inpatient With expected LOS: >2 Midnights Patient will require the following post-hospital care: None Practitioner: I am a practitioner with admitting privileges, knowledge of patient current condition, hospital course, and medical plan of care. Services: Services provided to patient in accordance with Admission requirements found in Title 42 Section 412.3 of the Code of Federal Regulations Patient History Date of Service: 01/30/23 Primary Care Provider: Jorgito Reason for admission: Displaced Fibula Fracture History of Present Illness: Patient is a 67 year old female with morbid obesity, lymphadema, hypertension, gout, and history of falls who presented to the emergency department via EMS after a fall she sustained at home. Patient states that she ambulates with an electric wheelchair and walker but tried to go a short distance to the toilet and slipped in the interim. She was found to have a nondisplaced fracture of the proximal fibula and mildly displaced fracture of the distal fibula which was splinted in the emergency department. Dr. Flores was contacted and has agreed to consult. Pancytopenia noted on lab work. Patient is admitted for further management. Allergies levofloxacin [From Levaquin] Allergy (Verified 11/30/19 15:52) Rash meperidine [From Demerol] Adverse Reaction (Verified 11/30/19 15:52) body jerking Home medications list reviewed: Yes - Past Medical/Surgical History Diabetic: No -: Hypertension -: Lung Cancer in remission -: Breast Cancer in remission -: Depression & Anxiety -: Gout -: Lymphadema -: Right upper lobe removal -: Bilateral mastectomy Psychosocial/ Personal History: Patient lives at home alone. - Family History Family History: Reviewed- Non-Contributory - Social History Smoking Status: Never smoker Alcohol use: No CD- Drugs: No Caffeine use: No Place of Residence: Home Review of Systems Musculoskeletal: Leg Pain Physical Examination - Vital Signs Temperature: 98.2 F Blood Pressure: 132/67 Pulse: 90 Respirations: 17 Pulse Ox (%): 100 - Physical Exam General: Alert, In no apparent distress, Obese HEENT: Atraumatic, EOMI, Sclerae nonicteric Neck: Supple, 2+ carotid pulse no bruit Respiratory: Clear to auscultation bilaterally, Normal air movement Cardiovascular: Regular rate/rhythm, Normal S1 S2 Gastrointestinal: Normal bowel sounds, No tenderness Musculoskeletal: Swelling, Tenderness, Cast in place Integumentary: No rashes Neurological: Normal speech, Sensation intact, Normal affect - Studies Laboratory Data (last 24 hrs) 01/29/23 23:41: Sodium Cancelled, Potassium Cancelled, BUN Cancelled, Creatinine Cancelled, Glucose Cancelled 01/29/23 23:41: WBC Cancelled, Hgb Cancelled, Hct Cancelled, Plt Count Cancelled Assessment and Plan - Problems (Diagnosis) (1) Fibula fracture Current Visit: Yes Status: Acute Qualifiers: Encounter type: initial encounter Fibula location: distal Fracture type: closed Fracture morphology: other fracture Laterality: right Qualified Code(s): S82.831A - Other fracture of upper and lower end of right fibula, initial encounter for closed fracture (2) Hypertension Current Visit: Yes Status: Chronic Qualifiers: Hypertension type: primary hypertension Qualified Code(s): I10 - Essential (primary) hypertension (3) Obesity Current Visit: Yes Status: Chronic Qualifiers: Obesity type: due to excess calories Obesity classification: adult class 3 (BMI >= 40) Serious obesity comorbidity presence: without serious comorbidity Body mass index: BMI 60.0-69.9 Qualified Code(s): E66.01 - Morbid (severe) obesity due to excess calories; Z68.44 - Body mass index [BMI] 60.0-69.9, adult; Z68.44 - Body mass index [BMI] 60.0-69.9, adult (4) Acquired lymphedema of leg Current Visit: Yes Status: Chronic (5) Pancytopenia Current Visit: Yes Status: Acute - Plan Patient is admitted for further management of nondisplaced fracture of proximal fibula and mildly displaced fracture of the distal fibula. Dr. Folres to see patient in morning and likely take to OR. NPO. Pain medications as needed. Neurovascularly intact. Splint in place. Pancytopenia noted on labs, was not present 1 month ago. History of lung & b reast cancer, in remission. Monitor and replete electrolytes per protocol. Reconcile and continue home medications. Lovenox for VTE prophylaxis. Full code. Discharge Plan: Home Plan to discharge in: Greater than 2 days - Advance Directives Does patient have a Living Will: No Does patient have a Durable POA for Healthcare: No - Code Status/Comfort Care Code Status Assessed: Yes Code Status: Full Code Physician Review: Patient Assessed, Agree with Above Assessment and Plan Critical Care: No Time Spent Managing Pts Care (In Minutes): 50
[2023-01-30] MEDS ORDERED: ACETAMINOPHEN 500 MG TAB PO PRN (02:38)
[2023-01-30] MEDS ORDERED: ONDANSETRON 4 MG/2 ML VIAL IV PRN (02:38)
[2023-01-30] MEDS ORDERED: HYDROMORPHONE HCL 1 MG/ML INJ ONE (03:01)
[2023-01-30 03:15] LABS: Absolute Lymphocytes (CBC) 0.3 K/uL (0.7-4.9); Hematocrit 29.7 % (36.0-45.0); Lymphocytes % 8.7 % (15.3-44.8); MCV 94.7 fL (80-100); MPV 8.5 fL (7.6-11.3); RBC Red Blood Cell Count 3.14 M/uL (3.86-4.86)
[2023-01-30 03:28] LABS: Magnesium 1.6 mg/dL (1.6-2.4); Potassium 3.7 mmol/L (3.5-5.1)
[2023-01-30 03:34] LABS: Troponin High Sensitivity 5.8 pg/mL (<58.9)
[2023-01-30 04:01] VITALS: BMI 60.2
[2023-01-30] MEDS: MORPHINE 4 MG/ML SYR IV PRN ×3 (04:30→11:21)
[2023-01-30] MEDS: ENOXAPARIN 40 MG/0.4 ML SQ SCH (08:21)
--- NOTE | 2023-01-30 11:08 | RAD REPORT ---
EXAM DESCRIPTION: RAD - Tib Fib Right - 01/30/2023 12:59 am CLINICAL HISTORY: Fall COMPARISON: None. FINDINGS: 2 views of the right tibia/fibula. Nondisplaced fracture of the proximal fibula. Mildly di splaced fracture of the distal fibula. Please see ankle radiograph performed same day for details reg arding the distal tibia. Soft tissue edema. Osteopenia. IMPRESSION: 1. Nondisplaced fracture of the proximal fibula. 2. Mildly displaced fracture of the distal fibula. Electronically signed by: Paxton Lindsey 01/30/2023 1:19 AM HAND LAUNDERER Due to temporary technical issues with the PACS/Fluency reporting system, reports are being signed by the in house radiologists without review as a courtesy to insure prompt reporting. The interpreting radiologist is fully responsible for the content of the report.
--- NOTE | 2023-01-30 11:11 | RAD REPORT ---
EXAM DESCRIPTION: RAD - Ankle Right 3 View - 01/30/2023 12:56 am CLINICAL HISTORY: The patient is 67 years old and is Female; deformity;Pain TECHNIQUE: Frontal, lateral and oblique views of the right ankle. COMPARISON: No relevant prior studies available. FINDINGS: BONES/JOINTS: An oblique, mildly displaced, fracture of the distal fibular diaphysis is present. The fracture is superior to the tibiotalar joint. The ankle mortise is congruent. The donato r dome is round and smooth. No dislocation. SOFT TISSUES: Diffuse soft tissue swelling about the ankle is present. IMPRESSION: Slightly displaced fracture of the distal fibular diaphysis as described. Electronically signed by: Lina Rascon MD 01/30/2023 1:17 AM PEDIATRICIAN MANAGING PARTNER Due to temporary technical issues with the PACS/Fluency reporting system, reports are being signed by the in house radiologists without review as a courtesy to insure prompt reporting. The interpreting radiologist is fully responsible for the content of the report.
--- NOTE | 2023-01-30 11:19 | RAD REPORT ---
EXAM DESCRIPTION: CT - Ankle Right Wo Jerson - 01/30/2023 6:15 am CLINICAL HISTORY: The patient is 67 years old and is Female; ankle fracture TECHNIQUE: Axial computed tomography images of the right ankle without intravenous contrast. Sagit amadeo and coronal reformatted images were created and reviewed. This CT exam was performed using one or more of the following dose reduction techniques: automated exposure control, adjustment of the m A and/or kV according to patient size, and/or use of iterative reconstruction technique. COMPARISON: No relevant prior studies available. FINDINGS: BONES/JOINTS: Bones are diffusely osteopenic. Disruption of the ankle mortise is noted with widening of the medial clear space is present. Obliquely oriented displaced distal fibular di aphyseal fracture is present. A small fracture off of the posterior malleolus is present. Small fract ure fragments located within the medial joint space is present and appear to arise from the medial ma lleolus and the talar dome. SOFT TISSUES: Diffuse soft tissue swelling about the ankle is present. IMPRESSION: Fracture dislocation of the ankle as described. Electronically signed by: Lina Rascon MD 01/30/2023 4:04 AM SUPERVISOR TELEPHONE INFORMATION Due to temporary technical issues with the PACS/Fluency reporting system, reports are being signed by the in house radiologists without review as a courtesy to insure prompt reporting. The interpreting radiologist is fully responsible for the content of the report.
--- NOTE | 2023-01-30 12:00 | RAD REPORT ---
EXAM DESCRIPTION: RAD - Chest Single View - 01/30/2023 1:05 am CLINICAL HISTORY: Fall COMPARISON: 11/29/2022 FINDINGS: Single frontal radiograph view of the chest. Cardiomediastinal silhouette: Atherosclerotic calcification of thoracic aorta. Heart is upper limits of normal. Lungs: Low lung volumes. No pneumothorax or large effusion. Minimal bibasilar atelectasis. Bones: No acute osseous abnormality. Upper abdomen: No abnormality identified. IMPRESSION: 1. Low lung volumes with likely mild bibasilar atelectasis. Electronically signed by: Paxton Lindsey 01/30/2023 1:22 AM SECONDARY SCHOOL TEACHER Due to temporary technical issues with the PACS/Fluency reporting system, reports are being signed by the in house radiologists without review as a courtesy to insure prompt reporting. The interpreting radiologist is fully responsible for the content of the report.
[2023-01-30] MEDS ORDERED: Ringers Lactate 1,000 ML IV ONE ×2 (14:24→17:40)
--- NOTE | 2023-01-30 14:37 | CON ---
Date of Consultation: 01/30/2023 Reason For Consultation: Right ankle pain. History Of Present Illness: Jeanine is a 67-year-old female, who normally is nonambulatory and uses a scooter and had a fall last night after getting into the bathroom. She reports that she has not been feeling well and has been weak. She fell sustaining injury to her right ankle and was unable to get up. The patient was brought to the emergency room and had an x-ray, which demonstrated a right dist al fibula fracture. The patient was placed in a splint and admitted for further evaluation. The pat ient had a CAT scan of the right ankle after admission, which demonstrated a subluxation ankle joint. The patient reports no other musculoskeletal complaints at this time. Review of Systems: As above, otherwise negative. Past Medical History: Includes hypertension, history of lung cancer and breast cancer, gout, depress ion, anxiety, lymphedema. Past Surgical History: Includes history of breast mastectomy, right upper lobe removal. Medications: Per medication reconciliation form. Allergies: TO LEVAQUIN AND DEMEROL. Social History: Denies tobacco, alcohol, or drug use. Lives at home. Physical Examination: General: No apparent distress. HEENT: Normocephalic, atraumatic. Neck: Supple. Cardiovascular: Brisk cap refill to all digits. Chest: Nonlabored breathing. Abdomen: Nondistended. Psychiatric: Responsive to exam. Musculoskeletal: Right lower extremity; toes pink, warm with brisk cap refill. Positive fine EHL an d FHL. Splint in place. No pain with range of motion of the hip. No pain with range of motion of t he left lower extremity. Bilateral upper extremities, functional range of motion. No pain. No jose juan s deformities. No obvious dislocations. Diagnostic Studies: X-rays of the right ankle demonstrate a distal fibula fracture with displaced sy ndesmosis and mild subluxation noted on CAT scan. Assessment And Plan: Jeanine is a 67-year-old female with a right ankle fracture with syndesmosis inju ry and right ankle subluxation. Discussed the patient at length risks and benefits associated with o perative and nonoperative treatment. Given the subluxation of the ankle joint, recommend urgent stab ilization. I discussed with the patient possible temporary external fixation given the quality of he r soft tissues versus definitive treatment with open reduction and internal fixation. I discussed wi th the patient risks including infection as well as wounds given the significant trauma to the ankle. She expressed understanding. She will be nonweightbearing to the right lower extremity at this king e. CATRACHO/SAL Voice ID: [id number] Report ID: [id number]
[2023-01-30] MEDS ORDERED: propofoL 200 MG/20 ML VIAL IV ONE (14:59)
[2023-01-30] MEDS ORDERED: FENTANYL CITR 100 MCG/2 ML ONE (15:00)
[2023-01-30] MEDS ORDERED: LIDOCAINE 2% MPF 5 ML VIAL ONE (15:00)
[2023-01-30] MEDS ORDERED: SUCCINYLCHOLINE 20 MG/ML (10 ML) IV ONE (15:03)
--- NOTE | 2023-01-30 15:22 | P.PN ---
Date of Service: 01/30/23 Patient seen and evaluated by Ortho Dr. Flores. Dr. Flores is planning ORIF. Pain management as needed. PT consult after surgery. Hold home medications for now.
[2023-01-30] MEDS: CEFAZOLIN SODIUM 1 GM/VIAL ONE ×2 (15:30→16:12)
[2023-01-30] MEDS ORDERED: ROCURONIUM 50 MG/5 ML VIAL IV ONE (15:41)
[2023-01-30] MEDS ORDERED: Phenylephrine HCl 10 MG/ML 1 ML VIAL ONE (15:49)
[2023-01-30] MEDS ORDERED: dexAMETHasone 10 MG/ML VIAL ONE (16:01)
[2023-01-30] MEDS ORDERED: KETOROLAC 30 MG/ML INJ ONE (16:01)
[2023-01-30] MEDS ORDERED: ONDANSETRON 4 MG/2 ML VIAL ONE ×2 (16:14→17:39)
[2023-01-30] MEDS ORDERED: GLYCOPYRROLATE 0.2 MG/ML SYR ONE (16:52)
[2023-01-30] MEDS ORDERED: NEOSTIGMINE 1 MG/ML -10 ML VIAL ONE (16:52)
--- NOTE | 2023-01-30 17:25 | P.BOP ---
Preoperative diagnosis: right distal fibula fracture, right syndesmosis rupture Postoperative diagnosis: same Primary procedure: open reduction internal fixation right distal fibula fracture Secondary procedure: open reduction internal fixation right syndesmosis Cable Television Access Coordinator: NONE,NONE Estimated blood loss: 30 cc Specimen: none Findings: see dictation Anesthesia: General Complications: None Implants: Acumed distal fibula locking plate Fluids & blood products: per anesthesia record Transferred to: Recovery Room Condition: Good
[2023-01-30] MEDS: HYDROMORPHONE HCL 1 MG/ML INJ ONE ×7 (17:35→18:01)
[2023-01-30] MEDS ORDERED: DOCUSATE NA 100 MG CAP PO PRN (17:45)
[2023-01-30] MEDS ORDERED: TRAMADOL HCL 50 MG TAB PO PRN (17:45)
[2023-01-30] MEDS ORDERED: ACETAMINOPHEN 325 MG TABLET PO PRN (17:45)
[2023-01-30 18:16] LABS: Hematocrit 26.9 % (36.0-45.0)
[2023-01-30] MEDS: CEFAZOLIN SODIUM IVPB SCH ×2 (18:44→23:30)
[2023-01-30] MEDS: NA CHLORIDE 0.9% IVPB SCH ×2 (18:44→23:30)
--- NOTE | 2023-01-30 18:44 | RAD REPORT ---
EXAM DESCRIPTION: RAD - Ankle Right 2 View - 01/30/2023 5:18 pm CLINICAL HISTORY: ankle COMPARISON: None available. FINDINGS: Forty-eight Images were sent to PACS, documenting needle positions during an image guided right ankle fixation procedure. No radiologist was available for the procedure, nor will any image in terpretation he provided. Please refer to the procedural report for additional details. Fluoroscopy time: 6 Minutes. IMPRESSION: Documentation of fluoroscopy utilization as above.
--- NOTE | 2023-01-30 20:50 | RAD REPORT ---
EXAM DESCRIPTION: RAD - Ankle Right 2 View - 01/30/2023 5:56 pm COMPARISON: None. FINDINGS: Two views of the right ankle. Improved alignment of the obliques distal fibular fracture following plate and screw fixation. Fiberg lass cast in place, which limits evaluation of fine bony and soft-tissue detail. Mild widening of the tibiotalar articulation again noted. Tissue swelling about the ankle. Otherwise alignment is seen. IMPRESSION: Improved alignment following open reduction and internal fixation of a distal right fibu lar fracture.
[2023-01-31 04:01] LABS: Specific Gravity > 1.030 (1.005-1.030); Urine Bacteria <20 /HPF (<20); Urine Bilirubin NEGATIVE (Negative); Urine Blood Negative (Negative); Urine Clarity Clear (Clear); Urine Color Yellow (Yellow); Urine Glucose NEGATIVE (Negative); Urine Mucus Slight /HPF (None Seen); Urine Protein 1+ (Negative); Urine RBC <5 /HPF (None Seen); Urine Urobilinogen Normal (Normal); Urine pH 5.5 (5.0-7.0)
[2023-01-31] MEDS: MORPHINE 4 MG/ML SYR IV PRN ×3 (05:18→19:32)
[2023-01-31] MEDS: CEFAZOLIN SODIUM IVPB SCH (05:21)
[2023-01-31] MEDS: NA CHLORIDE 0.9% IVPB SCH (05:21)
[2023-01-31 06:16] LABS: RBC Red Blood Cell Count 2.71 M/uL (3.86-4.86)
[2023-01-31 06:17] LABS: Absolute Lymphocytes (CBC) 0.4 K/uL (0.7-4.9); Hematocrit 25.6 % (36.0-45.0); Lymphocytes % 12.5 % (15.3-44.8); MCV 94.6 fL (80-100); MPV 8.8 fL (7.6-11.3)
[2023-01-31 06:45] LABS: Magnesium 1.6 mg/dL (1.6-2.4); Phosphorus 3.6 mg/dL (2.5-4.9); Potassium 3.9 mmol/L (3.5-5.1); Thyroid Stimulating Hormone 0.321 uIU/mL (0.358-3.740)
[2023-01-31] MEDS: ENOXAPARIN 40 MG/0.4 ML SQ SCH (09:09)
[2023-01-31] MEDS: HYDROCODONE/APAP 7.5/325 MG TAB PO PRN (11:10)
--- NOTE | 2023-01-31 13:08 | P.PN ---
Subjective Date of Service: 01/31/23 Primary Care Provider: Jorgito Chief Complaint: Displaced Fibula Fracture Patient has no new complaint. No issues overnight. Stated her pain is well controlled. Physical Examination - Vital Signs Temperature: 97.6 F Blood Pressure: 177/75 Pulse: 86 Respirations: 18 Pulse Ox (%): 96 Assessment And Plan - Current Problems (Diagnosis) (1) Fibula fracture Current Visit: Yes Status: Acute Qualifiers: Encounter type: initial encounter Fibula location: distal Fracture type: closed Fracture morphology: other fracture Laterality: right Qualified Code(s): S82.831A - Other fracture of upper and lower end of right fibula, init ial encounter for closed fracture (2) Acquired lymphedema of leg Current Visit: Yes Status: Chronic (3) Hypertension Current Visit: Yes Status: Chronic Qualifiers: Hypertension type: primary hypertension Qualified Code(s): I10 - Essential (primary) hypertension (4) Obesity Current Visit: Yes Status: Chronic Qualifiers: Obesity type: due to excess calories Obesity classification: adult class 3 (BMI >= 40) Serious obesity comorbidity presence: without serious comorbidity Body mass index: BMI 60.0-69.9 Qualified Code(s): E66.01 - Morbid (severe) obesity due to excess calories; Z68.44 - Body mass index [BMI] 60.0-69.9, adult; Z68.44 - Body mass index [BMI] 60.0-69.9, adult - Plan Physical Exam General: Alert, In no apparent distress, Obese HEENT: Atraumatic, EOMI, Sclerae nonicteric Neck: Supple, 2+ carotid pulse no bruit Respiratory: Clear to auscultation bilaterally, Normal air movement Cardiovascular: Regular rate/rhythm, Normal S1 S2 Gastrointestinal: Normal bowel sounds, No tenderness Musculoskeletal: Right lower extremity in a cast. Integumentary: No rashes Neurological: Normal speech, no focal motor deficit. Plan: Status post ORIF right fibula. Patient is currently nonweightbearing. She is morbidly obese with poor functional status at baseline. She will need aggressive PT. Pain management as needed. Continue home medication for hypertension. Monitor and optimize electrolytes. PT consult. Monitor and transfuse as needed for hemoglobin less than 7. Anticipating disposition to skilled rehab. DVT prophylaxis: Subcutaneous Lovenox for now.
[2023-01-31] MEDS: GABAPENTIN 300 MG CAP PO SCH (19:31)
--- NOTE | 2023-01-31 23:41 | OP ---
Date of Procedure: 01/30/2023 Surgeon: Vineet Flores MD Preoperative Diagnoses: 1. Right ankle distal fibula fracture. 2. Right ankle syndesmosis injury. Postoperative Diagnoses: 1. Right ankle distal fibula fracture. 2. Right ankle syndesmosis injury. Procedures Performed: 1. Open reduction and internal fixation, right distal fibular fracture. 2. Open reduction and internal fixation, right syndesmosis injury. Anesthesia: General endotracheal. Fluids: Per Anesthesia record. Estimated Blood Loss: 30 cc. Complications: None. Implants: Acumed distal fibula locking plate. Indication For Procedure: Jeanine is a 67-year-old female, who presented to the ER after sustaining a fall while trying to transfer to the bathroom. The patient sustained a twisting injury to her right ankle and was unable to bear weight. The patient had x-rays and CAT scan, which demonstrated a right distal fibular fracture with syndesmosis. I discussed with the patient at length risks and benefits associated with operative and nonoperative treatment. Given her morbid obesity, I also discussed possibility of increased perioperative complications including infection and she expressed understanding. We discussed possible external fixation versus open reduction and internal fixation. The patient expressed understanding and elected to proceed with operative treatment. Description Of Procedure: After informed consent was obtained, the patient was identified in the preoperative holding area. The right lower extremity was marked. The patient was then brought back to the operating room, transferred to the operating table in a supine fashion, and placed under general endotracheal anesthesia. The right lower extremity was then prepped and draped in usual sterile fashion. A time-out was initiated. The correct patient and procedure were confirmed and identified. The patient received preoperative prophylactic antibiotics. The right lower extremity was then exsanguinated and tourniquet was inflated to 300 mmHg. It was noted that it was a venous tourniquet without adequate compression of the right lower extremity, likely secondary to the size of her leg and at that point, the tourniquet was let down. Bovie electrocautery was then used to aid with hemostasis. Approximately, a 12 cm longitudinal incision was made and centered over the distal fibula. Dissection was then taken down to the distal fibula. The ankle was held reduced and an Acumed distal fibular locking plate was then placed. There was overall good reduction of the syndesmosis as well as the distal fibular fracture. Screws were then placed proximally just proximal to the fracture in bicortical fashion as well as distally and using locking screws in unicortical fashion. There was overall good alignment of the fracture as well as the ankle mortise. There was noted to be disruption of the syndesmosis with some instability of the syndesmosis. A stab incision was then medially and a paraarticular reduction clamp was then placed to help reduce the syndesmosis. Two 3.5 mm cortical screws were placed through the distal fibular plate and into the distal tibia across 4 cortices to help reduce the syndesmosis and fixate it. There was overall good reduction in syndesmosis and it was stable. Wounds were then irrigated thoroughly with normal saline. Subcutaneous tissue was approximated using a 2-0 Vicryl. Skin was approximated using a 3-0 nylon. Sterile dressings were applied. The patient was placed in a posterior and stirrup splint. The patient was awakened and transferred to PACU in stable condition. Postoperative Plan: The patient will be nonweightbearing on the right lower extremity for 2 months. Physical Therapy will be consulted today with mobilization for transfers only and she will follow up in my clinic in 2 weeks for suture removal. CATRACHO/MODL Voice ID: [id number] Report ID: [id number]
[2023-02-01] MEDS: HYDROCODONE/APAP 7.5/325 MG TAB PO PRN (00:40)
[2023-02-01 06:17] LABS: Hematocrit 23.7 % (36.0-45.0)
[2023-02-01 06:31] LABS: Potassium 3.9 mmol/L (3.5-5.1)
[2023-02-01] MEDS: SOLIFENACIN SUCCIN 5 MG TAB PO SCH (09:19)
[2023-02-01] MEDS: LOSARTAN POTASSIUM 50 MG TABLET PO SCH (09:19)
[2023-02-01] MEDS: allopurinoL 100 MG TAB PO SCH (09:19)
[2023-02-01] MEDS: ENOXAPARIN 40 MG/0.4 ML SQ SCH (09:19)
[2023-02-01] MEDS: GABAPENTIN 300 MG CAP PO SCH ×2 (09:19→21:27)
[2023-02-01] MEDS: SERTRALINE HCL 100 MG TAB PO SCH (09:19)
[2023-02-01] MEDS: MORPHINE 4 MG/ML SYR IV PRN ×2 (09:27→18:58)
--- NOTE | 2023-02-01 14:19 | P.PN ---
Subjective Date of Service: 02/01/23 Primary Care Provider: Jorgito Chief Complaint: Displaced Fibula Fracture Patient has no new complaint. No issues overnight. Physical Examination - Vital Signs Temperature: 97.8 F Blood Pressure: 135/61 Pulse: 88 Respirations: 18 Pulse Ox (%): 97 Assessment And Plan - Current Problems (Diagnosis) (1) Fibula fracture Current Visit: Yes Status: Acute Qualifiers: Encounter type: initial encounter Fibula location: distal Fracture type: closed Fracture morphology: other fracture Laterality: right Qualified Code(s): S82.831A - Other fracture of upper and lower end of right fibula, initial encounter for closed fracture (2) Acquired lymphedema of leg Current Visit: Yes Status: Chronic (3) Hypertension Current Visit: Yes Status: Chronic Qualifiers: Hypertension type: primary hypertension Qualified Code(s): I10 - Essential (primary) hypertension (4) Obesity Current Visit: Yes Status: Chronic Qualifiers: Obesity type: due to excess calories Obesity classification: adult class 3 (BMI >= 40) Serious obesity comorbidity presence: without serious comorbidity Body mass index: BMI 60.0-69.9 Qualified Code(s): E66.01 - Morbid (severe) obesity due to excess calories; Z68.44 - Body mass index [BMI] 60.0-69.9, adult; Z68.44 - Body mass index [BMI] 60.0-69.9, adult - Plan Physical Exam General: Alert, In no apparent distress, Obese HEENT: Atraumatic, EOMI, Sclerae nonicteric Neck: Supple, 2+ carotid pulse no bruit Respiratory: Clear to auscultation bilaterally, Normal air movement Cardiovascular: Regular rate/rhythm, Normal S1 S2 Gastrointestinal: Normal bowel sounds, No tenderness Musculoskeletal: Right lower extremity in a cast. Integumentary: No rashes Neurological: Normal speech, no focal motor deficit. Plan: Status post ORIF right fibula. Currently nonweightbearing. She is morbidly obese with poor functional status at baseline. She will need aggressive PT. Pain management as needed. Continue home medication for hypertension. Monitor and optimize electrolytes. Continue PT Monitor and transfuse as needed for hemoglobin less than 7. Anticipating disposition to skilled rehab. DVT prophylaxis: Subcutaneous Lovenox.
--- NOTE | 2023-02-01 18:29 | RAD REPORT ---
EXAM DESCRIPTION: RAD - Chest Single View - 02/01/2023 6:18 pm CLINICAL HISTORY: Shortness of breath, cough Chest pain. COMPARISON: Chest Single View dated 01/30/2023; Chest Pa And Lat (2 Views) dated 11/30/2019 FINDINGS: Portable technique limits examination quality. The lungs are grossly clear. Chronic right-sided pleural thickening. The heart is mildly enlarged in size. IMPRESSION: No acute intrathoracic process suspected.
[2023-02-01] MEDS: CEFEPIME 1 GM in NA CHLORIDE 0.9% 100 ML IV SCH (18:33)
[2023-02-02] MEDS: MORPHINE 4 MG/ML SYR IV PRN (05:36)
[2023-02-02 07:01] LABS: Hematocrit 22.8 % (36.0-45.0)
--- NOTE | 2023-02-02 08:10 | P.PN ---
Subjective Date of Service: 01/31/23 Primary Care Provider: Jorgito Chief Complaint: s/p ORIF Subjective: No C/O voiced pain controlled Physical Examination - Vital Signs Temperature: 97.5 F Blood Pressure: 116/54 Pulse: 97 Respirations: 18 Pulse Ox (%): 96 - Physical Exam General: Alert, In no apparent distress Musculoskeletal: Other (RLE: splint c/d/i without significant drainage; +EHL/FHL; sensation grossly intact distally) Assessment And Plan - Plan Jeanine is a 67-year-old female status post ORIF of her right ankle fracture. -Patient will be nonweightbearing of her right lower extremity -PT to mobilize for transfers -anticipate discharge to SNF -May follow-up in my clinic in 2 weeks for repeat x-rays and suture removal -will be nonweightbearing for 2 months Physician Review: Patient Assessed, Agree with Above Assessment and Plan
--- NOTE | 2023-02-02 08:11 | P.PN ---
Subjective Date of Service: 02/02/23 Primary Care Provider: Jorgito Chief Complaint: s/p ORIF Subjective: No C/O voiced pain controlled Physical Examination - Vital Signs Temperature: 97.5 F Blood Pressure: 116/54 Pulse: 97 Respirations: 18 Pulse Ox (%): 96 - Physical Exam General: Alert, In no apparent distress Musculoskeletal: Other (RLE: splint c/d/i; +EHL/FHL; sensation grossly intact distally) Assessment And Plan - Plan Jeanine is a 67-year-old female status post ORIF of her right ankle fracture POD #3 -Patient will be nonweightbearing of her right lower extremity; NWB x 2 months -PT to mobilize for transfers -anticipate discharge to SNF -May follow-up in my clinic in 2 weeks for repeat x-rays and suture removal Physician Review: Patient Assessed, Agree with Above Assessment and Plan
[2023-02-02] MEDS: CEFEPIME 1 GM in NA CHLORIDE 0.9% 100 ML IV SCH (09:38)
[2023-02-02] MEDS: allopurinoL 100 MG TAB PO SCH (09:39)
[2023-02-02] MEDS: SOLIFENACIN SUCCIN 5 MG TAB PO SCH (09:39)
[2023-02-02] MEDS: ENOXAPARIN 40 MG/0.4 ML SQ SCH (09:39)
[2023-02-02] MEDS: LOSARTAN POTASSIUM 50 MG TABLET PO SCH (09:39)
[2023-02-02] MEDS: SERTRALINE HCL 100 MG TAB PO SCH (09:39)
[2023-02-02] MEDS: GABAPENTIN 300 MG CAP PO SCH ×2 (09:39→20:48)
--- NOTE | 2023-02-02 12:55 | P.PN ---
Subjective Date of Service: 02/02/23 Primary Care Provider: Jorgiot Chief Complaint: s/p ORIF Patient has no new complaint. She is tolerating her diet. She has not been able to get out of bed. Physical Examination - Vital Signs Temperature: 98.0 F Blood Pressure: 116/56 Pulse: 101 Respirations: 16 Pulse Ox (%): 95 Assessment And Plan - Current Problems (Diagnosis) (1) Fibula fracture Current Visit: Yes Status: Acute Qualifiers: Encounter type: initial encounter Fibula location: distal Fracture type: closed Fracture morphology: other fracture Laterality: right Qualified Code(s): S82.831A - Other fracture of upper and lower end of right fibula, initial encounter for closed fracture (2) Acquired lymphedema of leg Current Visit: Yes Status: Chronic (3) Hypertension Current Visit: Yes Status: Chronic Qualifiers: Hypertension type: primary hypertension Qualified Code(s): I10 - Essential (primary) hypertension (4) Obesity Current Visit: Yes Status: Chronic Qualifiers: Obesity type: due to excess calories Obesity classification: adult class 3 (BMI >= 40) Serious obesity comorbidity presence: without serious comorbidity Body mass index: BMI 60.0-69.9 Qualified Code(s): E66.01 - Morbid (severe) obesity due to excess calories; Z68.44 - Body mass index [BMI] 60.0-69.9, adult; Z68.44 - Body mass index [BMI] 60.0-69.9, adult - Plan Physical Exam General: Alert, In no apparent distress, Obese HEENT: Atraumatic, EOMI, Sclerae nonicteric Neck: Supple, 2+ carotid pulse no bruit Respiratory: Clear to auscultation bilaterally, Normal air movement Cardiovascular: Regular rate/rhythm, Normal S1 S2 Gastrointestinal: Normal bowel sounds, No tenderness Musculoskeletal: Right lower extremity in a cast. Integumentary: No rashes Neurological: Normal speech, no focal motor deficit. Plan: Status post ORIF right fibula. Currently nonweightbearing on the right leg She is morbidly obese with poor functional status at baseline. She will need aggressive PT. She is doing only bed mobility Pain management as needed. Continue home medication for hypertension. Continue PT Monitor and transfuse as needed for hemoglobin less than 7. Anticipating disposition to skilled rehab. DVT prophylaxis: Subcutaneous Lovenox.
--- NOTE | 2023-02-02 13:15 | EKG ---
Test Date: 2023-01-30 Test Time: 01:25:05 Component Assembler: JARAD MEASUREMENT RESULTS: Intervals: Rate: 89 CT: 176 QRSD: 84 QT: 362 QTc: 440 [place]: P: -8 CT: 176 QRS: 57 T: 54 INTERPRETIVE STATEMENTS: Normal sinus rhythm Nonspecific ST abnormality Abnormal ECG Compared to ECG 11/30/2019 15:56:55 ST (T wave) deviation now present Electronically Signed On 02-02-23 13:08:31 CDT by Jimy Payan
[2023-02-02] MEDS: HYDROCODONE/APAP 7.5/325 MG TAB PO PRN (16:58)
[2023-02-02] MEDS: CEFUROXIME 250 MG TAB PO SCH (20:48)
--- NOTE | 2023-02-02 21:43 | P.PN ---
Date of Service: 02/03/23 Subjective: persistent cough; "feels sick" Feels about the same - not worse / not better pain of leg, non-weightbearing ROS: 10 point ROS as noted above, otherwise negative Physical Exam: Gen: Alert, NAD, AOx3 HEENT: normal conjunctiva, sclera anicteric CV: regular rate & rhythm, no edema Pulm: cough, mild labored respirations on room air, b/l crackles and diminished at bases bilaterally Abd: soft, non-tender, non-distended MSK: RLE: splint c/d/i Neuro: normal speech, normal affect, moves all extremities vitals reviewed Problem List: Fibula fracture COVID+ Lymphedema of leg Chronic Hypertension Obesity acute on chronic anemia, blood loss Post ORIF right fibula 01/30 continue PT currently only bed mobility /nonweightbearing approved for SNF Pain medication as needed Continue home medication for hypertension transfuse as needed for hemoglobin if <7 hgb downtrended perioperatively, no obvious bleed, no ongoing bleed, hgb stabilizing COVID+ Ongoing cough and some shortness of breath, not significantly worse or better since her hospitalization Patient with some mild bilateral crackles and diminished breath sounds at bases bilaterally Borderline hypoxic Currently receiving antibiotics for the last 2 to 3 days Start Paxlovid 02/03 Chest x-ray pulm consult VTE: Lovenox Code: Full Dispo: SNF, ~24-48hrs approved 02/03, however worsenign respiratory status delaying discharge
[2023-02-03 05:08] LABS: Hematocrit 22.2 % (36.0-45.0)
[2023-02-03 05:20] LABS: Potassium 3.9 mmol/L (3.5-5.1)
[2023-02-03] MEDS: ENOXAPARIN 40 MG/0.4 ML SQ SCH (08:12)
[2023-02-03] MEDS: allopurinoL 100 MG TAB PO SCH (08:12)
[2023-02-03] MEDS: LOSARTAN POTASSIUM 50 MG TABLET PO SCH (08:12)
[2023-02-03] MEDS: SERTRALINE HCL 100 MG TAB PO SCH (08:12)
[2023-02-03] MEDS: CEFUROXIME 250 MG TAB PO SCH ×2 (08:12→20:57)
[2023-02-03] MEDS: GABAPENTIN 300 MG CAP PO SCH ×2 (08:12→20:57)
[2023-02-03] MEDS: SOLIFENACIN SUCCIN 5 MG TAB PO SCH (08:12)
[2023-02-03] MEDS: HYDROCODONE/APAP 7.5/325 MG TAB PO PRN ×2 (08:12→20:56)
--- NOTE | 2023-02-03 16:01 | RAD REPORT ---
EXAM DESCRIPTION: Rik Single View02/03/2023 3:33 pm CLINICAL HISTORY: cough COMPARISON: February 01, 2023 FINDINGS: [id number] bilateral pulmonary opacities. The heart is mildly enlarged IMPRESSION: Mild to moderate bilateral pulmonary opacities may indicate pneumonia
[2023-02-03] MEDS: dexAMETHasone 4 MG TAB PO SCH (17:00)
[2023-02-03] MEDS: NIRMATRELVIR/RITONAVIR TABLET PO SCH (20:56)
[2023-02-04 03:32] LABS: Absolute Lymphocytes (CBC) 0.4 K/uL (0.7-4.9); Hematocrit 21.3 % (36.0-45.0); Lymphocytes % 24.1 % (15.3-44.8); RBC Red Blood Cell Count 2.27 M/uL (3.86-4.86)
[2023-02-04 03:55] LABS: AST/SGOT 21 U/L (15-37); Alkaline Phosphatase 33 U/L (45-117); BUN Blood Urea Nitrogen 17 mg/dL (7-18); Bicarbonate 33 mmol/L (21-32); Bilirubin Total 0.5 mg/dL (0.2-1.0); Ferritin 106.8 ng/mL (8-388); Glomerular Filtration Rate 91 ml/min (=/>90); Glucose Level 195 mg/dL (74-106); Potassium 3.8 mmol/L (3.5-5.1); Protein, Total 4.9 g/dL (6.4-8.2); Sodium Level 140 mmol/L (136-145); Transferrin 121 mg/dL (200-360)
[2023-02-04 04:01] LABS: ALT/SGPT < 10 U/L (13-56)
[2023-02-04] MEDS: HYDROCODONE/APAP 7.5/325 MG TAB PO PRN (05:10)
--- NOTE | 2023-02-04 07:03 | P.PN ---
Date of Service: 02/04/23 Subjective: feels cough and breathing is slightly improved no worsening, nothing new ROS: 10 point ROS as noted above, otherwise negative Physical Exam: Gen: Alert, NAD, AOx3 HEENT: normal conjunctiva, sclera anicteric CV: regular rate & rhythm, no edema Pulm: cough, non-labored respirations on 2L, b/l crackles and diminished at bases bilaterally Abd: soft, non-tender, non-distended MSK: RLE: splint c/d/i Neuro: normal speech, normal affect, moves all extremities vitals reviewed Problem List: R Fibula fracture s/p ORIF COVID-19 pneumonia Lymphedema of leg Chronic Hypertension Obesity acute on chronic anemia, blood loss and iron deficiency Post ORIF right fibula 01/30 continue PT currently only bed mobility /nonweightbearing approved for SNF - possibly tomorrow 02/05 Pain medication as needed Continue home medication for hypertension transfuse as needed for hemoglobin if <7 hgb downtrended perioperatively, no obvious bleed, no ongoing bleed, hgb stabilizing workup consistent with iron deficiency, denies prior iron deficiency diagnosis, >5 yrs ago was on chemo, and told anemic from that denies black stool, denies bleed anywhere else COVID-19 pneumonia h/o R partial lobectomyh Ongoing cough and some shortness of breath CXR with b/l opacities Patient with some mild bilateral crackles and diminished breath sounds at bases bilaterally hypoxic Currently receiving antibiotics for the last 2 to 3 days Started Paxlovid 02/03 Chest x-ray shows improvement in aeration of mid-lower lungs pulm consulted VTE: Lovenox Code: Full Dispo: SNF, ~24-48hrs approved 02/03, however worsening respiratory status delaying discharge now improving, possibly dc tomorrow
--- NOTE | 2023-02-04 08:08 | RAD REPORT ---
EXAM DESCRIPTION: RADChest Single View02/04/2023 6:02 am CLINICAL HISTORY: covid, f/u opacities, hypoxia COMPARISON: Chest Single View dated 02/03/2023; Chest Single View dated 02/01/2023; Chest Single View dated 01/30/2023; Chest Pa And Lat (2 Views) dated 11/30/2019 TECHNIQUE: Portable AP view of the chest. FINDINGS: Interval improvement of aeration in the mid to lower lungs. No new focal airspace opacitie s. No pneumothorax or effusion. The cardiomediastinal contours are unremarkable. IMPRESSION: Interval improvement of aeration in the mid to lower lungs.
[2023-02-04] MEDS: NIRMATRELVIR/RITONAVIR TABLET PO SCH ×2 (09:18→21:44)
[2023-02-04] MEDS: GABAPENTIN 300 MG CAP PO SCH ×2 (09:19→21:45)
[2023-02-04] MEDS: SOLIFENACIN SUCCIN 5 MG TAB PO SCH (09:19)
[2023-02-04] MEDS: allopurinoL 100 MG TAB PO SCH (09:20)
[2023-02-04] MEDS: SERTRALINE HCL 100 MG TAB PO SCH (09:20)
[2023-02-04] MEDS: dexAMETHasone 4 MG TAB PO SCH ×2 (09:20→17:00)
[2023-02-04] MEDS: CEFUROXIME 250 MG TAB PO SCH ×2 (09:20→21:45)
[2023-02-04] MEDS: LOSARTAN POTASSIUM 50 MG TABLET PO SCH (09:20)
[2023-02-04] MEDS: ENOXAPARIN 40 MG/0.4 ML SQ SCH (09:21)
[2023-02-04] MEDS: SOD FERRIC GLUC COMPLX/SUCROSE 125 MG in NA CHLORIDE 0.9% 100 ML IV SCH (11:36)
--- NOTE | 2023-02-04 12:41 | P.CNS ---
Date of Consult: 02/04/23 Reason for Consult: Coronavirus pneumonia Primary Care Provider: Jorgito Chief Complaint: Coronavirus pneumonia History of Present Illness: Patient is 66 years of age for medical problems including obesity hypertension admitted with a fall she had an open reduction of her tibial fracture said positive for coronavirus complaining of cough and congestion some interstitial changes suggestive of COVID infection no prior history of cardiopulmonary problem Allergies levofloxacin [From Levaquin] Allergy (Verified 11/30/19 15:52) Rash meperidine [From Demerol] Adverse Reaction (Verified 11/30/19 15:52) body jerking Home Medications: Allopurinol 100 mg PO DAILY 01/30/23 Gabapentin 300 mg PO DAILY 01/30/23 Gabapentin 600 mg PO BEDTIME 01/30/23 Hydrocodone 10/APAP 325 [[place] [address]] 1 tab PO Q12HP PRN 01/30/23 Losartan Potassium [Cozaar] 50 mg PO DAILY 01/30/23 Sertraline [Zoloft] 200 mg PO DAILY 01/30/23 Solifenacin [Vesicare] 10 mg PO DAILY 01/30/23 - Past Medical/Surgical History Diabetic: No -: Hypertension -: Lung Cancer in remission -: Breast Cancer in remission -: Depression & Anxiety -: Gout -: Lymphadema -: Right upper lobe removal -: Bilateral mastectomy Psychosocial/ Personal History: Patient lives at home alone. - Family History Mother Medical History: Hypertension, Stroke Notes: depression. HLD Father Medical History: Other (see notes) Notes: Alzheimer's - Social History Smoking Status: Unknown if ever smoked Alcohol use: No CD- Drugs: No Caffeine use: No Place of Residence: Home Review of Systems 10-point ROS is otherwise unremarkable General: Weakness Respiratory: Cough Physical Examination Temp Pulse Resp BP Pulse Ox 97.4 F 80 14 149/62 H 100 02/04/23 12:00 02/04/23 12:00 02/04/23 12:00 02/04/23 12:00 02/04/23 12:00 General: Alert, In no apparent distress, Oriented x3 Respiratory: Clear to auscultation bilaterally Cardiovascular: No edema, Normal S1 S2 Gastrointestinal: Normal bowel sounds, Soft and benign - Problems (1) 2019 novel coronavirus-infected pneumonia (NCIP) Current Visit: Yes Status: Acute Plan: Patient is 67 years of age admitted with a fall had open reduction of her tibial fracture on the right side complaining of some cough some shortness of breath just tested positive for coronavirus interstitial changes on chest x-ray signs are stable patient is on Paxlovid and low-dose Decadron vital signs are stable daily room air pulse ox physical therapy chemistries reviewed mildly anemic medication list reviewed no change
[2023-02-04 21:36] VITALS: O2SAT 93
[2023-02-05 03:34] LABS: Absolute Lymphocytes (CBC) 0.5 K/uL (0.7-4.9); Hematocrit 22.6 % (36.0-45.0); Lymphocytes % 19.3 % (15.3-44.8); MCV 93.4 fL (80-100); MPV 9.4 fL (7.6-11.3); RBC Red Blood Cell Count 2.42 M/uL (3.86-4.86)
[2023-02-05 04:00] LABS: C-Reactive Protein 47.6 mg/L (<3.00); Potassium 4.4 mmol/L (3.5-5.1)
[2023-02-05] MEDS: dexAMETHasone 4 MG TAB PO SCH (09:04)
[2023-02-05] MEDS: SOD FERRIC GLUC COMPLX/SUCROSE 125 MG in NA CHLORIDE 0.9% 100 ML IV SCH (09:04)
[2023-02-05] MEDS: CEFUROXIME 250 MG TAB PO SCH (09:05)
[2023-02-05] MEDS: ENOXAPARIN 40 MG/0.4 ML SQ SCH (09:05)
[2023-02-05] MEDS: SOLIFENACIN SUCCIN 5 MG TAB PO SCH (09:05)
[2023-02-05] MEDS: allopurinoL 100 MG TAB PO SCH (09:05)
[2023-02-05] MEDS: LOSARTAN POTASSIUM 50 MG TABLET PO SCH (09:05)
[2023-02-05] MEDS: GABAPENTIN 300 MG CAP PO SCH (09:06)
[2023-02-05] MEDS: SERTRALINE HCL 100 MG TAB PO SCH (09:06)
--- NOTE | 2023-02-05 11:32 | P.DS ---
Admission Date: 01/30/23 Discharge Date: 02/05/23 Primary Care Provider: Jorgito Disposition: TRANSFER TO SNF - MEDICAL Discharge Condition: FAIR Reason for Admission: Coronavirus pneumonia Consultations: Orthopedics - Dr. Flores Pulmonology - Dr. Singh Brief History of Present Illness: Patient is a 67 year old female with morbid obesity, lymphadema, hypertension, gout, and history of falls who presented to the emergency department via EMS after a fall she sustained at home. Patient states that she ambulates with an electric wheelchair and walker but tried to go a short distance to the toilet and slipped in the interim. She was found to have a nondisplaced fracture of the proximal fibula and mildly displaced fracture of the distal fibula which was splinted in the emergency department. Dr. Flores was contacted and has agreed to consult. Pancytopenia noted on lab work. Patient is admitted for further management. Hospital Course: Problem List: R Fibula fracture s/p ORIF COVID-19 pneumonia Lymphedema of leg Chronic Hypertension Obesity acute on chronic anemia, blood loss and iron deficiency Underwent ORIF by Dr. Flores on 01/30. pain medication as needed. Post-operatively patient's hemoglobin trended down from 9s to 7s and remained stable. No evidence of ongoing bleed. Workup consistent with iron deficiency anemia. Patient transfused IV iron, and had improvement of hemoglobin. Recommend daily iron supplementation. Patient tested positive for COVID-19 and had cough, shortness of breath and x- ray findings consistent with mild covid pneumonia. Pulmonology was consulted. She was started on low dose decadron and paxlovid (02/03). To complete the course of paxlovid and 1 week of decadron. She had improvement of all her symptoms. Deemed stable for discharge to SNF for ongoing physical therapy and monitoring. Vital Signs/Physical Exam: Temp Pulse Resp BP Pulse Ox 97.7 F 59 16 164/59 H 93 02/05/23 08:00 02/05/23 08:00 02/05/23 08:00 02/05/23 08:00 02/05/23 08:00 Physical Exam: Gen: Alert, NAD, AOx3 HEENT: normal conjunctiva, sclera anicteric CV: regular rate & rhythm, no edema Pulm: mild cough, non-labored respirations on room air, diminished at bases bilaterally Abd: soft, non-tender, non-distended MSK: RLE: splint c/d/i Neuro: normal speech, normal affect Laboratory Data at Discharge: WBC 2.60 K/uL (4.3-10.9) L 02/05/23 03:01 Hgb 7.8 g/dL (12.0-15.0) L D 02/05/23 03:01 Hct 22.6 % (36.0-45.0) L 02/05/23 03:01 Plt Count 160 thou/uL (152-406) D 02/05/23 03:01 Sodium 140 mmol/L (136-145) 02/05/23 03:01 Potassium 4.4 mmol/L (3.5-5.1) D 02/05/23 03:01 BUN 16 mg/dL (7-18) 02/05/23 03:01 Creatinine 0.74 mg/dL (0.55-1.02) 02/05/23 03:01 Glucose 179 mg/dL (74-106) H 02/05/23 03:01 Phosphorus 3.6 mg/dL (2.5-4.9) 01/31/23 06:09 Magnesium 1.6 mg/dL (1.6-2.4) 01/31/23 06:09 Total Bilirubin 0.5 mg/dL (0.2-1.0) 02/04/23 02:35 AST 21 U/L (15-37) 02/04/23 02:35 ALT < 10 U/L (13-56) L 02/04/23 02:35 Alkaline Phosphatase 33 U/L (45-117) L 02/04/23 02:35 Triglycerides 79 mg/dL (<150) 01/31/23 06:09 Cholesterol 167 mg/dL (<200) 01/31/23 06:09 HDL Cholesterol 43 mg/dL (40-60) 01/31/23 06:09 Cholesterol/HDL Ratio 3.88 01/31/23 06:09 Home Medications: Allopurinol 100 mg PO DAILY 01/30/23 Gabapentin 300 mg PO DAILY 01/30/23 Gabapentin 600 mg PO BEDTIME 01/30/23 Hydrocodone 10/APAP 325 [[place] 10/325*] 1 tab PO Q12HP PRN 01/30/23 Losartan Potassium [Cozaar*] 50 mg PO DAILY 01/30/23 Sertraline [Zoloft*] 200 mg PO DAILY 01/30/23 Solifenacin [Vesicare*] 10 mg PO DAILY 01/30/23 Cefuroxime [Ceftin*] 500 mg PO BID 5 Days tab 02/05/23 Docusate [Colace Cap*] 200 mg PO DAILY PRN cap 02/05/23 dexAMETHasone [Decadron*] 2 mg PO BIDL tab 02/05/23 Physician Discharge Instructions: Problem List: R Fibula fracture s/p ORIF COVID-19 pneumonia Lymphedema of leg Chronic Hypertension Obesity acute on chronic anemia, blood loss and iron deficiency Underwent ORIF by Dr. Flores on 01/30. pain medication as needed. Post-operatively patient's hemoglobin trended down from 9s to 7s and remained stable. No evidence of ongoing bleed. Workup consistent with iron deficiency anemia. Patient transfused IV iron, and had improvement of hemoglobin. Recommend daily iron supplementation. Patient tested positive for COVID-19 and had cough, shortness of breath and x- ray findings consistent with mild covid pneumonia. Pulmonology was consulted. She was started on low dose decadron and paxlovid (02/03). To complete the course of paxlovid and 1 week of decadron. She had improvement of all her symptoms. Deemed stable for discharge to SNF for ongoing physical therapy and monitoring. Followup: Etienne Bull DO [Primary Care Provider] - Time spent managing pt's care (in minutes): 45
[2023-02-05 13:01] VITALS: BP 136/61; TEMP 98.2
[2023-02-05] MEDS: NIRMATRELVIR/RITONAVIR TABLET PO SCH (13:56)
== END 2023-02-05 14:59 | DRG 492 ==
LOC: ER 23:27 → 2ND 01-30 02:05
PROVIDERS: ADMIT Internal Medicine; ATTEND Hospitalist
PROC: 0QSJ04Z Reposition Right Fibula with Internal Fixation Device, Open Approach (ICD-10-PCS; principal; 2023-01-30 15:30)
DX: S82.831A Other fracture of upper and lower end of right fibula, initial encounter for closed fracture (principal); J12.82 Pneumonia due to coronavirus disease 2019; U07.1 COVID-19; D61.818 Other pancytopenia; Z68.44 Body mass index [BMI] 60.0-69.9, adult; D62 Acute posthemorrhagic anemia; E66.01 Morbid (severe) obesity due to excess calories; M10.9 Gout, unspecified; I10 Essential (primary) hypertension; I89.0 Lymphedema, not elsewhere classified; S93.401A Sprain of unspecified ligament of right ankle, initial encounter; Z88.8 Allergy status to other drugs, medicaments and biological substances; Z85.3 Personal history of malignant neoplasm of breast; Z60.2 Problems related to living alone; Z88.5 Allergy status to narcotic agent; Z90.13 Acquired absence of bilateral breasts and nipples; Z91.81 History of falling; Z85.118 Personal history of other malignant neoplasm of bronchus and lung; W01.0XXA Fall on same level from slipping, tripping and stumbling without subsequent striking against object, initial encounter; Y93.01 Activity, walking, marching and hiking; Y92.012 Bathroom of single-family (private) house as the place of occurrence of the external cause
CPT/HCPCS: 36415; 71045; 73700; 80048; 80053; 80061; 81001; 82728; 83540; 83735; 83880; 84100; 84443; 84466; 84484; 85014; 85018; 85025; 85044; 86140; 87086; 87088; 87811; 93005; 94010; 96374; 96375; 97110; 97161; 97530; 99285; J0690; J0692; J1100; J1170; J1650; J2001; J2370; J2405; J2704; J2710; J2916; J3010; J7120; J8540; U0003

== ENCOUNTER 2023-02-27 20:50 | Inpatient (IN) | payer OTHER ==
--- OUTSIDE RECORDS SUMMARY | 2023-02-27 20:59 | XMS REPORT | Continuity of Care Document ---
:1955 Author Organization [facility] t Address [address] [place] [address] [place] [address] Care Team Providers Name Role Phone RY MARIBEL Primary Care Physician Unavailable Solo Bull Attending Clinician Unavailable Erna Patel Attending Clinician Unavailable MARIBEL RAZA Attending Clinician Unavailable Nereida Sierra MD Attending Clinician NEREIDA SIERRA Attending Clinician Unavailable Josie Alvarez Attending Clinician Doctor Unassigned, [place] Attending Clinician Unavailable FRANCES BECKER Attending Clinician Unavailable Frances Becker Attending Clinician Andrzej Moulton Attending Clinician ANDRZEJ MOULTON Attending Clinician Unavailable SOLO BULL Admitting Clinician Unavailable JOSIE GALLARDO Admitting Clinician Unavailable NEREIDA SIERRA Admitting Clinician Unavailable FRANCES BECKER Admitting Clinician Unavailable Payers Payer Name Policy Type Policy Effective Date Expiration Date Sour ce Number MEDICARE A B [id number] 2016 00:00:00 MEDICARE PART A [id number] 2016 \\T\\ B 00:00:00 [place] [facility] [id number] 2021 00:00:00 MEDICARE GINA VINCENT [id number] Common [facility] Aet[employer] Supplement C1 [id number] 2021 Common S pirit Plan 00:00:00 [facility] Problems Condition Condition Condition Status Onset Resolution Last Treating Co mments Source Name Details Category Date Date Treatment Clinician Date Lymphedema Lymphedema Disease Active U nivers of lower [facility] [place] 02-18 [place] LYMPHEDEMA LYMPHEDEM Diagnosis Active 2020-02-06 Memoria A Active 01-29 14:23:00 l 01/30/2020 00:00: Amandeep beaulieu [address] Depression Depression Problem C [facility] [id number] Body mass Problem Com mon index Spirit [facility]] [facility] 60[facility]0-69[facility] Sinus Sinus Problem Common problem problem [facility] [id number] Body mass Problem Com mon index Spirit (BMI) [facility] 45.0-49.9 [facility] [id number] Foot Problem Common callus [facility] [id number] Dry eyes Problem Comm on [facility] [id number] Skin Problem Common lesions [facility] [id number] Pain in Problem Common left Spirit shoulder [facility] [id number] Essential Problem Comm on hypertensi Spirit [facility] [id number] Elevated Problem Comm on serum Spirit creatinine [facility] [id number] Peripheral Problem Co mmon edema [facility] [id number] History of Problem Co mmon anemia [facility] [id number] Palpitatio Problem Com mon ns [facility] [id number] Vitamin D Problem Comm on deficiency [facility] Lymphedema Lymphedema Problem C [facility] [id number] Shortness Problem Com mon of breath [facility] [id number] Hyperchole Problem Com mon sterolemia [facility] 3045924 Tachycardi Problem Comm on a Spirit [facility] Female Female Problem Common stress stress Spirit incontinen incontinen - CHI ce ce [facility] [id number] Venous Problem Common insufficie Spirit ncy - [facility] (chronic) ([facility] Moderate Major Problem Common major depressive [facility] depression disorder, - C HI , single single [facility] [id number] CHEPE Problem Common (generaliz Spirit ed anxiety - CHI disorder) [facility] [id number] Primary Problem Comm on osteoarthr Spirit itis of - [facility] right knee [facility] [id number] Pain in Problem Comm on left knee [facility] [id number] Neck pain Problem Comm on [facility] [id number] Pain in Problem Comm on right knee [facility] [id number] Other Problem Common chronic [facility] pain - [facility] [id number] Colon Problem Common cancer [facility] screening [facility] [id number] Primary Problem Comm on osteoarthr Spirit [facility] left knee [facility] [id number] Arthritis Problem Co mmon [id number] of knee, [facility] right [facility] [id number] Arthritis Problem Co mmon 591211 of knee, [facility] left [facility] [id number] Bilateral Problem Com mon primary Spirit osteoarthr - CHI itis of [facility] [id number] Primary Problem Comm on osteoarthr Spirit itis of - CHI left shoulder [facility] Malignant Hypertensi Problem Co mmon hypertensi ve chronic Sp lenny ve chronic kidney - CHI kidney disease w St disease [facility] 1-4/[facility] Medical [facility] Center Age-relate Age-relate Problem C ommon d d Spirit osteoporos osteoporos - CHI is is without [facility] pathologic Medica l al [place] fracture Chronic Hypertensi Problem Comm on kidney ve chronic Spirit disease kidney - CHI due to disease St hypertensi with stage Silvana kes on 1 through Medical stage 4 Center chronic kidney disease, or unspecifie d chronic kidney disease [id number] Enlargemen Problem Comm on t of Spirit thyroid - [facility] [id number] SUKHWINDER Problem Common (obstructi Spirit ve sleep - CHI apnea) [facility] [id number] Stage 3a Problem Comm on chronic Spirit kidney - CHI disease [facility] [id number] History of Problem Co mmon breast [facility] cancer [facility] [id number] Chronic Problem Commo 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, [facility] d cause, Medical unspecifie Center d site [id number] History of Problem Co mmon bilateral Spirit mastectomy - CHI [facility] High blood Hypertensi Problem C ommon pressure on, Spirit unspecifie - CHI d type [facility] 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, Spirit unspecifie - CHI d [facility] [id number] Urinary Problem Commo n incontinen Spirit ce, - CHI unspecifie [facility] Incontinen Incontinen Problem C ommon ce ce Spirit [facility] [id number] History of Problem Co mmon lung [facility] cancer [facility] [id number] Polyarthra Problem Com mon lgia Spirit CHI [facility] Cancer Cancer Problem Common [facility] [id number] Chronic Problem Commo n pain Spirit syndrome - [facility] Anxiety Anxiety Problem Common [facility] Osteoporos Osteoporos Problem C ommon is is without Spirit current - CHI pathologic [facility] fracture, Medical unspecifie Center d osteoporos is type Allergies, Adverse Reactions, Alerts Allergy Allergy Status Severity Reaction(s) Onset Inactive Treating Comm ents Source Name Type Date Date Clinician MEPERIDI DRUG Active Other-Cmnt 2020-11 Univ ers NE INGREDI 2-24 ity of 00:00: [place] 00 [facility] LEVOFLOX DRUG Active SOB 2020-11 Univers ACIN INGREDI 2-24 ity of 00:00: 00 Medical [place] Meperidi Propensi Active Other - See 2020-11 "floppin g Univers ne ty to comments 2-24 in the ity of adverse 00:00: bed." [place] reaction [facility] Levoflox Propensi Active Shortness of 2020-11 Univers acin ty to Breath 2-24 ity of adverse 00:00: [place] reaction 00 Medical [facility] meperidi meperidi Active Unknown Commo n ne ne Spirit - CHI [facility] Social History Social Habit Start Date Stop Date Quantity Comments Source History of Common Spirit - Tobacco Use [facility] Exposure to 2023-01-16 2023-01-26 Not sure University SARS-CoV-2 00:00:00 14:34:00 [facility] [place] [facility] (event) Branch Alcohol intake 2023-01-26 2023-01-26 Ex-drinker [facility] 00:00:00 00:00:00 (finding) [facility] Tobacco use and 2022-03-17 2022-03-17 Smokeless tobacco Un iversity of exposure 00:00:00 00:00:[address] [facility][birth year] At [birth year] [facility] Smoking Status Start Date Stop Date Source Never smoked tobacco [facility] Medications Ordered Filled Start Stop Current [...] 250 mg ity of tablet 14:05: tablet [place] 34 TAKE 2 Medical TABLETS BY Branch MOUTH DAY 1 THEN TAKE 1 TABLET BY MOUTH EVERY DAY FOR 4 DAYS azithromyci 2022-0 Yes azithromyc Univers n 250 mg 3-06 in 250 mg ity of tablet 14:05: tablet [place] 34 TAKE 2 Medical TABLETS BY Branch MOUTH DAY 1 THEN TAKE 1 TABLET BY MOUTH EVERY DAY FOR 4 DAYS azithromyci 2022-0 Yes azithromyc Univers n 250 mg 3-06 in 250 mg ity of tablet 14:05: tablet [place] 34 TAKE 2 Medical TABLETS BY Branch MOUTH DAY 1 THEN TAKE 1 TABLET BY MOUTH EVERY DAY FOR 4 DAYS solifenacin Yes [id number] 10mg Take 1 Univers (VESICARE) 3-06 tablet by ity of 10 mg 00:00: mouth in [place] tablet 00 the Medical morning. Branch solifenacin 0 Yes [id number] 10mg Take 1 Univers (VESICARE) 3-06 tablet by ity of 10 mg 00:00: mouth in [place] tablet 00 the Medical morning. Branch trospium 20 2021-11 Yes [id number] 20mg Take 1 Univers mg tablet 2-02 tablet by ity o f 00:00: mouth in [place] 00 the Medical morning Branch and 1 tablet in the evening. trospium 20 2021-11 Yes [id number] 20mg Take 1 Univers mg tablet 2-02 tablet by ity o f 00:00: mouth in [place] 00 the Medical morning Branch and 1 tablet in the evening. trospium 20 2021-11 Yes [id number] 20mg Take 1 Univers mg tablet 2-02 tablet by ity o f 00:00: mouth in [place] 00 the Medical morning Branch and 1 tablet in the evening. trospium 20 2021-11- No [id number] 20mg Take 1 Univers mg tablet 2-06 tablet by ity of 00:00: 00:00 mouth in [place] 00 :00 the Medical morning Branch and 1 tablet in the evening. trospium 20 2021-11- No [id number] 20mg Take 1 Univers mg tablet 2-06 tablet by ity of 00:00: 00:00 mouth in [place] 00 :00 the Medical morning Branch and 1 tablet in the evening. trospium 20 2021-11- No [id number] 20mg Take 1 Univers mg tablet 2-06 tablet by ity of 00:00: 00:00 mouth in [place] 00 :00 the Medical morning Branch and 1 tablet in the evening. Nitrofurant 2021-11- No [id number] 100mg Take 1 Univers oin&Nit. 2- 12- capsule by ity of Macrocryst 00:00: 00:00 mouth [place] (MACROBID) 00 :00 the Medical 100 mg morning Branch capsule and 1 capsule in the evening. Do all this for 5 days. Nitrofurant 2021-11- No [id number] 100mg Take 1 Univers oin&Nit. 2- 12- capsule by ity of Macrocryst 00:00: 00:00 mouth [place] (MACROBID) 00 :00 the Medical 100 mg morning Branch capsule and 1 capsule in the evening. Do all this for 5 days. cefTRIAXone 2021-11- No 1000mg 1,000 mg, Univers (ROCEPHIN) 12-21 IV ity of 1,000 mg in 09:15: 09:54 [place], [place] NaCl 0.9% 00 :00 ONCE, 1 Medical (NS) 50 mL dose, On [facility] h [facility] 10/21/22 at 0315, Administer over 30 Minutes, 50 mL
Reas on for Anti-Infec tive: Documented Infection< br>Documen lacie Infection Site: Urine<br&g t;Duration of Therapy: Other (see Comments) furosemide 2021-11 No 40mg 40 mg, IV U nivers (LASIX) 12-21 Push, ity of injection 06:15: 07:41 [place], 1 [place] 40 [place] 00 :00 dose, On [facility] Branch 10/21/22 at 0015, NENITA amoxicillin 2021-11 Yes [id number] 500mg Take 1 Univers 500 mg 1-29 capsule by ity of capsule 00:00: mouth in [address] morning Grulla and 1 capsule at noon and 1 capsule in the evening. amoxicillin 2021-11 Yes [id number] 500mg Take 1 Univers 500 mg 1-29 capsule by ity of capsule 00:00: mouth in [place] [address] the [facility] morning Grulla and 1 capsule at noon and 1 capsule in the evening. amoxicillin 2021-11 Yes [id number] 500mg Take 1 Univers 500 mg 1-29 capsule by ity of capsule 00:00: mouth in [place] [address] the [facility] morning Branch and 1 capsule at noon and 1 capsule in the evening. amoxicillin 2021-11 Yes [id number] 500mg Take 1 Univers 500 mg 1-29 capsule by ity of capsule 00:00: mouth in [address] morning Grulla and 1 capsule at noon and 1 capsule in the evening. amoxicillin 2021-11 Yes [id number] 500mg Take 1 Univers 500 mg 1-29 capsule by ity of capsule 00:00: mouth in [address] morning Grulla and 1 capsule at noon and 1 capsule in the evening. amoxicillin 2021-11 Yes [id number] 500mg Take 1 Univers 500 mg 1-29 capsule by ity of capsule 00:00: mouth in [place] the Medical morning Branch and 1 capsule at noon and 1 capsule in the evening. amoxicillin 2021-11 Yes [id number] 500mg Take 1 Univers 500 mg 1-29 capsule by ity of capsule 00:00: mouth in [place] the Medical morning Branch and 1 capsule at noon and 1 capsule in the evening. Trospium 60 2021-11 Yes [id number] 60mg Take 1 Univers mg capsule 0-21 capsule by ity of 00:00: mouth in [place] 00 the Medical morning. Branch Trospium 60 2021-11 Yes [id number] 60mg Take 1 Univers mg capsule 0-21 capsule by ity of 00:00: mouth in [place] the morning. Branch Trospium 60 2021-11 Yes [id number] 60mg Take 1 Univers mg capsule 0-21 capsule by ity of 00:00: mouth in [place] the morning. Branch Trospium 60 2021-11- No [id number] 60mg Take 1 Univers mg capsule 0-21 12-02 capsule by it y of 00:00: 00:00 mouth in [place] 00 :00 the morning. Branch Trospium 60 2021-11- No [id number] 60mg Take 1 Univers mg capsule 0-21 12-02 capsule by it y of 00:00: 00:00 mouth in [place] 00 :00 the Medical morning. Branch vibegron Yes [id number] 75mg Take 75 mg Univers (GEMTESA) 9-12 by mouth ity of 75 mg Tab 00:00: daily. [place] Medical Branch vibegron Yes [id number] 75mg Take 75 mg Univers (GEMTESA) 9-12 by mouth ity of 75 mg Tab 00:00: daily. [place] Medical Branch vibegron Yes [id number] 75mg Take 75 mg Univers (GEMTESA) 9-12 by mouth ity of 75 mg Tab 00:00: daily. [place] Medical Branch vibegron Yes [id number] 75mg Take 75 mg Univers (GEMTESA) 9-12 by mouth ity of 75 mg Tab 00:00: daily. [place] 00 Medical Branch vibegron Yes [id number] 75mg Take 75 mg Univers (GEMTESA) 08-04 by mouth ity of 75 mg Tab 00:00: daily. [place] 00 Medical Branch vibegron 2021- No [id number] 75mg Take 75 mg Univers (GEMTESA) 08-04 by mouth ity o f 75 mg Tab 00:00: 00:00 daily. [place] 00 :00 Medical Branch vibegron 2021- No [id number] 75mg Take 75 mg Univers (GEMTESA) 08-04 by mouth ity o f 75 mg Tab 00:00: 00:00 daily. [place] 00 :00 Medical Branch solifenacin 0 Yes [id number] 10mg Take 1 Univers (VESICARE) 7-15 tablet by ity of 10 mg 00:00: mouth in [place] tablet 00 the Medical morning. Branch solifenacin 0 Yes [id number] 10mg Take 1 Univers (VESICARE) 7-15 tablet by ity of 10 mg 00:00: mouth in [place] tablet 00 the Medical morning. Branch solifenacin 0 Yes [id number] 10mg Take 1 Univers (VESICARE) 7-15 tablet by ity of 10 mg 00:00: mouth in [place] tablet 00 the Medical morning. Branch solifenacin 0 Yes [id number] 10mg Take 1 Univers (VESICARE) 7-15 tablet by ity of 10 mg 00:00: mouth in [place] tablet 00 the Medical morning. Branch solifenacin 2021-0 Yes [id number] 10mg Take 1 Univers (VESICARE) 7-15 tablet by ity of 10 mg 00:00: mouth in [place] tablet 00 the Medical morning. Branch solifenacin 0 Yes [id number] 10mg Take 1 Univers (VESICARE) 7-15 tablet by ity of 10 mg 00:00: mouth in [place] tablet 00 the Medical morning. Branch solifenacin 0 Yes [id number] 10mg Take 1 Univers (VESICARE) 7-15 tablet by ity of 10 mg 00:00: mouth in [place] tablet 00 the Medical morning. Branch solifenacin 2021-0 Yes [id number] 10mg Take 1 Univers (VESICARE) 7-15 tablet by ity of 10 mg 00:00: mouth in [place] tablet 00 the Medical morning. Branch solifenacin 0 Yes [id number] 10mg Take 1 Univers (VESICARE) 7-15 tablet by ity of 10 mg 00:00: mouth in [place] tablet 00 the Medical morning. Branch solifenacin 0 Yes [id number] 10mg Take 1 Univers (VESICARE) 7-15 tablet by ity of 10 mg 00:00: mouth in [place] tablet 00 the Medical morning. Branch solifenacin 0 Yes [id number] 10mg Take 1 Univers (VESICARE) 7-15 tablet by ity of 10 mg 00:00: mouth in [place] tablet 00 the Medical morning. Branch vibegron 2021- No [id number] 75mg Take 75 mg Univers (GEMTESA) 6-10 09-12 by mouth ity o f 75 mg Tab 00:00: 00:00 daily. [place] 00 :00 [facility] solifenacin 0 Yes [id number] 10mg Take 1 Univers (VESICARE) 5-13 tablet by ity of 10 mg 00:00: mouth [place] tablet 00 daily. [facility] solifenacin 0 Yes [id number] 10mg Take 1 Univers (VESICARE) 5-13 tablet by ity of 10 mg 00:00: mouth [place] tablet 00 daily. [facility] solifenacin 0 Yes [id number] 10mg Take 1 Univers (VESICARE) 5-13 tablet by ity of 10 mg 00:00: mouth [place] tablet 00 daily. [facility] solifenacin 0 Yes [id number] 10mg Take 1 Univers (VESICARE) 5-13 tablet by ity of 10 mg 00:00: mouth [place] tablet 00 daily. [facility] Branch solifenacin 0 Yes [id number] 10mg Take 1 Univers (VESICARE) 5-13 tablet by ity of 10 mg 00:00: mouth [place] tablet 00 daily. [facility] solifenacin 0 Yes [id number] 10mg Take 1 Univers (VESICARE) 5-13 tablet by ity of 10 mg 00:00: mouth [place] tablet 00 daily. Medical Branch solifenacin 2022-0 Yes [id number] 10mg Take 1 Univers (VESICARE) 5-13 tablet by ity of 10 mg 00:00: mouth [place] tablet 00 daily. Medical Branch solifenacin 2021-0 Yes [id number] 10mg Take 1 Univers (VESICARE) 5-13 tablet by ity of 10 mg 00:00: mouth [place] tablet 00 daily. Medical Branch solifenacin 2021-0 Yes [id number] 10mg Take 1 Univers (VESICARE) 5-13 tablet by ity of 10 mg 00:00: mouth [place] tablet 00 daily. [facility] Branch solifenacin 2021-0 Yes [id number] 10mg Take 1 Univers (VESICARE) 5-13 tablet by ity of 10 mg 00:00: mouth [place] tablet 00 daily. [facility] Branch solifenacin 2021-0 Yes [id number] 10mg Take 1 Univers (VESICARE) 5-13 tablet by ity of 10 mg 00:00: mouth [place] tablet 00 daily. [facility] Branch Bupivicaine Bupivicaine 2021-0 No 2.5mg Common [place] G[place] 5-02 Spirit 00:00: - CHI 00 [facility] Kenalog Kenalog 2021-0 No 40mg Common (Triamcinol (Triamcinol 5-02 S pirit one) one) 00:00: - CHI 00 [facility] Bupivicaine Bupivicaine 2-0 No 2.5mg Common [place] Garrison 5-02 Spirit 00:00: - [place]I 00 [facility] Kenalog Kenalog 2021-0 No 40mg Common (Triamcinol (Triamcinol 5-02 S pirit one) one) 00:00: - [place] 00 [facility] Bupivicaine Bupivicaine 2-0 No 2.5mg Common Garrison Garrison 5-02 Spirit 00:00: - CHI 00 [facility] Kenalog Kenalog 2021-0 No 40mg Common (Triamcinol (Triamcinol 5-02 S pirit one) one) 00:00: - [place]I 00 [facility] Bupivicaine Bupivicaine 2-0 No 2.5mg Common Garrison Garrison 5-02 Spirit 00:00: - [place] 00 [facility] Kenalog Kenalog 2021-0 No 40mg Common (Triamcinol (Triamcinol 5-02 S pirit one) one) 00:00: - [place] 00 [facility] Bupivicaine Bupivicaine 2021-0 No 2.5mg Common [place] Garrison 5-02 Spirit 00:00: - [place] 00 [facility] Kenalog Kenalog 2021-0 No 40mg Common (Triamcinol (Triamcinol 5-02 S pirit one) one) 00:00: - [place] 00 [facility] Bupivicaine Bupivicaine 2021-0 No 2.5mg Common [place] Garrison 5-02 Spirit 00:00: - [place]I 00 [facility] Kenalog Kenalog 2021-0 No 40mg Common (Triamcinol (Triamcinol 5-02 S pirit one) one) 00:00: - [place] 00 [facility] Bupivicaine Bupivicaine 2021-0 No 2.5mg Common [place] G[place] 5-02 Spirit 00:00: - [place]I 00 [facility] Kenalog Kenalog 2021-0 No 40mg Common (Triamcinol (Triamcinol 5-02 S pirit one) one) 00:00: - [place] 00 [facility] Bupivicaine Bupivicaine 2021-0 No 2.5mg Common [place] G[place] 5-02 Spirit 00:00: - [place] 00 [facility] Kenalog Kenalog 2021-0 No 40mg Common (Triamcinol (Triamcinol 5-02 S pirit one) one) 00:00: - [place] 00 [facility] Bupivicaine Bupivicaine 2021-0 No 2.5mg Common [place] G[place] 5-02 Spirit 00:00: - [place] 00 [facility] Kenalog Kenalog 2021-0 No 40mg Common (Triamcinol (Triamcinol 5-02 S pirit one) one) 00:00: - [place] 00 [facility] Bupivicaine Bupivicaine 2-0 No 2.5mg Common [place] G[place] 5-02 Spirit 00:00: - [place] 00 [facility] Kenalog Kenalog 2021-0 No 40mg Common (Triamcinol (Triamcinol 5-02 S pirit one) one) 00:00: - [place] 00 [facility] azithromyci Yes azithromyc Univers n 250 mg [...] 1 gram ity of tablet 15:23: tablet [place] 55 TAKE 1 Medical TABLET BY Branch ORAL ROUTE EVERY 8 HOURS FOR 7 DAYS valACYclovi Yes valacyclov Univers r 1 gram 4-25 ir 1 gram ity of tablet 15:23: tablet [place] 55 TAKE 1 Medical TABLET BY Branch ORAL ROUTE EVERY 8 HOURS FOR 7 DAYS valACYclovi Yes valacyclov Univers r 1 gram 4-25 ir 1 gram ity of tablet 15:23: tablet [place] 55 TAKE 1 Medical TABLET BY Branch ORAL ROUTE EVERY 8 HOURS FOR 7 DAYS valACYclovi Yes valacyclov Univers r 1 gram 4-25 ir 1 gram ity of tablet 15:23: tablet [place] 55 TAKE 1 Medical TABLET BY Branch ORAL ROUTE EVERY 8 HOURS FOR 7 DAYS valACYclovi Yes valacyclov Univers r 1 gram 4-25 ir 1 gram ity of tablet 15:23: tablet [place] 55 TAKE 1 Medical TABLET BY Branch ORAL ROUTE EVERY 8 HOURS FOR 7 DAYS valACYclovi Yes valacyclov Univers r 1 gram 4-25 ir 1 gram ity of tablet 15:23: tablet [place] 55 TAKE 1 Medical TABLET BY Branch ORAL ROUTE EVERY 8 HOURS FOR 7 DAYS valACYclovi Yes valacyclov Univers r 1 gram 4-25 ir 1 gram ity of tablet 15:23: tablet [place] 55 TAKE 1 Medical TABLET BY Branch ORAL ROUTE EVERY 8 HOURS FOR 7 DAYS valACYclovi Yes valacyclov Univers r 1 gram 4-25 ir 1 gram ity of tablet 15:23: tablet [place] 55 TAKE 1 Medical TABLET BY Branch ORAL ROUTE EVERY 8 HOURS FOR 7 DAYS valACYclovi Yes valacyclov Univers r 1 gram 4-25 ir 1 gram ity of tablet 15:23: tablet [place] 55 TAKE 1 Medical TABLET BY Branch ORAL ROUTE EVERY 8 HOURS FOR 7 DAYS valACYclovi Yes valacyclov Univers r 1 gram 4-25 ir 1 gram ity of tablet 15:23: tablet [place] 55 TAKE 1 Medical TABLET BY Branch ORAL ROUTE EVERY 8 HOURS FOR 7 DAYS valACYclovi Yes valacyclov Univers r 1 gram 4-25 ir 1 gram ity of tablet 15:23: tablet [place] 55 TAKE 1 Medical TABLET BY Branch ORAL ROUTE EVERY 8 HOURS FOR 7 DAYS allopurinoL Yes Univer s 100 mg 4-24 ity of tablet 00:00: [place] [facility] busPIRone Yes Univers 15 mg 4-24 ity of tablet 00:00: [address] allopurinoL Yes Univer s 100 mg 4-24 ity of tablet 00:00: [place] [facility] busPIRone Yes Univers 15 mg 4-24 ity of tablet 00:00: [address] allopurinoL Yes Univer s 100 mg 4-24 ity of tablet 00:00: [place] [facility] busPIRone Yes Univers 15 mg 4-24 ity of tablet 00:00: [place] [facility] allopurinoL Yes Univer s 100 mg 4-24 ity of tablet 00:00: [place] [facility] busPIRone Yes Univers 15 mg 4-24 ity of tablet 00:00: [place] 00 Medical Branch allopurinoL 2-0 Yes Univer s 100 mg 4-24 ity of tablet 00:00: [place] 00 Medical Branch busPIRone 2-0 Yes Univers 15 mg 4-24 ity of tablet 00:00: [place] Medical Branch allopurinoL 2-0 Yes Univer s 100 mg 4-24 ity of tablet 00:00: [place] Medical Branch busPIRone 2-0 Yes Univers 15 mg 4-24 ity of tablet 00:00: [facility] allopurinoL 2021-0 Yes Univer s 100 mg 4-24 ity of tablet 00:00: [place] [facility] busPIRone 2-0 Yes Univers 15 mg 4-24 ity of tablet 00:00: [facility] allopurinoL 2021-0 Yes Univer s 100 mg 4-24 ity of tablet 00:00: [facility] busPIRone 2-0 Yes Univers 15 mg 4-24 ity of tablet 00:00: [facility] allopurinoL 2021-0 Yes Univer s 100 mg 4-24 ity of tablet 00:00: [place] [facility] busPIRone 2021-0 Yes Univers 15 mg 4-24 ity of tablet 00:00: [facility] allopurinoL 2021-0 Yes Univer s 100 mg 4-24 ity of tablet 00:00: [place] [facility] busPIRone 2-0 Yes Univers 15 mg 4-24 ity of tablet 00:00: [facility] allopurinoL 2-0 Yes Univer s 100 mg 4-24 ity of tablet 00:00: [place] [facility] busPIRone 2-0 Yes Univers 15 mg 4-24 ity of tablet 00:00: [place] [facility] SERTraline 2021-0 Yes 200mg [...] 8mg Com 03-11 Spirit 00:00: - [facility] Synvisc 1 Synvisc 1 2020-0 No 8mg Com 03-11 Spirit 00:00: - [facility] Synvisc 1 Synvisc 1 2020-0 No 8mg Com 03-11 Spirit 00:00: - [facility] Synvisc 1 Synvisc 1 2020-0 No 8mg Com 03-11 Spirit 00:00: - [facility] Synvisc 1 Synvisc 1 1-0 No 8mg Com 03-11 Spirit 00:00: - [facility] Synvisc 1 Synvisc 1 1-0 No 8mg Com 03-11 Spirit 00:00: - [facility] Synvisc 1 Synvisc 1 2020-0 No 8mg Com 03-11 Spirit 00:00: - [facility] Synvisc 1 Synvisc 1 1-0 No 8mg Com 03-11 Spirit 00:00: - [facility] Synvisc 1 Synvisc 1 2020-0 No 8mg Com 03-11 Spirit 00:00: - [facility] Synvisc 1 Synvisc 1 2020-0 No 8mg Com 03-11 Spirit 00:00: - [facility] Synvisc 1 Synvisc 1 2020-0 No 8mg Com 03-11 Spirit 00:00: - [facility] Synvisc 1 Synvisc 1 2020-0 No 8mg Com 03-11 Spirit 00:00: - [facility] Synvisc 1 Synvisc 1 2020-0 No 8mg Com 03-11 Spirit 00:00: - [facility] Synvisc 1 Synvisc 1 2020-0 No 8mg Com 03-11 Spirit 00:00: - [facility] Synvisc 1 Synvisc 1 2020-0 No 8mg Com 03-11 Spirit 00:00: - [facility] Synvisc 1 Synvisc 1 2020-0 No 8mg Com 03-11 Spirit 00:00: - [facility] Synvisc 1 Synvisc 1 2020-0 No 8mg Com 03-11 Spirit 00:00: - [facility] Synvisc 1 Synvisc 1 2020-0 No 8mg Com 03-11 Spirit 00:00: - [facility] Synvisc 1 Synvisc 1 2020-0 No 8mg Com 03-11 Spirit 00:00: - [facility] Synvisc 1 Synvisc 1 No 8mg Com 03-11 Spirit 00:00: - [facility] Synvisc 1 Synvisc 1 No 8mg Com 03-11 Spirit 00:00: - [facility] Synvisc 1 Synvisc 1 No 8mg Com mon 03-11 Spirit 00:00: - [facility] Vitamin D Vitamin D Yes Sarah (otc) 1 Common 2-19 Millender capsule [facility] 00:00: - [facility] Furosemide Furosemide Yes Sarah TK 1 T PO Common 8-17 Millender D PRF LEG Spiri t 00:00: SWELLING - CH[facility] Furosemide Furosemide 0 No Furosemide 20 MG [...] Spir it sertraline - [facility]I 100 mg) [facility] BusPIRone BusPIRone Yes Sarah 1-/2 Com mon HCl HCl Millender tablet as Spiri t needed for - CHI anxiety [facility] Lasix Lasix Yes Sarah 1 tablet Common Millender [facility] Magnesium Magnesium Yes Sarah as Comm on Millender directed [facility] Gabapentin Gabapentin Yes Sarah as Co mmon Millender directed [facility] Hydrocodone Hydrocodone Yes Sarah 1 tablet Common -Acetaminop -Acetaminop Millender as needed Spirit hen hen [facility] Lorazepam Lorazepam Yes Sarah 1 tablet Common Millender at bedtime Spir it as needed [facility] Losartan Losartan Yes Sarah 1 tablet Co mmon Potassium Potassium Millender [facility] Sertraline Sertraline Yes Sarah 2 tablets Common HCl HCl [facility] ProAir HFA ProAir HFA No 2{puffs [...] l 100 MG 00:00 :00 Allopurinol Allopurinol Sarah 1 tablet Common 11-15 Millender [facility] 00:00 - [facility] :00 [facility] Immunizations Ordered Immunization Filled Immunization Date Status Commen ts Source Name Name Prevnar 13 (PCV13) Prevnar 13 (PCV13) 2022-04-02 Completed [facility] 13:45:00 - [facility] Prevnar 13 (PCV13) Prevnar 13 (PCV13) 2022-04-02 Completed [facility] 13:45:00 [facility] Prevnar 13 (PCV13) Prevnar 13 (PCV13) 2022-04-02 Completed [facility] 13:45:00 [facility] Prevnar 13 (PCV13) Prevnar 13 (PCV13) 2022-04-02 Completed [facility] 13:45:00 [facility] Prevnar 13 (PCV13) Prevnar 13 (PCV13) 2022-04-02 Completed [facility] 13:45:00 [facility] Prevnar 13 (PCV13) Prevnar 13 (PCV13) 2022-04-02 Completed [facility] 13:45:00 - [facility] Prevnar 13 (PCV13) Prevnar 13 (PCV13) 2022-04-02 Completed [facility] 13:45:00 [facility] Prevnar 13 (PCV13) Prevnar 13 (PCV13) 2022-04-02 Completed [facility] 13:45:00 [facility] Prevnar 13 (PCV13) Prevnar 13 (PCV13) 2022-04-02 Completed [facility] 13:45:00 [facility] Fluzone Fluzone 2021-11-07 Completed [facility] 11:25:00 [facility] Fluzone Fluzone 2021-11-07 Completed [facility] 11:25:00 - [facility] Fluzone Fluzone 2021-11-07 Completed [facility] 11:25:00 - [facility] Fluzone Fluzone 2021-11-07 Completed [facility] 11:25:00 - [facility] Fluzone Fluzone 2021-11-07 Completed [facility] 11:25:00 - [facility] Fluzone Fluzone 2021-11-07 Completed [facility] 11:25:00 - [facility] Fluzone Fluzone 2021-11-07 Completed [facility] 11:25:00 - [facility] Fluzone Fluzone 2021-11-07 Completed [facility] 11:25:00 - [facility] Fluzone Fluzone 2021-11-07 Completed [facility] 11:25:00 - [facility] Fluzone Fluzone 2021-11-07 Completed [facility] 11:25:00 - [facility] Fluzone Fluzone 2021-11-07 Completed [facility] 11:25:00 - [facility] Fluzone Fluzone 2021-11-07 Completed [facility] 11:25:00 - [facility] Fluzone Fluzone 2021-11-07 Completed [facility] 11:25:00 - [facility] Fluzone Fluzone 2021-11-07 Completed [facility] 11:25:00 - [facility] Fluzone Fluzone 2021-11-07 Completed [facility] 11:25:00 - [facility] Fluzone Fluzone 2021-11-07 Completed [facility] 11:25:00 - [facility] Fluzone Fluzone 2021-11-07 Completed [facility] 11:25:00 - [facility] Synvisc 1 Synvisc 1 2021-03-11 Completed [facility] 09:53:00 - [facility] Synvisc 1 Synvisc 1 2021-03-11 Completed [facility] 09:51:00 - [facility] COVID-19 Vaccine COVID-19 Vaccine 2021-02-05 Completed Co mmon [facility] (Ethan) (Ethan) 14:53:00 - [facility] COVID-19 Vaccine COVID-19 Vaccine 2021-02-05 Completed [facility] (Ethan) (Ethan) 14:53:00 - [facility] COVID-19 Vaccine COVID-19 Vaccine 2021-02-05 Completed [facility] (Ethan) (Ethan) 14:53:00 - [facility] COVID-19 Vaccine COVID-19 Vaccine 2021-02-05 Completed [facility] (Ethan) (Ethan) 14:53:00 - [facility] COVID-19 Vaccine COVID-19 Vaccine 2021-02-05 Completed [facility] (Ethan) (Ethan) 14:53:00 - [facility] COVID-19 Vaccine COVID-19 Vaccine 2021-02-05 Completed [facility] (Ethan) (Ethan) 14:53:00 - [facility] COVID-19 Vaccine COVID-19 Vaccine 2021-02-05 Completed [facility] (Ethan) (Ethan) 14:53:00 - [facility] COVID-19 Vaccine COVID-19 Vaccine 2021-02-05 Completed [facility] (Ethan) (Ethan) 14:53:00 - [facility] COVID-19 Vaccine COVID-19 Vaccine 2021-02-05 Completed [facility] (Ethan) (Ethan) 14:53:00 - [facility] COVID-19 Vaccine COVID-19 Vaccine 2021-02-05 Completed [facility] (Ethan) (Ethan) 14:53:00 - [facility] COVID-19 Vaccine COVID-19 Vaccine 2021-02-05 Completed [facility] (Ethan) (Ethan) 14:53:00 - [facility] COVID-19 Vaccine COVID-19 Vaccine 2021-02-05 Completed [facility] (Ethan) (Ethan) 14:53:00 - [facility] COVID-19 Vaccine COVID-19 Vaccine 2021-02-05 Completed [facility] (Ethan) (Ethan) 14:53:00 - [facility] COVID-19 Vaccine COVID-19 Vaccine 2021-02-05 Completed [facility] (Ethan) (Ethan) 14:53:00 - [facility] COVID-19 Vaccine COVID-19 Vaccine 2021-02-05 Completed [facility] (Ethan) (Ethan) 14:53:00 - [facility] COVID-19 Vaccine COVID-19 Vaccine 2021-02-05 Completed [facility] (Ethan) (Ethan) 14:53:00 - [facility] COVID-19 Vaccine COVID-19 Vaccine 2021-02-05 Completed [facility] (Ethan) (Ethan) 14:53:00 - [facility] COVID-19 Vaccine COVID-19 Vaccine 2021-02-05 Completed [facility] (Ethan) (Ethan) 14:53:00 - [facility] Flucelvax - single Flucelvax - single 2020-08-24 Completed [facility] dose syringe dose syringe 13:30:00 - [facility] Flucelvax - single Flucelvax - single 2020-08-24 Completed [facility] dose syringe dose syringe 13:30:00 - [facility] Flucelvax - single Flucelvax - single 2020-08-24 Completed [facility] dose syringe dose syringe 13:30:00 - [facility] Flucelvax - single Flucelvax - single 2020-08-24 Completed [facility] dose syringe dose syringe 13:30:00 - [facility] Flucelvax - single Flucelvax - single 2020-08-24 Completed [facility] dose syringe dose syringe 13:30:00 - [facility] Flucelvax - single Flucelvax - single 2020-08-24 Completed [facility] dose syringe dose syringe 13:30:00 - [facility] Flucelvax - single Flucelvax - single 2020-08-24 Completed [facility] dose syringe dose syringe 13:30:00 - [facility] Flucelvax - single Flucelvax - single 2020-08-24 Completed [facility] dose syringe dose syringe 13:30:00 - [facility] Flucelvax - single Flucelvax - single 2020-08-24 Completed [facility] dose syringe dose syringe 13:30:00 - [facility] Flucelvax - single Flucelvax - single 2020-08-24 Completed [facility] dose syringe dose syringe 13:30:00 - [facility] Flucelvax - single Flucelvax - single 2020-08-24 Completed [facility] dose syringe dose syringe 13:30:00 - [facility] Flucelvax - single Flucelvax - single 2020-08-24 Completed [facility] dose syringe dose syringe 13:30:00 - [facility] Flucelvax - single Flucelvax - single 2020-08-24 Completed [facility] dose syringe dose syringe 13:30:00 - [facility] Flucelvax - single Flucelvax - single 2020-08-24 Completed [facility] dose syringe dose syringe 13:30:00 - [facility] Flucelvax - single Flucelvax - single 2020-08-24 Completed [facility] dose syringe dose syringe 13:30:00 - [facility] Flucelvax - single Flucelvax - single 2020-08-24 Completed [facility] dose syringe dose syringe 13:30:00 - [facility] Flucelvax - single Flucelvax - single 2020-08-24 Completed [facility] dose syringe dose syringe 13:30:00 - [facility] Flucelvax - single Flucelvax - single 2020-08-24 Completed [facility] dose syringe dose syringe 13:30:00 - [facility] Flucelvax - single Flucelvax - single 2019-10-13 Completed [facility] dose syringe dose syringe 16:56:00 - [facility] Flucelvax - single Flucelvax - single 2019-10-13 Completed [facility] dose syringe dose syringe 16:56:00 - [facility] Flucelvax - single Flucelvax - single 2019-10-13 Completed [facility] dose syringe dose syringe 16:56:00 - [facility] Flucelvax - single Flucelvax - single 2019-10-13 Completed [facility] dose syringe dose syringe 16:56:00 - [facility] Flucelvax - single Flucelvax - single 2019-10-13 Completed [facility] dose syringe dose syringe 16:56:00 - [facility] Flucelvax - single Flucelvax - single 2019-10-13 Completed [facility] dose syringe dose syringe 16:56:00 - [facility] Flucelvax - single Flucelvax - single 2019-10-13 Completed [facility] dose syringe dose syringe 16:56:00 - [facility] Flucelvax - single Flucelvax - single 2019-10-13 Completed [facility] dose syringe dose syringe 16:56:00 - [facility] Flucelvax - single Flucelvax - single 2019-10-13 Completed [facility] dose syringe dose syringe 16:56:00 - [facility] Flucelvax - single Flucelvax - single 2019-10-13 Completed [facility] dose syringe dose syringe 16:56:00 - [facility] Flucelvax - single Flucelvax - single 2019-10-13 Completed [facility] dose syringe dose syringe 16:56:00 - [facility] Flucelvax - single Flucelvax - single 2019-10-13 Completed [facility] dose syringe dose syringe 16:56:00 - [facility] Flucelvax - single Flucelvax - single 2019-10-13 Completed [facility] dose syringe dose syringe 16:56:00 - [facility] Flucelvax - single Flucelvax - single 2019-10-13 Completed [facility] dose syringe dose syringe 16:56:00 - [facility] Flucelvax - single Flucelvax - single 2019-10-13 Completed [facility] dose syringe dose syringe 16:56:00 - [facility] Flucelvax - single Flucelvax - single 2019-10-13 Completed [facility] dose syringe dose syringe 16:56:00 - [facility] Flucelvax - single Flucelvax - single 2019-10-13 Completed [facility] dose syringe dose syringe 16:56:00 - [facility] Flucelvax - single Flucelvax - single 2019-10-13 Completed [facility] dose syringe dose syringe 16:56:00 - [facility] Flucelvax - single Flucelvax - single 2019-10-13 Completed [facility] dose syringe dose syringe 00:00:00 - [facility] Vital Signs Vital Name Observation Time Observation Value Comments Source Systolic blood 2023-01-27 02:30:00 130 mm[Hg] [facility] Diastolic blood 2023-01-27 02:30:00 80 mm[Hg] [facility] Heart rate 2023-01-27 02:30:00 90 /min [facility] Respiratory rate 2023-01-27 02:30:00 15 /min [facility] in 2023-01-27 02:30:00 98 /min [facility] Arterial blood by [facility] Pulse oximetry [place] Body temperature 2023-01-26 20:36:00 37.11 Mildred [facility] Body weight 2023-01-26 20:36:00 169.192 kg Universi ty [facility] BMI 2023-01-26 20:36:00 60.20 kg/m2 Universi [facility] Systolic blood 2023-01-26 20:04:00 79 mm[Hg] [facility] Diastolic blood 2023-01-26 20:04:00 48 mm[Hg] [facility]ive [facility] Heart rate 2023-01-26 20:04:00 90 /min Universi ty [facility] Body temperature 2023-01-26 20:04:00 36.72 Mildred [facility] Respiratory rate 2023-01-26 20:04:00 20 /min [facility] Body height 2023-01-26 20:04:00 167.6 cm [facility] height 2022-12-17 14:00:00 66.00 [in_i] [facility] weight 2022-12-17 14:00:00 373.0 [lb_av] Common [facility] temperature 2022-12-17 14:00:00 97.2 [degF] Common [facility] bmi 2022-12-17 14:00:00 60.2 kg/m2 Common S pirit [facility] oximetry 2022-12-17 14:00:00 97 % Common S pirit - [facility] respiratory rate 2022-12-17 14:00:00 17 /min Comm on [facility] - [facility] blood pressure 2022-12-17 14:00:00 123 mm[Hg] [facility] - systolic [facility] blood pressure 2022-12-17 14:00:00 69 mm[Hg] [facility] - diastolic [facility] Systolic blood 2022-10-21 10:00:00 132 mm[Hg] [facility] Diastolic blood 2022-10-21 10:00:00 66 mm[Hg] Unive rsity [facility] Heart rate 2022-10-21 10:00:00 92 /min [facility] Oxygen saturation in 2022-10-21 10:00:00 93 /min [facility] Arterial blood by [facility] Pulse oximetry [facility] Respiratory rate 2022-10-21 07:30:00 18 /min [facility] Body temperature 2022-10-21 05:58:00 36.44 Mildred [facility] Body height 2022-10-21 05:58:00 167.6 cm [facility] Body weight 2022-10-21 05:58:00 169.192 kg [facility] BMI 2022-10-21 05:58:00 60.20 kg/m2 [facility] height 2022-07-30 13:10:00 66.00 [in_i] Common [facility] weight 2022-07-30 13:10:00 373 [facility]_av[facility] temperature 2022-07-30 13:10:00 98.0 [degF] Common S pirit [facility] bmi 2022-07-30 13:10:00 60.2 kg/m2 [facility] oximetry 2022-07-30 13:10:00 94 % Common S pirit [facility] respiratory rate 2022-07-30 13:10:00 18 /min Comm on [facility] blood pressure 2022-07-30 13:10:00 133 mm[Hg] Common [facility] - systolic [facility] blood pressure 2022-07-30 13:10:00 62 mm[Hg] Common [facility] - diastolic [facility] height 2022-06-11 13:00:00 66.00 [in_i] Common [facility] weight 2022-06-11 13:00:00 373 [lb_av] Common [facility] temperature 2022-06-11 13:00:00 97.5 [degF] Common [facility] bmi 2022-06-11 13:00:00 60.2 kg/m2 [facility] oximetry 2022-06-11 13:00:00 99 % Common [facility] respiratory rate 2022-06-11 13:00:00 18 /min Comm on [facility] blood pressure 2022-06-11 13:00:00 135 mm[Hg] Common [facility] - systolic [facility] blood pressure 2022-06-11 13:00:00 78 mm[Hg] Common [facility] - diastolic [facility] height 2022-04-02 10:50:00 66.00 [in_i] Common [facility] weight 2022-04-02 10:50:00 373 [lb_av] Common [facility] temperature 2022-04-02 10:50:00 97.3 [degF] Common [facility] bmi 2022-04-02 10:50:00 60.2 kg/m2 Common [facility] oximetry 2022-04-02 10:50:00 95 % [facility] respiratory rate 2022-04-02 10:50:00 16 /min Comm on [facility] blood pressure 2022-04-02 10:50:00 139 mm[Hg] Common [facility] - systolic [facility] blood pressure 2022-04-02 10:50:00 67 mm[Hg] [facility] - diastolic [facility] height 2022-04-02 10:00:00 66.00 [in_i] Common S [facility]irit [facility] weight 2022-04-02 10:00:00 373 [lb_av] [facility] temperature 2022-04-02 10:00:00 97.3 [degF] [facility]irit [facility] bmi 2022-04-02 10:00:00 60.2 kg/m2 [facility] oximetry 2022-04-02 10:00:00 95 % [facility] respiratory rate 2022-04-02 10:00:00 16 /min Comm on [facility] blood pressure 2022-04-02 10:00:00 139 mm[Hg] Common [facility] - systolic [facility] blood pressure 2022-04-02 10:00:00 67 mm[Hg] [facility] - diastolic [facility] bmi 2022-03-24 14:30:00 60.2 kg/m2 Common S pirit [facility] blood pressure 2022-03-24 14:30:00 138 mm[Hg] Common [facility] - systolic [facility] blood pressure 2022-03-24 14:30:00 78 mm[Hg] [facility] - diastolic [facility] height 2022-03-24 14:30:00 66.00 [in_i] [facility]irit [facility] weight 2022-03-24 14:30:00 373 [lb_av] [facility] temperature 2022-03-24 14:30:00 99.2 [degF] [facility] height 2021-12-03 11:00:00 66.00 [in_i] [facility] weight 2021-12-03 11:00:00 388 [lb_av] [facility] temperature 2021-12-03 11:00:00 98.7 [degF] [facility] bmi 2021-12-03 11:00:00 62.62 kg/m2 [facility] blood pressure 2021-12-03 11:00:00 128 mm[Hg] [facility] - systolic [facility] blood pressure 2021-12-03 11:00:00 75 mm[Hg] [facility] - diastolic [facility] height 2021-11-07 10:50:00 66.00 [in_i] [facility] weight 2021-11-07 10:50:00 388.5 [lb_av] [facility] temperature 2021-11-07 10:50:00 97.5 [degF] [facility] bmi 2021-11-07 10:50:00 62.7 kg/m2 [facility] oximetry 2021-11-07 10:50:00 95 % [facility] respiratory rate 2021-11-07 10:50:00 19 /min Comm on [facility] blood pressure 2021-11-07 10:50:00 132 mm[Hg] [facility] systolic [facility] blood pressure 2021-11-07 10:50:00 63 mm[Hg] [facility] diastolic [facility] Procedures Procedure Date / Time Performing Clinician Source Performed URINALYSIS 2023-01-27 01:00:00 Nereida Sierra [facility] LIPASE 2023-01-26 21:16:00 Nereida Sierra [facility] TROPONIN I 2023-01-26 21:16:00 Nereida Sierra [facility] COMP. METABOLIC PANEL 2023-01-26 21:16:00 [id number] CBC WITH DIFF 2023-01-26 21:16:00 Nereida Sierra [facility] PROTHROMBIN TIME / INR 2023-01-26 21:16:00 Nereida Sierra [facility] ACTIVATED PARTIAL 2023-01-26 21:16:00 Nereida Sierra [facility] THRMPLAS EDILIA [facility] N-TERMINAL PRO-BNP 2023-01-26 21:16:00 Nereida [facility] AC PANEL 21 + LACTIC 2023-01-26 21:16:00 eNreida Sierra [facility] ACID [facility] EKG-12 LEAD 2022-10-21 08:50:42 [facility] 2022-10-21 08:33:00 [facility] TROPONIN I 2022-10-21 06:54:00 [facility] COMP. METABOLIC PANEL 2022-10-21 06:54:00 Josie Gallardo [facility] ([id number]) [facility] CBC WITH DIFF 2022-10-21 06:54:00 [facility] N-TERMINAL PRO-BNP 2022-10-21 06:54:00 Paulina [facility] XR CHEST 1 VW 2022-10-21 06:49:10 [facility] Encounters Start End Encounter Admission Attending Care Care Encounter Source Date/Time Date/Time Type Type Clinicians Facility Department ID 2023-02-20 Outpatient Bull, [facility] [id number] Common 16:00:00 [facility] [id number] [facility] 2023-02-02 Outpatient Bull, [facility]MLC [facility] [id number] Common 08:38:01 [place] [id number] [facility] 2023-01-30 [facility] [id number] 09:42:45 [facility] 2022-12-17 Outpatient Bull, STLMLC [facility] [id number] Common 14:12:01 [facility] [id number] [facility] 2022-04-16 Outpatient Bull, STLMLC [facility] [id number] Common 10:40:00 [facility] 2022-03-21 Outpatient Bull, STLMLC STLMLC Common 10:56:01 Solo [facility] 2021-12-18 Outpatient Bull, STLMLC STLMLC Common 14:24:41 Solo [id number] [facility] 2021-12-18 Outpatient Bull, STLMLC STLMLC Common 13:54:01 Solo [id number] [facility] 2021-12-18 Outpatient Bull, STLMLC STLMLC Common 13:51:23 Solo [id number] [facility] 2021-12-18 Outpatient Bull, STLMLC STLMLC Common 13:51:19 Solo [id number] [facility] 2021-12-18 Outpatient Bull, STLMLC STLMLC Common 12:54:53 Solo [id number] [facility] 2021-12-18 Outpatient Bull, STLMLC STLMLC Common 12:47:58 Solo [id number] [facility] 2021-12-18 Outpatient Bull, STLMLC STLMLC Common 12:43:31 Solo [id number] [facility] 2021-12-18 Outpatient Bull, STLMLC STLMLC Common 12:42:37 Solo [id number] [facility] 2021-12-18 Outpatient Bull, STLMLC STLMLC Common 12:41:47 Solo [id number] [facility] 2021-12-18 Outpatient Bull, STLMLC STLMLC Common 12:40:52 Solo [id number] [facility] 2021-12-18 Outpatient STLMLC STLMLC Common 12:35:19 [id number] [facility] 2021-12-18 Outpatient Jorge, STLMLC STLMLC Common 12:30:20 Erna [id number] [facility] 2021-12-18 Outpatient Jorge, STLMLC STLMLC [id number] Common 12:20:17 Erna 34919 [facility] 2021-12-18 Outpatient Jorge, STLMLC STLMLC [id number] Common 12:19:41 Erna [id number] [facility] 2021-12-18 Outpatient Jorge, STLMLC STLMLC [id number] Common 12:10:41 Erna [id number] [facility] 2021-12-18 Outpatient STLMLC STLC [id number] Common 12:09:40 [id number] [facility] 2023-07-31 2023-07-31 [facility] [id number] Univers 16:30:00 [facility] 2023-01-26 Emergency [facility] [id number] Univers 14:42:00 20:58:00 Nereida BURRIS 350.1.13.10 i ty of [place] 4.2.7.2.[address] [facility] HUNTER [id number] [facility] [address] 2023-01-26 2023-01-26 [facility] [id number] Univers 13:00:00 14:27:49 [facility]23-01-26 2023-01-26 [facility] [id number] Univers 13:00:00 14:27:49 [facility] 2023-01-26 2023-01-26 Office [facility] 1.2.840.114 [id number] Univers 13:00:00 14:27:49 Visit Maribel BURRIS 350.1.13.10 i ty of [place] 4.2.7.2.[address] [facility] [phone] [address] 2022-12-30 2022-12-30 (TEL) STLC STLC [id number] Co mmon 00:00:00 00:00:00 [facility] 2022-12-17 2022-12-17 OFFICE [facility] [id number] Co mmon 00:00:00 00:00:00 VISIT Marko MINOR PT - CHI LEVEL 4 [facility] 2022-12-15 2022-12-15 (TEL) [facility] [id number] Co mmon 00:00:00 00:00:00 Spirit - CHI [facility] 2022-11-01 2022-11-01 Telephone [facility] 1.2.840.114 [id number] Univers 00:00:00 00:00:00 Maribel BURRIS 350.1.13.10 i ty of [facility] [place] [id number] [address] 2022-10-24 2022-10-24 Telemedici [facility] 1.2.840.114 [id number] Univers 16:00:00 16:30:00 ne Visit Maribel BURRIS 350.1.13.10 ity of [facility] [place] [phone] [address] 2022-10-24 2022-10-24 Outpatient [facility] [id number] Univers 16:00:00 16:00:00 MARIBEL maldoando [facility] 2022-10-20 2022-10-21 Emergency X RIGO [facility] ERT [id number] Univers 23:53:00 05:46:00 NEREIDA maldonado [facility] 2022-10-20 2022-10-21 Emergency Josie Gallardo [facility] 1.2.840.1 14 [id number] Univers 23:53:00 05:46:00 Nereida Sierra 350.1.13.10 [place] [phone] [address] 2022-09-12 2022-09-12 [facility] 1.2.840.114 [id number] Univers 16:00:00 16:30:00 ne Visit Maribel BURRIS 350.1.13.10 ity of [place] [phone] Nj dicdanielle NAL [address] [place] [address] 2022-09-12 2022-09-12 Outpatient R [facility] [id number] Univers 16:00:00 16:00:00 MARIBEL maldonado [facility] 2022-08-07 2022-08-07 Telephone [facility] 1.2.840.114 [id number] Univers 00:00:00 00:00:00 Maribel BURRIS 350.1.13.10 i ty [facility] [place] [phone] Nj dic[address] 2022-08-04 2022-08-04 Telemedici [facility] 1.2.840.114 [id number] Univers 15:00:00 15:30:00 ne Visit Maribel BURRIS 350.1.13.10 ity [facility] [place] [phone] [address] 2022-08-04 2022-08-04 Outpatient R [facility] [id number] Univers 15:00:00 15:00:00 MARIBEL maldonado [facility] 2022-08-04 2022-08-04 Outpatient R [facility] [id number] Univers 15:00:00 15:00:00 MARIBEL maldonado [facility] 2022-08-04 2022-08-04 Outpatient R [facility] [id number] Univers 15:00:00 15:00:00 MARIBEL maldonado [facility] 2022-07-30 2022-07-30 OFFICE STLMLC STLMLC [id number] Co mmon 00:00:00 00:00:00 VISIT Spirit ESTAB PT - CHI LEVEL 4 [facility] 2022-06-11 2022-06-11 OFFICE STLMLC STLMLC [id number] Co mmon 00:00:00 00:00:00 VISIT Spirit ESTAB PT - CHI LEVEL 4 [facility] 2022-06-11 2022-06-11 (TEL) STLMLC STLMLC [id number] Co mmon 00:00:00 00:00:00 Spirit - CHI [facility] 2022-06-06 2022-06-06 Office [facility] 1.2.840.114 [id number] Univers 11:00:00 12:07:23 Visit Maribel BURRIS 350.1.13.10 i ty of [facility] 4.[place] [phone] Nj dic[address] 2022-06-06 2022-06-06 Outpatient R [facility] [id number] Univers 11:00:00 12:07:23 [facility] 2022-06-06 2022-06-06 Outpatient R [facility] [id number] Univers 11:00:00 11:00:00 [facility] 2022-06-06 2022-06-06 Outpatient R [facility] [id number] Univers 11:00:00 11:00:00 [facility] 2022-05-02 2022-05-02 Outpatient R [facility] [id number] Univers 10:30:00 11:39:16 [facility] 2022-05-02 2022-05-02 Office [facility] 1.2.840.114 [id number] Univers 10:30:00 11:39:16 Visit Maribel BURRIS 350.1.13.10 i ty [place] [id number] Nj dicok NAL [address] [place] [address] 2022-04-03 2022-04-03 Telephone [facility] 1.2.840.114 [id number] Univers 00:00:00 00:00:00 Maribel BURRIS 350.1.13.10 i ty of [place] [phone] Nj dical NAL [address] [place] [address] 2022-04-02 2022-04-02 OFFICE [facility] STLC [id number] Co mmon 00:00:00 00:00:00 VISIT Spirit ESTAB PT - CHI LEVEL 4 [facility] 2022-04-02 2022-04-02 SUB ANNUAL [facility] [id number] Common 00:00:00 00:00:00 MCR Spirit WELLNESS - CHI VISIT [facility] 2022-04-02 2022-04-02 (TEL) [facility] [id number] Co mmon 00:00:00 00:00:00 Spirit - CHI [facility] 2022-03-25 2022-03-25 Telephone [facility] 1.2.840.114 [id number] Univers 00:00:00 00:00:00 Maribel BURRIS 350.1.13.10 i [place] [id number] Nj dical NAL 134 [facility] 2022-03-24 2022-03-24 [facility] [id number] Co mmon 00:00:00 00:00:00 VISIT Spirit ESTAB PT - CHI LEVEL 4 [facility] 2022-03-17 2022-03-17 Outpatient R [facility] [id number] Univers 14:00:00 15:57:19 [facility]-17 2022-03-17 Outpatient R [facility] [id number] Univers 14:00:00 15:57:19 [facility] 2022-03-17 2022-03-17 Office [facility] 1.2.840.114 [id number] Univers 14:00:00 15:57:19 Visit Maribel BURRIS 350.1.13.10 i ty [place] [id number] Nj dical NAL 098 [facility] 2022-03-17 2022-03-17 Outpatient R [facility] [id number] Univers 14:00:00 14:00:00 MARIBEL maldonado [facility] 2022-03-17 2022-03-17 Orders Doctor GRIFFITH 1.2.840.114 [id number] Univers 00:00:00 00:00:00 Only Unassigned, ALE 350.1.13.10 ity [facility] 4.2.7.2.686 Justino as [phone] [facility] [address] 2022-02-03 2022-02-03 (TEL) STLMLC STLMLC [id number] Co mmon 00:00:00 00:00:00 [facility] 2022-01-29 2022-01-29 Orders Doctor NACHO 1.2.840.114 [id number] Univers 00:00:00 00:00:00 Only Unassigned, ALE 350.1.13.10 ity [facility] 4.2.7.2.686 Justino as [phone] [facility] [address] 2021-12-31 2021-12-31 (TEL) STLMLC STLMLC [id number] Co mmon 00:00:00 00:00:00 [facility] 2021-12-03 2021-12-03 OFFICE STLMLC STLMLC [id number] Co mmon 00:00:00 00:00:00 VISIT EST Spir it PT LEVEL 3 - [facility] 2021-12-02 2021-12-02 (TEL) STLMLC STLMLC [id number] Co mmon 00:00:00 00:00:00 [facility] 2021-11-26 2021-11-26 OFFICE STLMLC STLMLC [id number] Co mmon 00:00:00 00:00:00 VISIT Spirit ESTAB PT - CHI LEVEL 1 [facility] 2021-11-25 2021-11-25 (TEL) STLMLC STLMLC [id number] Co mmon 00:00:00 00:00:00 [facility] 2021-11-15 2021-11-16 Emergency X RIGO [facility] ERT [id number] Univers 22:26:00 02:54:00 NEREIDA maldonado [facility] 2021-11-15 2021-11-16 Emergency Rigo [facility] 1.2.352.505 [id number] Univers 22:26:00 02:54:00 Nereida BURRIS 350.1.13.10 i ty [facility] 4.2.7.2.686 [facility] [phone] [facility] [address] 2021-11-07 2021-11-07 OFFICE STLMLC STLMLC [id number] Co mmon 00:00:00 00:00:00 VISIT [facility] 4 [facility] 2021-08-12 2021-08-12 (TEL) STLMLC STLMLC [id number] Co mmon 00:00:00 00:00:00 [facility] 2021-07-01 2021-07-01 Outpatient STLMLC STLMLC [id number] Common 00:00:00 00:00:00 [facility] 2021-06-26 2021-06-26 Outpatient STLMLC STLMLC [id number] Common 00:00:00 00:00:00 [facility] 2021-04-23 2021-04-23 Outpatient STLMLC STLMLC [id number] Common 00:00:00 00:00:00 [facility] 2021-04-04 2021-04-04 Outpatient STLMLC STLMLC [id number] Common 00:00:00 00:00:00 [facility] 2021-03-29 2021-03-29 Outpatient STLMLC STLMLC [id number] Common 00:00:00 00:00:00 [facility] 2021-03-28 2021-03-28 Outpatient STLMLC STLMLC [id number] Common 00:00:00 00:00:00 [facility] 2021-03-28 2021-03-28 Outpatient STLMLC STLMLC [id number] Common 00:00:00 00:00:00 [facility] 2021-03-11 2021-03-11 Outpatient STLMLC STLMLC [id number] Common 00:00:00 00:00:00 [facility] 2021-03-07 2021-03-07 Outpatient STLMLC STLMLC [id number] Common 00:00:00 00:00:00 [facility] 2021-03-06 2021-03-06 Outpatient STLMLC STLMLC [id number] Common 00:00:00 00:00:00 [facility] 2021-02-07 2021-02-07 Outpatient STLMLC STLMLC [id number] Common 00:00:00 00:00:00 [facility] 2021-02-05 2021-02-05 Outpatient STLMLC STLMLC [id number] Common 00:00:00 00:00:00 [facility] 2021-02-05 2021-02-05 Outpatient STLMLC STLMLC [id number] Common 00:00:00 00:00:00 [facility] 2021-02-04 2021-02-04 Outpatient STLMLC STLMLC [id number] Common 00:00:00 00:00:00 [facility] 2021-01-28 2021-01-28 Outpatient STLMLC STLMLC [id number] Common 00:00:00 00:00:00 [facility] 2021-01-22 2021-01-22 Outpatient STLMLC STLMLC [id number] Common 00:00:00 00:00:00 [facility] 2021-01-22 2021-01-22 Outpatient STLMLC STLMLC [id number] Common 00:00:00 00:00:00 [facility] 2021-01-02 2021-01-02 Outpatient [facility] [id number] [facility] 14:51:51 23:59:[facility] 2021-01-02 2021-01-02 [facility] 1.2.840.114 [id number] 14:45:00 23:59:00 Encounter J Suresh 350.1.13.10 [place] 4.2.7.2.686 Ollie [id number] 807 2021-01-02 2021-01-02 [facility] 1.2.840.114 [id number] [facility] 14:45:00 23:59:00 Encounter Wiliam FlorezCarmel 350.1.13.10 ity [facility] 4.2.7.2.686 [facility] [id number] [address] 2021-01-02 2021-01-02 Orders Doctor NACHO 1.2.840.114 [id number] 00:00:00 00:00:00 Only Unassigned, ALE 350.1.13.10 [place] [facility] 4.2.7.2.686 [id number] 009 2021-01-02 2021-01-02 Orders Doctor NACHO 1.2.840.114 [id number] Univers 00:00:00 00:00:00 Only Unassigned, ALE 350.1.13.10 ity of [place] [facility] 4.2.7.2.686 Justino as [phone] [facility] [address] 2020-12-04 2020-12-04 Outpatient STLMLC STLMLC [id number] Common 00:00:00 00:00:00 [facility] 2020-08-29 2020-08-29 Outpatient STLMLC STLMLC [id number] Common 00:00:00 00:00:00 [facility] 2020-08-24 2020-08-24 Outpatient STLMLC STLMLC [id number] Common 00:00:00 00:00:00 [facility] 2020-05-24 2020-05-24 Out[facility] [id number] Common 15:20:00 15:20:00 [facility] 2020-02-06 2020-03-07 [facility] [id number] Memoria 19:00:00 04:59:00 [place] 00 [facility] 2020-02-06 2020-03-07 [facility] [id number] Memoria 19:00:00 04:59:00 [place] 00 l [facility] 2020-02-06 2020-03-07 [facility] [id number] Memoria 19:00:00 04:59:00 r Oleg 00 [facility] 2020-02-06 2020-03-06 Outpatient Kennye [facility] [id number] 14:00:00 23:59:00 Andrzej G 00 2020-02-06 2020-03-06 Outpatient Kenney [facility] [id number] 14:00:00 23:59:00 2020-02-06 2020-02-06 Outpatient KENNEY, HH [facility] [id number] [facility] 14:00:00 14:00:00 ANDRZEJ 2020-01-11 2020-01-11 Out[facility] [id number] Common 11:45:00 11:45:[address] [facility] 2020-01-10 2020-01-10 Outpatient [facility] [id number] Common 14:30:00 14:30:[address] [facility] 2020-01-09 2020-01-09 Outpatient [facility] [id number] Common 13:30:00 13:30:00 t Specialty/U Sp lenny Specialty rology - [facility] /U[facility] Clinic [facility] 2019-12-26 2019-12-26 Out[facility] [id number] Common 11:05:00 11:05:[address] [facility] 2019-11-13 2019-11-13 Outpatient [facility] [id number] Common 13:57:00 13:57:[address] [facility] 2019-10-18 2019-10-18 Outpatient [facility] [id number] Common 16:57:00 16:57:[address] [facility] 2019-10-13 2019-10-13 Outpatient [facility] [id number] Common 23:20:00 23:20:[address] [facility] 2019-10-13 2019-10-13 Outpatient [facility] [id number] Common 15:00:00 15:00:[address] [facility] 2019-08-16 2019-08-16 Outpatient [facility] [id number] Common 13:34:00 13:34:[address] [facility] 2019-07-22 2019-07-22 Outpatient [facility] [id number] Common 14:00:00 14:00:[address] [facility] 2019-07-18 2019-07-18 Outpatient [facility] [id number] Common 20:00:00 20:00:[address] [facility] 2019-07-14 2019-07-14 Outpatient [facility] [id number] Common 13:00:00 13:00:[address] [facility] 2019-06-29 2019-06-29 Outpatient [facility] [id number] Common 11:57:00 11:57:[address] [facility] 2019-03-24 2019-03-24 Outpatient [facility] [id number] Common 21:45:00 21:45:[address] [facility] 2019-03-24 2019-03-24 Outpatient [facility] [id number] Common 14:27:00 14:27:[address] [facility] 2019-03-22 2019-03-22 Outpatient [facility] [id number] Common 13:20:00 13:20:[address] [facility] 2019-03-21 2019-03-21 Outpatient [facility] [id number] Common 09:12:00 09:12:[address] [facility] 2019-01-31 2019-01-31 Outpatient [facility] [id number] Common 13:23:00 13:23:[address] [facility] 2019-01-17 2019-01-17 Outpatient [facility] [id number] Common 10:30:00 10:30:[address] [facility] 2018-12-22 2018-12-22 Outpatient [facility] [id number] Common 09:09:00 09:09:00 t [facility] 2018-12-15 2018-12-15 Outpatient Fan Dennison [id number] Common 11:45:00 11:45:00 t [facility] 2018-12-09 2018-12-09 Outpatient Fan Dennison 23 [id number] Common 10:38:00 10:38:00 [facility] Results Test Description Test Time Test Comments Results Result Comments Source TROPONIN I 2023-01-26 22:18:30 Test Item Value Reference Range Interpretation Comme nts TROPONIN I (test code = 3883432930) 0.005 ng/mL <=0.034 GLENDA (test code = [...] biotin. Lab Interpretation (test code = Normal 30101-6) [id number] 22:14:52 Test Item Value Reference Range Interpretation Comments NT-proBNP (test code = 304 pg/mL <=125 H 5730996387) GLENDA (test code = GLENDA) Biotin has been reported to cause a negative bias, interpret results relative to patient's use of biotin. Lab Interpretation (test Abnormal code = 83496-8) [facility] ([id number])2023-01-26 22:06:50 Test Item Value Reference Range Interpretation Comments NA (test code = 138 mmol/L 135-145 5808855655) K (test code = 4.2 mmol/L 3.5-5.0 9344675276) CL (test code = 101 mmol/L 98-108 2249999093) CO2 TOTAL (test code = 29 mmol/L 23-31 5887394954) AGAP (test code = 8 2-16 4561674891) BUN (test code = 23 mg/dL 7-23 9441367530) GLUCOSE (test code = 101 mg/dL 70-110 5925048624) CREATININE (test code = 1.30 mg/dL 0.50-1.04 H 7217520702) TOTAL BILI (test code = 1.0 mg/dL 0.1-1.1 3831235026) CALCIUM (test code = 9.0 mg/dL 8.6-10.6 8496880343) T PROTEIN (test code = 6.3 g/dL 6.3-8.2 1969256989) ALBUMIN (test code = 3.6 g/dL 3.5-5.0 9817130467) ALK PHOS (test code = 44 U/L 34-122 9427667999) ALTv (test code = 15 U/L 5-35 1742-6) AST(SGOT) (test code = 19 U/L 13-40 0519406537) eGFR (test code = 41.0 mL/min/1.73m2 0740831867) GLENDA (test code = GLENDA) Association of [...] tests). Lab Interpretation Abnormal (test code = 54308-2) [facility] 22:06:28 Test Item Value Reference Range Interpretation Comments LIPASE (test code = 5291002014) 166 U/L 0-220 Lab Interpretation (test code = Normal 11093-8) [facility] THRMPLAS [id number] 21:43:05 Test Item Value Reference Range Interpretation Comments APTT Patient (test 27 See_Comment [Automat ed code = 3173-2) message] The system which generated this result transmitted reference range : 23 - 38 Seconds . The reference range was not used to interpr et this result as normal/abnormal . GLENDA (test code = GLENDA) The [facility] patient population mean normal value for aPTT is 30 seconds. Lab Interpretation Normal (test code = 94267-9) [facility] / [id number] 21:41:07 Test Item Value Reference Range Interpretation [...] tions. Lab Interpretation (test Normal code = 63578-1) [facility] WITH [id number] 21:33:23 Test Item Value Reference Range Interpretation Comments WBC (test code = 6.29 See_Comment [Automated 2290-2) message] The sy stem which generated this result transmitted reference range : 4.30 - 11.10 10*3/?L. The reference range was not used to interpret this result as normal/abnormal . RBC (test code = 3.77 See_Comment L [Automated 789-8) message] The sy stem which generated this [...] RDW-SD (test code = 46.4 fL 39.0-49.9 07470-1) RDW-CV (test code = 13.1 % 12.0-15.5 788-0) PLT (test code = 198 See_Comment [Automated 777-3) message] The sy stem which generated this result transmitted reference range : 166 - 358 10*3/ ?L. The reference r ariana was not used to interpret this result as normal/abnormal . MPV (test code = 11.2 fL 9.5-12.9 44597-0) NRBC/100 WBC (test 0.0 See_Comment [Automat ed code = 4008489428) message] The system which generated this result transmitted reference range : 0.0 - 10.0 /100 WBCs. The refer ence range was not u sed to interpret th is result as normal/abnormal . NRBC x10^3 (test code See_Comment [Auto mated = 4411617936) message] The s ystem which generated this result transmitted reference range : 10*3/?L. The reference range was not used to interpret this result as normal/abnormal . GRAN MAT (NEUT) % 73.7 % (test code = 770-8) IMM GRAN % (test code 0.30 % = 9049686189) LYMPH % (test code = 14.6 % 736-9) MONO % (test code = 9.5 % 5905-5) EOS % (test code = 1.1 % 713-8) BASO % (test code = 0.8 % 706-2) GRAN MAT x10^3(ANC) 4.63 10*3/uL 1.88-7.09 (test code = 0395300852) IMM GRAN x10^3 (test 0.00-0.06 code = 6382411982) LYMPH x10^3 (test code 0.92 10*3/uL 1.32-3.29 L = 731-0) MONO x10^3 (test code 0.60 10*3/uL 0.33-0.92 = 742-7) EOS x10^3 (test code = 0.07 10*3/uL 0.03-0.39 711-2) BASO x10^3 (test code 0.05 10*3/uL 0.01-0.07 = 704-7) Lab Interpretation Abnormal (test code = 71636-3) [facility] 21 + LACTIC [id number] 21:24:57 Test Item Value Reference Range Interpretation Comments PH (test code = 7.40 7.32-7.42 [id number]) PCO2 ZACK (test code = 47 See_Comment [Auto mated [id number]) message] The sy stem which generated this result transmitted reference range : 41 - 51 mmHg. The reference range was not used to interpret this result as normal/abnormal . PO2 ZACK (test code = 19 See_Comment L [Autom ated [id number]) message] The sy stem which generated this result transmitted reference range : 25 - 40 mmHg. The reference range was not used to interpret this result as normal/abnormal . HCO3 ZACK (test code = 28 See_Comment [Auto mated [id number]) message] The sy stem which generated this result transmitted reference range : 24 - 28 mEq/L. The reference range was not used to interpret this result as normal/abnormal . AC VBE(BEAKER) (test 2.8 mEq/L code = [id number]) THB ZACK (test code = 12.5 g/dL 12.0-16.0 [id number]) %O2HB ZACK (test code = 28.3 % 52.0-63.0 L [id number]) %COHB ZACK (test code = 0.8 % 0.0-1.5 [id number]) %METHB ZACK (test code = 0.3 % 0.4-1.5 L [id number]) VOL%O2 ZACK (test code = 5.0 % 6.0-12.0 L [id number]) NA (test code = 138 mmol/L 135-145 [id number]) K+ (test code = 3.9 mmol/L 3.5-5.0 [id number]) AC CA IONZ (test code = 4.90 mg/dL 4.50-5.30 [id number]) GLUCOSE (test code = 103 mg/dL 70-110 [id number]) LACTIC ACID (test code 1.12 mmol/L 0.50-2.20 = [id number]) Lab Interpretation Abnormal (test code = 71267-9) [facility]
[2023-02-27 21:35] LABS: Hematocrit 37.1 % (36.0-45.0); MCV 97.1 fL (80-100); MPV 10.1 fL (7.6-11.3); RBC Red Blood Cell Count 3.82 M/uL (3.86-4.86)
--- NOTE | 2023-02-27 21:45 | RAD REPORT ---
EXAM DESCRIPTION: Rik Single View02/27/2023 9:35 pm CLINICAL HISTORY: Shortness of breath COMPARISON: January 2023 FINDINGS: [id number] opacities left lung Right lung appears clear of acute infiltrate. Heart is borderline enlarged IMPRESSION: [id number] opacities left lung probably pneumonia
[2023-02-27 21:55] LABS: Albumin 2.8 g/dL (3.4-5.0); Bilirubin Total 0.5 mg/dL (0.2-1.0); Potassium 3.9 mEq/L (3.5-5.1); Protein, Total 6.1 g/dL (6.4-8.2); Troponin High Sensitivity 42.1 pg/mL (<58.9)
[2023-02-27 22:00] LABS: Arterial Blood Carboxyhemoglob 1.4 % (0-1.5); Blood Gas Oxyhemoglobin 88.4 % (94-97); Blood O2 Saturation 90.9 % (92-98.5)
[2023-02-27] MEDS ORDERED: CEFTRIAXONE 2000 MG/VIAL ONE (22:18)
[2023-02-27] MEDS ORDERED: AZITHROMYCIN 500 MG INJ IVPB ONE (22:19)
[2023-02-27] MEDS ORDERED: NA CHLORIDE 0.9% 250 ML ONE (22:19)
[2023-02-27] MEDS ORDERED: MORPHINE 4 MG/ML SYR ONE (23:45)
[2023-02-27] MEDS ORDERED: TENECTEPLASE 50 MG/10 ML VIAL IV ONE (23:57)
--- NOTE | 2023-02-28 00:29 | EDPHYS ---
Physician Documentation [facility] Name: Jeanine Jansen Age: 67 yrs Sex: Female : 1955 Arrival Date: 02/27/2023 Time: 20:51 Bed 3 Private MD: ED Physician Carlitos Jackson HPI: 02/27 22:16 This 67 yrs old Female presents to ER via EMS with complaints of Dyspnea. rt 22:16 Patient presents to the ED with dyspnea starting earlier today. Is worse with exertion. rt Patient's oxygen saturations were reportedly in the 70s, corrected with supplemental O2 by EMS. Denies any chest pain, denies any worsening leg swelling, IBD complaints at this time. She states that her breathing is leveled out after being placed on oxygen. Symptoms are severe in severity, no other aggravating alleviating factors.. Historical: - Allergies: 20:59 Demerol; aa9 20:59 Lisinopril; aa9 - Home Meds: 20:59 allopurinol 100 mg Oral tablet [Active]; buspirone 10 mg oral tablet [Active]; aa9 dexamethasone 2 mg Oral tablet [Active]; docusate sodium 100 mg Oral capsule [Active]; gabapentin 300 mg oral capsule [Active]; hydrocodone-acetaminophen 10-325 mg Oral tablet [Active]; ipratropium-albuterol 0.5 mg-3 mg(2.5 mg base)/3 mL Inhl Solution for Nebulization [Active]; losartan 50 mg oral tablet [Active]; oxybutynin chloride 5 mg Oral Tablet, Extended Release 24 hr [Active]; sertraline 100 mg oral tablet [Active]; - PMHx: 20:59 Arthritis; BREAST CA; depressive disorder; Hypertension; Lung CA; aa9 - Immunization history:: Client reports receiving the 2nd dose of the Covid vaccine. - Social history:: Smoking status: Patient denies any tobacco usage or history of. - Family history:: not pertinent. ROS: 22:16 Constitutional: Negative for fever, chills, and weight loss, Cardiovascular: Negative rt for chest pain, palpitations, and edema, Abdomen/GI: Negative for abdominal pain, nausea, vomiting, diarrhea, and constipation, MS/Extremity: Negative for injury and deformity, Skin: Negative for injury, rash, and discoloration, Neuro: Negative for headache, weakness, numbness, tingling, and seizure, Psych: Negative for depression, anxiety, suicide ideation, homicidal ideation, and hallucinations. 22:16 Respiratory: Positive for cough, shortness of breath. Exam: 22:16 Constitutional: This is a well developed, well nourished patient who is awake, alert, rt and in no acute distress. Head/Face: Normocephalic, atraumatic. Chest/axilla: Normal chest wall appearance and motion. Nontender with no deformity. No lesions are appreciated. Cardiovascular: Regular rate and rhythm with a normal S1 and S2. No gallops, murmurs, or rubs. Normal PMI, no JVD. No pulse deficits. Abdomen/GI: Soft, non-tender, with normal bowel sounds. No distension or tympany. No guarding or rebound. No evidence of tenderness throughout. Skin: Warm, dry with normal turgor. Normal color with no rashes, no lesions, and no evidence of cellulitis. MS/ Extremity: Pulses equal, no cyanosis. Neurovascular intact. Full, normal range of motion. Neuro: Awake and alert, GCS 15, oriented to person, place, time, and situation. Cranial nerves II-XII grossly intact. Motor strength 5/5 in all extremities. Sensory grossly intact. Cerebellar exam normal. Normal gait. Psych: Awake, alert, with orientation to person, place and time. Behavior, mood, and affect are within normal limits. 22:16 ECG was reviewed by the Attending Physician. 22:16 Respiratory: Mild respiratory distress, decreased breath sounds at the left lung base, coarse breath sounds otherwise.. Vital Signs: 20:51 BP 133 / 73; Pulse 129; Resp 23; Temp 98.1(O); Pulse Ox 99% on 8 lpm Non-rebreather aa9 mask; 22:03 BP 103 / 73; Pulse 127; Resp 20 S; Pulse Ox 96% on NC; Weight 154.22 kg (R); Height 5 aa9 ft. 6 in. (R); Pain 0/10; 04/08 00:00 BP 106 / 65; Pulse 115; Resp 21 S; Pulse Ox 97% on 6 lpm NC; aa9 00:40 BP 96 / 61; Pulse 117; Resp 23; Pulse Ox 93% on 6 lpm NC; aa9 01:20 BP 94 / 69; Pulse 114; Resp 26; Pulse Ox 97% on 6 lpm NC; aa9 01:37 BP 123 / 72; Pulse 119; Resp 22; Pulse Ox 94% on 6 lpm NC; aa9 02/27 22:03 Body Mass Index 54.88 (154.22 kg, 167.64 cm) aa9 22:03 Pain Scale: Adult aa9 MDM: 02/27 20:52 Patient medically screened. rt 02/28 01:48 Differential diagnosis: Pneumonia, pneumothorax, sepsis, pulmonary embolism, pulmonary rt edema. Data reviewed: vital signs, nurses notes, lab test result(s), EKG, radiologic studies. Consideration of Admission/Observation Patient was admitted/placed on observation. Management of patient was discussed with the following: Hospitalist: Agrees to admit. I considered the following discharge prescriptions or medication management in the emergency department Medications were administered in the Emergency Department. See MAR Patient became hypotensive, meeting criteria for massive PE, thrombolytics were given at that time.. Independent interpretation of the following test(s) in the Emergency Department CT Scan: My interpretation is Pulmonary embolus seen on main pulmonary arteries on interpretation of the CT scan images. Discussion of test interpretation with radiology: I had a discussion with radiology regarding a test interpretation. Discussed findings of PE with right heart strain with radiologist. Counseling: I had a detailed discussion with the patient and/or guardian regarding: the historical points, exam findings, and any diagnostic results supporting the discharge/admit diagnosis, lab results, radiology results, the need for further work-up and treatment in the hospital, Discussed findings of liver lesion with the patient.. Response to treatment: the patient's symptoms have markedly improved after treatment. 02/27 20:58 Order name: CBC w/o diff; Complete Time: 21:56 rt 02/27 20:58 Order name: CMP; Complete Time: 21:56 rt 02/27 20:58 Order name: ABG; Complete Time: 22:18 rt 02/27 20:58 Order name: D-Dimer; Complete Time: 21:56 rt 02/27 20:58 Order name: Troponin High Sensitivity; Complete Time: 21:56 rt 02/27 20:58 Order name: BNP; Complete Time: 21:56 rt 02/27 20:58 Order name: Blood Culture Adult (2) rt 02/27 20:58 Order name: Lactate w/ 2H reflex if indic.; Complete Time: 21:56 rt 02/28 01:31 Order name: COVID-19/FLU A+B sb4 02/27 20:58 Order name: Chest Single View XRAY; Complete Time: 21:56 rt 02/27 22:03 Order name: CT Chest For PE Angio rt 02/27 20:58 Order name: EKG; Complete Time: 20:58 rt 02/27 20:58 Order name: EKG - Nurse/Tech; Complete Time: 21:50 rt EC/07 22:16 Rate is 124 beats/min. Rhythm is regular, Normal Sinus Rhythm with No ectopy. QRS Independence rt is Normal. NM interval is normal. QRS interval is normal. QT interval is normal. No Q waves. T waves are Normal. No ST changes noted. Interpreted by me. Administered Medications: 22:20 Drug: Rocephin IV 2 grams Route: IV; Rate: calculated rate; Site: left antecubital; aa9 02/28 01:45 Follow up: Response: No adverse reaction; IV Status: Completed infusion; IV Intake: [id number] 02/27 22:51 Drug: AZITHromycin IVPB 500 mg Route: IVPB; Infused Over: 1 hrs; Site: left antecubital;aa9 02/28 01:45 Follow up: Response: No adverse reaction; IV Status: Completed infusion; IV Intake: aa9 250ml 02/27 23:47 Drug: morphine IVP or IV 4 mg Route: IVP; Infused Over: 4 mins; Site: left antecubital; aa9 02/28 00:10 Drug: Tenecteplase IV 50 mg {Co-Signature: lg3 (Nai Bone RN).} Route: IV; Rate: aa9 bolus; Site: left antecubital; 01:45 Follow up: Response: No adverse reaction; IV Status: Completed infusion; IV Intake: [id number] Disposition: 01:50 Critical Care:. rt Disposition Summary: 02/28/23 00:28 Hospitalization Ordered Hospitalization Status: Inpatient Admission rt Provider: Nehemiah Singh rt Location: Intensive Care Unit rt Condition: Critical rt Problem: new rt Symptoms: have improved rt Bed/Room Type: Standard rt Room Assignment: 3-(02/28/23 01:31) mw Diagnosis - Massive pulmonary embolism rt - Other hypotension rt - Acute respiratory failure with hypoxia rt Forms: - Medication Reconciliation Form rt - SBAR form rt Critical care time excluding procedures: 01:50 Critical care time: Bedside Care: 30 minutes, Consultation: 5 minutes. Total time: 35 rt minutes Signatures: Dispatcher [employer] Kristi Mitchell RN RN mw Maci Mercado RN RN aa9 Carlitos Jackson MD MD rt Gibson, Lacie RN lg3 Corrections: (The following items were deleted from the chart) 01:31 00:28 rt mw
--- NOTE | 2023-02-28 00:29 | ER ---
Nurse's Notes [facility] Name: Jeanine Jansen Age: 67 yrs Sex: Female : 1955 Arrival Date: 02/27/2023 Time: 20:51 Bed 3 Private MD: Diagnosis: Massive pulmonary embolism;Other hypotension;Acute respiratory failure with hypoxia Presentation: 02/27 20:51 Chief complaint: EMS states: toned out to [facility], nurse reports pt coughing oink aa9 frothy sputum and O2 sat of 75 on RA, placed on NC \T\ 8 L O2 sat 88%, no frothy sputum observed on scene or en route. placed on non re breather O \T\ sat 96%, pt tachycardic otherwise vital signs WNL. Ebola Screen: No symptoms or risks identified at this time. Risk Assessment: Do you want to hurt yourself or someone else? Patient reports no desire to harm self or others. Onset of symptoms was February 27, 2023. 20:51 Method Of Arrival: EMS: [facility] aa9 20:51 Acuity: ISSAC 3 aa9 22:08 Coronavirus screen: Vaccine status: Patient reports receiving the 2nd dose of the covid aa9 vaccine. Initial Sepsis Screen: Does the patient meet any 2 criteria? No. Patient's initial sepsis screen is negative. Does the patient have a suspected source of infection? Yes:. Triage Assessment: 21:03 General: Appears uncomfortable, obese, unkempt, Behavior is cooperative, agitated. aa9 Neuro: Level of Consciousness is awake, alert, obeys commands, Oriented to person, place, time, situation. Cardiovascular: Rhythm is sinus tachycardia. Respiratory: Airway is patent Respiratory effort is even, labored. GI: Abdomen is obese. : No signs and/or symptoms were reported regarding the genitourinary system. Derm: Skin is fragile, is thin, Skin is pale. 02/28 01:52 Pain: Denies pain. aa9 Historical: - Allergies: 02/27 20:59 Demerol; aa9 20:59 Lisinopril; aa9 - Home Meds: 20:59 allopurinol 100 mg Oral tablet [Active]; buspirone 10 mg oral tablet [Active]; aa9 dexamethasone 2 mg Oral tablet [Active]; docusate sodium 100 mg Oral capsule [Active]; gabapentin 300 mg oral capsule [Active]; hydrocodone-acetaminophen 10-325 mg Oral tablet [Active]; ipratropium-albuterol 0.5 mg-3 mg(2.5 mg base)/3 mL Inhl Solution for Nebulization [Active]; losartan 50 mg oral tablet [Active]; oxybutynin chloride 5 mg Oral Tablet, Extended Release 24 hr [Active]; sertraline 100 mg oral tablet [Active]; - PMHx: 20:59 Arthritis; BREAST CA; depressive disorder; Hypertension; Lung CA; aa9 - Immunization history:: Client reports receiving the 2nd dose of the Covid vaccine. - Social history:: Smoking status: Patient denies any tobacco usage or history of. - Family history:: not pertinent. Screenin:08 [facility] ED Fall Risk Assessment (Adult) History of falling in the last 3 months, aa9 including since admission No falls in past 3 months (0 pts) Confusion or Disorientation No (0 pts) Intoxicated or Sedated No (0 pts) Impaired Gait Yes (1 pt) Mobility Assist Device Used Yes (1 pt) Altered Elimination Yes (1 pt) Score/Fall Risk Level 3 or more points = High Risk Oriented to surroundings, Maintained a safe environment, Educated pt \T\ family on fall prevention, incl call for assistance when getting out of bed. Abuse screen: Denies threats or abuse. Denies injuries from another. Nutritional screening: No deficits noted. Tuberculosis screening: No symptoms or risk factors identified. Assessment: 22:02 Reassessment: Patient appears in no apparent distress at this time. Patient is alert, aa9 oriented x 3, equal unlabored respirations, skin warm/dry/pink. Patient denies pain at this time. 23:00 Reassessment: Patient appears in no apparent distress at this time. Patient is alert, aa9 oriented x 3, equal unlabored respirations, skin warm/dry/pink. Patient denies pain at this time. 23:00 Neuro: Level of Consciousness is awake, alert, obeys commands, Oriented to person, aa9 place, time, situation. Respiratory: Airway is patent Respiratory effort is even, unlabored. 23:56 Reassessment: consent form signed for JARON. aa9 02/28 00:00 Reassessment: Patient appears in no apparent distress at this time. Patient is alert, aa9 oriented x 3, equal unlabored respirations, skin warm/dry/pink. 00:00 Neuro: Level of Consciousness is awake, alert, obeys commands, Oriented to person, aa9 place, time, situation. Respiratory: Airway is patent Respiratory effort is even, unlabored. 01:40 Reassessment: Patient appears in no apparent distress at this time. Patient denies pain aa9 at this time. 01:51 Reassessment: report provide to receiving nurse. aa9 Vital Signs: 02/27 20:51 BP 133 / 73; Pulse 129; Resp 23; Temp 98.1(O); Pulse Ox 99% on 8 lpm Non-rebreather aa9 mask; 22:03 BP 103 / 73; Pulse 127; Resp 20 S; Pulse Ox 96% on NC; Weight 154.22 kg (R); Height 5 aa9 ft. 6 in. (R); Pain 0/10; 02/28 00:00 BP 106 / 65; Pulse 115; Resp 21 S; Pulse Ox 97% on 6 lpm NC; aa9 00:40 BP 96 / 61; Pulse 117; Resp 23; Pulse Ox 93% on 6 lpm NC; aa9 01:20 BP 94 / 69; Pulse 114; Resp 26; Pulse Ox 97% on 6 lpm NC; aa9 01:37 BP 123 / 72; Pulse 119; Resp 22; Pulse Ox 94% on 6 lpm NC; aa9 02/27 22:03 Body Mass Index 54.88 (154.22 kg, 167.64 cm) aa9 22:03 Pain Scale: Adult aa9 ED Course: 02/27 20:51 Patient arrived in ED. aa9 20:51 Carlitos Jackson MD is Attending Physician. rt 20:59 Triage completed. aa9 21:05 Arm band placed on. aa9 21:05 Patient has correct armband on for positive identification. Placed in gown. Call light aa9 in reach. Side rails up X2. Client placed on continuous cardiac and pulse oximetry monitoring. NIBP monitoring applied. 21:28 Inserted saline lock: 20 gauge in left antecubital area, using aseptic technique. Blood aa9 collected. 21:28 Blood Culture Adult (2) Sent. aa9 21:28 BNP Sent. aa9 21:28 Troponin High Sensitivity Sent. aa9 21:28 D-Dimer Sent. aa9 21:28 CMP Sent. aa9 21:28 CBC w/o diff Sent. aa9 21:37 Chest Single View XRAY In Process Unspecified. EDMS 22:02 Maci Mercado, RN is Primary Nurse. aa9 22:51 CT Chest For PE Angio In Process Unspecified. EDMS 02/28 00:23 Nehemiah Singh MD is Hospitalizing Provider. rt 01:32 Blood Culture Adult (2) Sent. as7 01:37 No provider procedures requiring assistance completed. Patient admitted, IV remains in aa9 place. Administered Medications: 02/27 22:20 Drug: Rocephin IV 2 grams Route: IV; Rate: calculated rate; Site: left antecubital; aa9 02/28 01:45 Follow up: Response: No adverse reaction; IV Status: Completed infusion; IV Intake: [id number] 02/27 22:51 Drug: AZITHromycin IVPB 500 mg Route: IVPB; Infused Over: 1 hrs; Site: left antecubital;aa9 02/28 01:45 Follow up: Response: No adverse reaction; IV Status: Completed infusion; IV Intake: aa9 250ml 02/27 23:47 Drug: morphine IVP or IV 4 mg Route: IVP; Infused Over: 4 mins; Site: left antecubital; aa9 02/28 00:10 Drug: Tenecteplase IV 50 mg {Co-Signature: lg3 (Nai Bone RN).} Route: IV; Rate: aa9 bolus; Site: left antecubital; 01:45 Follow up: Response: No adverse reaction; IV Status: Completed infusion; IV Intake: [id number] Medication: 01:52 VIS not applicable for this client. aa9 Intake: 01:45 IV: 10ml; Total: 10ml. aa9 01:45 IV: 250ml; Total: 260ml. aa9 01:45 IV: 10ml; Total: 270ml. aa9 Outcome: 00:28 Decision to Hospitalize by Provider. rt 01:41 Condition: stable aa9 01:52 Instructed on the need for admit. aa9 02:26 Admitted to ICU accompanied by nurse, via stretcher, room 3. aa9 02:27 Patient left the ED. aa9 Signatures: Dispatcher [employer] EDTX Maci Mercado RN RN aa9 Carlitos Jackson MD MD rt Cruz, Mirtha as7 Nai Bone RN lg3
[2023-02-28] MEDS ORDERED: ALBUTEROL 2.5 MG/3 ML NEB SOL NEB PRN (01:55)
[2023-02-28] MEDS ORDERED: VANCOMYCIN 1 GM in NA CHLORIDE 0.9% 250 ML IVPB SCH (01:55)
--- NOTE | 2023-02-28 02:13 | P.HP ---
Certification for Inpatient Patient admitted to: Inpatient With expected LOS: >2 Midnights Patient will require the following post-hospital care: None Practitioner: I am a practitioner with admitting privileges, knowledge of patient current condition, hospital course, and medical plan of care. Services: Services provided to patient in accordance with Admission requirements found in Title 42 Section 412.3 of the Code of Federal Regulations Patient History Date of Service: 02/28/23 Reason for admission: Bilateral Pulmonary Emboli History of Present Illness: Patient is a 67 year old female with past medical history of morbid obesity, lymphadema, hypertension, gout, and recent hospitalization for tibula fracture with ORIF who presented to the emergency department via EMS from senior care with dyspnea and cough. Patient states she was feeling a little short of breath last night with an associated "rattle" in her chest that was not relieved by her nebulizer treatments. She was noted to be tachycardic and tachypneic. Labs significant for ddimer 1467, chloride 109, BUN 34, creatinine 1.06, BNP 3,067. Chest CTA showed Extensive bilateral pulmonary emboli with right heart strain as well as consolidative changes in the left lower lobe and multifocal opacities in both lungs which could be related to pneumonia or edema. Patient briefly became hypotensive. Dr. Singh was contacted who recommended thrombolytic therapy. She was given 50 mg IV tenecteplase. BP has stabilized, though she has remained tachycardic. She was additionally given azithromycin and rocephin in the emergency department. She has no complaints of shortness of breath and is saturating appropriately on NC. Patient will be admitted to ICU for further management. Allergies levofloxacin [From Levaquin] Allergy (Verified 11/30/19 15:52) Rash meperidine [From Demerol] Adverse Reaction (Verified 11/30/19 15:52) body jerking Home medications list reviewed: Yes Home Medications: Allopurinol 100 mg PO DAILY 01/30/23 Gabapentin 300 mg PO DAILY 01/30/23 Gabapentin 600 mg PO BEDTIME 01/30/23 Hydrocodone 10/APAP 325 [[place] 10/325*] 1 tab PO Q12HP PRN 01/30/23 Losartan Potassium [Cozaar*] 50 mg PO DAILY 01/30/23 Sertraline [Zoloft*] 200 mg PO DAILY 01/30/23 Solifenacin [Vesicare*] 10 mg PO DAILY 01/30/23 Cefuroxime [Ceftin*] 500 mg PO BID 5 Days tab 02/05/23 Docusate [Colace Cap*] 200 mg PO DAILY PRN cap 02/05/23 dexAMETHasone [Decadron*] 2 mg PO BIDL tab 02/05/23 - Past Medical/Surgical History Diabetic: No -: Hypertension -: Lung Cancer in remission -: Breast Cancer in remission -: Depression & Anxiety -: Gout -: Lymphadema -: Pulmonary Embolism -: Right upper lobe removal -: Bilateral mastectomy Psychosocial/ Personal History: Patient lives at [facility]. - Family History Mother -: Hypertension, Stroke Notes: depression. HLD Father -: Other (see notes) Notes: Alzheimer's - Social History Smoking Status: Never smoker Alcohol use: No CD- Drugs: No Caffeine use: No Place of Residence: Home Review of Systems Respiratory: Cough, Shortness of Breath, Sputum Physical Examination - Vital Signs Temperature: 98.1 F Blood Pressure: 123/72 Pulse: 119 Respirations: 22 Pulse Ox (%): 94 (6L NC) - Physical Exam General: Alert, In no apparent distress, Obese HEENT: Atraumatic, EOMI, Sclerae nonicteric Neck: Supple, 2+ carotid pulse no bruit Respiratory: Other (decreased breath sounds bilatera lung bases) Cardiovascular: Irregular heart rate/rhythm (tachycardic) Gastrointestinal: Normal bowel sounds, No tenderness Musculoskeletal: No tenderness Integumentary: No rashes Neurological: Normal speech, Normal affect - Studies Laboratory Data (last 24 hrs) 02/27/23 21:22: Sodium 140, Potassium 3.9, BUN 34 H, Creatinine 1.06 H, Glucose 164 H, Total Bilirubin 0.5, AST 16, ALT 28, Alkaline Phosphatase 74 02/27/23 21:22: WBC 9.80, Hgb 12.2, Hct 37.1, Plt Count 184 Assessment and Plan - Problems (Diagnosis) (1) Bilateral pulmonary embolism Current Visit: Yes Status: Acute (2) Pneumonia Current Visit: Yes Status: Acute (3) Hypertension Current Visit: Yes Status: Chronic Qualifiers: Hypertension type: primary hypertension Qualified Code(s): I10 - Essential (primary) hypertension (4) Obesity Current Visit: Yes Status: Chronic Qualifiers: Obesity type: due to excess calories Obesity classification: adult class 3 (BMI >= 40) Serious obesity comorbidity presence: with serious comorbidity - Plan Patient is admitted to ICU for further management of bilateral pulmonary emboli s/p TNK. Check PTT every 4 hours and begin lovenox therapy when PTT is less than 2x upper limit of normal. Continue broad spectrum antibiotics for suspected pneumonia. High risk given recent hospitalization and residing in senior care. Blood cultures obtained. Lactate within normal limits. White blood cell count is not elevated. Monitor pulse oximetry closely. Titrate and wean O2 as tolerated. Of note, CT additionally demonstrated: -Incompletely characterized right hepatic lobe lesion which can be followed up as appropriate. -Left thyroid lobe mass again demonstrated, follow-up ultrasound recommended if not already performed. -Low-density fluid collection adjacent to the right heart border again noted may represent a pericardial cyst. Discharge Plan: Halfway Plan to discharge in: Greater than 2 days - Advance Directives Does patient have a Living Will: No Does patient have a Durable POA for Healthcare: No - Code Status/Comfort Care Code Status Assessed: Yes Code Status: Full Code Physician Review: Patient Assessed, Agree with Above Assessment and Plan Critical Care: No Time Spent Managing Pts Care (In Minutes): 50
[2023-02-28] MEDS ORDERED: NA CHLORIDE 0.9% IVPB ONE (02:30)
[2023-02-28] MEDS ORDERED: VANCOMYCIN IVPB ONE (02:30)
[2023-02-28 06:05] LABS: Absolute Lymphocytes (CBC) 0.8 K/uL (0.7-4.9); Hematocrit 33.5 % (36.0-45.0); Lymphocytes % 7.7 % (15.3-44.8); MCV 98.3 fL (80-100); MPV 9.6 fL (7.6-11.3)
[2023-02-28 06:09] VITALS: BMI 56.0
[2023-02-28 06:15] LABS: Potassium 4.2 mEq/L (3.5-5.1)
[2023-02-28] MEDS ORDERED: CEFEPIME 1 GM in NA CHLORIDE 0.9% 100 ML IV SCH (09:00)
[2023-02-28 09:59] LABS: SARS-COV-2 RT PCR POSITIVE (NEGATIVE)
[2023-02-28] MEDS: ENOXAPARIN 80 MG/0.8 ML SQ SCH ×2 (10:44→21:59)
[2023-03-01] MEDS ORDERED: VANCOMYCIN 2 GM in NA CHLORIDE 0.9% 500 ML IVPB SCH (03:00)
[2023-03-01 04:06] LABS: Hematocrit 26.9 % (36.0-45.0); Lymphocytes % 24.3 % (15.3-44.8); MCV 97.3 fL (80-100); MPV 9.6 fL (7.6-11.3); RBC Red Blood Cell Count 2.76 M/uL (3.86-4.86)
[2023-03-01 04:20] LABS: Magnesium 1.8 mg/dL (1.6-2.4); Potassium 3.7 mEq/L (3.5-5.1)
[2023-03-01] MEDS ORDERED: APIXABAN 2.5 MG TABLET PO SCH (06:00)
[2023-03-01] MEDS ORDERED: MAGNESIUM SULFATE 1 gm IVPB 1 GM/100 ML BAG IV ONE (07:37)
[2023-03-01] MEDS ORDERED: POTASSIUM CL SA 10 MEQ TAB PO ONE (07:37)
[2023-03-01] MEDS ORDERED: POTASS/SODIUM PHOSPHATE 1 PKT POWD.PACK PO SCH (08:00)
[2023-03-01] MEDS ORDERED: LOSARTAN POTASSIUM 50 MG TABLET PO SCH (09:00)
[2023-03-01] MEDS: SOLIFENACIN SUCCIN 5 MG TAB PO SCH (09:00)
[2023-03-01] MEDS ORDERED: APIXABAN 5 MG TABLET PO SCH (09:00)
[2023-03-01] MEDS: allopurinoL 100 MG TAB PO SCH (09:34)
[2023-03-01] MEDS: GABAPENTIN 300 MG CAP PO SCH ×2 (09:34→20:07)
[2023-03-01] MEDS: SERTRALINE HCL 100 MG TAB PO SCH (09:34)
[2023-03-01] MEDS: BUSPIRONE HCL 5 MG TABLET PO SCH (09:35)
[2023-03-01] MEDS: ENOXAPARIN 80 MG/0.8 ML SQ SCH ×2 (09:35→20:06)
--- NOTE | 2023-03-01 10:14 | P.PN ---
Subjective Date of Service: 03/01/23 Chief Complaint: Bilateral Pulmonary Emboli Subjective: Improving (Patient is depressed hemoptysis) Review of Systems General: Weakness Respiratory: Shortness of Breath, Hemoptysis Physical Examination - Vital Signs Temperature: 97.9 F Blood Pressure: 121/60 Pulse: 103 Respirations: 16 Pulse Ox (%): 98 - Physical Exam General: Alert, In no apparent distress, Oriented x3 Respiratory: Clear to auscultation bilaterally Cardiovascular: Regular rate/rhythm, Normal S1 S2 - Studies Microbiology Data (last 24 hrs): 02/27/23 21:55 Blood - Blood Anaerobic Blood Culture - Final Assessment And Plan - Current Problems (Diagnosis) (1) Bilateral pulmonary embolism Current Visit: Yes Status: Acute Plan: Patient admitted with bilateral pulmonary embolism due to recent surgery on her right leg nonambulatory for at least [address] Flores patient not able to afford Eliquis darted on Lovenox and warfarin regimen discharge home when INR is between 2 and 3 manager social services consult she lives by herself unable to manage minimal hemoptysis no evidence of sepsis he is on the x-ray most likely due to pulmonary infarction oxygenation stable physical therapy vital signs are all stable Physician Review: Patient Assessed, Agree with Above Assessment and Plan
[2023-03-01 10:55] LABS: Protime INR 1.15
[2023-03-01] MEDS: WARFARIN SODIUM 5 MG TAB PO SCH (16:32)
--- NOTE | 2023-03-01 18:48 | EKG ---
Test Date: 2023-02-27 Test Time: 21:43:12 Biochemistry Professor: MEASUREMENT RESULTS: Intervals: Rate: 124 CT: 126 QRSD: 84 QT: 314 QTc: 451 [place]: P: -22 CT: 126 QRS: 47 T: 29 INTERPRETIVE STATEMENTS: Sinus tachycardia Otherwise normal ECG Compared to ECG 01/30/2023 01:25:05 Sinus rhythm no longer present ST (T wave) deviation no longer present Electronically Signed On 03-01-23 18:45:32 CDT by Jimy Payan
[2023-03-01] MEDS: ACETAMINOPHEN 500 MG TAB PO PRN (20:07)
[2023-03-02 04:03] LABS: Absolute Lymphocytes (CBC) 0.7 K/uL (0.7-4.9); Hematocrit 25.5 % (36.0-45.0); Lymphocytes % 29.5 % (15.3-44.8); MCV 96.4 fL (80-100); MPV 9.1 fL (7.6-11.3); RBC Red Blood Cell Count 2.64 M/uL (3.86-4.86)
[2023-03-02 04:15] LABS: Phosphorus 2.4 mg/dL (2.5-4.9); Potassium 3.4 mEq/L (3.5-5.1)
[2023-03-02 04:53] LABS: Blood Morphology Comment NOTED (NOT SEEN); Platelet Estimate DECR; Teardrop Cell FEW; White Blood Cell Scan OK (OK)
[2023-03-02 04:54] LABS: Protime INR 1.11
[2023-03-02] MEDS ORDERED: POTASSIUM CL SA 10 MEQ TAB PO ONE (07:27)
[2023-03-02] MEDS: BUSPIRONE HCL 5 MG TABLET PO SCH (08:50)
[2023-03-02] MEDS: SERTRALINE HCL 100 MG TAB PO SCH (08:50)
[2023-03-02] MEDS: POTASS/SODIUM PHOSPHATE 1 PKT POWD.PACK PO SCH ×3 (08:50→11:14)
[2023-03-02] MEDS: allopurinoL 100 MG TAB PO SCH (08:50)
[2023-03-02] MEDS: GABAPENTIN 300 MG CAP PO SCH ×2 (08:50→21:35)
[2023-03-02] MEDS: ENOXAPARIN 80 MG/0.8 ML SQ SCH ×2 (08:50→21:35)
[2023-03-02] MEDS: SOLIFENACIN SUCCIN 5 MG TAB PO SCH (08:51)
--- NOTE | 2023-03-02 10:17 | RAD REPORT ---
EXAM DESCRIPTION: CT CHEST ANGIOGRAPHY WITH IV CONTRAST CLINICAL HISTORY: DYSPNEA COMPARISON: CT chest November 29, 2022 TECHNIQUE: Multiple helical axial tomographic images were obtained of the chest following administra tion of intravenous contrast per angiographic protocol. MIP reformatted images were obtained. This exam was performed according to our departmental dose-optimization program, which includes autom ated exposure control, adjustment of the mA and/or kV according to patient size and/or use of iterati ve reconstruction technique. FINDINGS: Thyroid gland: Large 3.8 cm by 5.3 cm heterogeneous mass projecting from the left thyroid lobe again demonstrated. Axilla: unremarkable. Pulmonary arteries: Multiple bilateral occlusive pulmonary emboli are demonstrated involving the righ t and left pulmonary arteries extending into all lobar and several segmental and subsegmental arteria l branches. Nonocclusive embolus projects within the proximal and mid right pulmonary artery extendin g towards the main pulmonary artery bifurcation. Aorta: No evidence of aortic dissection or aneurysm. Mediastinum: Unremarkable. No adenopathy. Heart: Heart is normal in size. There is suggestion of right heart strain with RV/LV ratio 1.4. The re is a 6.8 cm x 2.5 cm low-density fluid collection adjacent to the right heart border which appears unchanged. Lungs/airways: There are consolidative changes of left lower lobe. There are patchy groundglass opaci ties throughout both lungs. Airways are patent. Partial herniation of the right middle lobe through c hest wall defect again noted. Pleural spaces: Small left pleural effusion noted. No pneumothorax. Osseous: Degenerative changes of the spine noted. Chronic appearing defect of the lateral right fourt h rib noted. Soft tissues: Unremarkable. Visualized abdomen: There is a 2.2 cm hypodense lesion in the right hepatic lobe (series 401, image 8 ). IMPRESSION: 1. Extensive bilateral pulmonary emboli involving the right and left pulmonary arteries as well as lobar, segmental, and subsegmental arterial branches. 2. Findings concerning for right heart strain. 3. Consolidative changes in the left lower lobe and multifocal opacities in both lungs which could be related to pneumonia or edema. 4. Small left pleural effusion. 5. Incompletely characterized right hepatic lobe lesion which can be followed up as appropriate. 6. Left thyroid lobe mass again demonstrated, follow-up ultrasound recommended if not already perform ed. 7. Low-density fluid collection adjacent to the right heart border again noted may represent a perica rdial cyst. THIS REPORT CONTAINS FINDINGS THAT MAY BE CRITICAL TO PATIENT CARE: The findings were verbally discus sed via telephone conference with Dr. Jackson by Dr. Gonzales at 2320 hours central time on February 27. The results were acknowledged and understood. Electronically signed by: Huber Gonzales MD 02/27/2023 11:34 PM CDT Due to temporary technical issues with the PACS/Fluency reporting system, reports are being signed by the in house radiologist without review as a courtesy to ensure prompt reporting. The interpreting r adiologist is fully responsible for the content of the report.
[2023-03-02] MEDS ORDERED: ALBUTEROL 2.5 MG/3 ML NEB SOL NEB PRN (13:00)
--- NOTE | 2023-03-02 15:28 | P.PN ---
Subjective Date of Service: 03/02/23 Chief Complaint: Bilateral Pulmonary Emboli Patient reports intermittent shortness of breath otherwise no new. Slightly tachycardic with normal blood pressure. She denies any chest pain. Physical Examination - Vital Signs Temperature: 97.2 F Blood Pressure: 139/57 Pulse: 102 Respirations: 22 Pulse Ox (%): 95 Assessment And Plan - Plan Physical Exam General: Alert, In no apparent distress, Obese Neck: Supple, no elevated JVD Respiratory: Bilateral diminished breath sound, nonlabored breathing. Cardiovascular: Irregular heart rate/rhythm. Gastrointestinal: Normal bowel sounds, No tenderness, obese abdomen Musculoskeletal: No tenderness Integumentary: Bilateral venous stasis dermatitis Neurological: Normal speech, Normal affect. Moves all extremities. No focal motor deficits. Plan: Patient with extensive bilateral pulm embolism. Status post tPA. Patient started on full dose Lovenox and Coumadin. Per report, patient has not been able to afford Eliquis. Continue Lovenox until INR is therapeutic between 2 and 3. Obtain echocardiogram to assess for RV strain. Bronchodilators as needed. Empiric antibiotics for possible pneumonia. Patient is not hypoxic. She has been tolerating room air. PT to evaluate given recent history of fibula fracture. Pain management as needed-hydrocodone.
[2023-03-02] MEDS: WARFARIN SODIUM 5 MG TAB PO SCH (16:11)
--- NOTE | 2023-03-02 18:50 | RAD REPORT ---
EXAM DESCRIPTION: US - Extrem Venous W Compress Mario Alberto - 03/02/2023 6:40 pm CLINICAL HISTORY: Bilateral PE Bilateral leg edema and swelling. COMPARISON: <Comparisons> TECHNIQUE: Real-time sonographic interrogation of the left and right lower extremity deep venous sys tems was performed. FINDINGS: Normal compressibility, flow augmentation, phasic flow and spontaneous flow is identified in both the left and right lower extremity deep venous systems. IMPRESSION: No sonographic evidence of left or right lower extremity deep venous thrombosis.
[2023-03-02] MEDS: CEFUROXIME 250 MG TAB PO SCH (21:35)
--- NOTE | 2023-03-02 21:38 | P.PN ---
Date of Service: 03/03/23 Subjective: complains of right arm pain no chest pain or SOB reported today no worsening symptom; breathing comfortably afebrile ROS: 10 point ROS as noted above, otherwise negative Physical Exam: Gen: Alert, NAD, AOx3 HEENT: normal conjunctiva, sclera anicteric CV: regular rate & rhythm, b/l lower extremity edema Pulm: non-labored respirations on room air, clear bilaterally Abd: soft, non-tender, non-distended Skin: mild ecchymosis - Right lower extremity Neuro: normal speech, normal affect, moves all extremities Problem List: Bilateral Pulmonary Embolism Pneumonia recent R fibula fracture s/p ORIF Chronic lymphedema of leg Hypertension Obesity h/o R partial lobectomy iron deficiency anemia; chronic Bilateral Pulmonary Embolism Patient with extensive bilateral pulm embolism s/p tPA started lovenox bridge and coumadin INR 2.0; lower coumadin dose; goal 2-3 echo to r/o RV strain no DVT on doppler Ankle xray 03/03 - Postsurgical changes are present with a lateral fibular sideplate and multiple screws present. Large calcaneal spurs. Fracture lucency is still seen in the fibula. Pneumonia Empiric antibiotics for possible pneumonia Patient is not hypoxic. she is tolerating room air PT evaluation Pain management as needed- hydrocodone VTE: Lovenox; coumadin Code: Full Dispo: shelter 24-48 hours
[2023-03-03] MEDS ORDERED: HYDROCODONE/APAP 7.5/325 MG TAB PO ONE (01:58)
[2023-03-03 05:34] LABS: Absolute Lymphocytes (CBC) 0.7 K/uL (0.7-4.9); Hematocrit 26.7 % (36.0-45.0); Lymphocytes % 34.1 % (15.3-44.8); MCV 97.1 fL (80-100); MPV 8.8 fL (7.6-11.3); RBC Red Blood Cell Count 2.75 M/uL (3.86-4.86)
[2023-03-03 05:46] LABS: Phosphorus 2.2 mg/dL (2.5-4.9); Potassium 4.4 mEq/L (3.5-5.1)
[2023-03-03] MEDS: ACETAMINOPHEN 500 MG TAB PO PRN ×2 (07:53→15:33)
[2023-03-03] MEDS: POTASS/SODIUM PHOSPHATE 1 PKT POWD.PACK PO SCH ×3 (07:53→11:46)
[2023-03-03] MEDS: allopurinoL 100 MG TAB PO SCH (07:54)
[2023-03-03] MEDS: BUSPIRONE HCL 5 MG TABLET PO SCH (07:54)
[2023-03-03] MEDS: SERTRALINE HCL 100 MG TAB PO SCH (07:54)
[2023-03-03] MEDS: GABAPENTIN 300 MG CAP PO SCH ×2 (07:54→20:22)
[2023-03-03] MEDS: ENOXAPARIN 80 MG/0.8 ML SQ SCH (07:55)
[2023-03-03] MEDS: CEFUROXIME 250 MG TAB PO SCH (07:55)
[2023-03-03] MEDS: SOLIFENACIN SUCCIN 5 MG TAB PO SCH (07:55)
[2023-03-03] MEDS ORDERED: POTASS/SODIUM PHOSPHATE 1 PKT POWD.PACK PO SCH (09:00)
--- NOTE | 2023-03-03 09:22 | RAD REPORT ---
EXAM DESCRIPTION: RAD - Ankle Right 2 View - 03/03/2023 9:17 am CLINICAL HISTORY: post op check COMPARISON: Ankle Right 2 View dated 01/30/2023 FINDINGS: Postsurgical changes are present with a lateral fibular sideplate and multiple screws pres ent. Two syndesmotic lag screws also noted. Large calcaneal spurs. Fracture lucency is still seen in the fibula.
--- NOTE | 2023-03-03 12:01 | P.PN ---
Subjective Date of Service: 03/03/23 Chief Complaint: Bilateral Pulmonary Emboli Subjective: Improving (Patient is doing well minimal hemoptysis not on any oxygen) Review of Systems General: Weakness Respiratory: Shortness of Breath Physical Examination - Vital Signs Temperature: 97.2 F Blood Pressure: 142/57 Pulse: 100 Respirations: 16 Pulse Ox (%): 98 - Physical Exam General: Alert, In no apparent distress, Oriented x3 Respiratory: Clear to auscultation bilaterally, Diminished Cardiovascular: No edema, Regular rate/rhythm Assessment And Plan - Current Problems (Diagnosis) (1) Bilateral pulmonary embolism Current Visit: Yes Status: Acute Plan: Patient is 67 years of age admitted with bilateral pulmonary emboli s/p tPA doing well darted on Lovenox and warfarin is no clinical evidence of pneumonia DC antibiotic continue with warfarin and Lovenox until warfarin until INR is therapeutic probably need 3 to 6 months of anticoagulation depending upon her physical status oxygenation satisfactory patient right now is not a candidate f or thrombectomy Physician Review: Patient Assessed, Agree with Above Assessment and Plan
[2023-03-03] MEDS ORDERED: WARFARIN SODIUM 5 MG TAB PO SCH (17:00)
[2023-03-03] MEDS: CODEINE 30MG/APAP 300MG TAB PO PRN (18:03)
[2023-03-03] MEDS ORDERED: MORPHINE 4 MG/ML SYR IV ONE (20:11)
[2023-03-03] MEDS ORDERED: MORPHINE 4 MG/ML SYR ONE (20:26)
[2023-03-03] MEDS ORDERED: HYDROMORPHONE HCL 0.5 MG/0.5 ML INJ IV ONE (21:39)
--- NOTE | 2023-03-03 21:43 | RAD REPORT ---
EXAM DESCRIPTION: US - UPPER EXTREMITY VENOUS UNILATE - 03/03/2023 9:31 pm CLINICAL HISTORY: RUE and right upper chest swelling S/P TNK with PE COMPARISON: None. TECHNIQUE: Real-time sonographic evaluation of the right upper extremity deep venous system was perf ormed. FINDINGS: Technically difficult exam to difficult patient positioning given pain. Normal compressibi lity, flow augmentation, phasic flow and spontaneous flow is identified in the right upper extremity deep venous system. No intraluminal filling defects seen. Underlying the area of right chest wall swelling, there is an ovoid heterogeneous collection measurin g at least 7.4 x 5.0 centimeter in greatest sagittal dimensions and 7.3 centimeter in greatest transv erse dimension, with layering echogenic material situs dependent/deep aspect. IMPRESSION: No evidence of DVT in the right upper extremity. 7.4 centimeter collection in the soft tissues of the right upper chest wall, could represent a hemato ma.
[2023-03-03] MEDS ORDERED: VITAMIN K (ADULT) 10 MG/ML IVP ONE (23:44)
[2023-03-03] MEDS ORDERED: VITAMIN K (ADULT) 10 MG/ML ONE (23:53)
[2023-03-04 00:02] LABS: Hematocrit 27.2 % (36.0-45.0)
--- NOTE | 2023-03-04 00:31 | P.PN ---
Date of Service: 03/04/23 Patient C/O pain to right anterior chest this evening. There was some swelling noted to the area. US was obtained which revealed 7.4 centimeter collection in the soft tissues of the right upper chest wall, could represent a hematoma. She then called back and reported increasing swelling and pain. Hematoma significantly increased in size from a few hours ago. Vitals are stable. Stat H/H, type and screen obtained. INR 2 today, given expanding hematoma she was given 5mg IV vitamin K. She has been brought down for CT angio dissection stat. Will follow results. Repeat hemoglobin is stable, will trend Q4H.
[2023-03-04] MEDS: HYDROMORPHONE HCL 0.5 MG/0.5 ML INJ IV PRN ×4 (01:31→20:12)
[2023-03-04] MEDS: ONDANSETRON 4 MG/2 ML VIAL IV PRN (01:38)
[2023-03-04 03:31] LABS: Protime INR 2.16
[2023-03-04 03:33] LABS: Absolute Lymphocytes (CBC) 1.3 K/uL (0.7-4.9); Hematocrit 28.8 % (36.0-45.0); Lymphocytes % 14.1 % (15.3-44.8); MCV 96.9 fL (80-100); MPV 9.1 fL (7.6-11.3); RBC Red Blood Cell Count 2.97 M/uL (3.86-4.86)
[2023-03-04 03:37] LABS: Potassium 4.5 mEq/L (3.5-5.1)
[2023-03-04] MEDS ORDERED: Ringers Lactate 1,000 ML IV ONE (05:49)
--- NOTE | 2023-03-04 07:41 | P.PN ---
Date of Service: 03/04/23 Subjective: complains of chest pain - right anterior shoulder; Large Hematoma developed yesterday with increasing in size and pain through today ROS: 10 point ROS as noted above, otherwise negative Physical Exam: Gen: Alert, uncomfortable, AOx3 HEENT: normal conjunctiva, sclera anicteric CV: regular rate & rhythm, b/l lower extremity edema Pulm: non-labored respirations on room air, clear bilaterally Abd: soft, non-tender, non-distended Skin: mild ecchymosis - Right lower extremity; ecchymosis in R axilla, large palpable hematoma R anterior chest wall Neuro: normal speech, normal affect, moves all extremities Problem List: Right chest wall Hematoma Bilateral Pulmonary Embolism Pneumonia recent R fibula fracture s/p ORIF Chronic lymphedema of leg Hypertension Obesity h/o R partial lobectomy iron deficiency anemia; chronic Right chest wall Hematoma complains of pain to right anterior chest 4/ pm; swelling noted u/s - revealed 7.4 centimeter collection in the soft tissues of the right upper chest wall CT angio for dissection showed increasing size of large right chest wall hematoma s/p Vit K last night General surgery consulted Dr. Avila recommendation for Ernesto wrap, pain control, reversal of warfarin/INR. Surgery will evaluate in the morning pain medication as needed NPO IVC filter needed - Dr. Payan consulted Bilateral Pulmonary Embolism Patient with extensive bilateral pulm embolism s/p tPA started lovenox bridge and coumadin - put on hold 03/04 INR 2.0; lower coumadin dose; goal 2-3 echo to r/o RV strain no DVT on doppler Ankle xray 03/03 - Postsurgical changes are present with a lateral fibular sideplate and multiple screws present. Large calcaneal spurs. Fracture lucency is still seen in the fibula. Pneumonia Empiric antibiotics for possible pneumonia Patient is not hypoxic. she is tolerating room air PT evaluation Pain management as needed- hydrocodone VTE: hold Lovenox & coumadin given enlarging hematoma Code: Full Dispo: jail ~72 hours
[2023-03-04 07:58] LABS: Protime INR 1.64
[2023-03-04] MEDS: BUSPIRONE HCL 5 MG TABLET PO SCH (08:39)
[2023-03-04] MEDS: allopurinoL 100 MG TAB PO SCH (08:40)
[2023-03-04] MEDS: SERTRALINE HCL 100 MG TAB PO SCH (08:40)
[2023-03-04] MEDS: GABAPENTIN 300 MG CAP PO SCH ×2 (08:40→20:17)
[2023-03-04] MEDS: SOLIFENACIN SUCCIN 5 MG TAB PO SCH (08:41)
--- NOTE | 2023-03-04 11:53 | CON ---
Date of Consultation: 03/04/2023 Diagnosis: Spontaneous hematoma on the right chest wall. History Of Present Illness: This is the case of a 67-year-old patient with multiple medical problems including lymphedema, history of lung cancer, breast cancer, recently had a tib-fib fracture repair with ORIF, came to the ER complaining of short of breath and found to have pulmonary emboli. At that moment, the person received thrombolytic therapy with subsequent anticoagulation, then the patient d eveloped spontaneous pneumothorax in the last 2-3 days in the right upper chest region. She denies a ny trauma. She denies any injury or puncture wound in that area. The anticoagulation was put on hol d, although at the same time we have the issues of the recent PEs and then a pressure dressing was ap plied over that area. Today, the area is intact, is nonpulsatile and is not expanding, but still criselda gical consult was obtained for the possibility of any drainage in the future. Allergies: LEVAQUIN AND DEMEROL. Medications: Reviewed including hydrocodone and the patient was already on Coumadin. Past Medical History: Hypertension; lung cancer, in remission; breast cancer, in remission; status p ost mastectomies; gout; depression; anxiety; lymphedema; pulmonary emboli; obesity. Past Surgical History: Include bilateral mastectomies and right upper lobe of the lung lobectomy. Family History: Includes hypertension. Social History: She does not smoke. She does not drink alcohol. Review of Systems: Right now, the short of breath is gone, but that she still has pressure over the right chest region. No dysuria, hematuria, hematochezia, or melena. Physical Examination: General: The patient is awake, alert. HEENT: Pupils are equal and reactive. Anicteric. Neck: Supple. No JVD. Chest: Bilateral breath sounds. Heart: S1, S2. Abdomen: Soft and depressible. No guarding or rebound. No peritoneal signs. Integumentary: Over the right upper chest region, the patient has what looks like hematoma, it is no npulsatile. There are some bruises around the area. Apparently, as per the patient, it has not brooks ged since yesterday. No bleeding. No puncture wounds seen in that region. Extremities: Radialis pulses still present. Dorsalis pedis pulses still present. Laboratory Data: Blood work shows INR of 2.16, now is 1.64. Potassium is 4.5 and hemoglobin of 8.8. CAT scan of the chest shows what looks like a hematoma on the right upper chest region. No cardiom egaly. No pericardial effusion. Mediastinal neck with no lymphadenopathy. Lungs and pleura ___ in the right lungs compared with the previous test. No pneumothorax. No hemothorax. Assessment: This is a 67-year-old patient with a spontaneous hematoma in the right upper chest after starting anticoagulation due to recent PE. Pressure was applied overnight and as per the patient si nce the first time I see, it looked stable. It is nonpulsatile. Pulses still present. So, we are g oing to keep pressure in that region, hopefully that hematoma is doing tamponade effect enough ____ any other structures, at this moment we cannot identify if the hematoma getting bigger or we see that in the future that bothers her, we might have to explore that area or if it get infected again. We will keep an eye on her. We will give more recommendations as the case develops. MARK/SAL Voice ID: [id number] Report ID: [id number]
--- NOTE | 2023-03-04 12:25 | RAD REPORT ---
EXAM DESCRIPTION: CT - Angio Aorta For Dissection - 03/04/2023 12:31 am CLINICAL HISTORY: Chest hematoma, PE S/P TNK, expanding. COMPARISON: CTA of the chest from February 27, 2023. TECHNIQUE: CTA of the chest, abdomen, and pelvis was performed following intravenous administration of iodinated contrast. Oral contrast was not administered. Axial, coronal, and sagittal reconstructio ns were created and sent to PACS. 3D reconstructions were created on an independent workstation and sent to PACS for evaluation. This exam was performed according to our departmental dose-optimization program, which includes autom ated exposure control, adjustment of the mA and/or kV according to patient size and/or use of iterati ve reconstruction technique. FINDINGS: This is essentially a noncontrast exam due to contrast extravasation. Slightly suboptimal exam due to patient body habitus. Suboptimal exam due to patient body habitus, and streak artifact du e to patient arm positioning. Vascular: Not evaluated for patency on this exam. No aortic aneurysm identified. Lungs and pleura: Improved aeration in the right lung, with a residual groundglass opacity in the med ial superior segment of the left lower lobe. Trace residual left-sided pleural effusion, slightly dec reased in size from prior. No pneumothorax. Mediastinum and neck: No mediastinal lymphadenopathy identified by CT size criteria. Unremarkable tonja earance of the thyroid gland. Cardiac: No cardiomegaly or pericardial effusion. Hepatobiliary: No concerning hepatic lesion identified. The gallbladder is not visualized, possibly s urgically absent. No biliary ductal dilatation. Pancreas: Unremarkable. Spleen: Unremarkable. Gastrointestinal: No evidence of bowel obstruction or perienteric inflammation. The appendix is not d efinitely visualized. Adrenals: No abnormality identified in either adrenal gland. Renal: No concerning parenchymal abnormality in either kidney. No hydronephrosis or urolithiasis. Bladder/Reproductive: Unremarkable appearance of the urinary bladder by CT technique. Lymphatics: No lymphadenopathy identified by CT size criteria. Musculoskeletal: Right chest wall continuous hematoma measuring 8 x 17.2 cm with moderate surrounding fat stranding. No concerning osseous lesion identified. Fluid / peritoneum: No significant free fluid. No free intraperitoneal air identified. IMPRESSION 1. Noncontrast exam due to contrast extravasation. 2. Large right chest wall hematoma. 3. Improved aeration in the left lower lobe. Trace residual left-sided pleural effusion. 4. No acute abnormality identified in the abdomen or pelvis on this exam. Electronically signed by: Kendy Mccartney MD 03/04/2023 12:52 AM CDT Due to temporary technical issues with the PACS/Fluency reporting system, reports are being signed by the in house radiologist without review as a courtesy to ensure prompt reporting. The interpreting r adiologist is fully responsible for the content of the report.
--- NOTE | 2023-03-04 12:37 | P.PN ---
Subjective Date of Service: 03/04/23 Chief Complaint: Pectoral hematoma Patient developed a large right-sided pectoral hematoma last night confirmed by CT scan recent chest discomfort no shortness of breath Review of Systems General: Weakness Cardiovascular: Chest Pain Physical Examination - Vital Signs Temperature: 96.9 F Blood Pressure: 105/57 Pulse: 118 Respirations: 16 Pulse Ox (%): 97 - Physical Exam General: Alert, Oriented x3, Mild distress Respiratory: Other (Large right sided pectoral hematoma) Cardiovascular: No edema, Regular rate/rhythm Assessment And Plan - Current Problems (Diagnosis) (1) Bilateral pulmonary embolism Current Visit: Yes Status: Acute Plan: Patient developed a very large right-sided tactile hematoma Lovenox and Coumadin has been on hold patient was given vitamin K will need filter placed hemoglobin vital signs all stable Physician Review: Patient Assessed, Agree with Above Assessment and Plan
--- NOTE | 2023-03-04 14:01 | ECHO ---
HEIGHT: 5 ft 6 in WEIGHT: 347 lb 0 oz DATE OF STUDY: 03/03/[address]: Andrzej Forde MD 2-DIMENSIONAL: YES M.MODE: YES DOPPLER: YES COLOR FLOW: YES TDS: YES PORTABLE: YES DEFINITY: NO BUBBLE STUDY: NO DIAGNOSIS: BILATERAL PLEURAL EFFUSION CARDIAC HISTORY: CATHERIZATION: YES SURGERY: NO PROSTHETIC VALVE: NO PACEMAKER: NO MEASUREMENTS (cm) DIASTOLIC (NORMALS) SYSTOLIC (NORMALS) IVSd 1.0 (0.6-1.2) LA Diam 2.1 (1.9-4.0) LVEF 67% LVIDd 3.3 (3.5-5.7) LVIDs 2.1 (2.0-3.5) %FS 36% LVPWd 1.2 (0.6-1.2) Ao Diam 2.6 (2.0-3.7) 2 DIMENSIONAL ASSESSMENT: RIGHT ATRIUM: NORMAL LEFT ATRIUM: NORMAL RIGHT VENTRICLE: NORMAL LEFT VENTRICLE: NORMAL TRICUSPID VALVE: NORMAL MITRAL VALVE: MITRAL ANNULAR CALCIFICATION PULMONIC VALVE: NORMAL AORTIC VALVE: SCLEROSIS PERICARDIAL EFFUSION: NONE AORTIC ROOT: NORMAL LEFT VENTRICULAR WALL MOTION: NORMAL. DOPPLER/COLOR FLOW: MILD TRICUSPID AND MITRAL REGURGITATION. NORMAL RIGHT VENTRICULAR SYSTOLIC PRESSURE. COMMENTS: MILD TRICUSPID AND MITRAL REGURGITATION NORMAL RIGHT VENTRICULAR SYSTOLIC PRESSURE NORMAL LEFT VENTRICULAR SIZE AND FUNCTION TECHNOLOGIST: PIPPA MCCALL
--- NOTE | 2023-03-04 18:50 | P.PN ---
Subjective Date of Service: 03/03/23 Chief Complaint: s/p ORIF right ankle pain controlled of right ankle; admitted with diagnosis of PE Physical Examination - Vital Signs Temperature: 96.8 F Blood Pressure: 114/65 Pulse: 118 Respirations: 18 Pulse Ox (%): 90 - Physical Exam General: Alert, In no apparent distress Musculoskeletal: Other (RLE: incisions healed without surrounding erythema; mild ttp over the distal fibula; +EHL/FHL/GSC/TA; sensation intact distally) Assessment And Plan - Plan Jeanine is a 67 yo female approximately 1 month s/p ORIF of the right distal fibula and syndesmosis -NWB RLE x 1 more month -xrays demonstrate healing fractures with acceptable alignment -f/u in clinic in 1 month for reevaluation and xrays or right ankle
[2023-03-05] MEDS: HYDROMORPHONE HCL 0.5 MG/0.5 ML INJ IV PRN (03:23)
[2023-03-05 06:15] LABS: Hematocrit 22.5 % (36.0-45.0); MPV 8.7 fL (7.6-11.3)
[2023-03-05 06:22] LABS: Protime INR 1.17
[2023-03-05 06:36] LABS: Albumin 2.4 g/dL (3.4-5.0); Bilirubin Total 0.4 mg/dL (0.2-1.0); Magnesium 1.9 mg/dL (1.6-2.4); Potassium 5.1 mEq/L (3.5-5.1)
--- NOTE | 2023-03-05 07:25 | P.PN ---
Date of Service: 03/05/23 Subjective: feeling okay today, relatively chest pain persists - Hematoma unchanged; she feels maybe it's better thirsty low UOP ROS: 10 point ROS as noted above, otherwise negative Physical Exam: Gen: Alert, uncomfortable, AOx3 HEENT: normal conjunctiva, sclera anicteric CV: regular rate & rhythm, b/l lower extremity edema Pulm: non-labored respirations on 3L NC, clear bilaterally Abd: soft, non-tender, non-distended Skin: mild ecchymosis - Right lower extremity; ecchymosis in R axilla, large palpable hematoma R anterior chest wall Neuro: normal speech, normal affect, moves all extremities Problem List: Right chest wall Hematoma Bilateral Pulmonary Embolism Pneumonia recent R fibula fracture s/p ORIF Chronic lymphedema of leg Hypertension Obesity h/o R partial lobectomy iron deficiency anemia; chronic PRADEEP Right chest wall Hematoma complains of pain to right anterior chest 03/03 pm; swelling noted u/s - revealed 7.4 centimeter collection in the soft tissues of the right upper chest wall CT angio for dissection showed increasing size of large right chest wall hematoma s/p Vit K 03/03 evening extravasation of contrast, so essentially a noncontrast CT pt with L arm discomfort 03/05 where iv was General surgery consulted Dr. Avila recommendation for Ernesto wrap, pain control, reversal of warfarin/INR. INR down pain medication as needed NPO @ midnight; tentative scheduled for IVC filter tomorrow with Dr. Payan Bilateral Pulmonary Embolism Patient with extensive bilateral pulm embolism s/p tPA started lovenox bridge and coumadin -dc/d 03/04 secondary to hematoma echo: RV strain, performed after tPA no DVT on doppler Ankle xray 03/03 - Postsurgical changes are present with a lateral fibular sideplate and multiple screws present. Large calcaneal spurs. Fracture lucency is still seen in the fibula. Pneumonia Empiric antibiotics for possible pneumonia - discontinued per pulm Patient is not hypoxic. she is tolerating room air PT evaluation Pain management as needed- hydrocodone iron deficiency anemia; chronic hgb dropped to 7.5 03/05 given 1 uPRBC 03/05 remained low BP, multifactorial - dehydrated, pain medication, and blood loss from hematoma 2nd uPRBC ordered 03/05 started on IVF benefit from albumin if needed PRADEEP Started IVF Nephrology consulted Urinalysis pending low UOP mendenhall placed for accurate I/O's; body habitus difficult for accurate bladder scan VTE: dc'd Lovenox & coumadin given enlarging hematoma Code: Full Dispo: jail ~72 hours
[2023-03-05] MEDS ORDERED: NA CHLORIDE 0.9% 1,000 ML IV SCH (08:00)
[2023-03-05] MEDS ORDERED: NA CHLORIDE 0.9% 250 ML IV SCH (08:00)
[2023-03-05] MEDS: allopurinoL 100 MG TAB PO SCH (09:40)
[2023-03-05] MEDS: BUSPIRONE HCL 5 MG TABLET PO SCH (09:40)
[2023-03-05] MEDS: SERTRALINE HCL 100 MG TAB PO SCH (09:40)
[2023-03-05] MEDS: GABAPENTIN 300 MG CAP PO SCH ×2 (09:41→21:49)
[2023-03-05] MEDS: SOLIFENACIN SUCCIN 5 MG TAB PO SCH (10:22)
--- NOTE | 2023-03-05 12:52 | CON ---
Date of Consultation: 03/05/2023 Additional Admitting Physician: Dr. Cornel Grover. Reason For Consultation: The question is whether the patient needs an IVC filter after bilateral pul monary emboli. History Of Present Illness: The patient is 67, came in with bilateral pulmonary embolus . Now, she has a very large right chest hematoma. She also has history of hypertension. She has had partial lobectomy in the past. Presently her Lovenox and Coumadin have been held because the right c hest hematoma had been enlarging. Recently, as of yesterday, she dropped her hemoglobin to 7.5. Las t creatinine was 2.03 from 0.8, appears to be dehydrated. No cardiac complaint. Allergies: SHE IS ALLERGIC TO LEVAQUIN, DEMEROL. Medications: Present medications are listed by Dr. Grover. Review of Systems: Negative. Social History: Negative. Family History: Negative. Physical Examination: She weighs 347 pounds. Has a right upper chest hematoma. Rest of examination is unremarkable and de tailed by Dr. Grover and other consultants. Impression And Plan: This is a patient with bilateral pulmonary embolus, status post tPA, has a righ t chest hematoma following her thrombolytics. She has anemia. She is not a candidate for anticoagul ation. Lovenox and Coumadin have been held. She has other issues including partial lobectomy in the past, hypertension, and morbid obesity. Now, she has kidney dysfunction, probably dehydration, sign ificant anemia probably from the hematoma. Anticoagulation has been held. I will discuss the case oracio allen with Dr. Payan and see if he feels comfortable with doing an IVC filter here. Dr. Grover had discussed the case with Dr. Patel as well. We will continue to follow. BRENDA/SAL Voice ID: [id number] Report ID: [id number]
--- NOTE | 2023-03-05 13:12 | PN ---
Date of Progress Note: 03/05/2023 Reason For Service: Hematoma, right chest wall, spontaneous. Subjective: Patient is stable at this moment. I went today and rearranged the Ernesto wrap once again. We put further pressures in the area that the patient is removing the Ernesto wrap, but she was advised not to do so. We did it with the help of the other employees. We were able to accommodate the Ernesto w rap a little bit better that is comfortable for her, but at the same time apply pressure when we want to apply pressure. Once we checked that area of hematoma, snehal, it is nonpulsatile. There is ec chymosis present in some other areas, but there is no expanding of the mass itself. Right arm pulse is still present. The patient is morbidly obese. So body habitus somehow was a challenge to put the Ernesto wrap. INR is 1.17 and hemoglobin is 7.5. Plan: Continue same treatment. The patient may need eventually when she is more stable medically fo r comfort to get the clot out, that if we do remove that at this moment we might just exacerbate her bleeding. MARK/DANIELAL Voice ID: [id number] Report ID: [id number]
[2023-03-05] MEDS: CODEINE 30MG/APAP 300MG TAB PO PRN (13:58)
[2023-03-05] MEDS: ACETAMINOPHEN 500 MG TAB PO PRN (14:07)
[2023-03-05] MEDS: NA CHLORIDE 0.9% 1,000 ML IV SCH (14:54)
--- NOTE | 2023-03-05 16:18 | CON ---
Date of Consultation: 03/05/2023 Reason For Consultation: Elevated BUN and creatinine. History Of Present Illness: This is a 67-year-old female with significant past medical history of hip fracture, gout, lymphedema, obesity, the patient came to the hospital because of shortness of breath and palpitation, found to have bilateral PEs. For that reason, the patient was started on thrombolysis and heparin drip with Coumadin. The patient developed chest wall hematoma. Gradually, kidney function did decline. For that reason, we have been consulted. The patient upon arrival to the hospital has normal kidney function in the 8. Her creatinine started rising and apparently the patient had low blood pressure during that. The patient had CT on admission with contrast, but her creatinine at that time within normal limit. After 2 or 3 days, there is no worsening in kidney function. Her kidney function started to rise on the 05 of March and the contrast was on the . Reviewing the record for the blood pressure yesterday, the patient had blood pressure down to the 80s. The patient denied any rashes. No other insulting medications. The patient had CT with contrast in the , but has severe extravasation. Past Medical History: Includes; 1. Gout. 2. Lymphedema. 3. Hypertension. 4. PE. 5. Hip fracture. Family History: Positive for hypertension. Social History: Denied smoking, denied drinking, denied drugs abuse. Past Surgical History: Includes hip fracture, ORIF repair. Review of Systems: Head and Neck: No red eye. No ear pain. GI: No nausea. No vomiting. : No polyuria. No dysuria. No hematuria. Business Project Analyst: No vaginal discharge. Respiratory: No shortness of breath. Cardiovascular: Has leg swelling. Endocrine: No polydipsia. Skin: No rash. Neuro: Has low back pain. Musculoskeletal: Has chest pain where the hematoma is and has arm pain. Physical Examination: General: When I saw the patient; the patient lying in bed, in pain. Vital Signs: Blood pressure 84/53, pulse of 116, afebrile. Chest: Decreased entry bilateral base. Hematoma on the right chest wall with compression wrap. Abdomen: Morbidly obese. Could not appreciate any organomegaly. Extremities: Venous stasis change, +1 edema. Neurologic: Alert. No focality. Laboratory Data: Back in March 04; creatinine 0.8, GFR of 81. Today; sodium 133, potassium 5.1, bicarb 28, BUN 26, creatinine 2, calcium 8.7, magnesium 1.9, albumin 2.4, corrected calcium is 9.9. Hemoglobin 7.5. Current Home Medications: Include allopurinol, gabapentin, losartan, Zoloft, cefuroxime, docusate. Current Medications: In the hospital include; 1. Albuterol. 2. Gabapentin. 3. Tylenol 4. Zoloft. 5. LR. 6. Zofran. 7. Allopurinol. Assessment And Plan: 1. Acute kidney injury secondary to poor perfusion ATN and secondary to low blood pressure secondary to blood loss. Given the presence of bilateral PEs even though it is provoked, I am going to go ahead and send for hypercoagulopathy workup and serology to rule out any autoimmune disease and we will follow up the patient. I will start the patient on IV fluid. 2. Given the extravasation and chest wall hematoma to rule out any rhabdomyolysis, I am going to go ahead and send for CK. 3. Hypertension, currently blood pressure on the lower side. I will hold all blood pressure medications. 4. Anemia secondary to blood loss. We will send for anemia workup and we will send for iron study. Continue transfusion. 5. Pulmonary embolism. Continue anticoagulation. 6. Wall hematoma secondary to thrombolysis. We will follow up with Surgery and Primary. Time spent examining the patient [id number], reviewing data, lab and radiology, placing order, discussing the case with the patient, discussing the case with the maintenance team member including nurse more than 65 minutes CARSON Voice ID: [id number] Report ID: [id number] [facility]ENTERJazz
[2023-03-05] MEDS: ONDANSETRON 4 MG/2 ML VIAL IV PRN (17:19)
[2023-03-05 19:00] LABS: Hematocrit 24.8 % (36.0-45.0)
[2023-03-05 21:03] LABS: Specific Gravity > 1.030 (1.005-1.030); Urine Bilirubin NEGATIVE (Negative); Urine Blood Negative (Negative); Urine Clarity Clear (Clear); Urine Color Yellow (Yellow); Urine Glucose NEGATIVE (Negative); Urine Protein NEGATIVE (Negative); Urine Urobilinogen Normal (Normal)
[2023-03-05 21:14] LABS: UR PROTEIN 22.7 mg/dL (<11.9); Urine Protein/Creatinine Ratio 0.21 ratio (<0.15)
[2023-03-05 23:36] LABS: Hematocrit 26.7 % (36.0-45.0)
[2023-03-06] MEDS: NA CHLORIDE 0.9% 1,000 ML IV SCH ×5 (04:36→23:36)
[2023-03-06 04:41] LABS: Hematocrit 25.7 % (36.0-45.0); MCV 91.8 fL (80-100); MPV 8.4 fL (7.6-11.3)
[2023-03-06 04:58] LABS: Albumin 2.4 g/dL (3.4-5.0); BUN Blood Urea Nitrogen 32 mg/dL (7-18); Bicarbonate 26 mEq/L (21-32); Creatine Phosphokinase 961 U/L (26-192); Ferritin 1386.9 ng/mL (8-388); Glomerular Filtration Rate 18 ml/min (=/>90); Glucose Level 106 mg/dL (74-106); Magnesium 1.9 mg/dL (1.6-2.4); Sodium Level 131 mEq/L (136-145); Transferrin 151 mg/dL (200-360); Uric Acid 7.2 mg/dL (2.6-6.0)
[2023-03-06 06:01] LABS: HIV Ag/Ab Combo Nonreactive (Nonreactive)
--- NOTE | 2023-03-06 07:31 | P.PN ---
Date of Service: 03/06/23 Subjective: Feeling "alright" today no complaints of R arm pain low UOP this morning complains of chest discomfort from ernesto wrap and hematoma ROS: 10 point ROS as noted above, otherwise negative Physical Exam: Gen: Alert, uncomfortable, AOx3 HEENT: normal conjunctiva, sclera anicteric CV: regular rate & rhythm, b/l lower extremity edema Pulm: non-labored respirations on 1L NC, clear bilaterally Abd: soft, non-tender, non-distended Skin: mild ecchymosis - Right lower extremity; moderate ecchymosis in R axilla, large palpable hematoma R anterior chest wall Neuro: normal speech, normal affect, moves all extremities Problem List: Right chest wall Hematoma Bilateral Pulmonary Embolism Pneumonia recent R fibula fracture s/p ORIF Chronic lymphedema of leg Hypertension Obesity h/o R partial lobectomy iron deficiency anemia; chronic PRADEEP Right chest wall Hematoma complains of pain to right anterior chest 03/03 pm; swelling noted u/s - revealed 7.4 centimeter collection in the soft tissues of the right upper chest wall CT angio for dissection showed increasing size of large right chest wall hematoma s/p Vit K 03/03 evening extravasation of contrast, so essentially a noncontrast CT pt with L arm discomfort 03/05 where IV was General surgery consulted Dr. Avila recommendation for Ernesto wrap, pain control, reversal of warfarin/INR. INR down pain medication as needed NPO for IVC filter 03/[address] Payan Bilateral Pulmonary Embolism Patient with extensive bilateral pulm embolism s/p tPA started lovenox bridge and coumadin -dc/d 03/04 secondary to hematoma echo: RV strain, performed after tPA no DVT on doppler Ankle xray 03/03 - Postsurgical changes are present with a lateral fibular sideplate and multiple screws present. Large calcaneal spurs. Fracture lucency is still seen in the fibula. Pneumonia Empiric antibiotics for possible pneumonia - discontinued per pulm Patient is not hypoxic. PT evaluation Pain management as needed - hydrocodone iron deficiency anemia; chronic hgb dropped to 7.5 03/05 given 1 uPRBC 03/05 remained low BP, multifactorial - dehydrated, pain medication, and blood loss from hematoma 2nd uPRBC ordered 03/05 started on IVF benefit from albumin if needed PRADEEP Started IVF Nephrology consulted low UOP mendenhall placed for accurate I/O's; body habitus difficult for accurate bladder scan worsening VTE: dc'd Lovenox & coumadin given enlarging hematoma Code: Full Dispo: custodial 3+ days
[2023-03-06 09:00] LABS: Rheumatoid Factor NEG (NEG)
[2023-03-06] MEDS: SERTRALINE HCL 100 MG TAB PO SCH (09:00)
[2023-03-06] MEDS: GABAPENTIN 300 MG CAP PO SCH ×2 (09:00→20:38)
[2023-03-06] MEDS: BUSPIRONE HCL 5 MG TABLET PO SCH (09:00)
[2023-03-06] MEDS: allopurinoL 100 MG TAB PO SCH (09:00)
[2023-03-06] MEDS: SOLIFENACIN SUCCIN 5 MG TAB PO SCH (09:00)
--- NOTE | 2023-03-06 09:01 | RAD REPORT ---
EXAM DESCRIPTION: US - Renal Ultrasound-Complete - 03/06/2023 1:04 am CLINICAL HISTORY: PRADEEP COMPARISON: LUMBAR SPINE 3 VIEWS dated 08/08/2014No comparisons FINDINGS: Both kidneys are normal in size, shape and echotexture. The right kidney measures 10.7 x 6.0 x 5.7 cm. No hydronephrosis, focal mass or perinephric fluid. The left kidney measures 10.5 x 5.5 x 5.4 cm. No hydronephrosis, focal mass or perinephric fluid. The urinary bladder is incompletely distended without gross abnormality seen. IMPRESSION: Unremarkable renal sonogram.
[2023-03-06] MEDS ORDERED: FENTANYL CITR 100 MCG/2 ML ONE (09:08)
[2023-03-06] MEDS ORDERED: MIDAZOLAM HCL 2 MG/2 ML INJ ONE (09:08)
[2023-03-06] MEDS ORDERED: HEPA 1000U/500MLS 2,000 UNIT/1,000 ML BAG IV ONE (09:08)
[2023-03-06] MEDS ORDERED: HEPARIN 10,000 UNIT/10 ML VIAL IV ONE (09:08)
[2023-03-06] MEDS ORDERED: ATROPINE SULF 1 MG/10 ML SYR IV ONE (09:09)
[2023-03-06] MEDS ORDERED: LIDOCAINE 1% MPF 30 ML VIAL ONE (09:09)
[2023-03-06] MEDS: HYDROMORPHONE HCL 0.5 MG/0.5 ML INJ IV PRN ×2 (13:42→20:38)
--- NOTE | 2023-03-06 14:46 | P.PN ---
Subjective Date of Service: 03/06/23 Chief Complaint: s/p ORIF right ankle Subjective: No new changes Physical Examination - Vital Signs Temperature: 96.9 F Blood Pressure: 144/70 Pulse: 93 Respirations: 18 Pulse Ox (%): 100 - Physical Exam General: Other (appears as her stated age) HEENT: Atraumatic, Normocephalic Neck: Supple, JVD not distended Respiratory: Other (symmetric chest expansion) Cardiovascular: No rubs, No murmurs Gastrointestinal: Soft and benign, No guarding Musculoskeletal: No clubbing Integumentary: No warmth Neurological: Normal tone Urinary: Other (no bladder distention) External genitalia: Deferred Rectal: Deferred Assessment And Plan - Plan 1. Acute kidney injury secondary to ATN secondary to low blood pressure/CRS1 from pulmo embolism & contrast nephropathy. SCr increased to 2.9. [place] po fluid intake. Keep MAP > 65-70. DC NS gtt. If MAP drops, would need luis daniel + loop diuretic + inotrope +/- midodrine + pharmacologic vs non-pharmacologic intervention to lessen pulmonary clot burden. 2. Secondary hyperaldosteronism. Urine chemistry on 03/06/2023 showed secondary hyperaldosteronism. She is expected to be in full-blown secondary hyperaldosteronism given the clot burdenfFrom her PE with severe right heart strain / R-sided heart failure and chest CT on 02/27/2023 showing severe pulmonary hypertension with severe dilatation of the main pulmonary artery. BNP sig elevated. Dc NS gtt. Avoid any Na-containing IV fluid. Resume anticoagulation therapy when bleeding risk is acceptable. Unable to add luis daniel as serum K high normal currently. If hemodynamics/MAP worsen, will need to start high dose MRA/luis daniel po bid to allow natriuresis plus some loop diuretic & veltassa or lokelma to prevent hyperK. Strictly low-sodium diet less than 2 g per day. Do not limit by mouth fluid intake unless serum sodium drops below 130 meq/L. 3. Pulmo embolism. Resume anticoagulation therapy when able vs non- pharmacologic declotting. 4. HyperPO4. Start sevelamer po tidwm. 5. Anemia 2/2 acute blood loss, chest wall hematoma. Monitor CBC. 6. R rib fracture s/p surgery. Per other services. Physician Review: Patient Assessed, Agree with Above Assessment and Plan
[2023-03-06 18:55] LABS: UR SODIUM < 5 mmol/L (27-287)
[2023-03-06 22:09] LABS: Hematocrit 23.9 % (36.0-45.0)
--- NOTE | 2023-03-06 23:25 | OP ---
Date of Procedure: 03/06/2023 Surgeon: OFE SAUL Procedure Performed: Inferior vena cava filter placement. Indication: Severe bilateral DVT and massive PE with significant bleeding after anticoagulation requ iring to stop anticoagulation. Access: Right femoral vein 7-Beninese, closed with manual pressure. Complications: None. Estimated Blood Loss: Bleeding less than 10 mL. Anesthesia: Total sedation time was 20 minutes. Description Of Procedure: After risks, benefits, and alternatives were explained, the patient agreed to procedure and signed informed consent. The patient was brought into the cardiac catheterization laboratory and prepped and draped in usual sterile fashion. After incremental sedation using fentany l and Versed, I accessed right femoral vein using ultrasound guidance, fluoroscopy, and micropuncture kit and placed a 7-Beninese [place] sheath. Then, I took the IVC filter sheath over the wire into th e inferior vena cava and the angiogram identified the renal veins and below the renal veins, the [place] ce was deployed without complication and then performed an angiogram, which showed that the device is seated very well in good position. I then removed the sheath. Manual pressure was applied for hemo stasis and no complications. Conclusion: Successful inferior vena cava filter placement. /MODL Voice ID: [id number] Report ID: [id number]
[2023-03-07 04:42] LABS: Hematocrit 23.2 % (36.0-45.0); MCV 93.1 fL (80-100); MPV 8.1 fL (7.6-11.3); RBC Red Blood Cell Count 2.49 M/uL (3.86-4.86)
[2023-03-07 05:34] LABS: Albumin 2.3 g/dL (3.4-5.0); Magnesium 1.8 mg/dL (1.6-2.4); Phosphorus 5.6 mg/dL (2.5-4.9); Potassium 4.8 mEq/L (3.5-5.1)
[2023-03-07] MEDS: NA CHLORIDE 0.9% 1,000 ML IV SCH (06:54)
[2023-03-07] MEDS ORDERED: MAGNESIUM SULFATE 1 gm IVPB 1 GM/100 ML BAG IV ONE (07:00)
--- NOTE | 2023-03-07 07:51 | P.PN ---
Date of Service: 03/07/23 Subjective: Feeling good today UOP slightly increased today feels slightly better after ernesto wrap was rewrapped less tightly ROS: 10 point ROS as noted above, otherwise negative Physical Exam: Gen: Alert, uncomfortable, AOx3 HEENT: normal conjunctiva, sclera anicteric CV: regular rate & rhythm, b/l lower extremity edema Pulm: non-labored respirations on 1L NC, clear bilaterally Abd: soft, non-tender, non-distended Skin: mild ecchymosis - Right lower extremity; moderate ecchymosis in R axilla, large palpable hematoma R anterior chest wall Neuro: normal speech, normal affect, moves all extremities Problem List: Right chest wall Hematoma Bilateral Pulmonary Embolism Pneumonia recent R fibula fracture s/p ORIF Chronic lymphedema of leg Hypertension Obesity h/o R partial lobectomy iron deficiency anemia; chronic PRADEEP Right chest wall Hematoma complains of pain to right anterior chest 03/03 pm; swelling noted u/s - revealed 7.4 centimeter collection in the soft tissues of the right upper chest wall CT angio for dissection showed increasing size of large right chest wall hematoma s/p Vit K 03/03 evening extravasation of contrast, so essentially a noncontrast CT pt with L arm discomfort 03/05 where IV was General surgery consulted Dr. Avila recommendation for Ernesto wrap, pain control, reversal of warfarin/INR. INR down pain medication as needed IVC filter placed 03/[address] Payan Bilateral Pulmonary Embolism Patient with extensive bilateral pulm embolism s/p tPA started lovenox bridge and coumadin -dc/d 03/04 secondary to hematoma echo: RV strain, performed after tPA no DVT on doppler Ankle xray 03/03 - Postsurgical changes are present with a lateral fibular sideplate and multiple screws present. Large calcaneal spurs. Fracture lucency is still seen in the fibula. Pneumonia Empiric antibiotics for possible pneumonia - discontinued per pulm Patient is not hypoxic. PT evaluation Pain management as needed - hydrocodone iron deficiency anemia; chronic hgb dropped to 7.5 03/05 given 1 uPRBC 03/05 remained low BP, multifactorial - dehydrated, pain medication, and blood loss from hematoma 2nd uPRBC ordered 03/05 started on IVF benefit from albumin if needed DC mag 03/07 PRADEEP Started IVF Nephrology consulted low UOP mendenhall placed for accurate I/O's; body habitus difficult for accurate bladder scan worsening VTE: dc'd Lovenox & coumadin given enlarging hematoma Code: Full Dispo: USP 3+ days
[2023-03-07] MEDS: GABAPENTIN 300 MG CAP PO SCH ×2 (10:35→22:22)
[2023-03-07] MEDS: SEVELAMER CARBONATE 800 MG TABLET PO SCH ×3 (10:35→17:15)
[2023-03-07] MEDS: SOLIFENACIN SUCCIN 5 MG TAB PO SCH (10:35)
[2023-03-07] MEDS: SERTRALINE HCL 100 MG TAB PO SCH (10:36)
[2023-03-07] MEDS: BUSPIRONE HCL 5 MG TABLET PO SCH (10:36)
[2023-03-07] MEDS: allopurinoL 100 MG TAB PO SCH (10:36)
--- NOTE | 2023-03-07 20:16 | PN ---
Date of Progress Note: 03/07/2023 Chief Complaint: Acute kidney injury. Subjective: The patient has nonoliguric urine output. She developed acute kidney injury secondary t o ATN and hypotensive episodes with cardiorenal syndrome. The patient received contrast and she deve loped contrast-related nephropathy. Serum creatinine level has increased to 2.9. The patient was on normal saline. It was discontinued and the patient was started on loop diuretics, spironolactone, m idodrine, and inotropic medication. Review of Systems: Denies fever or chills. Physical Examination: Lungs: Diminished breath sounds at bases. Heart: S1, S2. Abdomen: Soft. Extremities: Edema present. Laboratory Data: Sodium 130, potassium 4.8, chloride 100, CO2 26, BUN 37, creatinine level 2.33, glu cose 95, calcium 7.4, phosphorus 5.6, magnesium 1.8, and albumin 2.3. Impression And Plan: Tuvrh-ap-uursjem kidney injury. Renal function has not improved significantly over 24 hours although there is some improvement of serum creatinine. The patient will continue medi cation as started for volume control and treatment of cardiorenal syndrome. The patient has history of obesity, pulmonary emboli, and acute kidney injury secondary to contrast nephropathy. She remains nonoliguric and she will continue diuretics. The patient had urine chemistry done on March 06, whic h showed result consistent with secondary hyperaldosteronism. BNP is significantly elevated. The thierno daria had CT scan of the chest done, which showed severe pulmonary hypertension. Recommend to avoid contrast in this particular patient. The plan is to monitor potassium level. The patient cannot elizabeth erate spironolactone due to high potassium secondary to acute kidney injury. The patient may benefit from Lokelma or Veltassa. Continue strictly low potassium diet. EB/MODL Voice ID: [id number] Report ID: [id number]
[2023-03-07] MEDS: Mupirocin NASAL 2 APPL/1 GM TUBE NAS SCH (21:00)
[2023-03-08 04:35] LABS: Absolute Lymphocytes (CBC) 1.1 K/uL (0.7-4.9); Hematocrit 21.7 % (36.0-45.0); Lymphocytes % 23.1 % (15.3-44.8); MCV 93.9 fL (80-100); MPV 7.9 fL (7.6-11.3); RBC Red Blood Cell Count 2.31 M/uL (3.86-4.86)
[2023-03-08 04:57] LABS: Albumin 2.2 g/dL (3.4-5.0); Magnesium 2.1 mg/dL (1.6-2.4); Phosphorus 3.6 mg/dL (2.5-4.9); Potassium 4.5 mEq/L (3.5-5.1)
[2023-03-08 05:38] LABS: Blood Morphology Comment NOTED (NOT SEEN); Platelet Estimate ADEQ; Polychromasia 1+
--- NOTE | 2023-03-08 07:08 | P.PN ---
Date of Service: 03/08/23 Subjective: Feeling good today Slept well overnight Right arm remains tender; looks bigger today UOP improving no new / worsening problems ROS: 10 point ROS as noted above, otherwise negative Physical Exam: Gen: Alert, uncomfortable, AOx3 HEENT: normal conjunctiva, sclera anicteric CV: regular rate & rhythm, b/l lower extremity edema Pulm: non-labored respirations on 2L NC, clear bilaterally Abd: soft, non-tender, non-distended Skin: mild ecchymosis - Right lower extremity; moderate ecchymosis in R axilla, large palpable hematoma R anterior chest wall Neuro: normal speech, normal affect, moves all extremities Problem List: Right chest wall Hematoma Bilateral Pulmonary Embolism Pneumonia recent R fibula fracture s/p ORIF Chronic lymphedema of leg Hypertension Obesity h/o R partial lobectomy iron deficiency anemia; chronic PRADEEP Right chest wall Hematoma complains of pain to right anterior chest 03/03 pm; swelling noted u/s - hematoma CT angio for dissection showed increasing size of large right chest wall hematoma s/p Vit K 03/03 evening extravasation of contrast, so essentially a noncontrast CT pt with L arm discomfort 03/05 where IV was General surgery consulted Dr. Avila recommendation for Ernesto wrap, pain control, reversal of warfarin/INR. INR down pain medication as needed IVC filter placed 03/[address] Payan Bilateral Pulmonary Embolism Patient with extensive bilateral pulm embolism s/p tPA started lovenox bridge and coumadin -dc'd 03/04 secondary to hematoma echo: RV strain, performed after tPA no DVT on doppler Ankle xray 03/03 - Postsurgical changes are present with a lateral fibular sideplate and multiple screws present. Large calcaneal spurs. Fracture lucency is still seen in the fibula. Pneumonia Empiric antibiotics for possible pneumonia - discontinued per pulm Patient is not hypoxic. PT evaluation Pain management as needed - hydrocodone iron deficiency anemia; chronic hgb dropped to 7.5 03/05 given 1 uPRBC 03/05 remained low BP, multifactorial - dehydrated, pain medication, and blood loss from hematoma 2nd uPRBC ordered 03/05 started on IVF benefit from albumin if needed DC mag 03/07 7.7 -> 7.2 (03/08) repeat H&H, will need blood transfusion; needs central line for IV access PRADEEP suspect secondary to hypotension Nephrology consulted low UOP mendenhall placed for accurate I/O's; body habitus difficult for accurate bladder scan improving VTE: dc'd Lovenox & coumadin given enlarging hematoma Code: Full Dispo: custodial 3 days
[2023-03-08] MEDS: Mupirocin NASAL 2 APPL/1 GM TUBE NAS SCH ×2 (10:24→21:03)
[2023-03-08] MEDS: allopurinoL 100 MG TAB PO SCH (10:24)
[2023-03-08] MEDS: GABAPENTIN 300 MG CAP PO SCH ×2 (10:24→21:03)
[2023-03-08] MEDS: SOLIFENACIN SUCCIN 5 MG TAB PO SCH (10:24)
[2023-03-08] MEDS: SEVELAMER CARBONATE 800 MG TABLET PO SCH ×3 (10:24→17:59)
[2023-03-08] MEDS: BUSPIRONE HCL 5 MG TABLET PO SCH (10:24)
[2023-03-08] MEDS: SERTRALINE HCL 100 MG TAB PO SCH (10:25)
[2023-03-08 12:50] LABS: Hematocrit 21.3 % (36.0-45.0)
[2023-03-08] MEDS ORDERED: LIDOCAINE 1% MPF 30 ML VIAL ONE (13:44)
[2023-03-08] MEDS ORDERED: NA CHLORIDE 0.9% 500 ML ONE (13:47)
--- NOTE | 2023-03-08 13:55 | P.CNS ---
Date of Consult: 03/08/23 PC: I was asked to see this 67-year-old female in regards to placement of a central line HPC: Patient apparently has bilateral edema's, had a IVC filter placed. She is also received T PA. She has some hematoma formation after this intervention. She has required some blood transfusion, but has limited peripheral vascular access. PSHx: Recent IVC filter placed. Bilateral mastectomies. PMHx: Being treated for bilateral pulmonary emboli Social Hx: Allergic to levofloxacin and Demerol Sys R: No cough, wheeze, shortness of breath. In good spirits today. O/E: Awake alert vital signs stable HEENT: Not jaundiced Chest: Air entry equal bilaterally Abd: Negative [place]: Large hematoma right upper arm shoulder area Data: Hemoglobin 7.5 Impression: This patient is going to require further transfusions and has no vascular access. Plan: I will taken to the operating room for a insertion of a left subclavian central line. The risks of this procedure have been discussed. The possibility of bleeding, infection, injury to blood vessels and surrounding structures was outlined. The possibility of a collapsed lung and need for further surgeries and procedures was described. She understands and wants us to proceed.
--- NOTE | 2023-03-08 14:28 | P.OP ---
Preoperative diagnosis: Lack of vascular access Postoperative diagnosis: The same Primary procedure: Insertion of left subclavian catheter Anesthesia: Nurse monitored Estimated blood loss: Less than 5 cc Specimen: None Operative Technique: The patient was brought to the operating room placed supine on the table. A roll was placed lengthwise between the shoulders. The patient was then positioned on the OR table. The left upper chest was now painted with a chlorhexidine solution. Lidocaine was injected into the subclavicular area to allow for adequate local anesthesia. At this point the patient was placed in the reverse Trendelenburg. A needle was used to cannulate the subclavian vein. We got there on the first pass. The syringe was now removed from the needle and the guidewire passed down through the hub. The guidewire passed easily. At this point a small skin incision was made. The dilator was now passed down the guidewire. The dilator was removed and the catheter was placed over the guidewire. Using a modified Seldinger technique we were able to get the catheter in position. The guidewire was now removed. The catheter was then saline locked. Sutures were used to fix the catheter to the chest wall. At the end of the procedure she was in a stable condition when sent to the recovery room. A sterile dressing had been applied. A chest x-ray is pending in the recovery room. Transferred to: Recovery Room Condition: Good
--- NOTE | 2023-03-08 17:12 | RAD REPORT ---
EXAM DESCRIPTION: RADChest Single View03/08/2023 3:12 pm CLINICAL HISTORY: Left subclavian catheter line placement COMPARISON: Chest Single View dated 02/27/2023; Chest Single View dated 02/04/2023; Chest Single View d ated 02/03/2023; Chest Single View dated 02/01/2023 TECHNIQUE: Portable AP view of the chest. FINDINGS: Left subclavian CVC tip terminates along the proximal to mid SVC. Decreased inspiratory ef fort limits evaluation. Mild interstitial prominence on the right versus crowding of the central vasc ular markings. The lungs are otherwise clear. No pneumothorax or effusion. The cardiomediastinal cont ours are unremarkable. IMPRESSION: Satisfactory left subclavian CVC placement as above. Mild central interstitial prominenc e on the right versus crowding of the central vascular markings secondary to decreased inspiratory ef fort.
--- NOTE | 2023-03-09 00:49 | PN ---
Date of Progress Note: 03/08/2023 Chief Complaint: Acute kidney injury. Subjective: Patient has nonoliguric urine output. She developed acute kidney injury secondary to AT N in setting of episodes of hypotension and cardiorenal syndrome. The patient also received contrast and developed contrast related nephropathy. Serum creatinine level increased to 2.9. Patient was o n normal saline to prevent contrast-induced nephropathy. It was discontinued and subsequently she wa s started on loop diuretics, spironolactone, and midodrine, and inotropic medication. Patient denies fever or chills. Physical Examination: Lungs: Clear to auscultation bilaterally. Heart: S1, S2. Abdomen: Soft. Extremities: Edema present. Impression And Plan: Acute kidney injury. Renal function has not improved significantly. Continue to monitor urine output and avoid angiotensin receptor sara. Continue to monitor potassium level. Patient will continue medication as started for cardiorenal syndrome. She has history of obesity, pulmonary emboli, and acute kidney injury secondary to contrast nephropathy, cardiorenal syndrome, an d nonoliguric ATN. She remains nonoliguric. She had CT scan of the chest done, which shows severe p ulmonary hypertension. I recommend to avoid contrast in this particular case. Plan is to monitor po tassium level. Patient cannot tolerate spironolactone due to high potassium secondary to acute kidne y injury. The patient may benefit from Veltassa or Lokelma. LLUVIA/MODL Voice ID: [id number] Report ID: [id number]
[2023-03-09 06:12] LABS: Hematocrit 20.6 % (36.0-45.0); MCV 94.4 fL (80-100); MPV 8.2 fL (7.6-11.3); RBC Red Blood Cell Count 2.19 M/uL (3.86-4.86)
[2023-03-09 06:26] LABS: Phosphorus 2.8 mg/dL (2.5-4.9); Potassium 4.5 mEq/L (3.5-5.1)
--- NOTE | 2023-03-09 07:10 | P.PN ---
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 problems ROS: 10 point ROS as noted above, otherwise negative Physical Exam: Gen: Alert, uncomfortable, AOx3 HEENT: normal conjunctiva, sclera anicteric CV: regular rate & rhythm, b/l lower extremity edema Pulm: non-labored respirations on 2L NC, clear bilaterally Abd: soft, non-tender, non-distended Skin: mild ecchymosis - Right lower extremity; moderate ecchymosis in R axilla, large palpable hematoma R anterior chest wall Neuro: normal speech, normal affect, moves all extremities Problem List: Right chest wall Hematoma Bilateral Pulmonary Embolism Pneumonia recent R fibula fracture s/p ORIF Chronic lymphedema of leg Hypertension Obesity h/o R partial lobectomy iron deficiency anemia; chronic PRADEEP Right chest wall Hematoma complains of pain to right anterior chest 03/03 pm; swelling noted u/s - hematoma CT angio for dissection showed increasing size of large right chest wall hematoma s/p Vit K 03/03 evening extravasation of contrast, so essentially a noncontrast CT pt with L arm discomfort 03/05 where IV was General surgery consulted Dr. Avila recommendation for Ernesto wrap, pain control, reversal of warfarin/INR. INR down pain medication as needed tentative plan to evacuate hematoma on Thursday, 03/11 - by Dr. Avila IVC filter placed 03/[address] Payan Bilateral Pulmonary Embolism Patient with extensive bilateral pulm embolism s/p tPA started lovenox bridge and coumadin -dc'd 03/04 secondary to hematoma echo: RV strain, performed after tPA no DVT on doppler Ankle xray 03/03 - Postsurgical changes are present with a lateral fibular sideplate and multiple screws present. Large calcaneal spurs. Fracture lucency is still seen in the fibula. Pneumonia Empiric antibiotics for possible pneumonia - discontinued per pulm Patient is not hypoxic. PT evaluation Pain management as needed - hydrocodone iron deficiency anemia; chronic hgb dropped to 7.5 03/05 given 1 uPRBC 03/05 remained low BP, multifactorial - dehydrated, pain medication, and blood loss from hematoma 2nd uPRBC ordered 03/05 started on IVF benefit from albumin if needed DC mag 03/07 7.7 -> 7.2 (03/08) repeat H&H, will need blood transfusion; needs central line for IV access 3rd uPRBC ordered 03/09 PRADEEP suspect secondary to hypotension Nephrology consulted low UOP - improving 03/09 mendenhall placed for accurate I/O's; body habitus difficult for accurate bladder scan improving VTE: dc'd Lovenox & coumadin given enlarging hematoma Code: Full Dispo: USP 3 days tentative plan to evacuate hematoma on Thursday, 03/11 - by Dr. Avila
[2023-03-09] MEDS: SOLIFENACIN SUCCIN 5 MG TAB PO SCH (08:32)
[2023-03-09] MEDS: GABAPENTIN 300 MG CAP PO SCH ×2 (08:32→21:30)
[2023-03-09] MEDS: SERTRALINE HCL 100 MG TAB PO SCH (08:32)
[2023-03-09] MEDS: BUSPIRONE HCL 5 MG TABLET PO SCH (08:32)
[2023-03-09] MEDS: Mupirocin NASAL 2 APPL/1 GM TUBE NAS SCH ×2 (08:33→21:30)
[2023-03-09] MEDS: allopurinoL 100 MG TAB PO SCH (08:33)
[2023-03-09] MEDS: CODEINE 30MG/APAP 300MG TAB PO PRN (09:15)
[2023-03-09] MEDS ORDERED: NA CHLORIDE 0.9% 250 ML ONE (10:48)
--- NOTE | 2023-03-09 11:45 | P.PN ---
Subjective Date of Service: 03/09/23 Chief Complaint: Right pectoral hematoma Patient is doing better hematoma seems to be declining for facial discoloration no shortness of breath Review of Systems General: Weakness Physical Examination - Vital Signs Temperature: 96.9 F Blood Pressure: 139/61 Pulse: 112 Respirations: 17 Pulse Ox (%): 96 - Physical Exam General: Alert, Oriented x3 Neck: Supple Respiratory: Clear to auscultation bilaterally, Diminished Assessment And Plan - Current Problems (Diagnosis) (1) Bilateral pulmonary embolism Current Visit: Yes Status: Acute Plan: Patient admitted with bilateral pulmonary embolism s/p tPA developed right pectoral hematoma currently stable slight decline in her hemoglobin agree with blood transfusion renal function is improved patient has a filter inserted right now anticoagulation is is contraindicated until her hemoglobin is more stable and her hematoma has declined significantly need to be restarted back on low- dose otherwise vital signs are stable echocardiogram is normal Physician Review: Patient Assessed, Agree with Above Assessment and Plan
[2023-03-09 17:55] LABS: Hematocrit 23.8 % (36.0-45.0)
--- NOTE | 2023-03-09 21:28 | PN ---
Date of Progress Note: 03/09/2023 Ms. Jansen underwent an IVC filter placement on 03/06/2023 who had been seen intermittently. She was k nown to have a pulmonary embolus, a chest hematoma following thrombolysis. Anticoagulation had been held. Charts were reviewed. No telemetry issues and no hematoma in the groin. We will follow up. BRENDA/SAL Voice ID: [id number] Report ID: [id number]
[2023-03-10 06:38] LABS: Albumin 1.8 g/dL (3.4-5.0); Potassium 4.2 mEq/L (3.5-5.1)
--- NOTE | 2023-03-10 07:43 | PN ---
Date of Progress Note: 03/09/2023 Chief Complaint: Acute kidney injury. Subjective: Patient developed acute kidney injury secondary to ATN in setting of episodes of hypoten deb, cardiorenal syndrome. She received IV contrast and developed contrast-related nephropathy. Se rum creatinine level increased up to 2.9. Patient received normal saline for contrast-induced nephro malinda. Subsequently normal saline was discontinued due to the fact that patient developed some short ness of breath. She has peripheral edema. She is on loop diuretics, spironolactone, as well as she is on midodrine for the borderline hypotension. Review of Systems: Denies fever, chills. Physical Examination: Lungs: Clear to auscultation bilaterally. Heart: S1, S2. Abdomen: Soft. Extremities: Edema present. Impression And Plan: 1.Acute kidney injury. Renal function has improved over last 48 hours. Continue to monitor urine o utput, avoid angiotensin receptor sara. Continue to monitor potassium level. 2.History of obesity. Pulmonary emboli per primary team. 3.Cardiorenal syndrome. CT scan showed severe pulmonary hypertension. Continue diuretic as needed. 4.Continue spironolactone and monitor potassium level. The patient may benefit from Veltassa or Arturo yue. EB/MODL Voice ID: [id number] Report ID: [id number]
[2023-03-10] MEDS: Mupirocin NASAL 2 APPL/1 GM TUBE NAS SCH ×2 (07:47→21:18)
[2023-03-10] MEDS: GABAPENTIN 300 MG CAP PO SCH ×2 (07:47→21:16)
[2023-03-10] MEDS: SOLIFENACIN SUCCIN 5 MG TAB PO SCH (07:47)
[2023-03-10] MEDS: SERTRALINE HCL 100 MG TAB PO SCH (07:48)
[2023-03-10] MEDS: allopurinoL 100 MG TAB PO SCH (07:48)
[2023-03-10] MEDS: BUSPIRONE HCL 5 MG TABLET PO SCH (07:48)
[2023-03-10 12:07] LABS: Absolute Lymphocytes (CBC) 0.7 K/uL (0.7-4.9); Hematocrit 22.9 % (36.0-45.0); Lymphocytes % 23.6 % (15.3-44.8); MCV 94.2 fL (80-100); RBC Red Blood Cell Count 2.43 M/uL (3.86-4.86)
[2023-03-10 12:13] LABS: Magnesium 1.9 mg/dL (1.6-2.4)
[2023-03-10 13:28] LABS: Anisocytosis 1+; Blood Morphology Comment NOTED (NOT SEEN); Platelet Estimate DECR; Poikilocytosis 1+
--- NOTE | 2023-03-10 13:46 | P.PN ---
Subjective Date of Service: 03/10/23 Chief Complaint: Right pectoral hematoma Today no overnight evens cont wound care cr down to 0.9 # Acute kidney injury secondary to ATN secondary to low blood pressure/CRS1 from pulmo embolism & contrast nephropathy. resolved SCr increased to 2.9 on admission renal dos emeds # Pulmo embolism. on anticoagulation therapy # HyperPO4. due to PRADEEP resolved hold bonders # Anemia 2/2 acute blood loss, chest wall hematoma. Monitor CBC. transfuse if Hb <7.0 # R rib fracture s/p surgery. Per other services. Physical Examination - Vital Signs Temperature: 98.4 F Blood Pressure: 120/57 Pulse: 119 Respirations: 16 Pulse Ox (%): 98 Assessment And Plan Physician Review: Patient Assessed, Agree with Above Assessment and Plan
[2023-03-10] MEDS: ACETAMINOPHEN 500 MG TAB PO PRN (14:34)
[2023-03-10] MEDS ORDERED: FUROSEMIDE 20 MG/ 2ML VIAL IV ONE (17:03)
[2023-03-10] MEDS ORDERED: ALBUMIN HUMAN 25% 50 ML IV ONE (17:03)
[2023-03-11 05:10] LABS: Absolute Lymphocytes (CBC) 0.7 K/uL (0.7-4.9); Hematocrit 24.8 % (36.0-45.0); Lymphocytes % 26.8 % (15.3-44.8); MCV 94.4 fL (80-100); MPV 7.6 fL (7.6-11.3); RBC Red Blood Cell Count 2.63 M/uL (3.86-4.86)
[2023-03-11 05:14] LABS: Protime INR 0.99
[2023-03-11 05:50] LABS: Albumin 1.9 g/dL (3.4-5.0); Bilirubin Total 0.6 mg/dL (0.2-1.0); Magnesium 1.7 mg/dL (1.6-2.4); Potassium 3.9 mEq/L (3.5-5.1); Protein, Total 4.6 g/dL (6.4-8.2)
[2023-03-11] MEDS ORDERED: MAGNESIUM SULFATE 1 gm IVPB 1 GM/100 ML BAG IV ONE (06:50)
[2023-03-11] MEDS: allopurinoL 100 MG TAB PO SCH (08:01)
[2023-03-11] MEDS: GABAPENTIN 300 MG CAP PO SCH ×2 (08:02→20:12)
[2023-03-11] MEDS: SOLIFENACIN SUCCIN 5 MG TAB PO SCH (08:02)
[2023-03-11] MEDS: BUSPIRONE HCL 5 MG TABLET PO SCH (08:02)
[2023-03-11] MEDS: SERTRALINE HCL 100 MG TAB PO SCH (08:02)
[2023-03-11] MEDS: Mupirocin NASAL 2 APPL/1 GM TUBE NAS SCH ×2 (08:03→21:46)
[2023-03-11] MEDS ORDERED: NA CHLORIDE 0.9% 250 ML ONE (08:03)
[2023-03-11] MEDS ORDERED: KCL 20 MEQ/100 mL IVPB 20 MEQ/100 ML BAG IV SCH (09:00)
[2023-03-11 09:58] LABS: Scleroderma Antibody (Scl-70) <1.0
[2023-03-11] MEDS ORDERED: FUROSEMIDE 40 MG/4 ML VIAL IV ONE (11:15)
[2023-03-11] MEDS ORDERED: Ringers Lactate 1,000 ML IV ONE (11:47)
[2023-03-11] MEDS ORDERED: propofoL 200 MG/20 ML VIAL IV ONE (11:53)
[2023-03-11] MEDS ORDERED: MIDAZOLAM HCL 2 MG/2 ML INJ ONE (11:53)
[2023-03-11] MEDS ORDERED: CEFOXITIN SODIUM 2 GM/VIAL ONE (12:02)
[2023-03-11] MEDS ORDERED: FENTANYL CITR 100 MCG/2 ML ONE (12:29)
--- NOTE | 2023-03-11 13:14 | P.BOP ---
Preoperative diagnosis: Large chest wall hematoma, pulmonary emboli, s/p ORIF tibia, morbid obesity Postoperative diagnosis: same Primary procedure: Evacuation of large chest wall hematoma with skin and subQ [id number] Secondary procedure: [id number] Estimated blood loss: Less than 5 cc Specimen: None Findings: clots and fibrin with necrotic skin Anesthesia: General Complications: None Drain(s): Other (2 kerlix rolls tied to each other) Transferred to: Recovery Room Condition: Good
--- NOTE | 2023-03-11 13:16 | PN ---
Date of Progress Note: 03/11/2023 Subjective: The patient was admitted to the hospital with PE. The patient had acute kidney injury secondary to cardiorenal, poor perfusion, ATN, superimposed with contrast induced nephropathy. The patient's kidney function has been improved, normalized. Physical Examination: Vital Signs: When I saw the patient; blood pressure 143/57, pulse of 105, afebrile. The patient had urine output of 1500. Chest: Decreased entry bilateral base. Heart: S1, S2. Regular. Abdomen: Morbidly obese. Could not appreciate any organomegaly. Extremities: +1 edema. Neuro: Alert. No focality. Laboratory Data: Sodium 141, potassium 3.9, bicarb 32, BUN 21, creatinine 0.8, calcium 8.3, magnesium 1.7. BNP of 1800. Current Medications: The patient on include; 1. Tylenol. 2. Gabapentin. 3. Zoloft. 4. Magnesium oxide. Assessment And Plan: 1. Acute kidney injury secondary to contrast induced nephropathy, cardiorenal, proteinuric, nonnephrotic with the presence of pulmonary embolism. Serology was sent to evaluate for any autoimmune disease. Has low C4 rheumatoid factor and was negative. Serum protein electrophoresis is still pending. We will continue current treatment and we will monitor. I am going to give the patient a single dose of Lasix today to establish better volume control. 2. Hypertension, controlled, optimal. We will continue to utilize blood pressure for better volume control. 3. Hypomagnesemia. We will supplement. 4. Pulmonary embolism. Follow up with primary and Pulmonary. Status post thrombolysis. Time spent examining the patient [id number], reviewing data, lab and radiology, placing order, discussing the case with the patient, discussing the case with the warehouse team member including nurse more than 35 minutes CARSON Voice ID: [id number] Report ID: [id number]
--- NOTE | 2023-03-11 13:43 | PN ---
Date of Progress Note: 03/11/2023 Diagnosis: Right chest wall hematoma. Subjective: This is the case of a 67-year-old patient, who came to us with bilateral PE after having orthopedic surgery. Started on medications. We removed the clot, developed a large hematoma of the chest wall. We put a pressure therapy and the bleeding stopped after the blood thinner were correct ed. Now has a large hematoma covering almost right side of the entire chest and now shoulder area. It is giving her pain and discomfort. Some of the skin is starting to break from inside out with nec rotic skin present at the area of maximum pressure, we believe that may be starting to get infected. So after the patient was stabilized, they asked me to see if I can remove the clot since right now t he anticoagulation stopped and we did not see any expansion and we see the tenderness and the redness in that area and necrotic skin. I believe she has been relieving that hematoma instead of just wait ing to resolve in the next few months is the alternative and the patient also wants that, she does no t want to wait. The benefits, alternatives, and risks of evacuation of hematoma and debridement of m etastatic tissue fully explained, which include, but not limited to infection, bleeding, damage to ad jacent structures, recurrence of the hematoma, MT, and even . She may need wound care. MARK/SAL Voice ID: [id number] Report ID: [id number]
--- NOTE | 2023-03-11 14:13 | OP ---
Date of Procedure: 03/11/2023 Surgeon: Tony Avila MD Preoperative Diagnoses: Large chest wall hematoma, pulmonary emboli, status post open reduction and internal fixation of the tibia, morbid obesity. Postoperative Diagnoses: Large chest wall hematoma, pulmonary emboli, status post open reduction and internal fixation of the tibia, morbid obesity. Procedure: Evacuation of large chest wall hematoma with skin and subcutaneous debridement about 35 x 25 cm. Estimated Blood Loss: Less than 25 cc. Findings: Large amount of clots and fibrin present, evidence of necrotic tissue in the skin and the area of the major fluctuance of that fluid from this hematoma trying to come out. Complications: None. Packing: Two Kerlix rolls tied to each other. Indication: This is the case of a female, who comes to us with multiple events from orthopedic surge ry, then after that, DVTs, PEs, hematomas, history of anticoagulation, history of morbid obesity, his tory of breast cancer in the past. The patient has history of bilateral mastectomies in the past. W hen she developed this large cavity on the chest wall, pressure was applied until the anticoagulation was reversed. Given much pain and discomfort, even the skin pushing out, it is so dense that it is starting to get red and also the area of the skin. So that moment, we gave the clearance and decided to evacuate the hematoma. The benefits, alternatives, and risks of evacuation of large hematoma ful ly explained to the patient, which include, but not limited to infection, bleeding, damage to adjacen t structures, anesthesia complication, recurrence, [place], and even . She also understands this may not relieve any symptoms. She might need more than one surgical intervention. She understood, sign ed a consent. The patient understood she may need wound care. Procedure In Detail: The patient was brought to the operating room, placed in supine position. Anes thesia was done without complication. The chest and arm were prepped and draped in the usual sterile fashion. Local anesthesia was applied after time-out. We removed an area of the skin, debrided valentin t area all the way down to subcutaneous tissue, and that led us into a large cavity. I believe this cavity is the one that was at one point there when she has a mastectomy 15 years ago, which was disse cted again. We have several 100 cc of blood clot removed from that area and fibrin. Some tissue was also debrided carefully. Hemostasis was obtained all time. I believe this area is getting too red, possibility of bacteria is there, so I did some cultures and decided to pack this area with wet-to-d ry. The patient tolerated the procedure well. The patient was sent to recovery in stable condition. Sponge count, instrument counts correct. HM/MODL Voice ID: [id number] Report ID: [id number]
[2023-03-11] MEDS: PIPER TAZO 3.375 GM in NA CHLORIDE 0.9% 100 ML IV SCH (16:32)
[2023-03-12] MEDS: PIPER TAZO 3.375 GM in NA CHLORIDE 0.9% 100 ML IV SCH ×3 (01:43→16:30)
[2023-03-12 06:08] LABS: Absolute Lymphocytes (CBC) 0.9 K/uL (0.7-4.9); Hematocrit 27.7 % (36.0-45.0); MPV 7.7 fL (7.6-11.3); RBC Red Blood Cell Count 2.94 M/uL (3.86-4.86)
[2023-03-12 06:11] LABS: Protime INR 1.05
[2023-03-12 06:25] LABS: Bilirubin Total 0.8 mg/dL (0.2-1.0); Magnesium 1.5 mg/dL (1.6-2.4); Potassium 3.9 mEq/L (3.5-5.1)
[2023-03-12] MEDS: ACETAMINOPHEN 500 MG TAB PO PRN (07:51)
[2023-03-12] MEDS: BUSPIRONE HCL 5 MG TABLET PO SCH (07:51)
[2023-03-12] MEDS: SOLIFENACIN SUCCIN 5 MG TAB PO SCH (07:51)
[2023-03-12] MEDS: GABAPENTIN 300 MG CAP PO SCH ×2 (07:52→22:12)
[2023-03-12] MEDS: allopurinoL 100 MG TAB PO SCH (07:52)
[2023-03-12] MEDS: SERTRALINE HCL 100 MG TAB PO SCH (07:52)
[2023-03-12] MEDS: Mupirocin NASAL 2 APPL/1 GM TUBE NAS SCH (07:52)
[2023-03-12] MEDS ORDERED: Magnesium Sulfate 2gm IVPB 2 G/50 ML BAG IV ONE (09:00)
--- NOTE | 2023-03-12 12:40 | PN ---
Date of Progress Note: 03/12/2023 Subjective: Patient was admitted with acute kidney injury, lymphedema. Patient had chest wall hematoma after thrombolysis of PE. Patient had acute kidney injury secondary to cardiorenal. Patient recovered well. Physical Examination: Vital Signs: When I saw the patient, blood pressure 104/49, pulse of 106, afebrile. Chest: Clear to auscultation. Patient had chest dressing on the right upper chest. Heart: S1, S2. Abdomen: Morbidly obese. Could not appreciate any organomegaly. Extremities: Trace edema. Neurologic: Alert. No focality. Laboratory Data: Hemoglobin 9.2. Sodium 136, potassium 3.9, bicarb 32, BUN 20, creatinine 1. GFR 62. Calcium 8.4. Magnesium 1.5. Albumin of 2. Corrected calcium of 10. Current Medications: The patient on include: 1. Tylenol. 2. Zosyn. 3. Gabapentin 600 b.i.d. at bedtime. 4. Zoloft. 5. Lasix p.r.n. 6. Allopurinol. Assessment And Plan: 1. Acute kidney injury secondary to poor perfusion, acute tubular necrosis, recovered, resolved. Normal volume. We will monitor. 2. Hypertension, controlled, optimal. Continue current treatment. 3. Chest wall hematoma after thrombolysis, stable. We will follow up. 4. Hypomagnesemia. We will supplement. 5. Pulmonary embolism, status post thrombolysis. We will follow up with Pulmonary. Time spent examining the patient [id number], reviewing data, lab and radiology, placing order, discussing the case with the patient, discussing the case with the merchandising team lead including nurse more than 35 minutes CARSON Voice ID: [id number] Report ID: [id number] MTDD
[2023-03-12 13:00] LABS: Anti-Cardiolipin IgA Antibody <2.0 APL-U/mL (<20.0)
[2023-03-12] MEDS ORDERED: ALBUTEROL 2.5 MG/3 ML NEB SOL NEB PRN (14:00)
[2023-03-12 14:26] LABS: Albumin, (SPE) 2.4 g/dL (3.8-4.8); Alpha-1-Globulins 0.5 g/dL (0.2-0.3); Alpha-2-Globulins 0.8 g/dL (0.5-0.9); Gamma Globulins 0.6 g/dL (0.8-1.7); INTERPRETATION REPORT
[2023-03-12] MEDS ORDERED: MAGNESIUM SULFATE 1 gm IVPB 1 GM/100 ML BAG IV ONE (17:00)
[2023-03-12] MEDS: ENSURE MAX PROTEIN 330 ML LIQUID PO SCH (21:00)
[2023-03-13] MEDS: PIPER TAZO 3.375 GM in NA CHLORIDE 0.9% 100 ML IV SCH ×3 (01:06→16:28)
[2023-03-13 04:55] LABS: Magnesium 1.9 mg/dL (1.6-2.4); Potassium 3.4 mEq/L (3.5-5.1)
[2023-03-13] MEDS: BUSPIRONE HCL 5 MG TABLET PO SCH (07:40)
[2023-03-13] MEDS: GABAPENTIN 300 MG CAP PO SCH ×2 (07:40→21:37)
[2023-03-13] MEDS: SERTRALINE HCL 100 MG TAB PO SCH (07:40)
[2023-03-13] MEDS: allopurinoL 100 MG TAB PO SCH (07:40)
[2023-03-13] MEDS: ENSURE MAX PROTEIN 330 ML LIQUID PO SCH ×2 (07:40→21:00)
[2023-03-13] MEDS: SOLIFENACIN SUCCIN 5 MG TAB PO SCH (07:41)
--- NOTE | 2023-03-13 13:30 | P.PN ---
Subjective Date of Service: 03/13/23 Chief Complaint: Right pectoral hematoma Subjective: No new changes (she complains of increased edema on her right upper extremity.) Physical Examination - Vital Signs Temperature: 98.7 F Blood Pressure: 112/49 Pulse: 95 Respirations: 18 Pulse Ox (%): 97 - Physical Exam General: Other (chronically ill-appearing) HEENT: Atraumatic, Normocephalic Neck: Supple Respiratory: Other (symmetric chest expansion) Cardiovascular: No rubs, No murmurs Gastrointestinal: Soft and benign, No guarding Musculoskeletal: No clubbing, Other (has edema on right upper extremity and bilateral lower extremities) Integumentary: No warmth Neurological: Normal speech, Normal tone Urinary: Other (no bladder distention) External genitalia: Deferred Rectal: Deferred Assessment And Plan - Plan 1. Acute kidney injury secondary to ATN secondary to low blood pressure/CRS1 from pulmo embolism & contrast-induced nephropathy. PRADEEP improved. SCr incr eased to 2.9, now improved to 1.0. [place] po fluid intake. Keep MAP > 65-70. 2. Secondary hyperaldosteronism. Urine chemistry on 03/06/2023 showed secondary hyperaldosteronism, 2/2 significant clot burden from her PE with severe right heart strain / R-sided heart failure and chest CT on 02/27/2023 showing severe pulmonary hypertension with severe dilatation of the main pulmonary artery. BNP sig elevated. Avoid any Na-containing IV fluid. [place] po fluid intake. 3. Bilat pulmo embolism. S/p IVC filter placement on 03/06. 4. Chest wall hematoma. S/p hematoma evacuation on 03/11. 5. R upper extremity edema. Check doppler US to assess for / rule out DVT. 6. HypoK. KCl repletion prn. 7. Anemia 2/2 acute blood loss, chest wall hematoma. Monitor CBC. 8. R rib fracture s/p surgery. Per other services. Physician Review: Patient Assessed, Agree with Above Assessment and Plan
--- NOTE | 2023-03-13 16:14 | RAD REPORT ---
EXAM DESCRIPTION: US - UPPER EXTREMITY VENOUS UNILATE - 03/13/2023 4:07 pm CLINICAL HISTORY: Right arm edema, assess for DVT Arm swelling and edema COMPARISON: <Comparisons> FINDINGS: Right upper extremity venous system was interrogated with Doppler technique. Normal flow, compressibility and augmentation was noted. There is no DVT present. IMPRESSION: No evidence of right upper extremity deep venous thrombosis.
[2023-03-13] MEDS: MORPHINE 4 MG/ML SYR IV PRN (16:28)
[2023-03-14] MEDS: PIPER TAZO 3.375 GM in NA CHLORIDE 0.9% 100 ML IV SCH ×3 (03:09→16:42)
[2023-03-14 06:29] LABS: Potassium 3.4 mEq/L (3.5-5.1)
[2023-03-14] MEDS: SOLIFENACIN SUCCIN 5 MG TAB PO SCH (07:49)
[2023-03-14] MEDS: SERTRALINE HCL 100 MG TAB PO SCH (07:49)
[2023-03-14] MEDS: allopurinoL 100 MG TAB PO SCH (07:49)
[2023-03-14] MEDS: BUSPIRONE HCL 5 MG TABLET PO SCH (07:50)
[2023-03-14] MEDS: GABAPENTIN 300 MG CAP PO SCH ×2 (07:50→21:22)
[2023-03-14] MEDS: ENSURE MAX PROTEIN 330 ML LIQUID PO SCH ×2 (07:50→21:24)
[2023-03-14 08:18] LABS: Absolute Lymphocytes (CBC) 0.6 K/uL (0.7-4.9); MCV 94.7 fL (80-100); RBC Red Blood Cell Count 2.64 M/uL (3.86-4.86)
[2023-03-14 08:38] LABS: Albumin 1.8 g/dL (3.4-5.0); Bilirubin Total 0.7 mg/dL (0.2-1.0); Magnesium 1.7 mg/dL (1.6-2.4); Potassium 3.4 mEq/L (3.5-5.1); Protein, Total 4.7 g/dL (6.4-8.2)
[2023-03-14 09:22] LABS: White Blood Cell Scan OK (OK)
[2023-03-14 09:23] LABS: Blood Morphology Comment NOT SEEN (NOT SEEN); Platelet Estimate ADEQ
--- NOTE | 2023-03-14 13:43 | P.PN ---
Subjective Date of Service: 03/14/23 Chief Complaint: Right pectoral hematoma Subjective: No new changes Physical Examination - Vital Signs Temperature: 97.3 F Blood Pressure: 136/63 Pulse: 86 Respirations: 16 Pulse Ox (%): 94 - Physical Exam General: Other (Chronically ill-appearing) HEENT: Atraumatic, Normocephalic Neck: Supple Respiratory: Other (symmetric chest expansion) Cardiovascular: No rubs, No murmurs Gastrointestinal: Soft and benign, No guarding Musculoskeletal: No clubbing Integumentary: No warmth Neurological: Normal tone Urinary: Other (no bladder distention) External genitalia: Deferred Rectal: Deferred Assessment And Plan - Plan 1. Acute kidney injury secondary to ATN secondary to low blood pressure/CRS1 from pulmo embolism & contrast-induced nephropathy. PRADEEP improved. SCr increased to 2.9, now improved to 1.0. [place] po fluid intake at least 2L/day. Keep MAP > 65-70. 2. Secondary hyperaldosteronism. Urine chemistry on 03/06/2023 showed secondary hyperaldosteronism, 2/2 significant clot burden from her PE with severe right heart strain / R-sided heart failure and chest CT on 02/27/2023 showing severe pulmonary hypertension with severe dilatation of the main pulmonary artery. BNP sig elevated. Avoid any Na-containing IV fluid. [place] po fluid intake. 3. Bilat pulmo embolism. S/p IVC filter placement on 03/06. 4. Chest wall hematoma. S/p hematoma evacuation on 03/11. 5. R upper extremity edema. Check doppler US to assess for / rule out DVT. 6. HypoK. KCl repletion prn. 7. Anemia 2/2 acute blood loss, chest wall hematoma. Monitor CBC. 8. R rib fracture s/p surgery. Per other services. Physician Review: Patient Assessed, Agree with Above Assessment and Plan
--- NOTE | 2023-03-14 14:31 | P.PN ---
Subjective Date of Service: 03/10/23 67-year-old female who was admitted to our hospital with bilateral pulmonary embolism. Patient was found to have extensive bilateral pulmonary emboli involving the right and left pulmonary arteries as well as lobar, segmental, and subsegmental arterial branches. Findings concerning for right heart strain. Patient was given tPA and afterwards patient developed a chest wall hematoma. IVC filter was placed and anticoagulation was held. We will probably need to eventually resume anticoagulation. Patient had extensive chest wall hematoma. Surgical evaluation for evacuation. Low-grade fever so we will continue with antibiotic therapy. Patient lives at [facility] and plan to discharge back to [facility] over the next 3-5 days. Review of Systems 10-point ROS is otherwise unremarkable Physical Examination - Vital Signs Temperature: 97.3 F Blood Pressure: 136/63 Pulse: 86 Respirations: 16 Pulse Ox (%): 94 - Physical Exam General: Alert, In no apparent distress, Oriented x3, Obese Respiratory: Diminished, Expiratory wheezes Cardiovascular: Regular rate/rhythm, Normal S1 S2, No murmurs Gastrointestinal: Normal bowel sounds, Soft and benign, Non-distended, No tenderness Musculoskeletal: No clubbing, No swelling, No tenderness Integumentary: Erythema, Warmth, Other (Extensive swelling of the chest wall. Patient with a large hematoma around the right and left clavicle.) Neurological: Sensation intact, Cranial nerves 3-12 intact - Studies Medications List Reviewed: Yes Assessment & Plan - Problems (Diagnosis) (1) Chest wall hematoma Current Visit: Yes Status: Acute (2) Bilateral leg weakness Current Visit: Yes Status: Acute (3) Bilateral pulmonary embolism Current Visit: Yes Status: Acute (4) Obesity Current Visit: Yes Status: Chronic Qualifiers: Obesity type: due to excess calories Obesity classification: adult class 3 (BMI >= 40) Serious obesity comorbidity presence: with serious comorbidity (5) Fibula fracture Current Visit: No Status: Acute Qualifiers: Encounter type: initial encounter Fibula location: distal Fracture type: closed Fracture morphology: other fracture Laterality: right Qualified Code(s): S82.831A - Other fracture of upper and lower end of right fibula, initial encounter for closed fracture (6) Acquired lymphedema of leg Current Visit: No Status: Chronic - Plan Plan: 1. Surgery consultation 2. IV antibiotics 3. Plan for evacuation of hematoma 4. Continue with IVC filter and plan to resume anticoagulation once medically and surgically stable 5. Resume physical therapy over the next 48 to 72 hours 6. Monitor H&H 7. Monitor labs and electrolytes 8. GI DVT prophylaxis Discharge Plan: Home Plan to discharge in: Greater than 2 days - Advance Directives Does patient have a Living Will: No Does patient have a Durable POA for Healthcare: No - Code Status/Comfort Care Code Status: Full Code Physician Review: Patient Assessed, Agree with Above Assessment and Plan Critical Care: No Time Spent Managing PTS Care (In Minutes): 35
--- NOTE | 2023-03-14 14:36 | P.PN ---
Date of Service: 03/11/23 Subjective Patient continues to improve. Seen by general surgery and plan for hematoma evacuation. Plan for evacuation of the hematoma today. Discussed with surgical options and medical options after the surgery is completed 67-year-old female who was admitted to our hospital with bilateral pulmonary emb olism. Patient was found to have extensive bilateral pulmonary emboli involving the right and left pulmonary arteries as well as lobar, segmental, and subsegmental arterial branches. Findings concerning for right heart strain. Patient was given tPA and afterwards patient developed a chest wall hematoma. IVC filter was placed and anticoagulation was held. We will probably need to eventually resume anticoagulation. Patient had extensive chest wall hematoma. Surgical evaluation for evacuation. Low-grade fever so we will continue with antibiotic therapy. Patient lives at [facility] and plan to discharge back to [facility] over the next 3-5 days. Physical Examination - Vital Signs Reviewed - Physical Exam General: Alert, In no apparent distress, Oriented x3, Obese Respiratory: Diminished, Expiratory wheezes Cardiovascular: Regular rate/rhythm, Normal S1 S2, No murmurs Gastrointestinal: Normal bowel sounds, Soft and benign, Non-distended, No tenderness Musculoskeletal: No clubbing, No swelling, No tenderness Integumentary: Erythema, Warmth, Other (Extensive swelling of the chest wall. Patient with a large hematoma around the right and left clavicle.) Neurological: Sensation intact, Cranial nerves 3-12 intact Assessment & Plan - Problems (Diagnosis) (1) Chest wall hematoma Current Visit: Yes Status: Acute (2) Bilateral leg weakness Current Visit: Yes Status: Acute (3) Bilateral pulmonary embolism Current Visit: Yes Status: Acute (4) Obesity Current Visit: Yes Status: Chronic Qualifiers: Obesity type: due to excess calories Obesity classification: adult class 3 (BMI >= 40) Serious obesity comorbidity presence: with serious comorbidity (5) Fibula fracture Current Visit: No Status: Acute Qualifiers: Encounter type: initial encounter Fibula location: distal Fracture type: closed Fracture morphology: other fracture Laterality: right Qualified Code(s): S82.831A - Other fracture of upper and lower end of right fibula, initial encounter for closed fracture (6) Acquired lymphedema of leg Current Visit: No Status: Chronic - Plan Continue with plan of care as mentioned below: 1. Surgery consultation; chest wall hematoma evacuation 2. Resume IV antibiotics 3. Strict blood pressure and blood sugar control 4. s/p IVC filter and plan to resume anticoagulation once medically and surgically stable 5. Resume physical therapy over the next 48 to 72 hours 6. Monitor H&H 7. Monitor labs and electrolytes 8. GI DVT prophylaxis Discharge Plan: [facility]) Plan to discharge in: Greater than 2 days - Advance Directives Does patient have a Living Will: No Does patient have a Durable POA for Healthcare: No - Code Status/Comfort Care Code Status: Full Code Physician Review: Patient Assessed, Agree with Above Assessment and Plan Critical Care: No Time Spent Managing PTS Care (In Minutes): 35
--- NOTE | 2023-03-14 14:38 | P.PN ---
Date of Service: 03/12/23 Subjective Patient is status post evacuation of the Chest wall hematoma. Spoke with general surgery and they want to try to get a wound VAC placed. We will try to get one done from the nursing and wound care facility. Go ahead and get physical therapy started on the patient. Arranging for discharge planning back to [facility]. Physical Examination - Vital Signs Reviewed - Physical Exam General: Alert, In no apparent distress, Oriented x3, Obese Respiratory: Diminished, Expiratory wheezes Cardiovascular: Regular rate/rhythm, Normal S1 S2, No murmurs Gastrointestinal: Normal bowel sounds, Soft and benign, Non-distended, No tenderness Musculoskeletal: No clubbing, No swelling, No tenderness Integumentary: Erythema, Warmth, Other (Extensive swelling of the chest wall. Patient with a large hematoma around the right and left clavicle.) Neurological: Sensation intact, Cranial nerves 3-12 intact Assessment & Plan - Problems (Diagnosis) (1) Chest wall hematoma Current Visit: Yes Status: Acute (2) Bilateral leg weakness Current Visit: Yes Status: Acute (3) Bilateral pulmonary embolism Current Visit: Yes Status: Acute (4) Obesity Current Visit: Yes Status: Chronic Qualifiers: Obesity type: due to excess calories Obesity classification: adult class 3 (BMI >= 40) Serious obesity comorbidity presence: with serious comorbidity (5) Fibula fracture Current Visit: No Status: Acute Qualifiers: Encounter type: initial encounter Fibula location: distal Fracture type: closed Fracture morphology: other fracture Laterality: right Qualified Code(s): S82.831A - Other fracture of upper and lower end of right fibula, initial encounter for closed fracture (6) Acquired lymphedema of leg Current Visit: No Status: Chronic - Plan Continue with plan of care as mentioned below: 1. Surgery consultation; chest wall hematoma evacuation 2. Resume IV antibiotics 3. Strict blood pressure and blood sugar control 4. s/p IVC filter and plan to resume anticoagulation once medically and surgically stable 5. Resume physical therapy over the next 48 to 72 hours 6. Monitor H&H 7. Monitor labs and electrolytes 8. GI DVT prophylaxis Discharge Plan: Care Home([facility]) Plan to discharge in: Greater than 2 days - Advance Directives Does patient have a Living Will: No Does patient have a Durable POA for Healthcare: No - Code Status/Comfort Care Code Status: Full Code Physician Review: Patient Assessed, Agree with Above Assessment and Plan Critical Care: No Time Spent Managing PTS Care (In Minutes): 35
--- NOTE | 2023-03-14 14:41 | P.PN ---
Date of Service: 03/13/23 Subjective Patient is doing well with no new complaints. Spoke to surgical director and patient is to get a wound VAC placed on the wound-chest wall hematoma. Will discuss with pulmonary regarding anticoagulation. Resume physical therapy. Physical Examination - Vital Signs Reviewed - Physical Exam General: Alert, In no apparent distress, Oriented x3, Obese Respiratory: Clear bilaterally Cardiovascular: Regular rate/rhythm, Normal S1 S2, No murmurs Gastrointestinal: Normal bowel sounds, Soft and benign, Non-distended, No tenderness Musculoskeletal: No clubbing, No swelling, No tenderness Integumentary: Patient with wound of the chest wall Neurological: Generalized weakness with no focal deficits Assessment & Plan - Problems (Diagnosis) (1) Chest wall hematoma Current Visit: Yes Status: Acute (2) Bilateral leg weakness Current Visit: Yes Status: Acute (3) Bilateral pulmonary embolism Current Visit: Yes Status: Acute (4) Obesity Current Visit: Yes Status: Chronic Qualifiers: Obesity type: due to excess calories Obesity classification: adult class 3 (BMI >= 40) Serious obesity comorbidity presence: with serious comorbidity (5) Fibula fracture Current Visit: No Status: Acute Qualifiers: Encounter type: initial encounter Fibula location: distal Fracture type: closed Fracture morphology: other fracture Laterality: right Qualified Code(s): S82.831A - Other fracture of upper and lower end of right fibula, initial encounter for closed fracture (6) Acquired lymphedema of leg Current Visit: No Status: Chronic - Plan Continue with plan of care as mentioned below: 1. Surgery consultation appreciated; status post chest wall hematoma evacuation; will place wound VAC on the wound 2. Resume IV antibiotics 3. Strict blood pressure and blood sugar control 4. s/p IVC filter and plan to resume anticoagulation once medically and surgically stable 5. Resume physical therapy; work on discharge planning 6. Monitor H&H 7. Monitor labs and electrolytes 8. GI DVT prophylaxis Discharge Plan: [facility]) Plan to discharge in: Greater than 2 days - Advance Directives Does patient have a Living Will: No Does patient have a Durable POA for Healthcare: No - Code Status/Comfort Care Code Status: Full Code Physician Review: Patient Assessed, Agree with Above Assessment and Plan Critical Care: No Time Spent Managing PTS Care (In Minutes): 35
--- NOTE | 2023-03-14 14:41 | P.PN ---
Date of Service: 03/14/23 Subjective Patient continues to do well. Patient spirits are much better. Working on discharge planning at this time. Physical Examination - Vital Signs Reviewed - Physical Exam General: Alert, In no apparent distress, Oriented x3, Obese Respiratory: Clear bilaterally Cardiovascular: Regular rate/rhythm, Normal S1 S2, No murmurs Gastrointestinal: Normal bowel sounds, Soft and benign, Non-distended, No tenderness Musculoskeletal: No clubbing, No swelling, No tenderness Integumentary: Patient with wound of the chest wall Neurological: Generalized weakness with no focal deficits Assessment & Plan - Problems (Diagnosis) (1) Chest wall hematoma Current Visit: Yes Status: Acute (2) Bilateral leg weakness Current Visit: Yes Status: Acute (3) Bilateral pulmonary embolism Current Visit: Yes Status: Acute (4) Obesity Current Visit: Yes Status: Chronic Qualifiers: Obesity type: due to excess calories Obesity classification: adult class 3 (BMI >= 40) Serious obesity comorbidity presence: with serious comorbidity (5) Fibula fracture Current Visit: No Status: Acute Qualifiers: Encounter type: initial encounter Fibula location: distal Fracture type: closed Fracture morphology: other fracture Laterality: right Qualified Code(s): S82.831A - Other fracture of upper and lower end of right fibula, initial encounter for closed fracture (6) Acquired lymphedema of leg Current Visit: No Status: Chronic - Plan Continue with plan of care as mentioned below: 1. Surgery consultation appreciated; status post chest wall hematoma evacuation; will place wound VAC on the wound 2. Resume IV antibiotics 3. Strict blood pressure and blood sugar control 4. s/p IVC filter and plan to resume anticoagulation once medically and surgically stable 5. Resume physical therapy; work on discharge planning 6. Monitor H&H 7. Monitor labs and electrolytes 8. GI DVT prophylaxis Discharge Plan: [facility]) Plan to discharge in: Greater than 2 days - Advance Directives Does patient have a Living Will: No Does patient have a Durable POA for Healthcare: No - Code Status/Comfort Care Code Status: Full Code Physician Review: Patient Assessed, Agree with Above Assessment and Plan Critical Care: No Time Spent Managing PTS Care (In Minutes): 35
[2023-03-14 15:57] LABS: Vitamin D 1,25-Dihydroxy Total 12 pg/mL (18-72); Vitamin D,1,25-OH2, D2 <8 pg/mL
[2023-03-14] MEDS: MORPHINE 4 MG/ML SYR IV PRN (18:41)
[2023-03-14] MEDS ORDERED: POTASSIUM CL SA 10 MEQ TAB PO ONE (19:02)
[2023-03-15] MEDS: PIPER TAZO 3.375 GM in NA CHLORIDE 0.9% 100 ML IV SCH ×4 (01:25→16:56)
[2023-03-15 06:19] LABS: Absolute Lymphocytes (CBC) 0.7 K/uL (0.7-4.9); Hematocrit 24.7 % (36.0-45.0); Lymphocytes % 27.1 % (15.3-44.8); MCV 93.8 fL (80-100); MPV 8.3 fL (7.6-11.3); RBC Red Blood Cell Count 2.63 M/uL (3.86-4.86)
[2023-03-15 06:38] LABS: Albumin 1.9 g/dL (3.4-5.0); Bilirubin Total 0.7 mg/dL (0.2-1.0); Magnesium 1.7 mg/dL (1.6-2.4); Potassium 3.5 mEq/L (3.5-5.1); Protein, Total 4.7 g/dL (6.4-8.2)
[2023-03-15] MEDS ORDERED: POTASSIUM CL SA 10 MEQ TAB PO ONE (08:00)
[2023-03-15] MEDS: GABAPENTIN 300 MG CAP PO SCH ×2 (08:00→21:19)
[2023-03-15] MEDS: SOLIFENACIN SUCCIN 5 MG TAB PO SCH (08:00)
[2023-03-15] MEDS: BUSPIRONE HCL 5 MG TABLET PO SCH (08:00)
[2023-03-15] MEDS: ENSURE MAX PROTEIN 330 ML LIQUID PO SCH ×2 (08:01→21:00)
[2023-03-15] MEDS: SERTRALINE HCL 100 MG TAB PO SCH (08:01)
[2023-03-15] MEDS: allopurinoL 100 MG TAB PO SCH (08:01)
[2023-03-15] MEDS: MORPHINE 4 MG/ML SYR IV PRN ×2 (08:46→21:47)
[2023-03-15] MEDS ORDERED: MAGNESIUM SULFATE 1 gm IVPB 1 GM/100 ML BAG IV ONE (09:00)
--- NOTE | 2023-03-15 13:30 | P.PN ---
Subjective Date of Service: 03/15/23 Chief Complaint: Right pectoral hematoma Subjective: Other (remains bedbound.) Physical Examination - Vital Signs Temperature: 97.4 F Blood Pressure: 135/63 Pulse: 84 Respirations: 16 Pulse Ox (%): 92 - Physical Exam General: Other (appears as her stated age) HEENT: Atraumatic, Normocephalic Neck: Supple Respiratory: Other (symmetric chest expansion) Cardiovascular: No rubs, No murmurs Gastrointestinal: Soft and benign Musculoskeletal: No clubbing Integumentary: No warmth Neurological: Normal speech, Normal tone Urinary: Other (no bladder distention) External genitalia: Deferred Rectal: Deferred - Studies Medications List Reviewed: Yes Assessment And Plan - Plan 1. Acute kidney injury secondary to ATN secondary to low blood pressure/CRS1 from pulmo embolism & contrast-induced nephropathy. PRADEEP improved. SCr increased to 2.9, now improved to 1.0. Salyer po fluid intake at least 2L/day. Keep MAP > 65-70. 2. Secondary hyperaldosteronism. Urine chemistry on 03/06/2023 showed secondary hyperaldosteronism, 2/2 significant clot burden from her PE with severe right heart strain / R-sided heart failure and chest CT on 02/27/2023 showing severe pulmonary hypertension with severe dilatation of the main pulmonary artery. BNP sig elevated. Avoid any Na-containing IV fluid. Salyer po fluid intake. 3. Bilat pulmo embolism. S/p IVC filter placement on 03/06. 4. Chest wall hematoma. S/p hematoma evacuation on 03/11. 5. R upper extremity edema. RUE doppler US neg for DVT. Arm elevation, compression prn. 6. HypoK. KCl repletion prn. 7. Anemia 2/2 acute blood loss, chest wall hematoma. Monitor CBC. 8. R rib fracture s/p surgery. Per other services. Physician Review: Patient Assessed, Agree with Above Assessment and Plan
--- NOTE | 2023-03-16 04:49 | P.PN ---
Date of Service: 03/15/23 Subjective Pt is a very pleasant 67-year-old female who was admitted to our hospital with bilateral pulmonary embolism. Patient was found to have extensive bilateral pulmonary emboli involving the right and left pulmonary arteries as well as lobar, segmental, and subsegmental arterial branches. Findings concerning for right heart strain. Patient was given tPA and afterwards patient developed a chest wall hematoma. IVC filter was placed and anticoagulation was held. We will probably need to eventually resume anticoagulation. Patient had extensive chest wall hematoma. Dr. Avila performed a surgical evacuation. Patient did have a low-grade fever on day before procedure but since evacuation patient has not had a fever. We will continue with antibiotics. Cultures have been negative. Wound VAC will be in place at [facility] where patient will continue with wound care. Did speak with pulmonary regarding patient's extensive bilateral pulmonary embolism. We will get an echocardiogram to reassess right ventricular pressures and for right heart strain. Resume Eliquis at this time. Patient has been at [facility] for therapy and we will plan to discharge over the next 24 to 48 hours. Physical Examination - Vital Signs Reviewed - Physical Exam General: Alert, In no apparent distress, Oriented x3, Obese Respiratory: Clear bilaterally Cardiovascular: Regular rate/rhythm, Normal S1 S2, No murmurs Gastrointestinal: Normal bowel sounds, Soft and benign, Non-distended, No tenderness Musculoskeletal: No clubbing, No swelling, No tenderness Integumentary: Patient with wound vac and bruising to chest wall Neurological: Generalized weakness with no focal deficits Assessment & Plan - Problems (Diagnosis) (1) Chest wall hematoma Current Visit: Yes Status: Acute (2) Bilateral leg weakness Current Visit: Yes Status: Acute (3) Bilateral pulmonary embolism Current Visit: Yes Status: Acute (4) Obesity Current Visit: Yes Status: Chronic Qualifiers: Obesity type: due to excess calories Obesity classification: adult class 3 (BMI >= 40) Serious obesity comorbidity presence: with serious comorbidity (5) Fibula fracture Current Visit: No Status: Acute Qualifiers: Encounter type: initial encounter Fibula location: distal Fracture type: closed Fracture morphology: other fracture Laterality: right Qualified Code(s): S82.831A - Other fracture of upper and lower end of right fibula, initial encounter for closed fracture (6) Acquired lymphedema of leg Current Visit: No Status: Chronic - Plan Continue with plan of care as mentioned below: 1. Surgery consultation appreciated; status post chest wall hematoma evacuation; continue wound VAC on the wound 2. Resume IV antibiotics 3. Strict blood pressure and blood sugar control 4. s/p IVC filter and plan to resume anticoagulation 5. Resume physical therapy(baseline she does not ambulate but she did transfer); working on discharge planning 6. Monitor H&H 7. Monitor labs and electrolytes 8. GI DVT prophylaxis Discharge Plan: Skilled Nursing([facility]) Plan to discharge in: 24-48hrs - Advance Directives Does patient have a Living Will: No Does patient have a Durable POA for Healthcare: No - Code Status/Comfort Care Code Status: Full Code Physician Review: Patient Assessed, Agree with Above Assessment and Plan Critical Care: No Time Spent Managing PTS Care (In Minutes): 35
[2023-03-16 05:07] LABS: Magnesium 1.7 mg/dL (1.6-2.4); Potassium 3.6 mEq/L (3.5-5.1)
[2023-03-16] MEDS: MORPHINE 4 MG/ML SYR IV PRN ×2 (06:40→14:31)
[2023-03-16] MEDS ORDERED: GABAPENTIN 100 MG CAP ONE (07:19)
[2023-03-16] MEDS: PIPER TAZO 3.375 GM in NA CHLORIDE 0.9% 100 ML IV SCH ×2 (08:22→15:42)
[2023-03-16] MEDS: SOLIFENACIN SUCCIN 5 MG TAB PO SCH (08:22)
[2023-03-16] MEDS: ENSURE MAX PROTEIN 330 ML LIQUID PO SCH ×2 (08:23→20:58)
[2023-03-16] MEDS: allopurinoL 100 MG TAB PO SCH (08:23)
[2023-03-16] MEDS: GABAPENTIN 300 MG CAP PO SCH ×2 (08:23→20:58)
[2023-03-16] MEDS: APIXABAN 5 MG TABLET PO SCH ×2 (08:23→20:58)
[2023-03-16] MEDS: BUSPIRONE HCL 5 MG TABLET PO SCH (08:23)
[2023-03-16] MEDS: SERTRALINE HCL 100 MG TAB PO SCH (08:23)
--- NOTE | 2023-03-16 09:47 | P.PN ---
Subjective Date of Service: 03/16/23 Chief Complaint: Right pectoral hematoma No acute events overnight. She reports pain at the site of her wound VAC. She denies any shortness of breath or chest discomfort this morning. She denies any nausea/vomiting. Continue PT as tolerated. Appreciate specialist recommendations. Review of Systems 10-point ROS is otherwise unremarkable General: Weakness (generalized) Musculoskeletal: Shoulder Pain (pain near wound-VAC) Physical Examination - Vital Signs Temperature: 97.5 F Blood Pressure: 140/65 Pulse: 86 Respirations: 17 Pulse Ox (%): 93 - Physical Exam General: Alert, In no apparent distress, Oriented x3 HEENT: Atraumatic, Mucous membr. moist/pink, Sclerae nonicteric Respiratory: Clear to auscultation bilaterally, Diminished Cardiovascular: Regular rate/rhythm, Normal S1 S2, No murmurs, Edema (trace-1+ BLE) Gastrointestinal: Normal bowel sounds, Soft and benign, Non-distended, No tenderness, No rebound, No guarding Musculoskeletal: No clubbing Integumentary: Other (wound-VAC to right-chest wall. Bruising over bilateral chest wall.) - Studies Medications List Reviewed: Yes Assessment And Plan - Plan # Multiple Extensive Bilateral Occlusive Pulmonary Emboli with Right Heart Strain s/p Tenecteplase complicated by Right Chest Wall Hematoma s/p IVC Filter Placement # Acute Blood Loss Anemia due to above stable # Partial Herniation of Right Middle Lung Lobe through Chest Wall Defect - Evaluation thus far: - CT chest angiogram (02/27) = "1. Extensive bilateral pulmonary emboli involving the right and left pulmonary arteries as well as lobar, segmental, and subsegmental arterial branches. 2. Findings concerning for right heart strain. 3. Consolidative changes in the left lower lobe and multifocal opacities in both lungs which could be related to pneumonia or edema. 4. Small left pleural effusion. 5. Incompletely characterized right hepatic lobe lesion which can be followed up as appropriate. 6. Left thyroid lobe mass again demonstrated, follow-up ultrasound recommended if not already performed. 7. Low-density fluid collection adjacent to the right heart border again noted may represent a per icardial cyst." - Bilateral lower extremity Doppler (03/02) = "no sonographic evidence of left or right lower extremity deep venous thrombosis." - Right upper extremity Doppler (03/03) = "no evidence of DVT in the right upper extremity. 7.4 centimeter collection in the soft tissues of the right upper chest wall, could represent a hematoma." - CT dissection protocol (03/03) = "1. Noncontrast exam due to contrast extravasation. 2. Large right chest wall hematoma. 3. Improved aeration in the left lower lobe. Trace residual left-sided pleural effusion. 4. No acute abnormality identified in the abdomen or pelvis on this exam." - Transthoracic echocardiogram (03/03) = "mild tricuspid and mitral regurgitation. Normal right ventricular systolic pressure. Normal left ventricular size and function."` - Management plan: - Pulmonology consulted - recommendations appreciated - Currently on apixaban - Cardiology consulted - recommendations appreciated - S/P IVC filter placement on 03/06/2023 - Repeat transthoracic echocardiogram today to re-evaluate for right heart strain - General Surgery consulted for chest wall hematoma - recommendations appreciated - S/P hematoma evacuation on 03/11/2023 # Sepsis likely secondary to Left-Sided Community Acquired Pneumonia (COVID-19 pneumonia?) - POA She met sepsis criteria based on temperature > 100.4 F, HR > 90 bpm, RR > 20 breaths/min, and WBC < 4,000, and the suspected source is pneumonia - Pulmonology consulted - recommendations appreciated - Imaging: - Chest x-ray (02/27) = "[id number] opacities left lung probably pneumonia" - CT chest angiogram (02/27) = "1. Extensive bilateral pulmonary emboli involving the right and left pulmonary arteries as well as lobar, segmental, and subsegmental arterial branches. 2. Findings concerning for right heart strain. 3. Consolidative changes in the left lower lobe and multifocal opacities in both lungs which could be related to pneumonia or edema. 4. Small left pleural effusion. 5. Incompletely characterized right hepatic lobe lesion which can be followed up as appropriate. 6. Left thyroid lobe mass again demonstrated, follow-up ultrasound recommended if not already performed. 7. Low-density fluid collection adjacent to the right heart border again noted may represent a pericardial cyst." - Sepsis order set was initiated - Initial Lactate was 1.6 - Blood cultures drawn = NGTD - Broad spectrum antibiotics started: Piperacillin-Tazobactam - In regards to fluids: - 30 mL/kg of IV fluids was not administered given SBP > 90, MAP > 65, lactic acid < 4 # KDIGO Stage II Acute Kidney Injury due to Blood Loss - resolved - Nephrology consulted - recommendations appreciated - Urinalysis with proteinuria - Renal ultrasound = "unremarkable renal sonogram." - Monitor creatinine and urine output - Renally dose medications # Depression # Anxiety - Continue home sertraline, gabapentin, buspirone # Gout - Continue home allopurinol # Right Ankle Distal Fibula Fracture s/p ORIF (01/31/2023) # Right Ankle Syndesmosis Injury s/p ORIF (01/31/2023) - Left ankle x-ray = "postsurgical changes are present with a lateral fibular sideplate and multiple screws present. Two syndesmotic lag screws also noted. Large calcaneal spurs. Fracture lucency is still seen in the fibula." - Follow-up with Orthopedic Surgery (Dr. Flores) at discharge - Continue PT as tolerated # Left Thyroid Mass (3.8 cm x 5.3 cm) # Fluid Collection adjacent to Right Heart Border (6.8 cm x 2.5 cm) - possible Pericardial Cyst # Right Hepatic Lobe Hypodense Lesion (2.2 cm) # History of Breast Cancer s/p Bilateral Mastectomy in Remission # History of Lung Cancer s/p Right Upper Lobe Removal in Remission - Follow-up with PCP and Oncology for further evaluation Gallo Weiss M.D.
[2023-03-16] MEDS ORDERED: ALBUTEROL 2.5 MG/3 ML NEB SOL NEB PRN (14:00)
[2023-03-16 20:03] LABS: Beta Globulin 24 HR Urine 35 %; Gamma Globulin, 24hr Urine 25 %; Interpretation: REPORT; Protein/Crea Ratio in g 222 mg/g creat (<150); Protein/Crea Ratio in mg 0.222 (<0.150); Urine Alpha-2-Globulins, 24 Hr 16 %; Urine PEP Abn Protein Band1 REPORT; Urine Total Volume 24 Hours 2225 mL
[2023-03-16 22:36] VITALS: O2SAT 98
[2023-03-17] MEDS: PIPER TAZO 3.375 GM in NA CHLORIDE 0.9% 100 ML IV SCH ×2 (01:22→08:06)
--- NOTE | 2023-03-17 01:31 | PN ---
Date of Progress Note: 03/16/2023 Chief Complaint: Acute kidney injury, right pectoral hematoma. Subjective: The patient denies complaints today. The pain is control, although she complains of gen eralized body aches. Review of Systems: Denies fever or chills. Physical Examination: Lungs: Diminished breath sounds at bases. Heart: S1 and S2. Abdomen: Soft. Extremities: Edema present. Chest: There is a right-sided chest area hematoma. Impression And Plan: 1.Acute kidney injury secondary to acute tubular necrosis due to low blood pressure and cardiorenal syndrome from pulmonary emboli and contrast-induced nephropathy. Acute kidney injury, improved. Ser um creatinine level increased during this admission to 2.9 and gradually improved to 1.0. The patien t will continue p.o. fluid intake. Monitor blood pressure closely and keep MAP over 65 and 75. 2.Secondary hyperaldosteronism. Significant history with recent prostate artery embolization. 3.Severe right heart strain, right-sided heart failure, and on chest CT showing pulmonary hypertensi on pattern with severe dilatation of main pulmonary artery. BNP is elevated. Avoid nephrotoxic medi cation. Avoid sodium contained IV fluids. Monitor electrolytes closely. 4.Hypokalemia. Repletion with potassium chloride. Monitor magnesium level and phosphorus level. 5.Anemia due to acute blood loss with chest wall hematoma. Monitor CBC, INR, PT, and PTT. EB/MODL Voice ID: [id number] Report ID: [id number]
[2023-03-17 06:22] LABS: Absolute Lymphocytes (CBC) 0.7 K/uL (0.7-4.9); Hematocrit 23.6 % (36.0-45.0); Lymphocytes % 26.6 % (15.3-44.8); MCV 95.1 fL (80-100); MPV 8.2 fL (7.6-11.3); RBC Red Blood Cell Count 2.48 M/uL (3.86-4.86)
[2023-03-17 06:30] LABS: Magnesium 1.6 mg/dL (1.6-2.4); Potassium 3.5 mEq/L (3.5-5.1)
--- NOTE | 2023-03-17 06:46 | ECHO ---
HEIGHT: 5 ft 6 in WEIGHT: 347 lb 0 oz DATE OF STUDY: 03/16/[address]: Molly Pearson MD 2-DIMENSIONAL: YES M.MODE: YES DOPPLER: YES COLOR FLOW: YES TDS: PORTABLE: YES DEFINITY: BUBBLE STUDY: DIAGNOSIS: RE-EVALUATE RIGHT HEART STRAIN CARDIAC HISTORY: CATHERIZATION: SURGERY: PROSTHETIC VALVE: PACEMAKER: MEASUREMENTS (cm) DIASTOLIC (NORMALS) SYSTOLIC (NORMALS) IVSd (0.6-1.2) LA Diam (1.9-4.0) LVEF 55-60% LVIDd (3.5-5.7) LVIDs (2.0-3.5) %FS % LVPWd (0.6-1.2) Ao Diam (2.0-3.7) 2 DIMENSIONAL ASSESSMENT: RIGHT ATRIUM: NORMAL LEFT ATRIUM: NORMAL RIGHT VENTRICLE: NORMAL LEFT VENTRICLE: NORMAL TRICUSPID VALVE: MILD TRICUSPID REGURGITATION MITRAL VALVE: MILD MITRAL REGURGITATION PULMONIC VALVE: NORMAL AORTIC VALVE: NORMAL PERICARDIAL EFFUSION: NONE AORTIC ROOT: NORMAL LEFT VENTRICULAR WALL MOTION: NORMAL DOPPLER/COLOR FLOW: SEE BELOW COMMENTS: 1. NORMAL LEFT VENTRICULAR EJECTION FRACTION 55-60% 2. MILD TRICUSPID REGURGITATION / MITRAL REGURGITATION 3. NORMAL LEFT VENTRICULAR WALL MOTION 4. NORMAL RIGHT VENTRICULAR SIZE AND FUNCTION 5. NORMAL DIASTOLIC FUNCTION TECHNOLOGIST: TOMI BHATTI
[2023-03-17 07:30] LABS: Blood Morphology Comment NOT SEEN (NOT SEEN); Platelet Estimate ADEQ; White Blood Cell Scan OK (OK)
[2023-03-17] MEDS: BUSPIRONE HCL 5 MG TABLET PO SCH (08:05)
[2023-03-17] MEDS: SERTRALINE HCL 100 MG TAB PO SCH (08:05)
[2023-03-17] MEDS: allopurinoL 100 MG TAB PO SCH (08:05)
[2023-03-17] MEDS: SOLIFENACIN SUCCIN 5 MG TAB PO SCH (08:06)
[2023-03-17] MEDS: APIXABAN 5 MG TABLET PO SCH (08:06)
[2023-03-17] MEDS: ENSURE MAX PROTEIN 330 ML LIQUID PO SCH (08:08)
[2023-03-17] MEDS ORDERED: GABAPENTIN 300 MG CAP PO SCH (09:00)
[2023-03-17] MEDS ORDERED: MAGNESIUM SULFATE 1 gm IVPB 1 GM/100 ML BAG IV ONE (09:00)
[2023-03-17] MEDS ORDERED: POTASSIUM 25 MEQ EFFERV TAB PO ONE (09:00)
--- NOTE | 2023-03-17 10:14 | P.PN ---
Subjective Date of Service: 03/17/23 Chief Complaint: Right pectoral hematoma Subjective: Improving Physical Examination - Vital Signs Temperature: 97.1 F Blood Pressure: 138/62 Pulse: 83 Respirations: 18 Pulse Ox (%): 95 - Physical Exam General: Alert, In no apparent distress, Oriented x3 Respiratory: Normal air movement Gastrointestinal: Soft and benign Integumentary: No rashes, No breakdown, No erythema, No warmth (Echymosis improved, Wound VAC tratment in progress) - Studies Medications List Reviewed: Yes Assessment And Plan - Plan f/u at wound healing center on discharge cont Wound VAC Physician Review: Patient Assessed, Agree with Above Assessment and Plan
[2023-03-17 11:52] VITALS: BP 135/61; TEMP 97.3
--- NOTE | 2023-03-17 13:16 | P.DS ---
Admission Date: 02/28/23 Discharge Date: 03/17/23 Disposition: TRANSFER TO [facility] Discharge Condition: GOOD Reason for Admission: Right pectoral hematoma Consultations: 1. Pulmonology 2. Cardiology 3. General Surgery 4. Orthopedic Surgery Procedures: - 03/06/2023 - IVC Filter Placement - 03/11/2023 - Right Chest Wall Hematoma Hospital Course: DIAGNOSES: # Multiple Extensive Bilateral Occlusive Pulmonary Emboli with Right Heart Strain s/p Tenecteplase complicated by Right Chest Wall Hematoma s/p IVC Filter Placement # Acute Blood Loss Anemia due to above stable # Sepsis likely secondary to Left-Sided Community Acquired Pneumonia (COVID-19 pneumonia?) - POA # KDIGO Stage II Acute Kidney Injury due to Blood Loss - resolved # Partial Herniation of Right Middle Lung Lobe through Chest Wall Defect # Stage II Sacral Pressure Ulcer # Depression # Anxiety # Gout # Right Ankle Distal Fibula Fracture s/p ORIF (01/31/2023) # Right Ankle Syndesmosis Injury s/p ORIF (01/31/2023) # Left Thyroid Mass (3.8 cm x 5.3 cm) # Fluid Collection adjacent to Right Heart Border (6.8 cm x 2.5 cm) - possible Pericardial Cyst # Right Hepatic Lobe Hypodense Lesion (2.2 cm) # History of Breast Cancer s/p Bilateral Mastectomy in Remission # History of Lung Cancer s/p Right Upper Lobe Removal in Remission HOSPITAL COURSE: Ms. Jeanine Jansen is a pleasant 67 year old female with a past medical history significant for breast cancer s/p bilateral mastectomy in remission, lung cancer s/p right upper lobe removal in remission, depression, anxiety, and gout who was admitted to the [facility] on 02/28/2023 for shortness of breath. She was admitted to the Medicine service. Upon further evaluation, her CT chest angiogram revealed, "1. Extensive bilateral pulmonary emboli involving the right and left pulmonary arteries as well as lobar, segmental, and subsegmental arterial branches. 2. Findings concerning for right heart strain. 3. Consolidative changes in the left lower lobe and multifocal opacities in both lungs which could be related to pneumonia or edema. 4. Small left pleural effusion. 5. Incompletely characterized right hepatic lobe lesion which can be followed up as appropriate. 6. Left thyroid lobe mass again demonstrated, follow-up ultrasound recommended if not already performed. 7. Low-density fluid collection adjacent to the right heart border again noted may represent a pericardial cyst." Pulmonology was consulted and she was evaluated by Dr. Singh. Due to concern for right heart strain and hemodynamic instability, she was given tenecteplase. Her bilateral lower extremity Doppler revealed, "no sonographic evidence of left or right lower extremity deep venous thrombosis." Shortly after admission, she developed a right anterior chest wall hematoma. A right upper extremity ultrasound revealed, "no evidence of DVT in the right upper extremity. 7.4 centimeter collection in the soft tissues of the right upper chest wall, could represent a hematoma." A CT dissection protocol revealed, "1. Noncontrast exam due to contrast extravasation. 2. Large right chest wall hematoma. 3. Improved aeration in the left lower lobe. Trace residual left-sided pleural effusion. 4. No acute abnormality identified in the abdomen or pelvis on this exam." She then developed acute blood loss anemia, requiring pRBC transfusion. General Surgery and Cardiology were consulted. From the cardiac prespective, she was evaluated by Dr. Payan, who placed an IVC filter on 03/06/2023. Despite monitoring, her hematoma continued to increase in size. On 03/11/2023, Dr. Avila preformed a hematoma evacuation. She was monitored in the hospital, and exhibited no further signs of bleeding. Dr. Avila, Dr. Boles, and Dr. Singh have cleared her for discharge with outpatient follow- up Incidentally during her evaluation, her chest x-ray revealed, "[id number] opacities left lung probably pneumonia." She was started on piperacillin- tazobactam, with significant improvement in her symptoms. She was transitioned to amoxicillin-clavulanate at discharge to complete her course of antibiotics. Of note, she was also found to have a left thyroid mass, a fluid collection adjacent to her right heart border, and a right hepatic lobe hypodense lesion. She was counseled extensively on these findings and the potential for an underlying malignancy. She was advised to follow-up with her PCP as well as with oncology for further evaluation. She verbalized understanding and agreed to make these appointments On 03/17/2023, she was seen on rounds and deemed medically stable for discharge. She was discharged with instructions to schedule follow-up appointments with her PCP (Dr. Bull), with General Surgery (Dr. Avila), with Pulmonology (Dr. Singh), with Cardiology (Dr. Boles), with Orthopedic Surgery (Dr. Flores), and with Oncology (Dr. Barrientos). She was given the opportunity to ask questions and reported no further questions. Furthermore, all questions were answered to the best of my ability. A copy of this discharge summary will be sent to the above providers to facilitate continuity of care. Today, I personally spent 45 minutes on her case, of which greater than 50% of the time was spent in patient education, counseling, and coordination of care as described above. - Physical Exam General: Alert, In no apparent distress, Oriented x3 HEENT: Atraumatic, Mucous membr. moist/pink, Sclerae nonicteric Respiratory: Clear to auscultation bilaterally, Diminished Cardiovascular: Regular rate/rhythm, No murmurs, Edema (trace-1+ BLE) Gastrointestinal: Normal bowel sounds, Soft, Non-distended, No tenderness Musculoskeletal: No clubbing Integumentary: Other (wound-VAC to right-chest wall. Bruising over bilateral chest wall.) Vital Signs/Physical Exam: Temp Pulse Resp BP Pulse Ox 97.3 F 82 18 135/61 94 03/17/23 11:51 03/17/23 11:51 03/17/23 11:51 03/17/23 11:51 03/17/23 11:51 Laboratory Data at Discharge: WBC 2.50 thou/uL (4.3-10.9) L 03/17/23 05:57 Hgb 7.9 g/dL (12.0-15.0) L 03/17/23 05:57 Hct 23.6 % (36.0-45.0) L 03/17/23 05:57 Plt Count 152 thou/uL (152-406) 03/17/23 05:57 PT 11.5 SECONDS (9.5-12.5) 03/12/23 05:56 INR 1.05 03/12/23 05:56 APTT 27.5 SECONDS (24.3-36.9) 03/12/23 05:56 Sodium 140 mEq/L (136-145) 03/17/23 05:57 Potassium 3.5 mEq/L (3.5-5.1) 03/17/23 05:57 BUN 20 mg/dL (7-18) H 03/17/23 05:57 Creatinine 0.72 mg/dL (0.55-1.02) 03/17/23 05:57 Glucose 109 mg/dL (74-106) H 03/17/23 05:57 Uric Acid 7.2 mg/dL (2.6-6.0) H 03/06/23 04:02 Phosphorus 3.0 mg/dL (2.5-4.9) 03/10/23 06:00 Magnesium 1.6 mg/dL (1.6-2.4) 03/17/23 05:57 Total Bilirubin 0.7 mg/dL (0.2-1.0) 03/15/23 05:46 AST 21 U/L (15-37) 03/15/23 05:46 ALT 18 U/L (13-56) 03/15/23 05:46 Alkaline Phosphatase 47 U/L (45-117) 03/15/23 05:46 Triglycerides 88 mg/dL (<150) 03/01/23 03:35 Cholesterol 132 mg/dL (<200) 03/01/23 03:35 HDL Cholesterol 40 mg/dL (40-60) 03/01/23 03:35 Cholesterol/HDL Ratio 3.30 03/01/23 03:35 Home Medications: RX: Allopurinol 100 mg PO DAILY 01/30/23 RX: Gabapentin 300 mg PO DAILY 01/30/23 RX: Gabapentin 600 mg PO BEDTIME 01/30/23 RX: Hydrocodone 10/APAP 325 [[place] 10/325*] 1 tab PO Q12HP PRN 01/30/23 RX: Losartan Potassium [Cozaar*] 50 mg PO DAILY 01/30/23 RX: Sertraline [Zoloft*] 200 mg PO DAILY 01/30/23 RX: Solifenacin [Vesicare*] 10 mg PO DAILY 01/30/23 RX: Docusate [Colace Cap*] 200 mg PO DAILY PRN cap 02/05/23 RX: Buspirone HCl [Buspar] 10 mg PO DAILY 02/28/23 RX: Oxybutynin Chloride [Oxybutynin Chloride ER] 5 mg PO DAILY 02/28/23 RX: Amox/Clavulanate [Augmentin 875-125 Tab*] 875 mg PO BID 7 Days #14 tab 03/17/23 RX: Apixaban [Eliquis] 5 mg PO BID 03/17/23 New Medications: RX: Amox/Clavulanate [Augmentin 875-125 Tab*] 875 mg PO BID 7 Days #14 tab Physician Discharge Instructions: 1. Please call and schedule an appointment with your PCP (Dr. Bull) in 3-5 days 2. Please call and schedule an appointment with Oncology (Dr. Barrientos) in 3-5 days - As we discussed, please discuss your thyroid mass and liver spot with your PCP and Oncology 3. Please call and schedule an appointment with Cardiology (Dr. Boles) in 5-7 days - Please discuss the spot next to your heart with Cardiology 4. Please call and schedule an appointment with Pulmonology (Dr. Singh) in 5- 7 days 5. Please call and schedule an appointment with General Surgery (Dr. Avila) in 5-7 days 6. Please call and schedule an appointment with Orthopedic Surgery (Dr. Flores) in 5-7 days Diet: AHA Activity: Fall precautions Followup: Etienne Bull DO [ACTIVE - CAN ADMIT] - Nehemiah Singh MD [ACTIVE - CAN ADMIT] - Manolo Boles MD [ACTIVE - CAN ADMIT] - Vineet Flores MD [ACTIVE - CAN ADMIT] - Angelica Cantu MD [ACTIVE - CAN ADMIT] - Tony Avila MD [ACTIVE - CAN ADMIT] - Time spent managing pt's care (in minutes): 45
--- NOTE | 2023-03-17 15:07 | PN ---
Date of Progress Note: 03/17/2023 Subjective: The patient was admitted with PE, status post thrombolysis complicated with chest wall hematoma and acute kidney injury. Physical Examination: Vital Signs: Blood pressure 135/61, pulse of 82. Chest: Dressing on the right side. No crackles. Heart: S1, S2. Regular. Abdomen: Soft, nontender. Morbidly obese, could not appreciate any organomegaly. Extremities: Trace edema. Neurologic: Alert. No focality. Laboratory Data: Hemoglobin 7.9. Sodium 140, potassium 3.5, bicarb 33, BUN 20, creatinine 0.7, calcium 9.2, magnesium 1.7. Current Medications: The patient is on include; 1. Augmentin. 2. Breathing treatment. 3. Eliquis. 4. Gabapentin. 5. Zoloft. 6. Ensure. 7. Zofran. 8. Magnesium sulfate. Assessment And Plan: 1. Acute kidney injury secondary to poor perfusion, ATN, recovered, resolved. Normal volume. We will continue to monitor. 2. Hypertension, controlled, optimal. Continue current treatment. 3. Pulmonary embolism, status post thrombolysis. We will follow up with primary. 4. Chest wall hematoma, status post I and D. Follow up with Surgery. 5. Hypomagnesemia, status post supplement. The patient cleared from the Renal standpoint for discharge planning. Time spent examining the patient [id number], reviewing data, lab and radiology, placing order, discussing the case with the patient, discussing the case with the bakery team member including nurse more than 35 minutes CARSON Voice ID: [id number] Report ID: [id number]
[2023-03-17] MEDS ORDERED: AMOX/K CLAV 875 MG TAB PO SCH (21:00)
== END 2023-03-17 15:35 | DRG 853 ==
LOC: ER 20:50 → 3RD-ICU 02-28 01:24 → 4TH 02-28 11:15
PROVIDERS: ADMIT Internal Medicine Sleep Medicine; ATTEND Internal Medicine
PROC: 3E03317 Introduction of Other Thrombolytic into Peripheral Vein, Percutaneous Approach (ICD-10-PCS; 2023-03-03)
PROC: 30233N1 Transfusion of Nonautologous Red Blood Cells into Peripheral Vein, Percutaneous Approach (ICD-10-PCS; 2023-03-05)
PROC: 06H03DZ Insertion of Intraluminal Device into Inferior Vena Cava, Percutaneous Approach (ICD-10-PCS; 2023-03-06)
PROC: 02HV33Z Insertion of Infusion Device into Superior Vena Cava, Percutaneous Approach (ICD-10-PCS; 2023-03-08)
PROC: 0JC60ZZ Extirpation of Matter from Chest Subcutaneous Tissue and Fascia, Open Approach (ICD-10-PCS; 2023-03-11)
PROC: 0JB60ZZ Excision of Chest Subcutaneous Tissue and Fascia, Open Approach (ICD-10-PCS; principal; 2023-03-11 11:30)
DX: A41.9 Sepsis, unspecified organism (principal); I26.99 Other pulmonary embolism without acute cor pulmonale; N17.0 Acute kidney failure with tubular necrosis; J18.9 Pneumonia, unspecified organism; U07.1 COVID-19; T81.718A Complication of other artery following a procedure, not elsewhere classified, initial encounter; Z68.43 Body mass index [BMI] 50.0-59.9, adult; R04.2 Hemoptysis; D62 Acute posthemorrhagic anemia; E66.01 Morbid (severe) obesity due to excess calories; I95.89 Other hypotension; I10 Essential (primary) hypertension; D50.9 Iron deficiency anemia, unspecified; F32.A Depression, unspecified; M10.9 Gout, unspecified; I89.0 Lymphedema, not elsewhere classified; M19.90 Unspecified osteoarthritis, unspecified site; E83.39 Other disorders of phosphorus metabolism; E83.42 Hypomagnesemia; F41.9 Anxiety disorder, unspecified; E07.9 Disorder of thyroid, unspecified; K76.9 Liver disease, unspecified; E26.1 Secondary hyperaldosteronism; E87.6 Hypokalemia; L89.152 Pressure ulcer of sacral region, stage 2; E26.9 Hyperaldosteronism, unspecified; S20.211A Contusion of right front wall of thorax, initial encounter; Z60.2 Problems related to living alone; Z88.8 Allergy status to other drugs, medicaments and biological substances; Z85.3 Personal history of malignant neoplasm of breast; Z88.1 Allergy status to other antibiotic agents; Z90.2 Acquired absence of lung [part of]; Z88.5 Allergy status to narcotic agent; Z79.01 Long term (current) use of anticoagulants; Z90.13 Acquired absence of bilateral breasts and nipples; Z79.899 Other long term (current) drug therapy; Z85.118 Personal history of other malignant neoplasm of bronchus and lung
CPT/HCPCS: 0240U; 36415; 36430; 71045; 71275; 74175; 76770; 76937; 80048; 80053; 80061; 80069; 81003; 82550; 82570; 82607; 82652; 82728; 82805; 82947; 83520; 83540; 83605; 83735; 83880; 83935; 84100; 84132; 84156; 84165; 84166; 84300; 84443; 84466; 84484; 84550; 85014; 85018; 85025; 85027; 85044; 85379; 85610; 85730; 86021; 86038; 86147; 86160; 86225; 86235; 86334; 86430; 86850; 86900; 86901; 86920; 87040; 87070; 87075; 87205; 87389; 88304; 92977; 93005; 93306; 93970; 93971; 96365; 96367; 96375; 97110; 97161; 99285; C1893; J0461; J0692; J0694; J0696; J1170; J1940; J2001; J2250; J2405; J2543; J2704; J3010; J3101; J3430; J3475; J3480; J7030; J7040; J7050; J7120; P9016; P9047; Q9967

== ENCOUNTER 2024-10-25 06:04 | Emergency (ER) | payer OTHER ==
--- NOTE | 2024-10-25 06:56 | ER ---
Nurse's Notes [facility] Name: Jeanine Jansen Age: 69 yrs Sex: Female : 1955 Arrival Date: 10/25/2024 Time: 06:04 Bed 12 Private MD: Diagnosis: Baseline exam, viral illness Presentation: 10/25 06:06 Chief complaint: EMS states: reports fever of 99.5 upon arrival and heart rate of 116. cp4 EMS gave 1G tylenol. Patient reports no symptoms. Coronavirus screen: Client denies travel out of the [place] in the last 14 days. At this time, the client does not indicate any symptoms associated with coronavirus-19. Ebola Screen: Patient negative for fever greater than or equal to 101.5 degrees Fahrenheit, and additional compatible Ebola Virus Disease symptoms Patient denies exposure to infectious person. Patient denies travel to an Ebola-affected area in the 21 days before illness onset. No symptoms or risks identified at this time. Initial Sepsis Screen: Does the patient meet any 2 criteria? HR > 90 bpm. No. Patient's initial sepsis screen is negative. Does the patient have a suspected source of infection? No. Patient's initial sepsis screen is negative. Risk Assessment: Do you want to hurt yourself or someone else? Patient reports no desire to harm self or others. Onset of symptoms was October 25, 2024. 06:06 Method Of Arrival: EMS: [facility] 06:06 Acuity: [facility] 4 cp4 Triage Assessment: 06:08 General: Appears in no apparent distress. comfortable, Behavior is calm, cooperative, cp4 appropriate for age. Pain: Denies pain. EENT: No signs and/or symptoms were reported regarding the EENT system. Neuro: Level of Consciousness is awake, alert, obeys commands, Oriented to person, place, time, situation. Cardiovascular: Patient's skin is warm and dry. Respiratory: Airway is patent Respiratory effort is even, unlabored. GI: No signs and/or symptoms were reported involving the gastrointestinal system. : No signs and/or symptoms were reported regarding the genitourinary system. Derm: No signs and/or symptoms reported regarding the dermatologic system. Musculoskeletal: No signs and/or symptoms reported regarding the musculoskeletal system. Historical: - Allergies: 06:08 Demerol; cp4 06:08 Lisinopril; cp4 - PMHx: 06:08 Arthritis; BREAST CA; depressive disorder; Hypertension; Lung CA; cp4 - Immunization history:: Adult Immunizations up to date. - Infectious Disease History:: Denies. - Social history:: Smoking status: Patient denies any tobacco usage or history of. Screenin:10 [facility] ED Fall Risk Assessment (Adult) History of falling in the last 3 months, cp4 including since admission No falls in past 3 months (0 pts) Confusion or Disorientation No (0 pts) Intoxicated or Sedated No (0 pts) Impaired Gait No (0 pts) Mobility Assist Device Used Yes (1 pt) Altered Elimination No (0 pt) Score/Fall Risk Level 0 - 2 = Low Risk Oriented to surroundings, Maintained a safe environment, Assessed \T\ reinforced patient's understanding of fall precautions, Hourly rounding (assess needs \T\ fall precautionary measures) done. Abuse screen: Denies threats or abuse. Nutritional screening: No deficits noted. Tuberculosis screening: No symptoms or risk factors identified. Assessment: 06:10 Reassessment: No changes from previously documented assessment. cp4 07:03 Reassessment: DC ON HOLD FOR LONG-TERM TRANSPORT. bp 07:13 Reassessment: this nurse called report to [facility]. Spoke with OLIVIA Valdivia and gave ap3 report. 07:50 Reassessment: patient brief changed with nurse assistance. ap3 08:46 Reassessment: Called [facility], spoke to Skip about update for transfer aa5 back to [facility], Skip states transport will be here shortly. . 09:06 Reassessment: Received call from [facility] for EMS transport back to nursing aa home is 1 hr. . 09:30 Reassessment: Patient and/or family updated on plan of care and expected duration. Pain ap3 level reassessed. Vital Signs: 06:06 BP 117 / 69; Pulse 100; Resp 18; Temp 98.5; Pulse Ox 96% ; Pain 0/10; cp4 07:03 BP 116 / 64; Pulse 92; Resp 16; Pulse Ox 95% ; bp 06:06 Pain Scale: Adult cp4 ED Course: 06:06 Patient arrived in ED. cp4 06:06 Tomasa Jackson is Primary Nurse. cp4 06:07 Shawanda Bull MD is Attending Physician. sp3 06:08 Triage completed. cp4 06:08 Arm band placed on right wrist. Patient placed in an exam room, on a stretcher. cp4 06:10 Bed in low position. Call light in reach. Side rails up X2. cp4 06:10 No provider procedures requiring assistance completed. Patient did not have IV access cp4 during this emergency room visit. Administered Medications: No medications were administered Medication: 06:10 VIS not applicable for this client. cp4 Outcome: 06:56 Discharge ordered by . sp3 09:36 Discharged to home via wheelchair, bp 09:36 Condition: stable 09:36 Discharge instructions given to patient, Instructed on discharge instructions, follow up and referral plans. Demonstrated understanding of instructions, follow-up care, 09:37 Patient left the ED. bp Signatures: Cindy Fraga, RN RN aa5 Uri Conde RN RN bp Anahi Walton RN RN ap3 Shawanda Bull MD MD sp3 Tomasa Jackson cp4
--- NOTE | 2024-10-25 06:56 | EDPHYS ---
Physician Documentation [facility] Name: Jeanine Jansen Age: 69 yrs Sex: Female : 1955 Arrival Date: 10/25/2024 Time: 06:04 Bed 12 Private MD: ED Physician Shawanda Bull HPI: 10/25 06:13 This 69 yrs old Female presents to ER via EMS with complaints of possible fever and sp3 high heart rate 107. 06:13 61-year-old female with history of breast cancer not currently on treatment, sp3 hypertension, arthritis presents via EMS from nursing facility for possible fever and heart rate of 107. Patient states she has no idea why she is here and has no symptoms whatsoever. Patient denies feeling fever, headache, neck pain, chest pain, shortness of breath, abdominal pain, nausea, vomit, diarrhea, rash, known sick contacts, travel history, or any other signs or symptoms on ROS at this time.. Historical: - Allergies: 06:08 Demerol; cp4 06:08 Lisinopril; cp4 - PMHx: 06:08 Arthritis; BREAST CA; depressive disorder; Hypertension; Lung CA; cp4 - Immunization history:: Adult Immunizations up to date. - Infectious Disease History:: Denies. - Social history:: Smoking status: Patient denies any tobacco usage or history of. ROS: 06:14 Constitutional: Negative for fever, chills, and weight loss, Eyes: Negative for injury, sp3 pain, redness, and discharge, ENT: Negative for injury, pain, and discharge, Neck: Negative for injury, pain, and swelling, Cardiovascular: Negative for chest pain, palpitations, and edema, Respiratory: Negative for shortness of breath, cough, wheezing, and pleuritic chest pain, Abdomen/GI: Negative for abdominal pain, nausea, vomiting, diarrhea, and constipation, Back: Negative for injury and pain, MS/Extremity: Negative for injury and deformity, Skin: Negative for injury, rash, and discoloration, Neuro: Negative for headache, weakness, numbness, tingling, and seizure, Psych: Negative for depression, anxiety, suicide ideation, homicidal ideation, and hallucinations, Allergy/Immunology: Negative for hives, rash, and allergies, Endocrine: Negative for neck swelling, polydipsia, polyuria, polyphagia, and marked weight changes, 06:14 All other systems are negative, Exam: 06:15 Constitutional: This is a well developed, well nourished patient who is awake, alert, sp3 and in no acute distress. Head/Face: Normocephalic, atraumatic. Eyes: Pupils equal round and reactive to light, extra-ocular motions intact. Lids and lashes normal. Conjunctiva and sclera are non-icteric and not injected. Cornea within normal limits. Periorbital areas with no swelling, redness, or edema. Neck: Trachea midline, no thyromegaly or masses palpated, and no cervical lymphadenopathy. Supple, full range of motion without nuchal rigidity, or vertebral point tenderness. No Meningismus. Chest/axilla: Normal chest wall appearance and motion. Nontender with no deformity. No lesions are appreciated. Cardiovascular: Regular rate and rhythm with a normal S1 and S2. No gallops, murmurs, or rubs. Normal PMI, no JVD. No pulse deficits. Respiratory: Lungs have equal breath sounds bilaterally, clear to auscultation and percussion. No rales, rhonchi or wheezes noted. No increased work of breathing, no retractions or nasal flaring. Abdomen/GI: Soft, non-tender, with normal bowel sounds. No distension or tympany. No guarding or rebound. No evidence of tenderness throughout. Back: No spinal tenderness. No costovertebral tenderness. Full range of motion. Skin: Warm, dry with normal turgor. Normal color with no rashes, no lesions, and no evidence of cellulitis. MS/ Extremity: Pulses equal, no cyanosis. Neurovascular intact. Full, normal range of motion. Neuro: Awake and alert, GCS 15, oriented to person, place, time, and situation. Cranial nerves II-XII grossly intact. Motor strength 5/5 in all extremities. Sensory grossly intact. Cerebellar exam normal. Normal gait. Psych: Awake, alert, with orientation to person, place and time. Behavior, mood, and affect are within normal limits. Vital Signs: 06:06 BP 117 / 69; Pulse 100; Resp 18; Temp 98.5; Pulse Ox 96% ; Pain 0/10; cp4 07:03 BP 116 / 64; Pulse 92; Resp 16; Pulse Ox 95% ; bp 06:06 Pain Scale: Adult cp4 MDM: 06:07 Medical Screening Exam initiated sp3 06:15 Data reviewed: vital signs, nurses notes, lab test result(s). ED course: 69-year-old sp3 female with PMH above currently with heart rate in the 95-98 range afebrile. Patient does not want any test done. However after discussion I have convinced her to at least let us to influenza and COVID-19. If negative we will safely discharge home at this time. Differential diagnosis includes normal baseline versus viral illness. I am not highly suspicious for sepsis, shock or any other critical pathology.. 06:55 ED course: Swabs are negative and we will safely discharge patient home. Heart rate 94..sp3 10/25 06:07 Order name: Flu sp3 10/25 06:07 Order name: SARS RAPID sp3 Administered Medications: No medications were administered Disposition Summary: 10/25/24 06:56 Discharge Ordered Notes: Location: Home sp3 Condition: Stable sp3 Diagnosis - Baseline exam, viral illness sp3 Followup: sp3 - With: Private Physician - When: Upon discharge from the Emergency Department - Reason: Continuance of care Discharge Instructions: - Discharge Summary Sheet sp3 - Viral Illness, Adult sp3 Forms: - Medication Reconciliation Form sp3 - Antibiotic Education sp3 - Prescription Opioid Use sp3 - Patient Portal Instructions sp3 - Leadership Thank You Letter sp3 Signatures: Dispatcher [employer] EDShawanda Kevin MD MD sp3 Tomasa Jackson cp4 Corrections: (The following items were deleted from the chart) 06:08 06:08 Influenza Screen (A \T\ B)+BA.LAB.BRZ ordered. EDMS EDMS 06:08 06:08 SARS-COV-2 Antigen Rapid+I.LAB.BRZ ordered. EDMS EDMS
[2024-10-25 06:58] LABS: SARS-CoV-2 Antigen CONTROL BLUE LINE VIS/BG OK; SARS-CoV-2 Antigen Rapid Res Negative (Negative)
[2024-10-25 09:52] VITALS: TEMP 98.5
[2024-10-25 09:53] VITALS: BP 116/64; O2SAT 95
== END 2024-10-25 09:37 | disposition home or self-care (01) ==
LOC: ER 06:04
DX: B34.9 Viral infection, unspecified (principal); Z11.52 Encounter for screening for COVID-19; I10 Essential (primary) hypertension
CPT/HCPCS: 36415; 87804; 87811; 99283